=== PATIENT | female | born 1950 | race Caucasian/White ===

== ENCOUNTER 2017-07-20 22:16 | Emergency (ER) | payer OTHER ==
[~2017-07-20] VITALS: Ht 157.5 cm; Wt 107.8 kg
[~2017-07-20 22:16] MED LIST: LISI2.5T PO
[2017-07-20] MEDS ORDERED: amLODIPine 5 MG TAB PO ONE (23:15)
[2017-07-20 23:37] LABS: BASO % 0.3 % (0.0-1.0); EOS # 0.1 K/mm3 (0.0-0.50); EOS % 1.8 % (0.0-3.0); LARGE UNSTAINED CELL # 0.1 K/mm3 (0.0-0.4); LARGE UNSTAINED CELL % 1.3 % (0.0-4.0); LYMPH # 1.9 K/mm3 (1.5-4.5); LYMPH % 23.5 % (24.0-44.0); MEAN CORPUSCULAR HEMOGLOBIN 32.2 pg (27.0-33.0); MEAN CORPUSCULAR HGB CONC 33.1 g/dl (32.0-36.5); MEAN CORPUSCULAR VOLUME 97.2 fl (80.0-96.0); MONO # 0.4 K/mm3 (0.0-0.8); MONO % 4.5 % (0.0-5.0); NEUTROPHILS # 5.3 K/mm3 (1.8-7.7); NEUTROPHILS % 68.7 % (36.0-66.0); PLATELET COUNT, AUTOMATED 274 k/mm3 (150-450); RED CELL DISTRIBUTION WIDTH 13.3 % (11.5-14.5); WHITE BLOOD COUNT 7.8 K/mm3 (4.0-10.0)
[2017-07-20 23:51] VITALS: BP 179/102
[2017-07-21 00:13] LABS: ALBUMIN 3.4 GM/DL (3.2-5.2); ALBUMIN/GLOBULIN RATIO 0.79 (1.00-1.93); ALKALINE PHOSPHATASE 146 U/L (45-117); ALT/SGPT 35 U/L (12-78); ANION GAP 6 MEQ/L (8-16); AST/SGOT 17 U/L (15-37); BILIRUBIN,DIRECT 0.1 MG/DL (0.0-0.2); BILIRUBIN,TOTAL 0.4 MG/DL (0.2-1.0); BLOOD UREA NITROGEN 8 MG/DL (7-18); CALCIUM LEVEL 8.7 MG/DL (8.8-10.2); CARBON DIOXIDE LEVEL 27 MEQ/L (21-32); CHLORIDE LEVEL 103 MEQ/L (98-107); CREATININE FOR GFR 1.06 MG/DL (0.55-1.02); GLOMERULAR FILTRATION RATE 55.6 (>45); GLUCOSE, FASTING 92 MG/DL (80-110); POTASSIUM SERUM 3.9 MEQ/L (3.5-5.1); SODIUM LEVEL 136 MEQ/L (136-145); TOTAL PROTEIN 7.7 GM/DL (6.4-8.2)
[2017-07-21] MEDS ORDERED: ISOVUE-370 76% 100ML VIAL (Q9967) As Ordered ONE (00:42)
[2017-07-21 01:26] VITALS: BP 174/81
--- NOTE | 2017-07-21 01:30 | REPUSA ---
CLINICAL HISTORY: Abdominal pain. TECHNIQUE: Multiple axial, sagittal and coronal CT images were obtained through the abdomen and pelvi s after administration of oral and intravenous contrast material. COMMENTS: Umbilical anterior abdominal wall hernia containing diffusely thickened fat. The liver is moderately enlarged with decreased attenuation without mass or defect. There is no intra or extrahepatic biliary ductal dilatation. The spleen is normal. The gallbladder is within normal li mits. The pancreas is of normal contour and attenuation characteristics. There is no evidence of adre nal mass. Both kidneys demonstrate prompt and equal nephrograms. The kidneys are normal in size, shape and conf iguration. There is no evidence of renal or ureteral mass. No renal or ureteral calculi are identifie d. There is no hydroureter or hydronephrosis. No evidence for appendicitis. There is no bowel wall thickening. No evidence for small or large christ l obstruction. There is no evidence of abdominal ascites or lymphadenopathy. There is no evidence of intrinsic or extrinsic bladder mass. There is no pelvic ascites or lymphadeno alfred. Images of the lung bases show no evidence of pleural or parenchymal mass. There are no pleural effusi ons. The bony structures are free of lytic or blastic lesions. Multilevel degenerative changes are seen in volving the thoracolumbar spine. Scattered calcifications are seen involving the aorta and major bran ches compatible with atherosclerosis. Small sliding hiatal hernia. Moderate large bowel fecal stasis. IMPRESSION: Suprapubic anterior abdominal wall hernia containing diffusely thickened fat. This may represent a ch ronic finding. Associated incarceration cannot be excluded by clinical evaluation. Hepatomegaly with fatty liver infiltration. Small sliding hiatal hernia. Pacemaker lies in good position. Thank you for your kind referral of this patient.
[2017-07-21] MEDS ORDERED: NORV5TAB PO (02:29)
--- NOTE | 2017-07-23 10:18 | ED PDOC ---
Post-Departure Follow-Up dr snowden faxed formal report of ct abd/p for fu Nadeem Cunningham MD Jul 23, 2017 10:18
== END 2017-07-21 02:40 | disposition home or self-care (01) ==
LOC: M ED 22:16
DX: R10.9 Unspecified abdominal pain (principal); R11.0 Nausea; I10 Essential (primary) hypertension; Z79.899 Other long term (current) drug therapy; Z88.4 Allergy status to anesthetic agent
CPT/HCPCS: 74177; 80048; 80076; 82550; 82553; 83690; 85025; 93041; 99284; Q9967

== ENCOUNTER 2020-01-25 13:10 | Emergency (ER) | payer MEDICARE ==
[~2020-01-25 13:10] MED LIST changes: +NORV5TAB PO
[2020-01-25] MEDS ORDERED: ASPI81TA85 PO (13:33)
--- NOTE | 2020-01-25 14:12 | REP ---
CT BRAIN WITHOUT CONTRAST: HISTORY: Injury head, rule out bleed. No comparison study. 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 On bone window settings there is no evidence of skull fracture or incidental bony destructive lesion. Visualized paranasal sinuses are clear. No intraorbital abnormality is seen. On soft tissue window settings, the lateral, third, and fourth ventricles are normal in size and position. Murillo/white differentiation pattern is intact above below the tentorium. There is no evidence of intracranial hemorrhage. There is no evidence of infarct, mass, extra-axial fluid collection or midline shift. IMPRESSION: Generalized volume loss. Mild small vessel changes. No acute intracranial abnormality. No skull fracture or intracranial injury. There is mild left frontal scalp swelling. Electronically Signed by Cameron Jose MD 01/25/2020 02:54 P
[2020-01-25 14:20] LABS: BASO % 0.2 % (0.0-1.0); EOS # 0.1 10^3/uL (0.0-0.5); EOS % 0.7 % (0.0-3.0); HEMATOCRIT 44.9 % (36.0-47.0); HEMOGLOBIN 14.7 g/dl (12.0-15.5); LYMPH # 1.4 10^3/uL (1.5-5.0); LYMPH % 15.6 % (24.0-44.0); MEAN CORPUSCULAR HEMOGLOBIN 32.5 pg (27.0-33.0); MEAN CORPUSCULAR HGB CONC 32.7 g/dl (32.0-36.5); MEAN CORPUSCULAR VOLUME 99.1 fl (80.0-96.0); MONO # 0.7 10^3/uL (0.0-0.8); MONO % 8.1 % (0.0-5.0); NEUTROPHILS # 6.6 10^3/uL (1.5-8.5); NEUTROPHILS % 75.2 % (36.0-66.0); PLATELET COUNT, AUTOMATED 264 10^3/uL (150-450); RED BLOOD COUNT 4.53 10^6/uL (4.00-5.40); WHITE BLOOD COUNT 8.8 10^3/uL (4.0-10.0)
[2020-01-25 14:27] LABS: APPEARANCE, URINE HAZY (CLEAR); BACTERIA, URINE AUTO 1+ (NEGATIVE); BILIRUBIN, URINE AUTO NEGATIVE (NEGATIVE); BLOOD, URINE BLOOD 2+ (NEGATIVE); COLOR, URINE YELLOW (YELLOW); GLUCOSE, URINE (UA) AUTO NEGATIVE (NEGATIVE); KETONE, URINE AUTO NEGATIVE (NEGATIVE); LEUKOCYTE ESTERASE, URINE AUTO 2+ (NEGATIVE); MUCUS, URINE SMALL (NEGATIVE); NITRITE, URINE AUTO NEGATIVE (NEGATIVE); PROTEIN, URINE AUTO NEGATIVE (NEGATIVE); RBC, URINE AUTO 4 /HPF (0-3); SPECIFIC GRAVITY URINE AUTO 1.006 (1.002-1.035); SQUAMOUS EPITHELIAL CELL UR AU 1 /HPF (0-6); UROBILINOGEN, URINE AUTO 0.2 mg/dL (0.0-2.0); WBC, URINE AUTO 6 /HPF (0-3)
[2020-01-25] MEDS ORDERED: LISI10TA4 PO (14:42)
[2020-01-25] MEDS ORDERED: NEOSPORIN TOP OINT 15GM TOP ONE (14:45)
[2020-01-25 14:47] VITALS: BP 211/105
== END 2020-01-25 15:06 | disposition home or self-care (01) ==
LOC: M ED 13:10
DX: S01.01XA Laceration without foreign body of scalp, initial encounter (principal); W22.8XXA Striking against or struck by other objects, initial encounter; Y92.098 Other place in other non-institutional residence as the place of occurrence of the external cause; I10 Essential (primary) hypertension; Z95.0 Presence of cardiac pacemaker; F17.210 Nicotine dependence, cigarettes, uncomplicated

== ENCOUNTER 2020-07-14 16:30 | Inpatient (IN) | payer MEDICARE ==
[~2020-07-14] VITALS: Ht 157.5 cm; Wt 77.9 kg
[~2020-07-14 16:30] MED LIST changes: +ASPI81TA86 PO; +LISI10TA4 PO
[2020-07-14] MEDS ORDERED: ISOVUE-370 76% 100ML VIAL As Ordered ONE (17:27)
[2020-07-14] MEDS ORDERED: CEFEPIME 2GM VIAL (MAXIPIME) (J0692 PER 500MG) As Ordered ONE (19:28)
[2020-07-14] MEDS ORDERED: KCL 10MEQ IN STERILE WATER 100ML As Ordered ONE (19:28)
[2020-07-14] MEDS ORDERED: metroNIDAZOLE/NACL 500MG(5MG/ML) 100ML BAG (S0030) As Ordered ONE (23:02)
[2020-07-15] MEDS ORDERED: ENOXAPARIN 40MG/0.4ML SYRINGE (J1650 PER 10MG) As Ordered ONE (07:40)
[2020-07-15] MEDS ORDERED: metroNIDAZOLE/NACL 500MG(5MG/ML) 100ML BAG (S0030) As Ordered ONE ×2 (07:40→15:09)
[2020-07-15] MEDS ORDERED: ASPIRIN 81 MG ENTERIC TAB As Ordered ONE (07:40)
[2020-07-15] MEDS ORDERED: ONDANSETRON 4 MG TAB As Ordered ONE ×2 (08:55→15:16)
[2020-07-15] MEDS ORDERED: LISI10TA4 PO (09:50)
[2020-07-15] MEDS ORDERED: POTASSIUM CHLORIDE 10 MEQ SR TABLET As Ordered ONE (12:53)
[2020-07-15] MEDS ORDERED: BISACODYL 10 MG SUPP PR PRN (13:30)
[2020-07-15] MEDS ORDERED: ISOVUE-370 76% 100ML VIAL As Ordered ONE (17:04)
[2020-07-15] MEDS ORDERED: BISACODYL 5 MG TAB PO PRN (19:00)
[2020-07-15] MEDS ORDERED: RAMELTEON 8 MG TAB (ROZEREM) PO PRN (19:00)
[2020-07-15 21:50] LABS: HEMATOCRIT 37.9 % (36.0-47.0); HEMOGLOBIN 12.5 g/dl (12.0-15.5); MEAN CORPUSCULAR HEMOGLOBIN 32.2 pg (27.0-33.0); MEAN CORPUSCULAR VOLUME 97.7 fl (80.0-96.0); PLATELET COUNT, AUTOMATED 115 10^3/uL (150-450); RED BLOOD COUNT 3.88 10^6/uL (4.00-5.40)
[2020-07-15 22:00] VITALS: BP 126/64
[2020-07-15 22:02] LABS: APPEARANCE, URINE HAZY (CLEAR); BACTERIA, URINE AUTO 1+ (NEGATIVE); BILIRUBIN, URINE AUTO NEGATIVE (NEGATIVE); BLOOD, URINE BLOOD 1+ (NEGATIVE); COLOR, URINE YELLOW (YELLOW); GLUCOSE, URINE (UA) AUTO NEGATIVE (NEGATIVE); KETONE, URINE AUTO 1+ mg/dL (NEGATIVE); LEUKOCYTE ESTERASE, URINE AUTO 3+ (NEGATIVE); NITRITE, URINE AUTO NEGATIVE (NEGATIVE); PROTEIN, URINE AUTO NEGATIVE (NEGATIVE); RBC, URINE AUTO 2 /HPF (0-3); SPECIFIC GRAVITY URINE AUTO 1.033 (1.002-1.035); SQUAMOUS EPITHELIAL CELL UR AU 3 /HPF (0-6); UROBILINOGEN, URINE AUTO 0.2 mg/dL (0.0-2.0); WBC, URINE AUTO 4 /HPF (0-3)
[2020-07-15] MEDS: NS 1,000 ML IV SCH (22:19)
[2020-07-16 06:00] VITALS: BP 145/88
[2020-07-16 06:17] LABS: HEMATOCRIT 37.2 % (36.0-47.0); HEMOGLOBIN 12.6 g/dl (12.0-15.5); MEAN CORPUSCULAR HEMOGLOBIN 33.1 pg (27.0-33.0); MEAN CORPUSCULAR HGB CONC 33.9 g/dl (32.0-36.5); MEAN CORPUSCULAR VOLUME 97.6 fl (80.0-96.0); PLATELET COUNT, AUTOMATED 110 10^3/uL (150-450); RED BLOOD COUNT 3.81 10^6/uL (4.00-5.40); WHITE BLOOD COUNT 5.3 10^3/uL (4.0-10.0)
[2020-07-16 06:45] LABS: BLOOD UREA NITROGEN 12 MG/DL (7-18); CALCIUM LEVEL 7.6 MG/DL (8.8-10.2); CARBON DIOXIDE LEVEL 29 MEQ/L (21-32); CHLORIDE LEVEL 105 MEQ/L (98-107); CREATININE FOR GFR 0.93 MG/DL (0.55-1.30); GLOMERULAR FILTRATION RATE > 60.0 (>45); GLUCOSE, FASTING 72 MG/DL (70-100); MAGNESIUM LEVEL 1.9 MG/DL (1.8-2.4); POTASSIUM SERUM 3.1 MEQ/L (3.5-5.1); SODIUM LEVEL 140 MEQ/L (136-145)
[2020-07-16] MEDS: metroNIDAZOLE 500 MG in IV 1 EA IV SCH ×3 (08:03→23:20)
[2020-07-16] MEDS: ASPIRIN 81 MG ENTERIC TAB PO SCH (08:04)
[2020-07-16] MEDS: ENOXAPARIN 40MG/0.4ML SYRINGE (J1650 PER 10MG) SC SCH (08:04)
[2020-07-16] MEDS: NS 1,000 ML IV SCH ×2 (08:10→20:25)
[2020-07-16] MEDS: POTASSIUM CHLORIDE 10% LIQ 20 MEQ/15 ML UDC PO ONE ×2 (09:41→09:55)
[2020-07-16] MEDS ORDERED: POTASSIUM CHLORIDE 10 MEQ SR TABLET PO ONE (11:00)
[2020-07-16 14:00] VITALS: BP 116/69
--- NOTE | 2020-07-16 17:17 | IPNPDOC ---
Date Seen The patient was seen on 07/16/20. Progress Note SUBJECTIVE: Pt is seen at bedside this am. NAD. no acute events overnight. Abd pain has improved from yesterday. CTA of abdomen pending OBJECTIVE VITAL SIGNS: Please see below. GENERAL: NAD, resting comfortably in a chair, no accessory m use, no retractions HEENT: head atruamitc EOMI, mucosa moist NECK: no lymadenopathy, neck supple no thyromegaly CARDIOVASCULAR EXAMINATION: Ns1,2, no m/g/r RESPIRATORY EXAMINATION: no wheezing, rhonci or rales ABDOMINAL EXAMINATION: large ventral hernia, nt, nd, nbs EXTREMITIES/SKIN :no pitting edema, no bruising, cyanosis, clubbing or hematomas NEUROLOGICAL EXAMINATION: no focal neuro deficits PSYCHIATRIC EXAMINATION: appropriate mood and affect LABORATORY DATA, IMAGING STUDIES, MICROBIOLOGY: Please see below. 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 Vanegas (Vascular surgery) and Dr. Jose (Radiology)- splenic infarction and possible occlusion of splenic artery vs tortuous vessel vs positional - Gen surgery consult (Dr. Grace)- No surgical intervention at this time and pain control and IV fluids - Continue zofran for nausea - Continue PT/OT DVT ppx: Lovenox 40mg SubQ daily VS, I&O, 24H, Fishbone Vital Signs/I&O Vital Signs Date Time Temp Pulse Resp B/P (MAP) Pulse Ox O2 Delivery O2 Flow Rate FiO2 07/16/20 14:00 97.2 66 17 116/69 (85) 97 Room Air I&O- Last 24 Hours up to 6 AM 07/16/20 05:59 Intake Total 220 ml Output Total 600 ml Balance -380 ml Laboratory Data 24H LABS Laboratory Tests 2 07/16/20 05:22: Nucleated Red Blood Cells % (auto) 0.0, Anion Gap 6L, Glomerular Filtration Rate > 60.0, Calcium Level 7.6L, Magnesium Level 1.9 CBC/BMP Laboratory Tests 07/16/20 05:22 GME ATTESTATION GME ATTESTATION My faculty preceptor for this patient encounter was physically present during the encounter and was fully available. All aspects of the patient interview, examination, medical decision making process, and medical care plan development were reviewed and approved by the faculty preceptor. The faculty preceptor is aware and concurs with the plan as stated in the body of this note and will attest to such by his/her cosignature. ATTENDING NOTE Patient independently seen and examined. Agree with resident's note. Heather Treviño DO Jul 16, 2020 17:17 BROOKLYN ARAIZA MD Aug 12, 2020 11:28
[2020-07-16 22:00] VITALS: BP 120/70
[2020-07-16] MEDS ORDERED: metroNIDAZOLE 500 MG in IV 1 EA IV SCH (23:00)
[2020-07-17] VITALS (9 sets, daily range): BP systolic 76–154; BP diastolic 46–98
[2020-07-17 06:29] LABS: HEMATOCRIT 34.6 % (36.0-47.0); HEMOGLOBIN 11.9 g/dl (12.0-15.5); MEAN CORPUSCULAR HEMOGLOBIN 32.8 pg (27.0-33.0); MEAN CORPUSCULAR HGB CONC 34.4 g/dl (32.0-36.5); MEAN CORPUSCULAR VOLUME 95.3 fl (80.0-96.0); PLATELET COUNT, AUTOMATED 103 10^3/uL (150-450); RED BLOOD COUNT 3.63 10^6/uL (4.00-5.40); WHITE BLOOD COUNT 4.7 10^3/uL (4.0-10.0)
[2020-07-17 06:52] LABS: BLOOD UREA NITROGEN 7 MG/DL (7-18); CALCIUM LEVEL 7.8 MG/DL (8.8-10.2); CARBON DIOXIDE LEVEL 26 MEQ/L (21-32); CHLORIDE LEVEL 106 MEQ/L (98-107); CREATININE FOR GFR 0.73 MG/DL (0.55-1.30); GLOMERULAR FILTRATION RATE > 60.0 (>45); GLUCOSE, FASTING 82 MG/DL (70-100); MAGNESIUM LEVEL 1.5 MG/DL (1.8-2.4); SODIUM LEVEL 139 MEQ/L (136-145)
--- NOTE | 2020-07-17 07:53 | IPNPDOC ---
Date Seen The patient was seen on 07/17/20. Progress Note SUBJECTIVE: Pt was seen at bedside this am. states her pain is better controlled. Denies any CP, sob, abdominal discomfort. No acute events overnight. OBJECTIVE PHYSICAL EXAMINATION: VITAL SIGNS: Please see below. GENERAL: NAD, resting comfortably in a chair, no accessory m use, no retractions HEENT: head atruamitc EOMI, mucosa moist NECK: no lymadenopathy, neck supple no thyromegaly CARDIOVASCULAR EXAMINATION: Ns1,2, no m/g/r RESPIRATORY EXAMINATION: no wheezing, rhonci or rales ABDOMINAL EXAMINATION: large ventral hernia, nt, nd, nbs EXTREMITIES/SKIN :no pitting edema, no bruising, cyanosis, clubbing or hematomas NEUROLOGICAL EXAMINATION: no focal neuro deficits PSYCHIATRIC EXAMINATION: appropriate mood and affect LABORATORY DATA, IMAGING STUDIES, MICROBIOLOGY: Please see below. 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 Vanegas (Vascular surgery) and Dr. Jose (Radiology)- splenic infarction and possible occlusion of splenic artery vs tortuous vessel vs positional - Gen surgery consult (Dr. Grace)- No surgical intervention at this time for ve ntral hernia or splenic infarction findings and pain control and IV fluids - Continue zofran for nausea - Ordered coagulopathy workup - pending results - Continue PT/OT DVT ppx: Lovenox 40mg SubQ daily GI ppx: Protonix 40mg PO daily VS, I&O, 24H, Fishbone Vital Signs/I&O Vital Signs Date Time Temp Pulse Resp B/P (MAP) Pulse Ox O2 Delivery O2 Flow Rate FiO2 07/17/20 06:00 98.3 70 18 154/96 (115) 96 Room Air I&O- Last 24 Hours up to 6 AM 07/17/20 06:00 Intake Total 1970 ml Output Total 2550 ml Balance -580 ml Laboratory Data 24H LABS Laboratory Tests 2 07/17/20 05:32: Nucleated Red Blood Cells % (auto) 0.0, Anion Gap 7L, Glomerular Filtration Rate > 60.0, Calcium Level 7.8L, Magnesium Level 1.5L 07/17/20 05:35: CBC/BMP Laboratory Tests 07/17/20 05:32 GME ATTESTATION GME ATTESTATION My faculty preceptor for this patient encounter was physically present during the encounter and was fully available. All aspects of the patient interview, examination, medical decision making process, and medical care plan development were reviewed and approved by the faculty preceptor. The faculty preceptor is aware and concurs with the plan as stated in the body of this note and will attest to such by his/her cosignature. ATTENDING NOTE Patient independently seen and examined. Agree with resident's note. Heather Treviño DO Jul 17, 2020 07:53 BROOKLYN ARAIZA MD Aug 12, 2020 11:29
[2020-07-17] MEDS: ENOXAPARIN 40MG/0.4ML SYRINGE (J1650 PER 10MG) SC SCH (08:40)
[2020-07-17] MEDS: ASPIRIN 81 MG ENTERIC TAB PO SCH (08:40)
[2020-07-17] MEDS: metroNIDAZOLE 500 MG in IV 1 EA IV SCH ×2 (08:41→16:46)
[2020-07-17] MEDS: NS 1,000 ML IV SCH ×3 (08:41→22:04)
[2020-07-17] MEDS ORDERED: POTASSIUM CHLORIDE 10 MEQ SR TABLET PO ONE (09:00)
[2020-07-17] MEDS: KCL 10MEQ/100ML SWI (KRUN) 10 MEQ in IV 1 EA IV SCH ×4 (10:13→18:08)
[2020-07-17] MEDS: MAG SULF 1GM/100ML (MAG RUN) 1 GM in IV 1 EA IV SCH ×4 (12:32→14:41)
[2020-07-17] MEDS: ONDANSETRON 4 MG TAB PO PRN (12:32)
[2020-07-17] MEDS: PANTOPRAZOLE 40MG TAB (PROTONIX) PO SCH (12:33)
[2020-07-17] MEDS ORDERED: ISOVUE-370 76% 100ML VIAL As Ordered ONE (15:36)
[2020-07-17 15:37] LABS: ABG BASE EXCESS -6.4 (-2.0-2.0); ABG HCO3 16.7 MEQ/L (22.0-26.0); ABG O2 SATURATION 98.9 % (95.0-99.0); ABG PARTIAL PRESSURE CO2 26.8 mmHg (35.0-45.0); ABG PARTIAL PRESSURE O2 135.9 mmHg (75.0-100.0); ABG STANDARD HCO3 19.3 MEQ/L (22.0-26.0); ABG TOTAL CO2 17.5 MEQ/L (23.0-31.0); ABG pH (ARTERIAL) 7.413 UNITS (7.350-7.450)
[2020-07-17 16:20] LABS: HEMOGLOBIN 11.9 g/dl (12.0-15.5); MEAN CORPUSCULAR HEMOGLOBIN 32.8 pg (27.0-33.0); MEAN CORPUSCULAR VOLUME 96.4 fl (80.0-96.0); PLATELET COUNT, AUTOMATED 110 10^3/uL (150-450); RED BLOOD COUNT 3.63 10^6/uL (4.00-5.40); WHITE BLOOD COUNT 4.6 10^3/uL (4.0-10.0)
--- NOTE | 2020-07-17 16:38 | REPVR ---
PROCEDURE INFORMATION: Exam: CT Head Without Contrast Exam date and time: 07/17/2020 4:19 PM Age: 69 years old Clinical indication: Altered mental status/memory loss; Additional info: AMS TECHNIQUE: Imaging protocol: Computed tomography of the head without contrast. Radiation optimization: All CT scans at this facility use at least one of these dose optimization techniques: automated exposure control; mA and/or kV adjustment per patient size (includes targeted exams where dose is matched to clinical indication); or iterative reconstruction. COMPARISON: CT Head without contrast 01/25/2020 1:42 PM FINDINGS: Brain: There is no acute intracranial hemorrhage, cerebral edema, or midline shift. Chronic microvascular ischemic changes are seen in the periventricular white matter. Age-related cerebral and cerebellar volume loss is present. Ventricles: Mild ex vacuo dilation of the lateral and third ventricles is noted. Bones/joints: No acute fracture. Sinuses: There is no acute sinusitis. Mastoid air cells: The mastoid air cells are clear. Orbits: The included orbital structures are unremarkable. Soft tissues: Unremarkable. IMPRESSION: 1. No acute intracranial abnormality. 2. Atrophy and chronic deep white matter ischemic changes. Electronically signed by: Glen Santos On 07/17/2020 16:38:57 PM
--- NOTE | 2020-07-17 16:41 | REPVR ---
PROCEDURE INFORMATION: Exam: CT Abdomen And Pelvis With Contrast Exam date and time: 07/17/2020 4:19 PM Age: 69 years old Clinical indication: Condition or disease; Hernia and other: Splenic infarct; Complications not specified; Hernia not specified TECHNIQUE: Imaging protocol: Computed tomography of the abdomen and pelvis with intravenous contrast. Radiation optimization: All CT scans at this facility use at least one of these dose optimization techniques: automated exposure control; mA and/or kV adjustment per patient size (includes targeted exams where dose is matched to clinical indication); or iterative reconstruction. Contrast material: ISOVUE 370; Contrast volume: 100 ml; Contrast route: INTRAVENOUS (IV); COMPARISON: CT ABD/PEL W/IV CONTRAST ONLY 07/21/2017 12:44 AM FINDINGS: Lungs: Mild dependent atelectasis at the lung bases.There are no focal liver lesions present. Mediastinal space: There is a small hiatal hernia. Liver: There is a diffuse decrease in hepatic parenchymal density, consistent with fatty infiltration. Gallbladder and bile ducts: The gallbladder is distended but otherwise unremarkable. No pericholecystic fluid. No gallbladder wall thickening is seen. Pancreas: The pancreatic parenchyma is partially fatty replaced. Spleen: The spleen is normal. Adrenals: The adrenal glands are normal. Kidneys and ureters: The kidneys are normal. There is no evidence of hydronephrosis. Stomach and bowel: The stomach is normal. No bowel obstruction is seen. There is a periumbilical hernia containing mesenteric fat and bowel loops, including the distal small bowel, cecum, appendix, ascending colon, and proximal transverse colon. No evidence of strangulation. Appendix: No evidence of appendicitis. Intraperitoneal space: No free air. There is no free intraperitoneal air visualized. There is no evidence of free intraperitoneal or pelvic fluid. Vasculature: There is no evidence of an abdominal aortic aneurysm. Atherosclerotic vascular disease is noted. Lymph nodes: No lymphadenopathy. Bladder: The bladder is normal. Reproductive: The uterus is normal. Bones/joints: Prominent central superior endplate depression at T11 which is age indeterminate.. IMPRESSION: 1. Periumbilical hernia containing multiple bowel loops, including the distal small bowel, ascending and proximal transverse colon, with no evidence strangulation. 2. No bowel obstruction, free air or focal inflammatory process identified. 3. Small hiatal hernia. Electronically signed by: Teresita Garcia On 07/17/2020 16:41:57 PM
--- NOTE | 2020-07-17 16:55 | REPVR ---
PROCEDURE INFORMATION: Exam: XR Chest, 1 View Exam date and time: 07/17/2020 3:08 PM Age: 69 years old Clinical indication: Shortness of breath TECHNIQUE: Imaging protocol: XR of the chest Views: 1 view. COMPARISON: CR Chest, 2 view PA, Lat 12/22/2013 8:10 AM FINDINGS: Tubes, catheters and devices: A pacemaker device is noted. Leads appear intact. Lungs: No infiltrate is seen. Pleural space: No pleural effusion. No pneumothorax. Heart/Mediastinum: Heart size at upper limits of normal. Bones/joints: Unremarkable. IMPRESSION: No infiltrate or pleural effusion is seen. Electronically signed by: Teresita Garcia On 07/17/2020 16:55:34 PM
[2020-07-17 17:13] LABS: ALBUMIN 2.6 GM/DL (3.2-5.2); ALT/SGPT 20 U/L (12-78); BILIRUBIN,DIRECT 0.4 MG/DL (0.0-0.2); BILIRUBIN,TOTAL 0.8 MG/DL (0.2-1.0); BLOOD UREA NITROGEN 6 MG/DL (7-18); CALCIUM LEVEL 7.8 MG/DL (8.8-10.2); CARBON DIOXIDE LEVEL 24 MEQ/L (21-32); CHLORIDE LEVEL 103 MEQ/L (98-107); CK-MB VALUE MASS 1.7 NG/ML (<3.6); CPK CREATINE PHOSPHOKINASE 72 U/L (26-192); CREATININE FOR GFR 0.86 MG/DL (0.55-1.30); GLOMERULAR FILTRATION RATE > 60.0 (>45); GLUCOSE, FASTING 173 MG/DL (70-100); MB/CK RELATIVE INDEX 2.36 (< OR =4); POTASSIUM SERUM 3.3 MEQ/L (3.5-5.1); SODIUM LEVEL 135 MEQ/L (136-145); TOTAL PROTEIN 5.3 GM/DL (6.4-8.2); TROPONIN I 0.03 NG/ML (< 0.10)
[2020-07-17] MEDS ORDERED: KCL 10MEQ IN STERILE WATER 100ML As Ordered ONE (18:01)
[2020-07-17] MEDS: MEROPENEM INJ 1 GM in IV 1 EA IV SCH (18:07)
[2020-07-17 19:31] LABS: MAGNESIUM LEVEL 4.3 MG/DL (1.8-2.4)
[2020-07-18] MEDS: metroNIDAZOLE 500 MG in IV 1 EA IV SCH ×4 (00:30→23:14)
[2020-07-18] MEDS: MEROPENEM INJ 1 GM in IV 1 EA IV SCH (01:48)
[2020-07-18 06:00] VITALS: BP 140/82
[2020-07-18] MEDS: NS 1,000 ML IV SCH ×2 (06:01→14:38)
[2020-07-18 06:21] LABS: HEMATOCRIT 36.7 % (36.0-47.0); HEMOGLOBIN 12.7 g/dl (12.0-15.5); MEAN CORPUSCULAR HEMOGLOBIN 32.8 pg (27.0-33.0); MEAN CORPUSCULAR HGB CONC 34.6 g/dl (32.0-36.5); MEAN CORPUSCULAR VOLUME 94.8 fl (80.0-96.0); PLATELET COUNT, AUTOMATED 111 10^3/uL (150-450); RED BLOOD COUNT 3.87 10^6/uL (4.00-5.40); WHITE BLOOD COUNT 5.4 10^3/uL (4.0-10.0)
[2020-07-18 06:49] LABS: BLOOD UREA NITROGEN 4 MG/DL (7-18); CREATININE FOR GFR 0.86 MG/DL (0.55-1.30); GLOMERULAR FILTRATION RATE > 60.0 (>45); GLUCOSE, FASTING 81 MG/DL (70-100); SODIUM LEVEL 138 MEQ/L (136-145)
[2020-07-18 06:50] LABS: CALCIUM LEVEL 7.7 MG/DL (8.8-10.2); CARBON DIOXIDE LEVEL 25 MEQ/L (21-32); CHLORIDE LEVEL 107 MEQ/L (98-107); MAGNESIUM LEVEL 2.4 MG/DL (1.8-2.4); POTASSIUM SERUM 3.1 MEQ/L (3.5-5.1)
--- NOTE | 2020-07-18 08:29 | IPNPDOC ---
Date Seen The patient was seen on 07/18/20. Progress Note SUBJECTIVE: Pt was seen at bedside this am. NAD and states her abdominal pain continues to improve. Denies any CP, sob, abdominal discomfort. No acute events overnight. Of note, yesterday afternoon, pt was evaluated after nurse called stating patient is slumped and very lethargic. Pt's fluids increased and CT head and CT abd ordered and all WNL. Patient was found slumped in chair and once mov ed to her bed, patient was alert and oriented and conversing. OBJECTIVE PHYSICAL EXAMINATION: VITAL SIGNS: Please see below. GENERAL: NAD, resting comfortably in a chair, no accessory m use, no retractions HEENT: head atruamitc EOMI, mucosa moist NECK: no lymadenopathy, neck supple no thyromegaly CARDIOVASCULAR EXAMINATION: Ns1,2, no m/g/r RESPIRATORY EXAMINATION: no wheezing, rhonci or rales ABDOMINAL EXAMINATION: large ventral hernia, nt, nd, nbs EXTREMITIES/SKIN :no pitting edema, no bruising, cyanosis, clubbing or hematomas NEUROLOGICAL EXAMINATION: no focal neuro deficits PSYCHIATRIC EXAMINATION: appropriate mood and affect LABORATORY DATA, IMAGING STUDIES, MICROBIOLOGY: Please see below. 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 Vanegas (Vascular surgery) and Dr. Jose (Radiology)- splenic infarction and possible occlusion of splenic artery vs tortuous vessel vs positional - no surgery/stenting recommended. - Gen surgery consult (Dr. Grace)- No surgical intervention at this time for ventral hernia or splenic infarction findings and pain control and IV fluids - Continue zofran for nausea - Continue NS 0.9% @80cc/h - Ordered coagulopathy workup - pending results - Continue PT/OT DVT ppx: Lovenox 40mg SubQ daily GI ppx: Protonix 40mg PO daily VS, I&O, 24H, Fishbone Vital Signs/I&O Vital Signs Date Time Temp Pulse Resp B/P (MAP) Pulse Ox O2 Delivery O2 Flow Rate FiO2 07/18/20 06:00 98.3 79 18 140/82 (101) 96 Room Air 07/17/20 15:21 1.0 I&O- Last 24 Hours up to 6 AM 07/18/20 06:00 Intake Total 4260 ml Output Total 1950 ml Balance 2310 ml Laboratory Data 24H LABS Laboratory Tests 2 07/17/20 15:20: Blood Gas Bicarbonate Standard 19.3L, Arterial Blood pH 7.413, Arterial Blood Partial Pressure CO2 26.8L, Arterial Blood Partial Pressure O2 135.9H, Arterial Blood Total CO2 17.5L, Arterial Blood HCO3 16.7L, Arterial Blood Base Excess - 6.4L, Arterial Blood Oxygen Saturation 98.9 07/17/20 15:30: Nucleated Red Blood Cells % (auto) 0.0, Anion Gap 8, Glomerular Filtration Rate > 60.0, Calcium Level 7.8L, Magnesium Level 4.3H, Total Bilirubin 0.8, Direct Bilirubin 0.4H, Aspartate Amino Transf (AST/SGOT) 20, Alanine Aminotransferase (ALT/SGPT) 20, Alkaline Phosphatase 78, Total Creatine Kinase 72, Creatine Kinase MB 1.7, Creatine Kinase MB Relative Index 2.36, Troponin I 0.03, Total Protein 5.3L, Albumin 2.6L, Albumin/Globulin Ratio 1.0L 07/17/20 15:32: Lactic Acid Level 1.9 07/18/20 05:40: Nucleated Red Blood Cells % (auto) 0.0, Anion Gap 6L, Glomerular Filtration Rate > 60.0, Calcium Level 7.7L, Magnesium Level 2.4 CBC/BMP Laboratory Tests 07/17/20 15:30 07/18/20 05:40 GME ATTESTATION GME ATTESTATION My faculty preceptor for this patient encounter was physically present during the encounter and was fully available. All aspects of the patient interview, examination, medical decision making process, and medical care plan development were reviewed and approved by the faculty preceptor. The faculty preceptor is aware and concurs with the plan as stated in the body of this note and will attest to such by his/her cosignature. ATTENDING NOTE Patient independently seen and examined. Agree with resident's note. Heather Treviño DO Jul 18, 2020 08:29 BROOKLYN ARAIZA MD Aug 12, 2020 11:30
[2020-07-18] MEDS: PANTOPRAZOLE 40MG TAB (PROTONIX) PO SCH (08:33)
[2020-07-18] MEDS: ASPIRIN 81 MG ENTERIC TAB PO SCH (08:33)
[2020-07-18] MEDS: ENOXAPARIN 40MG/0.4ML SYRINGE (J1650 PER 10MG) SC SCH (08:34)
[2020-07-18] MEDS ORDERED: POTASSIUM CHLORIDE 10 MEQ SR TABLET PO ONE ×2 (08:45→15:00)
[2020-07-18 14:00] VITALS: BP 129/79
[2020-07-18] MEDS: ONDANSETRON 4 MG TAB PO PRN (20:08)
[2020-07-18 20:10] VITALS: BP 174/102
[2020-07-18 21:00] VITALS: BP 176/102
[2020-07-18 23:30] VITALS: BP 176/100
[2020-07-18] MEDS ORDERED: lisinopriL 10 MG TAB PO SCH (23:45)
[2020-07-19] VITALS (9 sets, daily range): BP systolic 127–186; BP diastolic 72–105
[2020-07-19 01:45] LABS: HEMATOCRIT 34.8 % (36.0-47.0); HEMOGLOBIN 12.1 g/dl (12.0-15.5); MEAN CORPUSCULAR HGB CONC 34.8 g/dl (32.0-36.5); MEAN CORPUSCULAR VOLUME 94.8 fl (80.0-96.0); PLATELET COUNT, AUTOMATED 107 10^3/uL (150-450); RED BLOOD COUNT 3.67 10^6/uL (4.00-5.40); WHITE BLOOD COUNT 4.7 10^3/uL (4.0-10.0)
[2020-07-19 02:06] LABS: BLOOD UREA NITROGEN 4 MG/DL (7-18); CALCIUM LEVEL 7.7 MG/DL (8.8-10.2); CARBON DIOXIDE LEVEL 25 MEQ/L (21-32); CHLORIDE LEVEL 109 MEQ/L (98-107); CREATININE FOR GFR 0.83 MG/DL (0.55-1.30); GLOMERULAR FILTRATION RATE > 60.0 (>45); GLUCOSE, FASTING 90 MG/DL (70-100); MAGNESIUM LEVEL 1.8 MG/DL (1.8-2.4); POTASSIUM SERUM 3.4 MEQ/L (3.5-5.1); SODIUM LEVEL 140 MEQ/L (136-145)
[2020-07-19] MEDS ORDERED: LABETALOL 100MG/20ML VIAL IV PRN (02:15)
[2020-07-19] MEDS ORDERED: POTASSIUM CHLORIDE 10 MEQ SR TABLET PO ONE ×2 (02:15→11:00)
[2020-07-19] MEDS ORDERED: MAG SULF 1GM/100ML (MAG RUN) 1 GM in IV 1 EA IV ONE (02:15)
[2020-07-19] MEDS ORDERED: lisinopriL 10 MG TAB PO ONE (02:15)
[2020-07-19] MEDS ORDERED: MAGNESIUM SULFATE 1GM/100ML D5W BAG (10MG/ML) As Ordered ONE (02:26)
[2020-07-19 06:59] LABS: HEMATOCRIT 34.1 % (36.0-47.0); HEMOGLOBIN 11.9 g/dl (12.0-15.5); MEAN CORPUSCULAR HEMOGLOBIN 33.1 pg (27.0-33.0); MEAN CORPUSCULAR HGB CONC 34.9 g/dl (32.0-36.5); RED BLOOD COUNT 3.59 10^6/uL (4.00-5.40); WHITE BLOOD COUNT 4.4 10^3/uL (4.0-10.0)
[2020-07-19 07:24] LABS: PLATELET COUNT, AUTOMATED 97 10^3/uL (150-450)
[2020-07-19 07:47] LABS: BLOOD UREA NITROGEN 4 MG/DL (7-18); CARBON DIOXIDE LEVEL 26 MEQ/L (21-32); CHLORIDE LEVEL 107 MEQ/L (98-107); GLOMERULAR FILTRATION RATE > 60.0 (>45); GLUCOSE, FASTING 88 MG/DL (70-100); POTASSIUM SERUM 3.7 MEQ/L (3.5-5.1); SODIUM LEVEL 139 MEQ/L (136-145)
--- NOTE | 2020-07-19 08:12 | IPNPDOC ---
Date Seen The patient was seen on 07/19/20. Progress Note SUBJECTIVE: Pt was seen at bedside this am. NAD and states her abdominal pain continues to improve. Denies any CP, sob, abdominal discomfort. No acute events overnight. Overnight, patient had high bp 180/102 and was given labetotol 10mg IV q3h PRN and lisinopril 10mg PO x1 dose and pt is now on scheduled lisinopril 20mg PO daily. Bp this am is 161/87. OBJECTIVE PHYSICAL EXAMINATION: VITAL SIGNS: Please see below. GENERAL: NAD, resting comfortably in a chair, no accessory m use, no retractions HEENT: head atraumatic, EOMI, mucosa moist NECK: no lymadenopathy, neck supple no thyromegaly CARDIOVASCULAR EXAMINATION: Ns1,2, no m/g/r RESPIRATORY EXAMINATION: no wheezing, rhonci or rales ABDOMINAL EXAMINATION: large ventral hernia, nt, nd, nbs EXTREMITIES/SKIN :no pitting edema, no bruising, cyanosis, clubbing or hematomas NEUROLOGICAL EXAMINATION: no focal neuro deficits PSYCHIATRIC EXAMINATION: appropriate mood and affect LABORATORY DATA, IMAGING STUDIES, MICROBIOLOGY: Please see below. 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 Vanegas (Vascular surgery) and Dr. Jose (Radiology)- splenic infarction and possible occlusion of splenic artery vs tor tuous vessel vs positional - no surgery/stenting recommended. - Gen surgery consult (Dr. Grace)- No surgical intervention at this time for ventral hernia or splenic infarction findings and pain control and IV fluids - Continue zofran for nausea - Ordered coagulopathy workup - pending results - Continue PT/OT DVT ppx: Lovenox 40mg SubQ daily GI ppx: Protonix 40mg PO daily Dispo: Bp control. Family arranged meeting with Dr. Araiza for noon tuesday. VS, I&O, 24H, Fishbone Vital Signs/I&O Vital Signs Date Time Temp Pulse Resp B/P (MAP) Pulse Ox O2 Delivery O2 Flow Rate FiO2 07/19/20 04:00 97.1 73 16 161/87 (111) 96 Room Air 07/17/20 15:21 1.0 I&O- Last 24 Hours up to 6 AM 07/19/20 06:00 Intake Total 1710 ml Output Total 380 ml Balance 1330 ml Laboratory Data 24H LABS Laboratory Tests 2 07/19/20 01:30: Nucleated Red Blood Cells % (auto) 0.0, Anion Gap 6L, Glomerular Filtration Rate > 60.0, Calcium Level 7.7L, Magnesium Level 1.8 07/19/20 06:30: Nucleated Red Blood Cells % (auto) 0.0, Anion Gap 6L, Glomerular Filtration Rate > 60.0, Calcium Level 8.0L, Immature Platelet Fraction 4.7 CBC/BMP Laboratory Tests 07/18/20 17:39 07/19/20 01:30 07/19/20 06:30 GME ATTESTATION GME ATTESTATION My faculty preceptor for this patient encounter was physically present during the encounter and was fully available. All aspects of the patient interview, exa mination, medical decision making process, and medical care plan development were reviewed and approved by the faculty preceptor. The faculty preceptor is aware and concurs with the plan as stated in the body of this note and will attest to such by his/her cosignature. ATTENDING NOTE Patient independently seen and examined. Agree with resident's note. Heather Treviño DO Jul 19, 2020 08:12 BROOKLYN ARAIZA MD Aug 12, 2020 11:31
[2020-07-19] MEDS: ENOXAPARIN 40MG/0.4ML SYRINGE (J1650 PER 10MG) SC SCH (09:00)
[2020-07-19] MEDS: metroNIDAZOLE 500 MG in IV 1 EA IV SCH ×3 (09:36→23:39)
[2020-07-19] MEDS: ASPIRIN 81 MG ENTERIC TAB PO SCH (09:36)
[2020-07-19] MEDS: PANTOPRAZOLE 40MG TAB (PROTONIX) PO SCH (09:36)
[2020-07-19 10:42] LABS: MAGNESIUM LEVEL 2.2 MG/DL (1.8-2.4)
[2020-07-19] MEDS ORDERED: POLYVINYL ALCOHOL OPHTH SOLN 15 ML(LIQUITEARS) OU PRN (14:45)
[2020-07-19] MEDS: amLODIPine 10 MG TAB PO SCH (18:06)
[2020-07-19] MEDS: ONDANSETRON 4 MG TAB PO PRN (20:43)
[2020-07-19] MEDS: ACETAMINOPHEN 500 MG TAB PO PRN (20:44)
[2020-07-19 23:08] LABS: CALCIUM LEVEL 7.6 MG/DL (8.8-10.2); GLOMERULAR FILTRATION RATE 58.9 (>45); MAGNESIUM LEVEL 2.2 MG/DL (1.8-2.4)
[2020-07-20] VITALS (8 sets, daily range): BP systolic 70–146; BP diastolic 40–94
[2020-07-20 05:17] LABS: HEMATOCRIT 35.3 % (36.0-47.0); HEMOGLOBIN 12.3 g/dl (12.0-15.5); MEAN CORPUSCULAR HEMOGLOBIN 33.2 pg (27.0-33.0); MEAN CORPUSCULAR HGB CONC 34.8 g/dl (32.0-36.5); MEAN CORPUSCULAR VOLUME 95.4 fl (80.0-96.0); PLATELET COUNT, AUTOMATED 101 10^3/uL (150-450); WHITE BLOOD COUNT 4.1 10^3/uL (4.0-10.0)
[2020-07-20 05:56] LABS: BLOOD UREA NITROGEN 7 MG/DL (7-18); CARBON DIOXIDE LEVEL 26 MEQ/L (21-32); CHLORIDE LEVEL 103 MEQ/L (98-107); GLOMERULAR FILTRATION RATE > 60.0 (>45); GLUCOSE, FASTING 109 MG/DL (70-100); POTASSIUM SERUM 3.4 MEQ/L (3.5-5.1); SODIUM LEVEL 136 MEQ/L (136-145)
[2020-07-20] MEDS: lisinopriL 20 MG TAB PO SCH (08:05)
[2020-07-20] MEDS: amLODIPine 10 MG TAB PO SCH (08:06)
[2020-07-20] MEDS: ENOXAPARIN 40MG/0.4ML SYRINGE (J1650 PER 10MG) SC SCH (08:08)
[2020-07-20 08:09] LABS: MAGNESIUM LEVEL 1.9 MG/DL (1.8-2.4)
[2020-07-20] MEDS: metroNIDAZOLE 500 MG in IV 1 EA IV SCH ×3 (08:09→23:46)
[2020-07-20] MEDS: PANTOPRAZOLE 40MG TAB (PROTONIX) PO SCH (08:19)
[2020-07-20] MEDS: ASPIRIN 81 MG ENTERIC TAB PO SCH (08:19)
[2020-07-20] MEDS ORDERED: POTASSIUM CHLORIDE 10 MEQ SR TABLET PO ONE (09:00)
--- NOTE | 2020-07-20 09:42 | IPNPDOC ---
Text Note Date of Service The patient was seen on 07/20/20. NOTE SUBJECTIVE: Pt was seen at bedside this am. Patient lethargic this morning, blood pressure on the low side, but vitals stable. Received Remeron last night as a sleep aid. Sleepy but easily arousable. OBJECTIVE PHYSICAL EXAMINATION: VITAL SIGNS: Please see below. GENERAL: NAD, lying in bed comfortably, lethargic HEENT: NC/AT Heart: +S1S2, RRR Chest: CTA B/L, PPM in left subclav pocket ABDOMINAL EXAMINATION: large ventral hernia, nt, nd, +BS Ext: no edema LABORATORY DATA, IMAGING STUDIES, MICROBIOLOGY: Please see below. 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 #abdominal pain - essentially resolved - splenic infarct noted - discussed at length with vascular - no further intervention - pain control - surgery consulted - assistance appreciated - o/p f/u for ventral hernia - no further intervention - Continue ASA 81mg PO daily - CTA of abd reviewed with Dr. Vanegas (Vascular surgery) and Dr. Jose (R adiology)- splenic infarction and possible occlusion of splenic artery vs tortuous vessel vs positional - no surgery/stenting recommended. - Ordered coagulopathy workup - pending results # HTN - added hold parameters to ACEI/norvasc # Hypokalemia - continue to follow and replete as needed #history SSS - PPM in place #Hx AAA #lethargy - likley secondary to sleep aid - discontinued - continue to monitor DVT ppx: Lovenox 40mg SubQ daily GI ppx: Protonix 40mg PO daily Attempted to discuss with family (son Yogi) [phone], called 07/19, 07/20 - voicemail full. Tried secondary number, but was not available. Eventually did make contact with Yogi, my personal cell phone was provided to facilitate communication. All questions were answered, and family voiced no further concerns. VS,Fishbone, I+O VS, Fishbone, I+O Laboratory Tests 07/20/20 04:39 Vital Signs Date Time Temp Pulse Resp B/P (MAP) Pulse Ox O2 Delivery O2 Flow Rate FiO2 07/20/20 09:21 121/78 (92) 07/20/20 08:00 97.6 72 20 100 Room Air 07/17/20 15:21 1.0 I&O- Last 24 Hours up to 6 AM 07/20/20 06:00 Intake Total 500 ml Output Total 525 ml Balance -25 ml BROOKLYN ARAIZA MD Jul 20, 2020 09:42
[2020-07-20] MEDS ORDERED: SLF 3 ML SYR IV PRN (10:30)
[2020-07-20] MEDS: SLF 3 ML SYR IV SCH ×2 (11:50→23:46)
[2020-07-20] MEDS: ONDANSETRON 4 MG TAB PO PRN (16:13)
[2020-07-21] VITALS (8 sets, daily range): BP systolic 140–182; BP diastolic 91–116
[2020-07-21] MEDS: SLF 3 ML SYR IV SCH ×3 (06:02→22:00)
[2020-07-21] MEDS: ONDANSETRON 4 MG TAB PO PRN ×2 (06:07→20:58)
[2020-07-21 06:19] LABS: HEMATOCRIT 39.7 % (36.0-47.0); HEMOGLOBIN 13.5 g/dl (12.0-15.5); MEAN CORPUSCULAR HEMOGLOBIN 32.9 pg (27.0-33.0); MEAN CORPUSCULAR VOLUME 96.8 fl (80.0-96.0); PLATELET COUNT, AUTOMATED 112 10^3/uL (150-450); WHITE BLOOD COUNT 4.5 10^3/uL (4.0-10.0)
[2020-07-21 06:40] LABS: CALCIUM LEVEL 8.9 MG/DL (8.8-10.2); CREATININE FOR GFR 1.04 MG/DL (0.55-1.30); GLOMERULAR FILTRATION RATE 56.3 (>45); POTASSIUM SERUM 4.4 MEQ/L (3.5-5.1)
[2020-07-21] MEDS: lisinopriL 20 MG TAB PO SCH (08:08)
[2020-07-21] MEDS: amLODIPine 10 MG TAB PO SCH (08:08)
[2020-07-21] MEDS: ASPIRIN 81 MG ENTERIC TAB PO SCH (08:08)
[2020-07-21] MEDS: PANTOPRAZOLE 40MG TAB (PROTONIX) PO SCH (08:08)
[2020-07-21] MEDS: metroNIDAZOLE 500 MG in IV 1 EA IV SCH ×2 (08:09→16:19)
[2020-07-21] MEDS: ENOXAPARIN 40MG/0.4ML SYRINGE (J1650 PER 10MG) SC SCH (08:09)
--- NOTE | 2020-07-21 11:14 | IPNPDOC ---
Text Note Date of Service The patient was seen on 07/21/20. NOTE SUBJECTIVE: Patient seen at bedside, complaining of nausea and vomiting. No hypotension overnight. Patient otherwise denies, fevers, chills, chest pain, SOB. OBJECTIVE PHYSICAL EXAMINATION: VITAL SIGNS: Please see below. General: NAD, Sitting upright in bed. HEENT: NC/AT, moist mucous membranes, no pharyngeal erythema. CV: RRR, sinus rhythm on monitor, +S1 and S2. Resp: CTAB with full breath sounds, no wheezes, crackles, or rhonchi. Chest: Pacemaker in left subclavian. Abdomen: large ventral hernia, Bowel sounds present, NT, ND. Ext: no edema LABORATORY DATA, IMAGING STUDIES, MICROBIOLOGY: Please see below. 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 #abdominal pain - Still some abdominal pain, but significantly less than before - Dr. Whitfield with GI will do EGD tomorrow - splenic infarct noted - discussed at length with vascular - no further intervention - pain control - surgery consulted - no intervention needed, can follow up outpatient if she would like correction of ventral hernia. - Continue ASA 81mg PO daily - CTA of abd reviewed with Dr. Bianchi (Vascular surgery) and Dr. Jose (Radiology)- splenic infarction and possible occlusion of splenic artery vs tortuous vessel vs positional - no surgery/stenting recommended. - Ordered coagulopathy workup - pending results # HTN - Continue ACEI -COntinue Norvasc -One time chlorthalidone dose added as patient became hypertensive as the day went on. # Hypokalemia - Resolved. Will replete as needed #history SSS - PPM in place #Hx AAA #lethargy -Resolved. DVT ppx: Lovenox 40mg SubQ daily GI ppx: Protonix 40mg PO daily VS,Fishbone, I+O VS, Fishbone, I+O Laboratory Tests 07/21/20 05:32 07/21/20 05:38 Vital Signs Date Time Temp Pulse Resp B/P (MAP) Pulse Ox O2 Delivery O2 Flow Rate FiO2 07/21/20 10:00 140/98 (112) 07/21/20 08:08 73 07/21/20 08:00 98.0 20 95 Room Air 07/17/20 15:21 1.0 I&O- Last 24 Hours up to 6 AM 07/21/20 06:00 Intake Total 1020 ml Output Total 100 ml Balance 920 ml GME ATTESTATION GME ATTESTATION My faculty preceptor for this patient encounter was physically present during the encounter and was fully available. All aspects of the patient interview, examination, medical decision making process, and medical care plan development were reviewed and approved by the faculty preceptor. The faculty preceptor is aware and concurs with the plan as stated in the body of this note and will attest to such by his/her cosignature. ATTENDING NOTE Patient independently seen and examined. Agree with resident's note. RO BECKER DO Jul 21, 2020 11:14 BROOKLYN ARAIZA MD Aug 12, 2020 11:33
[2020-07-21] MEDS ORDERED: CHLORTHALIDONE 25 MG TAB PO ONE (19:00)
[2020-07-21] MEDS: NS 1,000 ML IV SCH (20:58)
[2020-07-22] VITALS (9 sets, daily range): BP systolic 108–168; BP diastolic 60–102
[2020-07-22] MEDS: metroNIDAZOLE 500 MG in IV 1 EA IV SCH ×4 (00:08→23:07)
[2020-07-22] MEDS: ACETAMINOPHEN 500 MG TAB PO PRN (00:17)
[2020-07-22] MEDS: SLF 3 ML SYR IV SCH ×3 (05:19→19:55)
[2020-07-22 06:36] LABS: HEMATOCRIT 38.9 % (36.0-47.0); HEMOGLOBIN 13.2 g/dl (12.0-15.5); MEAN CORPUSCULAR HEMOGLOBIN 32.6 pg (27.0-33.0); MEAN CORPUSCULAR HGB CONC 33.9 g/dl (32.0-36.5); PLATELET COUNT, AUTOMATED 101 10^3/uL (150-450); RED BLOOD COUNT 4.05 10^6/uL (4.00-5.40); WHITE BLOOD COUNT 4.8 10^3/uL (4.0-10.0)
[2020-07-22 07:07] LABS: BLOOD UREA NITROGEN 17 MG/DL (7-18); CALCIUM LEVEL 8.5 MG/DL (8.8-10.2); CARBON DIOXIDE LEVEL 28 MEQ/L (21-32); CHLORIDE LEVEL 100 MEQ/L (98-107); CREATININE FOR GFR 0.96 MG/DL (0.55-1.30); GLOMERULAR FILTRATION RATE > 60.0 (>45); GLUCOSE, FASTING 97 MG/DL (70-100); POTASSIUM SERUM 3.8 MEQ/L (3.5-5.1); SODIUM LEVEL 137 MEQ/L (136-145)
[2020-07-22] MEDS: NS 1,000 ML IV SCH ×3 (07:43→23:08)
[2020-07-22] MEDS: PANTOPRAZOLE 40MG TAB (PROTONIX) PO SCH (08:44)
[2020-07-22] MEDS: ASPIRIN 81 MG ENTERIC TAB PO SCH (08:44)
[2020-07-22] MEDS: ENOXAPARIN 40MG/0.4ML SYRINGE (J1650 PER 10MG) SC SCH (08:45)
[2020-07-22] MEDS: lisinopriL 20 MG TAB PO SCH (08:45)
[2020-07-22] MEDS: amLODIPine 10 MG TAB PO SCH (08:45)
[2020-07-22] MEDS ORDERED: cefTRIAXone SOD 1 GM in D5W MINI-BAG PLUS 50 ML IV SCH (10:00)
[2020-07-22] MEDS ORDERED: E-Z-PAQUE 96% w/w SUSP 176GM BTL As Ordered ONE ×2 (10:01→10:07)
[2020-07-22] MEDS ORDERED: E-Z-GAS II EFFERVESCENT PACKET (SODIUM BICARB./CITRIC ACID/SIMETHICONE) As Ordered ONE (10:01)
[2020-07-22] MEDS ORDERED: E-Z-HD 98% w/w 340GM SUSP BTL As Ordered ONE (10:01)
[2020-07-22 11:23] LABS: DRVV SCREEN 38.2 SEC
[2020-07-22] MEDS ORDERED: NS 1,000 ML IV ONE (14:45)
[2020-07-22] MEDS ORDERED: LIDOCAINE 2% 100MG/5ML SDV (FOR ANES.) As Ordered ONE (14:52)
[2020-07-22] MEDS ORDERED: propofoL 200 MG/20 ML VIAL As Ordered ONE (14:53)
--- NOTE | 2020-07-22 21:00 | IPNPDOC ---
Text Note Date of Service The patient was seen on 07/22/20. NOTE SUBJECTIVE: Patient seen at bedside. No acute events overnight. She states she has a 4 day hx of numbness in her LE bilaterally. Per nursing staff she has had urinary retention for the past 24-36 hours requiring Q4 hour straight cath's. She otherwise denies fevers, chills, chest pain, sob, abdominal pain is resolved, no vomiting, but continues to complain of nausea with anything but water intake. OBJECTIVE PHYSICAL EXAMINATION: VITAL SIGNS: Please see below. General: NAD, lying in bed. HEENT: NC/AT,EOMI, no scleral icterus, moist mucous membranes, no pharyngeal erythema. CV: RRR, sinus rhythm on monitor, +S1 and S2. Resp: CTAB with full breath sounds, no wheezes, crackles, or rhonchi. Chest: Pacemaker in left subclavian. Abdomen: large ventral hernia, Bowel sounds present, NT, ND. rectum: Positive anal wink, rectal tone adequate (performed with RN Rosie at bedside to assist). Neuro: CN III-XII intact. Strength +5/5 in bilateral LE, sensation diminished from knees to ankles, preserved below ankles. Downgoing plantar reflex bilaterally. MSK: Moderate palpation of low back reveals tenderness and elicits sciatic like symptoms of shooting pain down legs. Ext: no edema LABORATORY DATA, IMAGING STUDIES, MICROBIOLOGY: Please see below. 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 #abdominal pain - Resolved per patient - Barium esophagram consistent with gastroparesis, EGD with Dr. Whitfield showing esophagitis, gastritis, and small hiatal hernia-- recommending PPI and gastroparesis diet - splenic infarct noted - discussed at length with vascular - no further intervention - pain control - surgery consulted - no intervention needed, can follow up outpatient if she would like correction of ventral hernia. - Continue ASA 81mg PO daily - CTA of abd reviewed with Dr. Bianchi (Vascular surgery) and Dr. Jose (Radiology)- splenic infarction and possible occlusion of splenic artery vs tortuous vessel vs positional - no surgery/stenting recommended. - Ordered coagulopathy workup - pending results #. Gastroparesis - Likely the cause of her nausea/vomiting - DC zofran, start Reglan and gastroparesis diet. #. Lower extremity numbness - Patient states numbness improves with shifting position and is exacerbated on palpation of low back. - No intervention needed at this time, will encourage OOB, continue to monitor. #. Recurrent runs of Vtach many days ago - Prior Dr. Foster patient discharged from practice. Number for [employer] medical rep, Rivera Flores, given today . Will call tomorrow to ensure he is aware of this. After interrogation of pacemaker, will downgrade patient. # HTN - Continue Lisinopril, Norvasc #history SSS - PPM in place #Hx of AAA -Continue with BP meds. DVT ppx: Lovenox 40mg SubQ daily GI ppx: Protonix 40mg PO daily Disposition: - Anticipate transition to rehabilitation VS,Fishbone, I+O VS, Fishbone, I+O Laboratory Tests 07/22/20 06:08 Vital Signs Date Time Temp Pulse Resp B/P (MAP) Pulse Ox O2 Delivery O2 Flow Rate FiO2 07/22/20 17:30 97.9 69 18 138/98 (111) 97 Room Air 07/17/20 15:21 1.0 I&O- Last 24 Hours up to 6 AM 07/22/20 06:00 Intake Total 0 ml Output Total 2514 ml Balance -2514 ml GME ATTESTATION GME ATTESTATION My faculty preceptor for this patient encounter was physically present during the encounter and was fully available. All aspects of the patient interview, examination, medical decision making process, and medical care plan development were reviewed and approved by the faculty preceptor. The faculty preceptor is aware and concurs with the plan as stated in the body of this note and will attest to such by his/her cosignature. ATTENDING NOTE I, Teo Zabala, have independently examined this patient and performed my own physical exam, as well as reviewed the documentation and edited where necessary. I have discussed in detail with the resident / student the findings and plan of treatment as documented by the resident / student and edited their note. I agree with their findings and treatment plan and have edited their documentation. I will continue to follow the patient during this hospital stay. RO BECKER DO Jul 22, 2020 21:00 TEO ZABALA MD Jul 23, 2020 13:26
[2020-07-23] VITALS (11 sets, daily range): BP systolic 72–168; BP diastolic 40–108
[2020-07-23] MEDS: SLF 3 ML SYR IV SCH ×3 (04:26→20:41)
[2020-07-23 06:12] LABS: HEMATOCRIT 32.4 % (36.0-47.0); HEMOGLOBIN 11.4 g/dl (12.0-15.5); MEAN CORPUSCULAR HEMOGLOBIN 33.4 pg (27.0-33.0); MEAN CORPUSCULAR HGB CONC 35.2 g/dl (32.0-36.5); RED BLOOD COUNT 3.41 10^6/uL (4.00-5.40); WHITE BLOOD COUNT 3.6 10^3/uL (4.0-10.0)
[2020-07-23 06:13] LABS: PLATELET COUNT, AUTOMATED 91 10^3/uL (150-450)
[2020-07-23 06:29] LABS: BLOOD UREA NITROGEN 14 MG/DL (7-18); CALCIUM LEVEL 8.2 MG/DL (8.8-10.2); CARBON DIOXIDE LEVEL 30 MEQ/L (21-32); CHLORIDE LEVEL 101 MEQ/L (98-107); CREATININE FOR GFR 0.89 MG/DL (0.55-1.30); GLOMERULAR FILTRATION RATE > 60.0 (>45); GLUCOSE, FASTING 92 MG/DL (70-100); POTASSIUM SERUM 3.2 MEQ/L (3.5-5.1); SODIUM LEVEL 138 MEQ/L (136-145)
[2020-07-23] MEDS: PANTOPRAZOLE 40MG TAB (PROTONIX) PO SCH (08:04)
[2020-07-23] MEDS: amLODIPine 10 MG TAB PO SCH (08:04)
[2020-07-23] MEDS: metroNIDAZOLE 500 MG in IV 1 EA IV SCH (08:05)
[2020-07-23] MEDS: ASPIRIN 81 MG ENTERIC TAB PO SCH (08:05)
[2020-07-23] MEDS: ENOXAPARIN 40MG/0.4ML SYRINGE (J1650 PER 10MG) SC SCH (08:05)
[2020-07-23] MEDS: lisinopriL 20 MG TAB PO SCH (08:05)
[2020-07-23] MEDS ORDERED: POTASSIUM CHLORIDE 10 MEQ SR TABLET PO ONE (09:00)
[2020-07-23] MEDS ORDERED: ACETAMINOPHEN 500 MG TAB PO ONE (09:30)
[2020-07-23] MEDS ORDERED: NS 1,000 ML IV ONE (10:00)
[2020-07-23] MEDS: NS 1,000 ML IV SCH (16:56)
[2020-07-23 20:06] LABS: ANCA-ATYPICAL <1:20 titer (Neg:<1:20); ANTI THROMBIN 3 ANTIGEN IMMUNO 60 % (72-124); ANTI THROMBIN 3 FUNCT ACTIVITY 76 % (75-135); ANTINUCLEAR ANTIBODIES DIRECT Negative (Negative); CARDIOLIPIN IGA ANTIBODY <9 APL U/mL (0-11); CARDIOLIPIN IGG ANTIBODY <9 GPL U/mL (0-14); CARDIOLIPIN IGM ANTIBODY <9 MPL U/mL (0-12); CYTOPLASMIC NEUTROP AB ANCA-C <1:20 titer (Neg:<1:20); PERINUCLEAR AB ANCA-P <1:20 titer (Neg:<1:20); PROTEIN C ANTIGEN 71 % (60-150); PROTEIN S ANTIGEN FREE 88 % (57-157); PROTEIN S ANTIGEN TOTAL 72 % (60-150); SJOGREN'S ANTI SS-A <0.2 AI (0.0-0.9); SJOGREN'S ANTI SS-B <0.2 AI (0.0-0.9)
--- NOTE | 2020-07-23 21:30 | IPNPDOC ---
Text Note Date of Service The patient was seen on 07/23/20. NOTE SUBJECTIVE: Patient seen sitting in chair at bedside. No acute events overnight. Denies concerns of LE numbness/tingling today but expressing concerns over several day hx of UE diminished sensation. Following bedside rounds nursing staff reported BP of SBP over 70 while sitting upright in chair. On laying patient in trendelenberg her BP quickly recovered to 133/80 and was fine throughout the rest of the day. She denied any fevers, chills, chest pain, sob, abdominal pain, nausea, or vomiting. OBJECTIVE PHYSICAL EXAMINATION: VITAL SIGNS: Please see below. General: NAD, sitting upright in chair. HEENT: NC/AT, EOMI, no scleral icterus, moist mucous membranes, no pharyngeal erythema. CV: RRR, sinus rhythm on monitor, +S1 and S2. Resp: CTAB with full breath sounds, no wheezes, crackles, or rhonchi. Chest: Pacemaker in left subclavian. Abdomen: large ventral hernia, Bowel sounds present, NT, ND. Neuro: CN III-XII intact. Strength +5/5 in bilateral LE, sensation now reportedly intact in lower extremities, diminished in UE. Ext: no edema LABORATORY DATA, IMAGING STUDIES, MICROBIOLOGY: Please see below. 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 #. Deconditioning vs. generalized weakness -Much of this appears to be due to her unwillingness to participate with PT per nursing staff, but I imagine their is a component of deconditioning as well. Will continue to try and encourage her to work with them so she can get out of the hospital. -Primary concern, will continue to have her work with physical therapy. #. Transient hypotension -Self resolved with position change. Attempted multiple times to obtain orthostatics following this event but patient would not cooperate or could not tolerate sitting up at bedside. Apparently this happened last week as well. May consider treating for it regardless with fluid administration but given that she typically runs high this is challenging. #. Urinary retention - Will attempt trial of void in AM to see if she will continue to require catheterization. Unclear why she was retaining fluid. UA negative on 07/22. #. Hypokalemia -Of unclear etiology possibly secondary to NPO status for procedures the day prior with net negative urine output. #. Abdominal pain - Resolved. - Barium esophagram showing gastroparesis- recommending gastroparesis diet - EGD with Dr. Whitfield showing esophagitis, gastritis, and small hiatal hernia-- recommending PPI - splenic infarct noted on CT - discussed at length with vascular - no further intervention - pain control only - surgery consulted - no intervention needed, can follow up outpatient if she would like correction of ventral hernia. - CTA of abd reviewed with Dr. Bianchi (Vascular surgery) and Dr. Jose (Radiology)- splenic infarction and possible occlusion of splenic artery vs tortuous vessel vs positional - no surgery/stenting recommended. - Coagulopathy workup - negative #. Gastroparesis - Nausea/vomiting resolved. - Continue Reglan and gastroparesis diet. #. Lower extremity numbness - Patient states numbness in lower extremities has resolved. - No intervention needed at this time, will encourage OOB, continue to monitor. #. Hx of suspected vtach on telemetry - Prior Dr. Foster patient discharged from practice. [facility] medical rep contacted today and interrogated device with no concerning findings. #. HTN - Continue Lisinopril, Norvasc #. Hx of suspected Vtach on tele -Pacemaker rep evaluated; no concerning events noted #. hx SSS - PPM in place #. Hx of AAA -Continue with BP meds. DVT ppx: Lovenox 40mg SubQ daily GI ppx: Protonix 40mg PO daily Disposition: - Transfer to med/surg and encourage work with PT and possible rehab VS,Fishyolande, I+O VS, Pinky, I+O Laboratory Tests 07/23/20 05:24 Vital Signs Date Time Temp Pulse Resp B/P (MAP) Pulse Ox O2 Delivery O2 Flow Rate FiO2 07/23/20 16:00 98.6 70 16 140/70 (93) 94 Room Air 07/17/20 15:21 1.0 I&O- Last 24 Hours up to 6 AM 07/23/20 06:00 Intake Total 1180 ml Output Total 3025 ml Balance -1845 ml GME ATTESTATION GME ATTESTATION My faculty preceptor for this patient encounter was physically present during the encounter and was fully available. All aspects of the patient interview, examination, medical decision making process, and medical care plan development were reviewed and approved by the faculty preceptor. The faculty preceptor is aware and concurs with the plan as stated in the body of this note and will attest to such by his/her cosignature. ATTENDING NOTE I, Teo Zabala, have independently examined this patient and performed my own physical exam, as well as reviewed the documentation and edited where necessary. I have discussed in detail with the resident / student the findings and plan of treatment as documented by the resident / student and edited their note. I agree with their findings and treatment plan and have edited their documentation. I will continue to follow the patient during this hospital stay. RO BECKER DO Jul 23, 2020 21:30 TEO ZABALA MD Jul 24, 2020 13:00
[2020-07-23] MEDS: METOCLOPRAMIDE INJ 10MG/2ML VIAL (J2765 PER 1) IV PRN (23:43)
[2020-07-24] MEDS: NS 1,000 ML IV SCH (01:23)
[2020-07-24 04:00] VITALS: BP 138/72
[2020-07-24] MEDS ORDERED: ONDANSETRON 4MG/2ML VIAL IV ONE (04:00)
[2020-07-24] MEDS ORDERED: KCL 10MEQ/100ML SWI (KRUN) 10 MEQ in IV 1 EA IV ONE (04:00)
[2020-07-24] MEDS: SLF 3 ML SYR IV SCH ×3 (04:06→20:59)
[2020-07-24 08:00] VITALS: BP 140/90
[2020-07-24] MEDS: METOCLOPRAMIDE INJ 10MG/2ML VIAL (J2765 PER 1) IV PRN (08:24)
[2020-07-24] MEDS: ACETAMINOPHEN 500 MG TAB PO PRN (08:25)
[2020-07-24] MEDS: amLODIPine 10 MG TAB PO SCH (08:25)
[2020-07-24] MEDS: ENOXAPARIN 40MG/0.4ML SYRINGE (J1650 PER 10MG) SC SCH (08:25)
[2020-07-24] MEDS: PANTOPRAZOLE 40MG TAB (PROTONIX) PO SCH (08:25)
[2020-07-24] MEDS: ASPIRIN 81 MG ENTERIC TAB PO SCH (08:26)
[2020-07-24] MEDS: lisinopriL 20 MG TAB PO SCH (08:27)
[2020-07-24 08:56] LABS: CALCIUM LEVEL 8.3 MG/DL (8.8-10.2); CREATININE FOR GFR 1.06 MG/DL (0.55-1.30); MAGNESIUM LEVEL 1.7 MG/DL (1.8-2.4); POTASSIUM SERUM 2.7 MEQ/L (3.5-5.1)
[2020-07-24 09:06] LABS: BASO % 0.3 % (0.0-1.0); EOS % 0.2 % (0.0-3.0); HEMATOCRIT 41.4 % (36.0-47.0); HEMOGLOBIN 14.6 g/dl (12.0-15.5); LYMPH % 17.4 % (24.0-44.0); MEAN CORPUSCULAR HEMOGLOBIN 33.3 pg (27.0-33.0); MEAN CORPUSCULAR HGB CONC 35.3 g/dl (32.0-36.5); MEAN CORPUSCULAR VOLUME 94.5 fl (80.0-96.0); MONO # 0.4 10^3/uL (0.0-0.8); MONO % 6.5 % (0.0-5.0); NEUTROPHILS # 4.4 10^3/uL (1.5-8.5); NEUTROPHILS % 74.1 % (36.0-66.0); RED BLOOD COUNT 4.38 10^6/uL (4.00-5.40)
[2020-07-24 09:30] LABS: PLATELET COUNT, AUTOMATED 91 10^3/uL (150-450)
--- NOTE | 2020-07-24 10:07 | REPVR ---
PROCEDURE INFORMATION: Exam: XR Complete Acute Abdomen Series Exam date and time: 07/24/2020 8:54 AM Age: 69 years old Clinical indication: Abdominal pain; Additional info: Abdominal pain, PT could not sit up for upright TECHNIQUE: Imaging protocol: XR complete acute abdomen series, including 2 or more views of the abdomen and a single view chest. COMPARISON: CR Chest, 1 view 07/17/2020 2:57 PM FINDINGS: Tubes, catheters and devices: A left-sided pacemaker is again present. Lungs: There is minor bibasilar atelectasis/scarring. The lungs are otherwise clear. Pleural space: Normal. No pneumothorax. Heart/Mediastinum: The cardiomediastinal silhouette is fairly stable in appearance. Gastrointestinal tract: There is mild gaseous distention of multiple small bowel loops. Some contrast is scattered about much of the abdomen, with dense contrast probably within the cecum. Intraperitoneal space: No free air is evident. Bones/joints: Degenerative changes involve the spine. Soft tissues: Phleboliths overlie the pelvis. IMPRESSION: 1. No evidence for acute pulmonary disease. 2. Mild gaseous distention of multiple small bowel loops, could reflect ileus or obstruction. Electronically signed by: Fernie Hobbs On 07/24/2020 10:08:08 AM
[2020-07-24] MEDS ORDERED: ISOVUE-370 76% 100ML VIAL As Ordered ONE (10:51)
--- NOTE | 2020-07-24 11:51 | REPVR ---
PROCEDURE INFORMATION: Exam: CT Abdomen And Pelvis Without Contrast Exam date and time: 07/24/2020 11:20 AM Age: 69 years old Clinical indication: Abdominal pain; Generalized TECHNIQUE: Imaging protocol: Computed tomography of the abdomen and pelvis without contrast. Radiation optimization: All CT scans at this facility use at least one of these dose optimization techniques: automated exposure control; mA and/or kV adjustment per patient size (includes targeted exams where dose is matched to clinical indication); or iterative reconstruction. COMPARISON: CT ABD PELVIS WITH CONTRAST 07/17/2020 4:18 PM FINDINGS: Limitations: Evaluation is somewhat limited by lack of IV contrast. There is also streak artifact from very dense contrast in the bowel. Pleural space: Small bibasilar pleural effusions have developed.The visualized lung bases demonstrate mild dependent atelectasis. Heart: Cardiac pacer wires are present. Mediastinal space: A small hiatal hernia is again present. Liver: Grossly unremarkable. Gallbladder and bile ducts: There is increased layering high density in the gallbladder, compatible with a curious excretion of contrast. Pancreas: Grossly unremarkable. Spleen: Grossly unremarkable. Adrenals: Grossly unremarkable. Kidneys and ureters: Grossly unremarkable. No hydronephrosis or renal or ureteral calculus. Stomach and bowel: Very dense oral contrast is scattered within multiple small bowel loops, which are generally moderately distended. This includes to the level of the distal ileum, which appears to enter the pre-existing large periumbilical hernia. The hernia also again contains the cecum and ascending and proximal transverse colon. Particularly dense contrast is present in the cecum. Contrast does not extend into the large bowel beyond the hernia, which is not distended. There is focal narrowing of the large bowel on exiting the hernia (image [id number]), and this could relate to some degree of obstruction. Alternatively, there could be incomplete obstruction of the small bowel. Appendix: The appendix cannot be distinguished. Intraperitoneal space: There is no free air. Small free fluid has developed in the pelvis. Vasculature: The abdominal aorta is nonaneurysmal. Atherosclerotic vascular calcifications are again present. Lymph nodes: No gross pathologic lymphadenopathy. Bladder: The urinary bladder now contains a Murphy catheter. Reproductive: No gross adnexal abnormality is apparent, but ultrasound would be more appropriate in this regard. Bones/joints: Degenerative changes again involve the spine and hips. Soft tissues: See "Stomach and bowel" finding. Other findings: There is calcification of the pericardium. IMPRESSION: 1. Limited exam due to the presence of very dense oral contrast. Moderate distention of the small bowel to the level of the distal ileum, which appears to enter a large periumbilical hernia, which was also present on 07/17/20. Question whether the large bowel is obstructed on exiting the hernia, or whether there is incomplete obstruction of small bowel. Correlate as to whether the hernia is potentially incarcerated. 2. Small new free fluid in the pelvis, could be reactive to obstruction. 3. Small new bibasilar pleural effusions. 4. Other nonurgent findings as described. Electronically signed by: Fernie Hobbs On 07/24/2020 11:51:50 AM
[2020-07-24 12:00] VITALS: BP 138/88
--- NOTE | 2020-07-24 12:53 | REPVR ---
PROCEDURE INFORMATION: Exam: XR Abdomen, 1 View Exam date and time: 07/24/2020 11:50 AM Age: 69 years old Clinical indication: Device placement; Gi device; Nasogastric tube; Additional info: Ng tube placement TECHNIQUE: Imaging protocol: XR of the abdomen. Views: Frontal supine view of the abdomen. 1 View. COMPARISON: CR - Abdomen,Flat Upright,PA CHEST 07/24/2020 9:30:14 AM FINDINGS: Tubes, catheters and devices: Nasogastric tube has been placed, with its tip in the stomach. Gastrointestinal tract: There is again distention of multiple small bowel loops. Scattered contrast is again present about much of the abdomen, with dense contrast again in the cecum. Bones/joints: Degenerative changes again involve the spine. Soft tissues: Phleboliths again overlie the pelvis. IMPRESSION: Nasogastric tube placed since earlier the same day, with tip in stomach. Persistent small bowel distension. Electronically signed by: Fernie Hobbs On 07/24/2020 12:53:52 PM
[2020-07-24] MEDS: KCL 40MEQ in NS 1000ML 1,000 ML IV SCH ×2 (14:27→18:01)
--- NOTE | 2020-07-24 14:29 | IPNPDOC ---
Text Note Date of Service The patient was seen on 07/24/20. NOTE SUBJECTIVE: No acute events overnight but patient continues to feel "lousy" and complaining of weakness and nausea. Denies any focal complaints at this time. No episodes of hypotension overnight. Obtained unremarkable abdominal imaging so deferred to repeat CT abd/pelvis. OBJECTIVE PHYSICAL EXAMINATION: VITAL SIGNS: Please see below. General: Pale appearing female resting in bed in NAD. HEENT: NC/AT, EOMI, no scleral icterus, moist mucous membranes, no pharyngeal erythema. CV: RRR, sinus rhythm on monitor, +S1 and S2. Resp: CTAB with full breath sounds, no wheezes, crackles, or rhonchi. Chest: Pacemaker in left subclavian. Abdomen: Large ventral hernia, Bowel sounds present, ND, minimally tender to palpation. Neuro: CN III-XII intact. Strength +5/5 in bilateral LE, sensation now reportedly intact in lower extremities, diminished in UE. Ext: no edema LABORATORY DATA, IMAGING STUDIES, MICROBIOLOGY: Please see below. ASSESSMENT AND PLAN: 69 yo female admitted for abdominal pain with large ventral hernia and imaging showing splenic infarct without necessary surgical correction. Patient progressed well and was about to be discharged but experienced a hypotensive episode on 07/17 requiring fluid administration. Labs and imaging ordered at the time were unrevealing. She has continued to experience intermittent hypo and hypertension but with overall improvement in her abdominal pain. She then began having recurrent nausea and vomiting. GI was consulted and recommended barium esophagram which showed gastroparesis and an EGD was done that showed gastritis, esophagitis, and a small hiatal hernia. Despite improvements on gastroparesis diet she remained somewhat sluggish and was unable to participate in PT due to fatigue. Moreover she experienced urinary retention requiring catheter placement. An abdominal upright XR was attempted to see if she was retaining stool or had evidence of SBO but she was unable to sit up for the exam so a CT was ordered showing partial SBO vs. LBO. #. Nausea -Obtained abdominal XR that was unremarkable so we put in for repeat CT abd/pelvis questioning SBO vs LBO. -Put in NG tube w/ 1 liter of fluid out. Contacted surgery with update. Dr. Grace aware of change; will re-evaluate -Will continue with IV fluid hydration and continue to follow electrolytes q6h #. Hypokalemia -Adding KCL to NS, unclear of etiology. #. Deconditioning -Given change of status PT on hold #. Hx of splenic Infarct - splenic infarct noted on CT - discussed at length with vascular - no further intervention - pain control only - CTA abdomen reviewed with Dr. Bianchi (Vascular surgery) and Dr. Jose ([facility])- splenic infarction and possible occlusion of splenic artery vs tortuous vessel vs positional - no surgery/stenting recommended. - Coagulopathy workup - negative #. Transient hypotension -Resolved. #. Urinary retention - Will attempt trial of void in AM to see if she will continue to require catheterization. Unclear why she was retaining fluid. UA negative on 07/22. - Will continue be catheter for time being and readdress when bowel obstruction has resolved. #. Gastroparesis - Diagnosed on barium esophagram - Continue Reglan and gastroparesis diet. #. Esophagitis/gastritis -Continue PPI. #. Lower extremity numbness - Patient states numbness in lower extremities has resolved. - No intervention needed at this time, will encourage OOB, continue to monitor. #. Hx of suspected vtach on telemetry - Prior Dr. Foster patient discharged from practice. [employer] medical rep interrogated device with no concerning findings. #. HTN - Continue Lisinopril, Norvasc #. hx SSS - PPM in place #. Hx of AAA -Continue with BP meds. DVT ppx: Lovenox 40mg SubQ daily GI ppx: Protonix 40mg PO daily Disposition: - Pending clinical improvement VS,Fishbone, I+O VS, Fishbone, I+O Laboratory Tests 07/24/20 08:21 Vital Signs Date Time Temp Pulse Resp B/P (MAP) Pulse Ox O2 Delivery O2 Flow Rate FiO2 07/24/20 12:00 97.4 90 17 138/88 (105) 92 Room Air I&O- Last 24 Hours up to 6 AM 07/24/20 06:00 Intake Total 1350 ml Output Total 1250 ml Balance 100 ml GME ATTESTATION GME ATTESTATION My faculty preceptor for this patient encounter was physically present during the encounter and was fully available. All aspects of the patient interview, examination, medical decision making process, and medical care plan development were reviewed and approved by the faculty preceptor. The faculty preceptor is aware and concurs with the plan as stated in the body of this note and will attest to such by his/her cosignature. ATTENDING NOTE I, Teo Zabala, have independently examined this patient and performed my own physical exam, as well as reviewed the documentation and edited where necessary. I have discussed in detail with the resident / student the findings and plan of treatment as documented by the resident / student and edited their note. I agree with their findings and treatment plan and have edited their documentation. I will continue to follow the patient during this hospital stay. OR BECKER DO Jul 24, 2020 14:29 TEO ZABALA MD Jul 24, 2020 19:53
[2020-07-24] MEDS ORDERED: LIDOCAINE 1% MDV 20ML VIAL As Ordered ONE (16:03)
[2020-07-24] MEDS ORDERED: KCL 20MEQ IN 100ML SWI (KRUN) 20 MEQ in IV 1 EA IV ONE ×2 (17:45)
[2020-07-24] MEDS: hydrALAZINE 20MG/ML 1ML VIAL (J0360 PER 20MG) IV SCH (18:00)
[2020-07-24 18:14] LABS: ALBUMIN 2.5 GM/DL (3.2-5.2); ALT/SGPT 25 U/L (12-78); BILIRUBIN,TOTAL 0.7 MG/DL (0.2-1.0); BLOOD UREA NITROGEN 19 MG/DL (7-18); CALCIUM LEVEL 7.8 MG/DL (8.8-10.2); CARBON DIOXIDE LEVEL 26 MEQ/L (21-32); CHLORIDE LEVEL 101 MEQ/L (98-107); CREATININE FOR GFR 0.88 MG/DL (0.55-1.30); GLOMERULAR FILTRATION RATE > 60.0 (>45); GLUCOSE, FASTING 79 MG/DL (70-100); MAGNESIUM LEVEL 1.6 MG/DL (1.8-2.4); SODIUM LEVEL 137 MEQ/L (136-145); TOTAL PROTEIN 5.2 GM/DL (6.4-8.2)
[2020-07-24] MEDS ORDERED: NS 500 ML IV ONE (18:30)
[2020-07-24] MEDS ORDERED: MAG SULF 1GM/100ML (MAG RUN) 1 GM in IV 1 EA IV ONE (18:30)
[2020-07-24] MEDS: PANTOPRAZOLE 40MG VIAL (C9113 PER 1) IV SCH (20:59)
[2020-07-24 22:00] VITALS: BP 110/63
[2020-07-25] VITALS (7 sets, daily range): BP systolic 102–177; BP diastolic 63–84
[2020-07-25 00:37] LABS: ALBUMIN 2.4 GM/DL (3.2-5.2); ALT/SGPT 24 U/L (12-78); BILIRUBIN,TOTAL 0.7 MG/DL (0.2-1.0); BLOOD UREA NITROGEN 18 MG/DL (7-18); CALCIUM LEVEL 7.7 MG/DL (8.8-10.2); CARBON DIOXIDE LEVEL 24 MEQ/L (21-32); CHLORIDE LEVEL 104 MEQ/L (98-107); CREATININE FOR GFR 0.88 MG/DL (0.55-1.30); GLOMERULAR FILTRATION RATE > 60.0 (>45); GLUCOSE, FASTING 85 MG/DL (70-100); MAGNESIUM LEVEL 1.8 MG/DL (1.8-2.4); POTASSIUM SERUM 3.6 MEQ/L (3.5-5.1); SODIUM LEVEL 138 MEQ/L (136-145); TOTAL PROTEIN 5.2 GM/DL (6.4-8.2)
[2020-07-25] MEDS: hydrALAZINE 20MG/ML 1ML VIAL (J0360 PER 20MG) IV SCH ×3 (01:06→17:28)
[2020-07-25] MEDS: KCL 40MEQ in NS 1000ML 1,000 ML IV SCH ×3 (01:06→17:32)
[2020-07-25 06:15] LABS: BASO % 0.3 % (0.0-1.0); LYMPH # 0.9 10^3/uL (1.5-5.0); LYMPH % 22.9 % (24.0-44.0); MEAN CORPUSCULAR HEMOGLOBIN 32.9 pg (27.0-33.0); MEAN CORPUSCULAR HGB CONC 34.5 g/dl (32.0-36.5); MEAN CORPUSCULAR VOLUME 95.4 fl (80.0-96.0); MONO # 0.3 10^3/uL (0.0-0.8); MONO % 7.3 % (0.0-5.0); NEUTROPHILS # 2.5 10^3/uL (1.5-8.5); NEUTROPHILS % 68.4 % (36.0-66.0); RED BLOOD COUNT 3.25 10^6/uL (4.00-5.40); WHITE BLOOD COUNT 3.7 10^3/uL (4.0-10.0)
[2020-07-25 06:30] LABS: BLOOD UREA NITROGEN 17 MG/DL (7-18); CALCIUM LEVEL 7.7 MG/DL (8.8-10.2); CARBON DIOXIDE LEVEL 25 MEQ/L (21-32); CHLORIDE LEVEL 105 MEQ/L (98-107); CREATININE FOR GFR 0.82 MG/DL (0.55-1.30); GLOMERULAR FILTRATION RATE > 60.0 (>45); GLUCOSE, FASTING 90 MG/DL (70-100); MAGNESIUM LEVEL 1.8 MG/DL (1.8-2.4); POTASSIUM SERUM 3.9 MEQ/L (3.5-5.1); SODIUM LEVEL 139 MEQ/L (136-145)
[2020-07-25] MEDS: SLF 3 ML SYR IV SCH ×3 (06:44→20:49)
[2020-07-25] MEDS: SODIUM CHLORIDE 0.9% INJ 10 ML SYR IV SCH ×2 (06:44→17:33)
[2020-07-25 07:24] LABS: HEMOGLOBIN 10.7 g/dl (12.0-15.5); PLATELET COUNT, AUTOMATED 79 10^3/uL (150-450)
[2020-07-25] MEDS ORDERED: METOCLOPRAMIDE INJ 10MG/2ML VIAL (J2765 PER 1) IV ONE (07:30)
--- NOTE | 2020-07-25 07:50 | IPNPDOC ---
Text Note Date of Service The patient was seen on 07/25/20. NOTE No acute events overnight. She denies nausea, emesis, or abd pains. She also denies any flatus or BMs. 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 Due to the nausea from the splenic infarction she has developed hypokalemia that has resulted in an ileus and eventual partial SBO within her hernia sac. She has had this hernia for over 30 years. Recommendation for now is to continue with NGT decompression and attempt some intermittent laxatives to loosed up the current obstruction within the hernia sac. If this is unsuccessful, then she will need a hernia repair during this admission. VS,Fishbone, I+O VS, Fishbone, I+O Laboratory Tests 07/24/20 08:21 07/24/20 17:30 07/24/20 23:46 07/25/20 05:48 Vital Signs Date Time Temp Pulse Resp B/P (MAP) Pulse Ox O2 Delivery O2 Flow Rate FiO2 07/25/20 04:00 97.6 85 16 114/67 (83) 95 Room Air I&O- Last 24 Hours up to 6 AM 07/25/20 06:00 Intake Total 120 ml Output Total 1850 ml Balance -1730 ml CHUYITA TORRES DO Jul 25, 2020 07:50
[2020-07-25] MEDS ORDERED: MAGNESIUM CITRATE 300 ML BTL NG ONE (09:00)
[2020-07-25] MEDS: PANTOPRAZOLE 40MG VIAL (C9113 PER 1) IV SCH ×2 (10:06→20:48)
[2020-07-25] MEDS: ENOXAPARIN 40MG/0.4ML SYRINGE (J1650 PER 10MG) SC SCH (10:08)
--- NOTE | 2020-07-25 11:28 | IPNPDOC ---
Text Note Date of Service The patient was seen on 07/25/20. NOTE SUBJECTIVE: Patient reports she is feeling better today and the NG tube has helped her weakness and nausea considerably. She denies any focal complaints at this time including fevers, chills, chest pain, sob, nausea, vomiting, abdominal pain, or weakness. She states she will try her best to work with physical therapy. OBJECTIVE PHYSICAL EXAMINATION: VITAL SIGNS: Please see below. General: Pale appearing female resting in bed in NAD. HEENT: NC/AT, EOMI, no scleral icterus, moist mucous membranes, no pharyngeal erythema. NG tube in place w/ 450 ml green output. CV: RRR, sinus rhythm on monitor, +S1 and S2. Resp: CTAB with full breath sounds, no wheezes, crackles, or rhonchi. Chest: Pacemaker in left subclavian. Abdomen: Large ventral hernia, Bowel sounds present, ND, minimally tender to palpation over hernia. Neuro: CN III-XII intact. Strength +5/5 in bilateral LE, sensation now reportedly intact in lower extremities, diminished in UE. Ext: no edema LABORATORY DATA, IMAGING STUDIES, MICROBIOLOGY: Please see below. ASSESSMENT AND PLAN: 69 yo female admitted for abdominal pain with large ventral hernia and imaging showing splenic infarct without necessary surgical correction. Patient progressed well and was about to be discharged but experienced a hypotensive episode on 07/17 requiring fluid administration. Labs and imaging ordered at the time were unrevealing. She has continued to experience intermittent hypo and hypertension but with overall improvement in her abdominal pain. She then began having recurrent nausea and vomiting. GI was consulted and recommended barium esophagram which showed gastroparesis and an EGD was done that showed gastritis, esophagitis, and a small hiatal hernia. Despite improvements on gastroparesis diet she remained somewhat sluggish and was unable to participate in PT due to fatigue. Moreover she experienced urinary retention requiring catheter placement. An abdominal upright XR was attempted to see if she was retaining stool or had evidence of SBO but she was unable to sit up for the exam so a CT was ordered showing partial SBO vs. LBO. #. Partial SBO - Continue NG tube - Dr. Grace following, plans to attempt to clear SBO w/ NG tube and with laxatives to clear obstruction. Failing this he will take patient to the OR. -Continue IVF #. Hypokalemia -Resolved #. Deconditioning -Given change of status PT on hold #. Hx of splenic Infarct - splenic infarct noted on CT - discussed at length with vascular - no further intervention - pain control only - CTA abdomen reviewed with Dr. Bianchi (Vascular surgery) and Dr. Jose (Radiology)- splenic infarction and possible occlusion of splenic artery vs tortuous vessel vs positional - no surgery/stenting recommended. - Coagulopathy workup - negative #. Urinary retention - Will attempt trial of void in AM to see if she will continue to require catheterization. Unclear why she was retaining fluid. UA negative on 07/22. - Will continue be catheter for time being and readdress when bowel obstruction has resolved. #. Gastroparesis - Diagnosed on barium esophagram - Continue Reglan and gastroparesis diet. #. Esophagitis/gastritis -Continue PPI. #. Lower extremity numbness - Resolved. #. Hx of suspected vtach on telemetry - Prior Dr. Foster patient discharged from practice. [facility] [facility] medical rep interrogated device with no concerning findings. #. HTN - Continue Lisinopril, Norvasc #. hx SSS - PPM in place #. Hx of AAA -Continue with BP meds. DVT ppx: Lovenox 40mg SubQ daily GI ppx: Protonix 40mg PO daily Disposition: - Pending clinical improvement VS,Fishbone, I+O VS, Fishbone, I+O Laboratory Tests 07/24/20 17:30 07/24/20 23:46 07/25/20 05:48 Vital Signs Date Time Temp Pulse Resp B/P (MAP) Pulse Ox O2 Delivery O2 Flow Rate FiO2 07/25/20 10:07 143/77 07/25/20 07:56 97.9 72 16 97 Room Air I&O- Last 24 Hours up to 6 AM 07/25/20 06:00 Intake Total 120 ml Output Total 1850 ml Balance -1730 ml GME ATTESTATION GME ATTESTATION My faculty preceptor for this patient encounter was physically present during the encounter and was fully available. All aspects of the patient interview, examination, medical decision making process, and medical care plan development were reviewed and approved by the faculty preceptor. The faculty preceptor is aware and concurs with the plan as stated in the body of this note and will attest to such by his/her cosignature. ATTENDING NOTE I, Vijesh Zabala, have independently examined this patient and performed my own physical exam, as well as reviewed the documentation and edited where necessary. I have discussed in detail with the resident / student the findings and plan of treatment as documented by the resident / student and edited their note. I agree with their findings and treatment plan and have edited their documentation. I will continue to follow the patient during this hospital stay. RO BECKER DO Jul 25, 2020 11:28 ROBERTO ZABALA MD Jul 25, 2020 17:02
[2020-07-25] MEDS: METOCLOPRAMIDE INJ 10MG/2ML VIAL (J2765 PER 1) IV SCH ×3 (13:58→20:48)
[2020-07-26] VITALS: BP 140/80
[2020-07-26] MEDS: hydrALAZINE 20MG/ML 1ML VIAL (J0360 PER 20MG) IV SCH ×4 (01:08→16:50)
[2020-07-26] MEDS: KCL 40MEQ in NS 1000ML 1,000 ML IV SCH ×2 (02:20→10:47)
[2020-07-26 04:00] VITALS: BP 143/87
[2020-07-26] MEDS: SODIUM CHLORIDE 0.9% INJ 10 ML SYR IV SCH ×2 (06:29→17:26)
[2020-07-26] MEDS: SLF 3 ML SYR IV SCH ×3 (06:30→21:01)
[2020-07-26 06:43] LABS: BASO % 0.2 % (0.0-1.0); EOS % 0.7 % (0.0-3.0); HEMATOCRIT 31.3 % (36.0-47.0); HEMOGLOBIN 10.6 g/dl (12.0-15.5); LYMPH # 1.2 10^3/uL (1.5-5.0); LYMPH % 30.2 % (24.0-44.0); MEAN CORPUSCULAR HEMOGLOBIN 32.7 pg (27.0-33.0); MEAN CORPUSCULAR HGB CONC 33.9 g/dl (32.0-36.5); MEAN CORPUSCULAR VOLUME 96.6 fl (80.0-96.0); MONO # 0.2 10^3/uL (0.0-0.8); MONO % 5.6 % (0.0-5.0); NEUTROPHILS # 2.5 10^3/uL (1.5-8.5); NEUTROPHILS % 61.8 % (36.0-66.0); RED BLOOD COUNT 3.24 10^6/uL (4.00-5.40); WHITE BLOOD COUNT 4.1 10^3/uL (4.0-10.0)
[2020-07-26 06:50] LABS: PLATELET COUNT, AUTOMATED 89 10^3/uL (150-450)
[2020-07-26 07:03] LABS: BLOOD UREA NITROGEN 14 MG/DL (7-18); CALCIUM LEVEL 7.5 MG/DL (8.8-10.2); CARBON DIOXIDE LEVEL 23 MEQ/L (21-32); CHLORIDE LEVEL 108 MEQ/L (98-107); CREATININE FOR GFR 0.62 MG/DL (0.55-1.30); GLOMERULAR FILTRATION RATE > 60.0 (>45); GLUCOSE, FASTING 71 MG/DL (70-100); MAGNESIUM LEVEL 1.9 MG/DL (1.8-2.4); POTASSIUM SERUM 4.1 MEQ/L (3.5-5.1); SODIUM LEVEL 140 MEQ/L (136-145)
[2020-07-26 08:00] VITALS: BP 182/100
--- NOTE | 2020-07-26 09:24 | IPNPDOC ---
Text Note Date of Service The patient was seen on 07/26/20. NOTE No acute events overnight. She denies nausea, emesis, or abd pains. She is pa ssing flatus now, but still no BM. NG output has decreased. 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 Due to the nausea from the splenic infarction she has developed hypokalemia that has resulted in an ileus and eventual partial SBO within her hernia sac. She has had this hernia for over 30 years. Recommendation for now is to continue with NGT decompression and attempt some intermittent laxatives to loosen up the current obstruction within the hernia sac. If this is unsuccessful, then we will discuss possible surgery tomorrow. Alexey Grace DO VS,Pinky, I+O VS, Pinky, I+O Laboratory Tests 07/26/20 05:55 Vital Signs Date Time Temp Pulse Resp B/P (MAP) Pulse Ox O2 Delivery O2 Flow Rate FiO2 07/26/20 08:00 97.5 76 18 182/100 (127) 99 Room Air I&O- Last 24 Hours up to 6 AM 07/26/20 06:00 Intake Total 0 ml Output Total 3925 ml Balance -3925 ml CHUYITA GRACE DO Jul 26, 2020 09:24
[2020-07-26] MEDS: METOCLOPRAMIDE INJ 10MG/2ML VIAL (J2765 PER 1) IV SCH ×4 (09:32→21:00)
[2020-07-26] MEDS: PANTOPRAZOLE 40MG VIAL (C9113 PER 1) IV SCH ×2 (09:33→21:00)
[2020-07-26] MEDS: ENOXAPARIN 40MG/0.4ML SYRINGE (J1650 PER 10MG) SC SCH (09:33)
[2020-07-26 10:06] LABS: C REACTIVE PROTEIN QUANTITATIV 5.43 MG/DL (0.00-0.30)
[2020-07-26] MEDS: MAGNESIUM CITRATE 300 ML BTL PO SCH ×2 (10:14→21:00)
[2020-07-26] MEDS ORDERED: NS 500 ML IV ONE (11:00)
[2020-07-26 11:59] VITALS: BP 120/58
[2020-07-26] MEDS: KCL 20MEQ IN D5/NS 1000ML 1,000 ML IV SCH ×2 (13:01→21:36)
--- NOTE | 2020-07-26 15:34 | IPNPDOC ---
Text Note Date of Service The patient was seen on 07/26/20. NOTE SUBJECTIVE: Patient stating that she feels lousy with mild abdominal pain and nausea. She denies any fevers, chills, chest pain, SOB, or emesis. OBJECTIVE PHYSICAL EXAMINATION: VITAL SIGNS: Please see below. General: Mildly toxic appearing female resting in bed in NAD. HEENT: NC, AT, EOMI, no scleral icterus, moist mucous membranes, no pharyngeal erythema. CV: RRR, sinus rhythm on monitor, +S1 and S2. Resp: CTAB with full breath sounds, no wheezes, crackles, or rhonchi. Chest: Pacemaker in left subclavian. Abdomen: Large ventral hernia, Bowel sounds present, ND, minimally tender to palpation over hernia. Neuro: CN III-XII intact. Strength +5/5 in bilateral LE, sensation now reportedly intact in lower extremities, diminished in UE. Ext: no edema LABORATORY DATA, IMAGING STUDIES, MICROBIOLOGY: Please see below. ASSESSMENT AND PLAN: 69 yo female admitted for abdominal pain with large ventral hernia and imaging showing splenic infarct without necessary surgical correction. Patient progressed well and was about to be discharged but experienced a hypotensive episode on 07/17 requiring fluid administration. Labs and imaging ordered at the time were unrevealing. She has continued to experience intermittent hypo and hypertension but with overall improvement in her abdominal pain. She then began having recurrent nausea and vomiting. GI was consulted and recommended barium esophagram which showed gastroparesis and an EGD was done that showed gastritis, esophagitis, and a small hiatal hernia. Despite improvements on gastroparesis diet she remained somewhat sluggish and was unable to participate in PT due to fatigue. Moreover she experienced urinary retention requiring catheter placement. An abdominal upright XR was attempted to see if she was retaining stool or had evidence of SBO but she was unable to sit up for the exam so a CT was ordered showing partial SBO vs. LBO. #. Partial SBO - Continue NG tube - Dr. Grace following, plans to attempt to clear SBO w/ NG tube and try additional laxatives to clear obstruction. Failing this he will take patient to the OR. - Continue IVF - Son and patient re-updated by Dr. Zabala of plan moving forward the afternoon of 07/26/2020 at patient's bedside #. Volume status and hypo/hypertension - Cut IVF administration in half and started D5/NS with 20 KCL and increased holding parameters on IV diuretics to SBP>160 - Ordered AM cortisol to see if she is adrenally suppressed. - If we continue to have issues will formally consult nephrology. #. Deconditioning - Given change of status PT on hold #. Hx of splenic Infarct - splenic infarct noted on CT - discussed at length with vascular - no further intervention - pain control only - CTA abdomen reviewed with Dr. Bianchi (Vascular surgery) and Dr. Jose (Radiology)- splenic infarction and possible occlusion of splenic artery vs tortuous vessel vs positional - no surgery/stenting recommended. - Coagulopathy workup - negative #. Urinary retention - Will attempt trial of void in AM to see if she will continue to require catheterization. Unclear why she was retaining fluid. UA negative on 07/22. - Will continue Murphy catheter for time being and readdress when bowel obstruction has resolved. #. Gastroparesis - Diagnosed on barium esophagram - Continue Reglan and gastroparesis diet. #. Esophagitis/gastritis - Continue PPI #. Lower extremity numbness - Resolved #. Hx of suspected vtach on telemetry - Prior Dr. Foster patient discharged from practice. [employer] medical rep interrogated device with no concerning findings. #. HTN - Lisinopril and Norvasc on hold - Will c/w Hydralazine with adjusted hold parameters #. hx SSS - PPM in place #. Hx of AAA -Continue with BP meds. DVT ppx: Lovenox 40mg SubQ daily GI ppx: Protonix 40mg PO daily Disposition: - Pending clinical improvement VS,Fishbone, I+O VS, Fishbone, I+O Laboratory Tests 07/26/20 05:55 Vital Signs Date Time Temp Pulse Resp B/P (MAP) Pulse Ox O2 Delivery O2 Flow Rate FiO2 07/26/20 10:00 80/42 07/26/20 08:00 97.5 76 18 99 Room Air I&O- Last 24 Hours up to 6 AM 07/26/20 06:00 Intake Total 0 ml Output Total 3925 ml Balance -3925 ml GME ATTESTATION GME ATTESTATION My faculty preceptor for this patient encounter was physically present during the encounter and was fully available. All aspects of the patient interview, examination, medical decision making process, and medical care plan development were reviewed and approved by the faculty preceptor. The faculty preceptor is aware and concurs with the plan as stated in the body of this note and will attest to such by his/her cosignature. ATTENDING NOTE I, Teo Zabala, have independently examined this patient and performed my own physical exam, as well as reviewed the documentation and edited where necessary. I have discussed in detail with the resident / student the findings and plan of treatment as documented by the resident / student and edited their note. I agree with their findings and treatment plan and have edited their documentation. I will continue to follow the patient during this hospital stay. RO BECKER DO Jul 26, 2020 12:58 TEO ZABALA MD Jul 26, 2020 16:13
[2020-07-26 16:00] VITALS: BP 152/81
[2020-07-26 20:00] VITALS: BP 142/84
[2020-07-27] VITALS: BP 145/83
[2020-07-27] MEDS: hydrALAZINE 20MG/ML 1ML VIAL (J0360 PER 20MG) IV SCH ×3 (02:00→17:10)
[2020-07-27 04:00] VITALS: BP 141/85
[2020-07-27] MEDS: SODIUM CHLORIDE 0.9% INJ 10 ML SYR IV SCH ×2 (05:31→18:26)
[2020-07-27] MEDS: SLF 3 ML SYR IV SCH ×3 (05:32→20:30)
[2020-07-27 06:10] LABS: BASO % 0.5 % (0.0-1.0); EOS % 0.3 % (0.0-3.0); HEMATOCRIT 33.4 % (36.0-47.0); HEMOGLOBIN 11.5 g/dl (12.0-15.5); LYMPH # 0.8 10^3/uL (1.5-5.0); LYMPH % 21.2 % (24.0-44.0); MEAN CORPUSCULAR HGB CONC 34.4 g/dl (32.0-36.5); MEAN CORPUSCULAR VOLUME 95.7 fl (80.0-96.0); MONO # 0.2 10^3/uL (0.0-0.8); MONO % 4.2 % (0.0-5.0); NEUTROPHILS # 2.7 10^3/uL (1.5-8.5); NEUTROPHILS % 72.2 % (36.0-66.0); PLATELET COUNT, AUTOMATED 108 10^3/uL (150-450); RED BLOOD COUNT 3.49 10^6/uL (4.00-5.40); WHITE BLOOD COUNT 3.8 10^3/uL (4.0-10.0)
[2020-07-27 06:25] LABS: BLOOD UREA NITROGEN 11 MG/DL (7-18); CALCIUM LEVEL 7.6 MG/DL (8.8-10.2); CARBON DIOXIDE LEVEL 25 MEQ/L (21-32); CHLORIDE LEVEL 111 MEQ/L (98-107); CREATININE FOR GFR 0.64 MG/DL (0.55-1.30); GLOMERULAR FILTRATION RATE > 60.0 (>45); GLUCOSE, FASTING 109 MG/DL (70-100); MAGNESIUM LEVEL 2.4 MG/DL (1.8-2.4); POTASSIUM SERUM 4.2 MEQ/L (3.5-5.1); SODIUM LEVEL 142 MEQ/L (136-145)
[2020-07-27 08:00] VITALS: BP 142/80
--- NOTE | 2020-07-27 08:56 | IPNPDOC ---
Text Note Date of Service The patient was seen on 07/27/20. NOTE No acute events overnight. She had multiple stools from the laxatives yesterday, but her NG output is still brown. She is very lethargic this am, and only able to tell me her name and . She is not responding to any other questions for me. I spoke with the son Yogi who said he has never seen her like this. 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 Due to the nausea from the splenic infarction she has developed hypokalemia that has resulted in an ileus and eventual partial SBO within her hernia sac. She has had this hernia for over 30 years. Recommendation for now is to continue with NGT decompression. I discussed surgery with her son, and we have her scheduled for tomorrow am in the OR. I will see her in the am, and if she is improving then I may postpone it. Alexey Grace DO VS,Pinky, I+O VS, Pinky, I+O Laboratory Tests 07/27/20 05:33 Vital Signs Date Time Temp Pulse Resp B/P (MAP) Pulse Ox O2 Delivery O2 Flow Rate FiO2 07/27/20 08:00 97.8 77 22 142/80 (100) 97 Room Air I&O- Last 24 Hours up to 6 AM 07/27/20 06:00 Intake Total 1000 ml Output Total 4350 ml Balance -3350 ml CHUYITA GRACE DO Jul 27, 2020 08:56
[2020-07-27 08:59] LABS: PHOSPHORUS LEVEL 1.5 MG/DL (2.5-4.9)
[2020-07-27 10:01] LABS: C REACTIVE PROTEIN QUANTITATIV 6.16 MG/DL (0.00-0.30); NT-PRO BNP 2427 PG/ML (<125)
[2020-07-27] MEDS: PANTOPRAZOLE 40MG VIAL (C9113 PER 1) IV SCH ×2 (10:26→20:20)
[2020-07-27] MEDS: METOCLOPRAMIDE INJ 10MG/2ML VIAL (J2765 PER 1) IV SCH ×4 (10:26→20:20)
[2020-07-27] MEDS: ENOXAPARIN 40MG/0.4ML SYRINGE (J1650 PER 10MG) SC SCH (10:27)
[2020-07-27] MEDS ORDERED: D5W IV ONE (11:00)
[2020-07-27] MEDS ORDERED: SODIUM PHOSPHATE IV ONE (11:00)
[2020-07-27 11:56] VITALS: BP 150/86
[2020-07-27] MEDS: SODIUM CHLORIDE 0.9% INJ 10 ML SYR IV PRN (12:52)
--- NOTE | 2020-07-27 14:08 | IPNPDOC ---
Text Note Date of Service The patient was seen on 07/27/20. NOTE Subjective: Patient is a 69 year old female who was abdominal pain with large ventral hernia and imaging showing splenic infarct without necessary surgical correction. Patient progressed well and was about to be discharged but experienced a hypotensive episode on 07/17 requiring fluid administration. Patient continued to experience nausea and vomiting, gastroenterology was called and she received an EGD / Esophagram; consistent with esophagitis / gastritis and gastroparesis. Patient had more nausea and vomiting and repeat imaging had revealed possible pa rtial SBO vs. LBO. Surgery was reconsulted for evaluation. He hospital course was complicated with urinary retention and a Murphy catheter was placed Patient was seen and examined at the bedside. Denied any CP, SOB or palpitations. NG tube in place. Patient has had a bowel movement yesterday, continues to have large volume auto diuresis after Murphy was inserted. Objective: Vitals (See below) General: Lying in bed, no acute distress, comfortable, Awake / Alert, Oriented to person / place HEENT: NC, AT, + NG tube CVS: +S1S2 Lungs: Fair air entry b/l, bno appreciable wheezing / rhonchi / rales Abdomen: Soft, ND, NT, Large ventral hernia Extremities: Upper extremities with 1+ edema; LE with trace edema, - Calf tenderness Assessment and plan: Deconditioning / Weakness - Will check CT head - c/w PT and OT Nausea and vomiting - possibly 2/2 partial SBO - c/w NG tube and NPO status; c/w dextrose based fluids - Patient has had several incontinent bowel movements overnight - Discussed with surgery; anticipate surgery tomorrow if required - Dr. Grace on consultation Volume status and hypo/hypertension - Rate of fluid administration reduced to match NG tube output and ~50% urine output - However give volume overload; will reduce fluids further - Duplex US of bilateral UE to evaluate for DVT - Ordered AM cortisol pending Hx of splenic Infarct - Splenic infarct noted on CT - discussed at length with vascular - no further intervention - pain control only - CTA abdomen reviewed with Dr. Bianchi (Vascular surgery) and Dr. Jose (Radiology)- splenic infarction and possible occlusion of splenic artery vs tortuous vessel vs positional - no surgery/stenting recommended. - Coagulopathy workup - negative Urinary retention - likely 2/2 partial SBO / ileus - UA negative - Will perform voiding trial after several BMs - c/w Murphy catheter Gastroparesis - Diagnosed on barium esophagram - c/w Reglan and gastroparesis diet - Gastroenterology on consultation Esophagitis/gastritis - c/w PPI - Gastroenterology on consultation Lower extremity numbness - Resolved Hx of suspected ventricular tachycardia on telemetry - [facility] certified medical records coder has interrogated device with no concerning findings - Prior Dr. Foster patient, however was discharged from practice HTN - BP moderately controlled - s/p Lisinopril and Norvasc - c/w Hydralazine with adjusted hold parameters Hx SSS - s/p PPM in place Hx of AAA GI prophylaxis - c/w Protonix DVT prophylaxis - c/w Lovenox Disposition: - Pending clinical improvement - May require surgery VS,Pinky, I+O VS, Pinky, I+O Laboratory Tests 07/27/20 05:33 Vital Signs Date Time Temp Pulse Resp B/P (MAP) Pulse Ox O2 Delivery O2 Flow Rate FiO2 07/27/20 11:56 98.1 77 20 150/86 (107) 98 Room Air I&O- Last 24 Hours up to 6 AM 07/27/20 06:00 Intake Total 1000 ml Output Total 4350 ml Balance -3350 ml ROBERTO MONTGOMERY MD Jul 27, 2020 14:08
[2020-07-27 14:10] LABS: BLOOD UREA NITROGEN 11 MG/DL (7-18); CALCIUM LEVEL 6.9 MG/DL (8.8-10.2); CARBON DIOXIDE LEVEL 25 MEQ/L (21-32); CHLORIDE LEVEL 100 MEQ/L (98-107); CREATININE FOR GFR 0.68 MG/DL (0.55-1.30); GLOMERULAR FILTRATION RATE > 60.0 (>45); GLUCOSE, FASTING 346 MG/DL (70-100); SODIUM LEVEL 138 MEQ/L (136-145)
[2020-07-27 14:52] LABS: PHOSPHORUS LEVEL 15.5 MG/DL (2.5-4.9); POTASSIUM SERUM 3.3 MEQ/L (3.5-5.1)
[2020-07-27 16:00] VITALS: BP 124/77
[2020-07-27] MEDS: KCL 10MEQ/100ML SWI (KRUN) 10 MEQ in IV 1 EA IV SCH ×2 (16:05→17:03)
[2020-07-27 16:14] LABS: ALT/SGPT 21 U/L (12-78); BILIRUBIN,DIRECT 0.2 MG/DL (0.0-0.2); BILIRUBIN,TOTAL 0.4 MG/DL (0.2-1.0); TOTAL PROTEIN 4.8 GM/DL (6.4-8.2)
[2020-07-27] MEDS: KCL 20MEQ IN D5/NS 1000ML 1,000 ML IV SCH (18:26)
[2020-07-27 19:12] LABS: BLOOD UREA NITROGEN 12 MG/DL (7-18); CALCIUM LEVEL 7.1 MG/DL (8.8-10.2); CARBON DIOXIDE LEVEL 27 MEQ/L (21-32); CHLORIDE LEVEL 107 MEQ/L (98-107); CREATININE FOR GFR 0.57 MG/DL (0.55-1.30); GLOMERULAR FILTRATION RATE > 60.0 (>45); GLUCOSE, FASTING 93 MG/DL (70-100); MAGNESIUM LEVEL 2.2 MG/DL (1.8-2.4); PHOSPHORUS LEVEL 3.4 MG/DL (2.5-4.9); POTASSIUM SERUM 3.9 MEQ/L (3.5-5.1); SODIUM LEVEL 142 MEQ/L (136-145)
[2020-07-27 20:00] VITALS: BP 158/94
[2020-07-28] VITALS (12 sets, daily range): BP systolic 99–146; BP diastolic 56–84
[2020-07-28] MEDS: hydrALAZINE 20MG/ML 1ML VIAL (J0360 PER 20MG) IV SCH (01:45)
[2020-07-28] MEDS: SLF 3 ML SYR IV SCH ×3 (05:04→20:53)
[2020-07-28] MEDS: SODIUM CHLORIDE 0.9% INJ 10 ML SYR IV SCH ×2 (05:04→17:45)
[2020-07-28 05:27] LABS: BASO % 0.3 % (0.0-1.0); EOS % 0.6 % (0.0-3.0); HEMATOCRIT 29.9 % (36.0-47.0); HEMOGLOBIN 10.3 g/dl (12.0-15.5); LYMPH % 27.9 % (24.0-44.0); MEAN CORPUSCULAR HEMOGLOBIN 32.8 pg (27.0-33.0); MEAN CORPUSCULAR HGB CONC 34.4 g/dl (32.0-36.5); MEAN CORPUSCULAR VOLUME 95.2 fl (80.0-96.0); MONO # 0.1 10^3/uL (0.0-0.8); MONO % 3.7 % (0.0-5.0); NEUTROPHILS # 2.3 10^3/uL (1.5-8.5); NEUTROPHILS % 65.5 % (36.0-66.0); RED BLOOD COUNT 3.14 10^6/uL (4.00-5.40); WHITE BLOOD COUNT 3.5 10^3/uL (4.0-10.0)
[2020-07-28 05:28] LABS: PLATELET COUNT, AUTOMATED 85 10^3/uL (150-450)
[2020-07-28 05:53] LABS: BLOOD UREA NITROGEN 14 MG/DL (7-18); CALCIUM LEVEL 6.9 MG/DL (8.8-10.2); CARBON DIOXIDE LEVEL 26 MEQ/L (21-32); CHLORIDE LEVEL 106 MEQ/L (98-107); CREATININE FOR GFR 0.65 MG/DL (0.55-1.30); GLOMERULAR FILTRATION RATE > 60.0 (>45); GLUCOSE, FASTING 97 MG/DL (70-100); MAGNESIUM LEVEL 2.2 MG/DL (1.8-2.4); POTASSIUM SERUM 3.6 MEQ/L (3.5-5.1); SODIUM LEVEL 137 MEQ/L (136-145)
[2020-07-28 07:11] LABS: NT-PRO BNP 1386 PG/ML (<125)
[2020-07-28] MEDS: ENOXAPARIN 40MG/0.4ML SYRINGE (J1650 PER 10MG) SC SCH (07:51)
[2020-07-28 08:08] LABS: PHOSPHORUS LEVEL 2.3 MG/DL (2.5-4.9)
[2020-07-28] MEDS: METOCLOPRAMIDE INJ 10MG/2ML VIAL (J2765 PER 1) IV SCH ×4 (08:20→20:53)
[2020-07-28] MEDS: PANTOPRAZOLE 40MG VIAL (C9113 PER 1) IV SCH ×2 (08:20→20:53)
--- NOTE | 2020-07-28 08:55 | IPNPDOC ---
Text Note Date of Service The patient was seen on 07/28/20. NOTE No acute events overnight. She had multiple stools yesterday, and her NG output is minimal. She is very lethargic this am, and unable to answer my questions. 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 Due to the nausea from the splenic infarction she has developed hypokalemia that has resulted in an ileus and eventual partial SBO within her hernia sac. She has had this hernia for over 30 years. Recommendation for now is to continue with NGT decompression. I have discussed the case with the PCP and she is a poor surgical candidate. Since she is passing stools and has minimal NG output I recommend postponing surgery. Repairing her hernia will not improve her mentation or strength. I recommend PT, OT, ambulation, and TPN. Alexey Grace DO VS,Pinky, I+O VS, Pinky, I+O Laboratory Tests 07/27/20 12:00 07/27/20 18:36 07/28/20 05:15 Vital Signs Date Time Temp Pulse Resp B/P (MAP) Pulse Ox O2 Delivery O2 Flow Rate FiO2 07/28/20 08:38 96.6 69 20 101/58 (72) 96 Room Air I&O- Last 24 Hours up to 6 AM 07/28/20 06:00 Intake Total 2250 ml Output Total 1325 ml Balance 925 ml CHUYITA GRACE DO Jul 28, 2020 08:55
[2020-07-28] MEDS ORDERED: NS 500 ML IV ONE ×2 (09:00→12:15)
[2020-07-28 09:45] LABS: PARTIAL THROMBOPLASTIN TIME 25.7 SECONDS (25.0-38.4); PROTHROMBIN TIME 13.4 SECONDS (11.8-14.0)
[2020-07-28 10:26] LABS: CORTISOL AM 21.4 UG/DL (4.3-22.4)
--- NOTE | 2020-07-28 11:16 | IPNPDOC ---
Text Note Date of Service The patient was seen on 07/28/20. NOTE Subjective: Patient is a 69 year old female who was abdominal pain with large ventral hernia and imaging showing splenic infarct without necessary surgical correction. Patient progressed well and was about to be discharged but experienced a hypotensive episode on 07/17 requiring fluid administration. Patient continued to experience nausea and vomiting, gastroenterology was called and she received an EGD / Esophagram; consistent with esophagitis / gastritis and gastroparesis. Patient had more nausea and vomiting and repeat imaging had revealed possible pa rtial SBO vs. LBO. Surgery was reconsulted for evaluation. He hospital course was complicated with urinary retention and a Murphy catheter was placed Patient was seen and examined at the bedside. Currently patient is reporting weakness. Is oriented to person / place / president. Denies any abdominal pain. Has NG tube in place that will be clamped. Discussed with surgery; will start TPN Nutrition today. Objective: Vitals (See below) General: Lying in bed, does not appear to be in any distress, Awake; and is oriented to person / place / president HEENT: NC, AT, + NG tube in place; will be clamped CVS: +S1S2 Lungs: Fair air entry b/l, no appreciable wheezing / rhonchi / rales Abdomen: Soft, ND, NT, Large ventral hernia Extremities: Again UE with 1+ edema bilaterally; LE with trace edema bilaterally, - Calf tenderness Assessment and plan: Deconditioning / Weakness - CT head (07/27): No acute disease - c/w PT and OT - Will start TPN nutrition; will follow repeat lab work [id number] to correct any electrolyte abnormalities Nausea and vomiting - possibly 2/2 partial SBO - c/w NG tube and NPO status - NG will be clamped today - Patient has had several incontinent bowel movements overnight and minimal NG tube output - Dr. Grace on consultation; discussed about postponing surgery given reduced NG output and bowel movements Volume status and hypo/hypertension - Clinically appears hypervolemic - Will start TPN - Duplex US of bilateral UE to evaluate for DVT negative - Cortisol levels appropriate - Will provide Albumin infusion today Hx of splenic Infarct - Splenic infarct noted on CT - discussed at length with vascular - no further intervention - pain control only - CTA abdomen reviewed with Dr. Bianchi (Vascular surgery) and Dr. Jose (Radiology)- splenic infarction and possible occlusion of splenic artery vs tor tuous vessel vs positional - no surgery/stenting recommended. - Coagulopathy workup - negative Urinary retention - likely 2/2 partial SBO / ileus - UA negative - Murphy in place; can consider discontinuing as she has had bowel movement; but will keep in place for now to monitor I/Os - c/w Murphy catheter Gastroparesis - Diagnosed on barium esophagram - c/w Reglan and gastroparesis diet - Gastroenterology on consultation Esophagitis/gastritis - c/w PPI - Gastroenterology on consultation Lower extremity numbness - Resolved Hx of suspected ventricular tachycardia on telemetry - [employer] medical insurance clerk has interrogated device with no concerning findings - Prior Dr. Foster patient, however was discharged from practice HTN - BP moderately controlled - s/p Lisinopril and Norvasc - c/w Hydralazine with adjusted hold parameters Hx SSS - s/p PPM in place Hx of AAA GI prophylaxis - c/w Protonix DVT prophylaxis - c/w Lovenox Disposition: - Pending clinical improvement - May require surgery; surgery on consultation VS,Pinky, I+O VS, Pinky, I+O Laboratory Tests 07/27/20 12:00 07/27/20 18:36 07/28/20 05:15 Vital Signs Date Time Temp Pulse Resp B/P (MAP) Pulse Ox O2 Delivery O2 Flow Rate FiO2 07/28/20 08:38 96.6 69 20 101/58 (72) 96 Room Air I&O- Last 24 Hours up to 6 AM 07/28/20 06:00 Intake Total 2250 ml Output Total 1325 ml Balance 925 ml ROBERTO MONTGOMERY MD Jul 28, 2020 11:16
[2020-07-28] MEDS: KCL 20MEQ IN D5/NS 1000ML 1,000 ML IV SCH (12:21)
--- NOTE | 2020-07-28 14:17 | CR ---
DATE OF CONSULTATION: 07/15/2020 REASON FOR CONSULTATION: Abdominal pain. HISTORY OF PRESENT ILLNESS: The patient is a 69-year-old female who presented to the Emergency Room on the evening of the with severe upper abdominal pain going across her upper abdomen. She has had nausea and vomiting associated with it for the last 48 hours, it has not been getting any better. The pain has been getting worse, so she came in for evaluation. In the Emergency Room, her labs were all stable, however, she did have a CAT scan done that showed a large ventral hernia. She was admitted initially for this ventral hernia and for the abdominal pain and for possible colitis. The CT did show some slightly inflamed loops of the colon within the hernia sac, concerning for colitis. No other abnormalities. This morning, she is feeling the same. She is still nauseous, unable to really tolerate much liquids or solids. The pain is still present, it is all right underneath the ribcage. It is not in the hernia sac itself. She was also having some hypotension on admission, that has since resolved with fluid hydration, but there are no signs of any bowel obstruction or distention of the abdomen at this time. The hernia has been present for many years, has not changed in size. She has never considered getting it repaired before because it has never bothered her, but now she is considering it because she is under the impression that that is the reason why she is here in the hospital. I have looked at her images with our in-house radiologist; he is concerned about possible splenic infarct that is not present on previous CT scan of her abdomen. Therefore, we will plan to repeat some imaging this afternoon to further evaluate that. No other changes from her standpoint. No recent travel or trauma to the abdomen. No changes in her hernia. No changes in diet or medications. PAST MEDICAL HISTORY: Ventral hernia, hypertension, syncope, sick sinus syndrome, AAA, obesity, hiatal hernia. PAST SURGICAL HISTORY: Pacemaker in 2014, left shoulder repair. ALLERGIES: Novocain, Lisinopril. SOCIAL HISTORY: Denies drug, alcohol and tobacco abuse. FAMILY HISTORY: Noncontributory. REVIEW OF SYSTEMS: Pertinent positives and negatives as stated in the HPI. PHYSICAL EXAMINATION: GENERAL: Patient is A and O x3, in no acute distress. VITAL SIGNS: Temp 97.8, pulse 57, respiratory rate 16, blood pressure 126/64, pulse ox 96% on room air. HEENT: Pupils equally round and reactive to light and accommodation. HEART: S1, S2, regular rate and rhythm. LUNGS: Clear to auscultation bilaterally. ABDOMEN: Soft. Tender to palpation epigastric and left upper quadrant. Diffuse mild abdominal tenderness throughout the rest of the abdomen. Ventral hernia is large, non-reducible. No signs of any bruising or hematomas in the abdominal wall. EXTREMITIES: Bilateral lower extremity pitting edema. LABORATORY DATA: White count 6, hemoglobin 12.5, platelets 115,000. IMAGING DATA: CT abdomen and pelvis shows again the possible splenic infarct, after review with in-house radiologist that was not identified on the initial CT read from [facility]. She also has this large ventral hernia without any signs of a bowel obstruction, however, we also do not appreciate any signs of colitis on this exam either. The only significant abnormality appears to be the possible infarction. ASSESSMENT & PLAN: Patient is a 69-year-old female with gradual increase in abdominal pain with nausea and vomiting. Her symptoms at this time appear to be likely associated with splenic infarction. Recommend to proceed with a CTA of the abdomen, that will be done this afternoon, that could explain both her pain as well as her nausea and emesis. Recommendation at this time is treatment with fluid hydration and antiemetics. Once her pain is controlled and she is tolerating a diet, she can be discharged home and possibly consider following up with vascular surgery at [facility] as an outpatient for further evaluation. Also as far as her hernia is concerned, there is no indication for any emergent surgery during this stay, that is not the cause of her current symptoms. If she would like to discuss surgery for that, we can follow-up with her in the office as an outpatient. MICHAEL
[2020-07-28 14:27] LABS: BLOOD UREA NITROGEN 13 MG/DL (7-18); CARBON DIOXIDE LEVEL 24 MEQ/L (21-32); CHLORIDE LEVEL 108 MEQ/L (98-107); CREATININE FOR GFR 0.56 MG/DL (0.55-1.30); GLOMERULAR FILTRATION RATE > 60.0 (>45); GLUCOSE, FASTING 95 MG/DL (70-100); MAGNESIUM LEVEL 2.2 MG/DL (1.8-2.4); PHOSPHORUS LEVEL 2.4 MG/DL (2.5-4.9); POTASSIUM SERUM 3.7 MEQ/L (3.5-5.1); SODIUM LEVEL 138 MEQ/L (136-145)
[2020-07-28] MEDS: HumaLOG INSULIN (NovoLOG) PER UNIT SC SCH (16:58)
[2020-07-28 17:33] LABS: ALBUMIN 2.3 GM/DL (3.2-5.2); BLOOD UREA NITROGEN 13 MG/DL (7-18); CALCIUM LEVEL 7.2 MG/DL (8.8-10.2); CARBON DIOXIDE LEVEL 24 MEQ/L (21-32); CHLORIDE LEVEL 109 MEQ/L (98-107); GLOMERULAR FILTRATION RATE > 60.0 (>45); GLUCOSE, FASTING 97 MG/DL (70-100); MAGNESIUM LEVEL 2.3 MG/DL (1.8-2.4); PHOSPHORUS LEVEL 2.1 MG/DL (2.5-4.9); POTASSIUM SERUM 3.6 MEQ/L (3.5-5.1); SODIUM LEVEL 141 MEQ/L (136-145)
[2020-07-28] MEDS ORDERED: FAT EMULSION IV 20% 500 ML IV SCH (18:00)
[2020-07-28] MEDS ORDERED: MULTIVITAMIN -ADULT INJECTION 10 ML, CR/CU/SE/MN/ZN INJ 1 ML in AMINO AC/ELECTROLYTE/DE... IV SCH (18:00)
[2020-07-29] VITALS (8 sets, daily range): BP systolic 93–148; BP diastolic 51–95
[2020-07-29 00:57] LABS: ALBUMIN 2.6 GM/DL (3.2-5.2); BLOOD UREA NITROGEN 13 MG/DL (7-18); CALCIUM LEVEL 7.5 MG/DL (8.8-10.2); CARBON DIOXIDE LEVEL 22 MEQ/L (21-32); CHLORIDE LEVEL 109 MEQ/L (98-107); CREATININE FOR GFR 0.65 MG/DL (0.55-1.30); GLOMERULAR FILTRATION RATE > 60.0 (>45); GLUCOSE, FASTING 89 MG/DL (70-100); MAGNESIUM LEVEL 2.3 MG/DL (1.8-2.4); PHOSPHORUS LEVEL 2.2 MG/DL (2.5-4.9); POTASSIUM SERUM 3.5 MEQ/L (3.5-5.1); SODIUM LEVEL 138 MEQ/L (136-145)
[2020-07-29] MEDS: SODIUM CHLORIDE 0.9% INJ 10 ML SYR IV SCH ×2 (05:38→18:00)
[2020-07-29] MEDS: SLF 3 ML SYR IV SCH ×3 (05:39→19:59)
[2020-07-29] MEDS: HumaLOG INSULIN (NovoLOG) PER UNIT SC SCH ×4 (06:00→18:40)
[2020-07-29 06:32] LABS: HEMATOCRIT 28.9 % (36.0-47.0); HEMOGLOBIN 9.8 g/dl (12.0-15.5); MEAN CORPUSCULAR HEMOGLOBIN 32.5 pg (27.0-33.0); MEAN CORPUSCULAR HGB CONC 33.9 g/dl (32.0-36.5); MEAN CORPUSCULAR VOLUME 95.7 fl (80.0-96.0); PLATELET COUNT, AUTOMATED 76 10^3/uL (150-450); RED BLOOD COUNT 3.02 10^6/uL (4.00-5.40); WHITE BLOOD COUNT 3.8 10^3/uL (4.0-10.0)
[2020-07-29 06:47] LABS: ALBUMIN 2.8 GM/DL (3.2-5.2); BLOOD UREA NITROGEN 14 MG/DL (7-18); CALCIUM LEVEL 7.6 MG/DL (8.8-10.2); CARBON DIOXIDE LEVEL 24 MEQ/L (21-32); CHLORIDE LEVEL 108 MEQ/L (98-107); CREATININE FOR GFR 0.62 MG/DL (0.55-1.30); GLOMERULAR FILTRATION RATE > 60.0 (>45); GLUCOSE, FASTING 98 MG/DL (70-100); MAGNESIUM LEVEL 2.2 MG/DL (1.8-2.4); PHOSPHORUS LEVEL 2.1 MG/DL (2.5-4.9); POTASSIUM SERUM 3.5 MEQ/L (3.5-5.1); SODIUM LEVEL 139 MEQ/L (136-145)
[2020-07-29 07:24] LABS: ANISOCYTOSIS 1+; EOSINOPHILS 3 % (0-3); LYMPHOCYTES 37 % (16-44); MONOCYTES 2 % (0-5); NEUTROPHILS 58 % (28-66); PLATELET ESTIMATE DECREASED (NORMAL)
[2020-07-29 07:25] LABS: SMUDGE CELLS 1+
[2020-07-29] MEDS: METOCLOPRAMIDE INJ 10MG/2ML VIAL (J2765 PER 1) IV SCH ×4 (08:21→19:59)
[2020-07-29] MEDS: PANTOPRAZOLE 40MG VIAL (C9113 PER 1) IV SCH ×2 (08:21→19:58)
--- NOTE | 2020-07-29 08:56 | IPNPDOC ---
Text Note Date of Service The patient was seen on 07/29/20. NOTE No acute events overnight. She had more stools yesterday, and she tolerated the NG clamped until this am when she pulled it out. She is very awake this am and able to have a full conversation with me. She does not remember ever seeing me before. 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 Due to the nausea from the splenic infarction she has developed hypokalemia that has resulted in an ileus and eventual partial SBO within her hernia sac. I recommend to keep NG out today, start clq diet, and laxatives BId. Alexey Grace DO VS,Pinky, I+O VS, Pinky, I+O Laboratory Tests 07/28/20 13:29 07/28/20 16:44 07/29/20 00:14 07/29/20 05:48 Vital Signs Date Time Temp Pulse Resp B/P (MAP) Pulse Ox O2 Delivery O2 Flow Rate FiO2 07/29/20 08:00 97.7 77 20 103/53 (70) 97 Room Air I&O- Last 24 Hours up to 6 AM 07/29/20 06:00 Intake Total 1025.0 ml Output Total 2100 ml Balance -1075.0 ml CHUYITA GRACE DO Jul 29, 2020 08:56
[2020-07-29] MEDS: ENOXAPARIN 40MG/0.4ML SYRINGE (J1650 PER 10MG) SC SCH (09:00)
[2020-07-29] MEDS: MIRALAX *UNIT DOSE* 17GM PACKET PO SCH ×2 (12:05→19:58)
--- NOTE | 2020-07-29 16:30 | IPNPDOC ---
Text Note Date of Service The patient was seen on 07/29/20. NOTE SUBJECTIVE: off NG tube. no overnight events OBJECTIVE: FOCUSED EXAMINATION: General: no acute distress; awake HEENT: NC CVS: no abnormal heart sounds Lungs: no abnormalities on auscultation Abdomen: Soft, mild distension - hx of ventral hernia Extremities: no pitting edema in lower extremities VITAL SIGNS: Please see below. ASSESSMENT and PLAN: Deconditioning / Weakness - CT head (07/27): No acute disease - continue TPN for now; started clear liquid diet today - will d/c TPN tomorrow if oral diet is tolerable Nausea and vomiting - possibly 2/2 partial SBO - off NG tube - Dr. 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 Bianchi (Vascular surgery) and Dr. Jose (Radiology)- splenic infarction and possible occlusion of splenic artery vs tortuous vessel vs positional - no surgery/stenting recommended. - Coagulopathy workup - negative Urinary retention - likely 2/2 partial SBO / ileus - UA negative - Murphy in place; can consider discontinuing as she has had bowel movement; but will keep in place for now to monitor I/Os - c/w Murphy catheter Gastroparesis - Diagnosed on barium esophagram - c/w Reglan and gastroparesis diet - Gastroenterology on consultation Esophagitis/gastritis - c/w PPI - Gastroenterology on consultation Lower extremity numbness - Resolved Hx of suspected ventricular tachycardia on telemetry - [facility] certified medical asst has interrogated device with no concerning findings - Prior Dr. Foster patient, however was discharged from practice HTN - BP moderately controlled - s/p Lisinopril and Norvasc - c/w Hydralazine with adjusted hold parameters Hx SSS - s/p PPM in place Hx of AAA GI prophylaxis - c/w Protonix DVT prophylaxis - c/w Lovenox Disposition: - Pending clinical improvement - surgery on consultation VS,Fishbone, I+O VS, Fishbone, I+O Laboratory Tests 07/28/20 16:44 07/29/20 00:14 07/29/20 05:48 Vital Signs Date Time Temp Pulse Resp B/P (MAP) Pulse Ox O2 Delivery O2 Flow Rate FiO2 9/1/20 15:30 96.9 76 17 109/56 (35) 98 Room Air I&O- Last 24 Hours up to 6 AM 07/29/20 06:00 Intake Total 1025.0 ml Output Total 2100 ml Balance -1075.0 ml XAVIER CLARK DO Jul 29, 2020 16:30
[2020-07-29] MEDS ORDERED: AMINO AC/ELECTROLYTE/DEX/CALC 2,000 ML IV SCH (18:00)
[2020-07-29] MEDS ORDERED: FAT EMULSION IV 20% 500 ML IV SCH (18:00)
[2020-07-29] MEDS: ACETAMINOPHEN 500 MG TAB PO PRN (18:40)
[2020-07-30] VITALS: BP 97/52
[2020-07-30 04:00] VITALS: BP 104/65
[2020-07-30] MEDS: ACETAMINOPHEN 500 MG TAB PO PRN ×2 (04:13→09:43)
[2020-07-30] MEDS: SODIUM CHLORIDE 0.9% INJ 10 ML SYR IV SCH ×2 (04:35→16:55)
[2020-07-30] MEDS: SLF 3 ML SYR IV SCH ×3 (04:36→21:05)
[2020-07-30 05:51] LABS: HEMATOCRIT 28.4 % (36.0-47.0); HEMOGLOBIN 9.5 g/dl (12.0-15.5); MEAN CORPUSCULAR HEMOGLOBIN 32.4 pg (27.0-33.0); MEAN CORPUSCULAR HGB CONC 33.5 g/dl (32.0-36.5); MEAN CORPUSCULAR VOLUME 96.9 fl (80.0-96.0); RED BLOOD COUNT 2.93 10^6/uL (4.00-5.40); WHITE BLOOD COUNT 2.9 10^3/uL (4.0-10.0)
[2020-07-30] MEDS: HumaLOG INSULIN (NovoLOG) PER UNIT SC SCH ×3 (06:00→12:00)
[2020-07-30 06:27] LABS: PLATELET COUNT, AUTOMATED 60 10^3/uL (150-450)
[2020-07-30 06:28] LABS: BLOOD UREA NITROGEN 17 MG/DL (7-18); CARBON DIOXIDE LEVEL 25 MEQ/L (21-32); CHLORIDE LEVEL 109 MEQ/L (98-107); CREATININE FOR GFR 0.65 MG/DL (0.55-1.30); GLOMERULAR FILTRATION RATE > 60.0 (>45); GLUCOSE, FASTING 86 MG/DL (70-100); MAGNESIUM LEVEL 2.2 MG/DL (1.8-2.4); POTASSIUM SERUM 3.6 MEQ/L (3.5-5.1); SODIUM LEVEL 141 MEQ/L (136-145)
[2020-07-30 06:31] LABS: BASOPHILS 1 % (0-1); LYMPHOCYTES 67 % (16-44); MONOCYTES 5 % (0-5); NEUTROPHILS 27 % (28-66); PLATELET ESTIMATE MARKED DECREASE (NORMAL)
[2020-07-30 08:00] VITALS: BP 111/65
[2020-07-30] MEDS: ENOXAPARIN 40MG/0.4ML SYRINGE (J1650 PER 10MG) SC SCH (09:00)
--- NOTE | 2020-07-30 09:18 | IPNPDOC ---
Text Note Date of Service The patient was seen on 07/30/20. NOTE No acute events overnight. She is very awake this am. Denies problems with [place], emesis, fevers, or abd pains. She is passing flatus still. 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 Due to the nausea from the splenic infarction she has developed hypokalemia that has resulted in an ileus and eventual partial SBO within her hernia sac. I recommend to advance to full liquid diet, and continue laxatives BId indefinitely. Alexey Grace DO VS,Pinky, I+O VS, Pinky, I+O Laboratory Tests 07/30/20 05:26 Vital Signs Date Time Temp Pulse Resp B/P (MAP) Pulse Ox O2 Delivery O2 Flow Rate FiO2 07/30/20 08:00 97.8 78 16 111/65 (80) 96 Room Air I&O- Last 24 Hours up to 6 AM 07/30/20 06:00 Intake Total 2950 ml Output Total 1450 ml Balance 1500 ml CHUYITA GRACE DO Jul 30, 2020 09:18
[2020-07-30] MEDS: MIRALAX *UNIT DOSE* 17GM PACKET PO SCH ×2 (09:42→21:05)
[2020-07-30] MEDS: PANTOPRAZOLE 40MG VIAL (C9113 PER 1) IV SCH ×2 (09:43→21:05)
[2020-07-30] MEDS: METOCLOPRAMIDE INJ 10MG/2ML VIAL (J2765 PER 1) IV SCH ×4 (09:43→21:05)
[2020-07-30 12:00] VITALS: BP 124/58
[2020-07-30 16:00] VITALS: BP 123/72
[2020-07-30] MEDS: SODIUM CHLORIDE 0.9% INJ 10 ML SYR IV PRN (18:39)
[2020-07-30 20:00] VITALS: BP 122/85
--- NOTE | 2020-07-30 20:10 | IPNPDOC ---
Text Note Date of Service The patient was seen on 07/30/20. NOTE subjective: no overnight events OBJECTIVE: FOCUSED EXAMINATION: General: no acute distress; awake HEENT: NC CVS: no abnormal heart sounds Lungs: no abnormalities on auscultation Abdomen: Soft, mild distension - hx of ventral hernia Extremities: no pitting edema in lower extremities VITAL SIGNS: Please see below. ASSESSMENT and PLAN: Deconditioning / Weakness - CT head (07/27): No acute disease Nausea and vomiting - possibly 2/2 partial SBO - off NG tube. tolerating liquid diet. will d/c TPN - Dr. 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 Bianchi (Vascular surgery) and Dr. Jose (Radiology)- splenic infarction and possible occlusion of splenic artery vs tortuous vessel vs positional - no surgery/stenting recommended. - Coagulopathy workup - negative Urinary retention - likely 2/2 partial SBO / ileus - UA negative - Murphy in place; can consider discontinuing as she has had bowel movement; but will keep in place for now to monitor I/Os - c/w Murphy catheter Gastroparesis - Diagnosed on barium esophagram - c/w Reglan and gastroparesis diet - Gastroenterology on consultation Esophagitis/gastritis - c/w PPI - Gastroenterology on consultation Lower extremity numbness - Resolved Hx of suspected ventricular tachycardia on telemetry - [facility] medical doctor nuclear medicine has interrogated device with no concerning findings - Prior Dr. Foster patient, however was discharged from practice HTN - BP moderately controlled - s/p Lisinopril and Norvasc - c/w Hydralazine with adjusted hold parameters Hx SSS - s/p PPM in place Hx of AAA GI prophylaxis - c/w Protonix DVT prophylaxis - c/w Lovenox Disposition: - Pending clinical improvement - surgery on consultation VS,Fishbone, I+O VS, Fishbone, I+O Laboratory Tests 07/30/20 05:26 Vital Signs Date Time Temp Pulse Resp B/P (MAP) Pulse Ox O2 Delivery O2 Flow Rate FiO2 07/30/20 16:00 97.7 73 16 123/72 (89) 95 Room Air I&O- Last 24 Hours up to 6 AM 07/30/20 05:59 Intake Total 2950 ml Output Total 1200 ml Balance 1750 ml XAVIER CLARK DO Jul 30, 2020 20:10
[2020-07-31] VITALS: BP 125/74
[2020-07-31 04:00] VITALS: BP 131/82
[2020-07-31] MEDS: SLF 3 ML SYR IV SCH ×3 (06:00→21:48)
[2020-07-31] MEDS: SODIUM CHLORIDE 0.9% INJ 10 ML SYR IV SCH ×2 (06:28→16:13)
[2020-07-31 07:08] LABS: BASO % 0.3 % (0.0-1.0); EOS # 0.1 10^3/uL (0.0-0.5); EOS % 1.6 % (0.0-3.0); HEMATOCRIT 27.4 % (36.0-47.0); HEMOGLOBIN 9.1 g/dl (12.0-15.5); LYMPH # 1.5 10^3/uL (1.5-5.0); LYMPH % 48.7 % (24.0-44.0); MEAN CORPUSCULAR HEMOGLOBIN 32.3 pg (27.0-33.0); MEAN CORPUSCULAR HGB CONC 33.2 g/dl (32.0-36.5); MEAN CORPUSCULAR VOLUME 97.2 fl (80.0-96.0); MONO # 0.2 10^3/uL (0.0-0.8); MONO % 6.3 % (0.0-5.0); NEUTROPHILS # 1.3 10^3/uL (1.5-8.5); NEUTROPHILS % 41.5 % (36.0-66.0); RED BLOOD COUNT 2.82 10^6/uL (4.00-5.40)
[2020-07-31 07:11] LABS: PLATELET COUNT, AUTOMATED 58 10^3/uL (150-450)
[2020-07-31 07:15] LABS: BLOOD UREA NITROGEN 19 MG/DL (7-18); CALCIUM LEVEL 7.9 MG/DL (8.8-10.2); CARBON DIOXIDE LEVEL 28 MEQ/L (21-32); CHLORIDE LEVEL 106 MEQ/L (98-107); CREATININE FOR GFR 0.65 MG/DL (0.55-1.30); GLOMERULAR FILTRATION RATE > 60.0 (>45); GLUCOSE, FASTING 77 MG/DL (70-100); MAGNESIUM LEVEL 2.1 MG/DL (1.8-2.4); POTASSIUM SERUM 3.4 MEQ/L (3.5-5.1); SODIUM LEVEL 138 MEQ/L (136-145)
--- NOTE | 2020-07-31 07:52 | ECHO ---
DATE OF PROCEDURE: 07/28/2020 Age: Gender: Female Height: 157 cm Weight: 90 kg REFERRING PHYSICIAN: Dr. Teo Zabala INDICATION: Edema MEASUREMENTS: IVS 1.0 LV 5.3, LVPW 1.0 LA 4.4 Aorta 3.4 RV 2.8 IVC 1.1 Mitral E wave velocity 45, A wave 63 E prime septal 4.8 E prime lateral 8.9 FINDINGS: The study is of fair technical quality with limited visualization, only supine examination was performed. Underlying sinus rhythm. Left ventricle is normal size and systolic function. I estimate ejection fraction (EF) 60 to 65%. No segmental wall motion abnormalities were appreciated based on limited views. Right ventricle also appears to be normal size and systolic function. Both atria appear at least mildly enlarged. Aortic, mitral, tricuspid and pulmonic valves all were reasonably well seen and appear normal. No pericardial effusion is noted. Inferior vena cava is of relatively normal size and appropriately collapses in inspiration indicative of normal central venous pressure. Aortic root is normal. Aortic arch and abdominal aorta were not well seen. Doppler interrogation reveals competent aortic and mitral valves. There is trace tricuspid insufficiency with calculated pulmonary artery pressure in the 20s corresponding to normal values. Pulmonic valve is also functionally competent. Mitral inflow pattern and tissue Doppler imaging of mitral annulus reveal grade 1 diastolic dysfunction. CONCLUSIONS: 1. Study is of fair technical quality, the patient is in sinus rhythm. 2. Normal LV size and systolic function, grade 1 diastolic dysfunction. 3. No significant valvular disease. 4. Likely normal central venous pressure and normal pulmonary artery pressure. COMMENTS: No finding to provide obvious explanation for peripheral edema. MTDD
[2020-07-31 08:00] VITALS: BP 132/78
[2020-07-31] MEDS: MIRALAX *UNIT DOSE* 17GM PACKET PO SCH ×2 (08:21→21:48)
[2020-07-31] MEDS: METOCLOPRAMIDE INJ 10MG/2ML VIAL (J2765 PER 1) IV SCH ×4 (08:22→21:48)
[2020-07-31] MEDS: PANTOPRAZOLE 40MG VIAL (C9113 PER 1) IV SCH ×2 (08:22→21:48)
[2020-07-31] MEDS: SODIUM CHLORIDE 0.9% INJ 10 ML SYR IV PRN ×2 (08:23→12:03)
[2020-07-31] MEDS: ENOXAPARIN 40MG/0.4ML SYRINGE (J1650 PER 10MG) SC SCH (08:23)
--- NOTE | 2020-07-31 09:31 | IPNPDOC ---
Text Note Date of Service The patient was seen on 07/31/20. NOTE No acute events overnight. She is very lethargic and confused this am. She is talking about coming down off of a ladder. She is unable to answer any of my questions. 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 Due to the nausea from the splenic infarction she has developed hypokalemia that has resulted in an ileus and eventual partial SBO within her hernia sac. I re commend to advance to full liquid diet, and continue laxatives BId indefinitely. No changes in diet this am because I can't talk to her. She is still a poor surgical candidate in this current condition. I recommend that this hernia be repaired, but it will likely have to be done as an outpatient. I recommend to stick to liquid and soft diet with laxatives BID until she has a chance to have it repaired. Will follow as needed. Alexey Grace DO VSPinky, I+O VSPinky, I+O Laboratory Tests 07/31/20 06:34 07/31/20 06:35 Vital Signs Date Time Temp Pulse Resp B/P (MAP) Pulse Ox O2 Delivery O2 Flow Rate FiO2 07/31/20 08:00 97.4 88 19 132/78 (96) 97 Room Air I&O- Last 24 Hours up to 6 AM 07/31/20 05:59 Intake Total 2096 ml Output Total 1750 ml Balance 346 ml CHUYITA GRACE DO Jul 31, 2020 09:31
[2020-07-31 12:00] VITALS: BP 108/59
[2020-07-31 16:00] VITALS: BP 126/75
[2020-07-31 20:00] VITALS: BP 143/83
--- NOTE | 2020-07-31 23:55 | IPNPDOC ---
Text Note Date of Service The patient was seen on 07/31/20. NOTE subjective: no overnight events OBJECTIVE: FOCUSED EXAMINATION: General: no acute distress; awake HEENT: NC CVS: no abnormal heart sounds Lungs: no abnormalities on auscultation Abdomen: Soft, mild distension - hx of ventral hernia Extremities: no pitting edema in lower extremities VITAL SIGNS: Please see below. ASSESSMENT and PLAN: Deconditioning / Weakness - CT head (07/27): No acute disease Nausea and vomiting - possibly 2/2 partial SBO - off NG tube. tolerating liquid diet - Dr. 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 Bianchi (Vascular surgery) and Dr. Jose (Radiology)- splenic infarction and possible occlusion of splenic artery vs tortuous vessel vs positional - no surgery/stenting recommended. - Coagulopathy workup - negative Urinary retention - likely 2/2 partial SBO / ileus - UA negative - Murphy in place; can consider discontinuing as she has had bowel movement; but will keep in place for now to monitor I/Os - c/w Murphy catheter Gastroparesis - Diagnosed on barium esophagram - c/w Reglan and gastroparesis diet - Gastroenterology on consultation Esophagitis/gastritis - c/w PPI - Gastroenterology on consultation Lower extremity numbness - Resolved Hx of suspected ventricular tachycardia on telemetry - [facility] medical office rep has interrogated device with no concerning fin charity - Prior Dr. Foster patient, however was discharged from practice HTN - BP moderately controlled - s/p Lisinopril and Norvasc - c/w Hydralazine with adjusted hold parameters Hx SSS - s/p PPM in place Hx of AAA GI prophylaxis - c/w Protonix DVT prophylaxis - c/w Lovenox Disposition: - Pending clinical improvement - surgery on consultation VS,Fishbone, I+O VS, Fishbone, I+O Laboratory Tests 07/31/20 06:34 07/31/20 06:35 Vital Signs Date Time Temp Pulse Resp B/P (MAP) Pulse Ox O2 Delivery O2 Flow Rate FiO2 07/31/20 20:00 97.8 79 24 143/83 (103) 98 Room Air I&O- Last 24 Hours up to 6 AM0 07/31/20 06:00 Intake Total 2096 ml Output Total 1450 ml Balance 646 ml XAVIER CLARK DO Jul 31, 2020 23:55
[2020-08-01] VITALS: BP 127/76
[2020-08-01 04:00] VITALS: BP 123/70
[2020-08-01] MEDS: SODIUM CHLORIDE 0.9% INJ 10 ML SYR IV SCH ×2 (05:23→18:34)
[2020-08-01] MEDS: SLF 3 ML SYR IV SCH ×3 (05:24→21:11)
[2020-08-01 08:00] VITALS: BP 140/84
[2020-08-01] MEDS: ENOXAPARIN 40MG/0.4ML SYRINGE (J1650 PER 10MG) SC SCH (09:00)
[2020-08-01 09:52] LABS: ABG BASE EXCESS 1.7 (-2.0-2.0); ABG HCO3 24.6 MEQ/L (22.0-26.0); ABG O2 SATURATION 99.2 % (95.0-99.0); ABG PARTIAL PRESSURE CO2 32.5 mmHg (35.0-45.0); ABG PARTIAL PRESSURE O2 192.6 mmHg (75.0-100.0); ABG TOTAL CO2 25.6 MEQ/L (23.0-31.0); ABG pH (ARTERIAL) 7.497 UNITS (7.350-7.450)
[2020-08-01] MEDS: MIRALAX *UNIT DOSE* 17GM PACKET PO SCH ×2 (11:20→21:11)
[2020-08-01] MEDS: PANTOPRAZOLE 40MG VIAL (C9113 PER 1) IV SCH ×2 (11:20→21:11)
[2020-08-01] MEDS: METOCLOPRAMIDE INJ 10MG/2ML VIAL (J2765 PER 1) IV SCH ×4 (11:21→21:11)
[2020-08-01] MEDS: ACETAMINOPHEN 500 MG TAB PO PRN (11:28)
[2020-08-01 12:00] VITALS: BP 130/74
[2020-08-01 12:48] LABS: CALCIUM LEVEL 7.9 MG/DL (8.8-10.2); FREE T4 1.34 NG/DL (0.76-1.46); MAGNESIUM LEVEL 2.1 MG/DL (1.8-2.4); THYROID STIMULATING HORMONE 1.72 uIU/ML (0.358-3.740)
--- NOTE | 2020-08-01 15:49 | IPNPDOC ---
Text Note Date of Service The patient was seen on 08/01/20. NOTE subjective: no overnight events OBJECTIVE: FOCUSED EXAMINATION: General: no acute distress; awake HEENT: NC CVS: no abnormal heart sounds Lungs: no abnormalities on auscultation Abdomen: Soft, mild distension - hx of ventral hernia Extremities: no pitting edema in lower extremities VITAL SIGNS: Please see below. ASSESSMENT and PLAN: Delirium -workup ordered: CBC, CMP, UA, CXR, calcium, TSH, abg, vit b12, EEG ordered to confirm metabolic encephalopathy -if work-up is negative will consider MRI and or Lumbar Puncture Deconditioning / Weakness - CT head (07/27): No acute disease Nausea and vomiting - possibly 2/2 partial SBO - off NG tube. tolerating liquid diet. will d/c TPN - Dr. 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 Bianchi (Vascular surgery) and Dr. Jose (Radiology)- splenic infarction and possible occlusion of splenic artery vs tortuous vessel vs positional - no surgery/stenting recommended. - Coagulopathy workup - negative Urinary retention - likely 2/2 partial SBO / ileus - UA negative - Murphy in place; can consider discontinuing as she has had bowel movement; but will keep in place for now to monitor I/Os - c/w Murphy catheter Gastroparesis - Diagnosed on barium esophagram - c/w Reglan and gastroparesis diet - Gastroenterology on consultation Esophagitis/gastritis - c/w PPI - Gastroenterology on consultation Lower extremity numbness - Resolved Hx of suspected ventricular tachycardia on telemetry - [facility] medical assistant secretary has interrogated device with no concerning findings - Prior Dr. Foster patient, however was discharged from practice HTN - BP moderately controlled - s/p Lisinopril and Norvasc - c/w Hydralazine with adjusted hold parameters Hx SSS - s/p PPM in place Hx of AAA GI prophylaxis - c/w Protonix DVT prophylaxis - c/w Lovenox Disposition: - Pending clinical improvement - surgery on consultation VS,Fishbone, I+O VS, Fishbone, I+O Vital Signs Date Time Temp Pulse Resp B/P (MAP) Pulse Ox O2 Delivery O2 Flow Rate FiO2 08/01/20 12:00 98.1 80 18 130/74 (92 94 Room Air I&O- Last 24 Hours up to 6 AM 08/01/20 06:00 Intake Total 270 ml Output Total 950 ml Balance -680 ml XAVIER CLARK DO Aug 01, 2020 15:49
--- NOTE | 2020-08-01 17:11 | REPVR ---
PROCEDURE INFORMATION: Exam: XR Chest, 2 Views Exam date and time: 08/01/2020 10:32 AM Age: 69 years old Clinical indication: Other: Hernia and loss of body control TECHNIQUE: Imaging protocol: XR of the chest Views: 2 views. COMPARISON: CR Abdomen,Flat Upright,PA CHEST 07/24/2020 9:30 AM FINDINGS: Tubes, catheters and devices: Dual chamber cardiac pacer demonstrated. Intact pacer wires. PICC line enters from the right with the tip in the superior vena cava. Lungs: Unremarkable. No consolidation. Pleural space: Unremarkable. No pleural effusion. No pneumothorax. Heart/Mediastinum: Unremarkable. No cardiomegaly. Bones/joints: Osteoporosis. IMPRESSION: No acute findings. Electronically signed by: Alvino Galan On 08/01/2020 17:11:11 PM
--- NOTE | 2020-08-01 17:18 | REPVR ---
PROCEDURE INFORMATION: Exam: XR Abdomen, 2 Views Exam date and time: 08/01/2020 10:32 AM Age: 69 years old Clinical indication: Condition or disease; Hernia; Complications not specified; Ventral TECHNIQUE: Imaging protocol: XR of the abdomen. Views: 2 Views. COMPARISON: CR PORTABLE ABDOMEN (KUB) 07/24/2020 12:20 PM FINDINGS: Gastrointestinal tract: Dilated bowel in the mid abdomen appears a represent large bowel located in the previously demonstrated hernia in the mid abdomen. Intraperitoneal space: Normal. No free air. Bones/joints: Unremarkable for age. IMPRESSION: Dilated bowel in the mid abdomen appears a represent large bowel located in the previously demonstrated hernia in the mid abdomen. Findings may indicate a bowel obstruction within the hernia. Electronically signed by: Alvino Galan On 08/01/2020 17:17:48 PM
[2020-08-01 20:00] VITALS: BP 124/74
[2020-08-02 01:06] VITALS: BP 160/75
[2020-08-02] MEDS: ACETAMINOPHEN 500 MG TAB PO PRN (05:51)
[2020-08-02] MEDS: SODIUM CHLORIDE 0.9% INJ 10 ML SYR IV SCH ×2 (05:51→18:00)
[2020-08-02] MEDS: SLF 3 ML SYR IV SCH ×3 (05:52→21:48)
[2020-08-02 06:00] VITALS: BP 156/84
[2020-08-02] MEDS: ENOXAPARIN 40MG/0.4ML SYRINGE (J1650 PER 10MG) SC SCH (09:00)
[2020-08-02] MEDS: MIRALAX *UNIT DOSE* 17GM PACKET PO SCH ×2 (09:10→21:00)
[2020-08-02] MEDS: PANTOPRAZOLE 40MG VIAL (C9113 PER 1) IV SCH ×2 (09:10→21:48)
[2020-08-02] MEDS: METOCLOPRAMIDE INJ 10MG/2ML VIAL (J2765 PER 1) IV SCH ×4 (09:10→21:48)
[2020-08-02] MEDS ORDERED: THIAMINE 200MG/2ML VIAL (J3411 PER 100MG) IM ONE (11:00)
[2020-08-02] MEDS: CYANOCOBALAMIN 1,000MCG/ML VIAL (J3420) IM SCH (11:24)
[2020-08-02] MEDS ORDERED: FOLIC ACID 1 MG in NS 50 ML IV ONE (12:00)
[2020-08-02 14:00] VITALS: BP 144/77
[2020-08-02] MEDS ORDERED: ISOVUE-370 76% 100ML VIAL As Ordered ONE (17:14)
[2020-08-02 17:37] LABS: ABG BASE EXCESS 3.4 (-2.0-2.0); ABG HCO3 27.6 MEQ/L (22.0-26.0); ABG O2 SATURATION 96.1 % (95.0-99.0); ABG PARTIAL PRESSURE CO2 40.5 mmHg (35.0-45.0); ABG PARTIAL PRESSURE O2 78.3 mmHg (75.0-100.0); ABG STANDARD HCO3 27.5 MEQ/L (22.0-26.0); ABG TOTAL CO2 28.8 MEQ/L (23.0-31.0); ABG pH (ARTERIAL) 7.451 UNITS (7.350-7.450)
[2020-08-02 17:40] LABS: BASO % 0.2 % (0.0-1.0); EOS # 0.1 10^3/uL (0.0-0.5); EOS % 1.4 % (0.0-3.0); HEMATOCRIT 28.6 % (36.0-47.0); HEMOGLOBIN 9.6 g/dl (12.0-15.5); LYMPH # 0.8 10^3/uL (1.5-5.0); LYMPH % 19.5 % (24.0-44.0); MEAN CORPUSCULAR HEMOGLOBIN 32.5 pg (27.0-33.0); MEAN CORPUSCULAR HGB CONC 33.6 g/dl (32.0-36.5); MEAN CORPUSCULAR VOLUME 96.9 fl (80.0-96.0); MONO # 0.5 10^3/uL (0.0-0.8); MONO % 11.1 % (0.0-5.0); NEUTROPHILS # 2.8 10^3/uL (1.5-8.5); NEUTROPHILS % 65.9 % (36.0-66.0); RED BLOOD COUNT 2.95 10^6/uL (4.00-5.40); WHITE BLOOD COUNT 4.3 10^3/uL (4.0-10.0)
[2020-08-02 17:42] LABS: PLATELET COUNT, AUTOMATED 83 10^3/uL (150-450)
[2020-08-02] MEDS ORDERED: VANCOMYCIN HCL 1,000 MG, VIAL MATE ADAPTER 1 EACH in D5W 250 ML IV ONE (18:00)
[2020-08-02 18:25] VITALS: BP 172/102
--- NOTE | 2020-08-02 18:48 | REPVR ---
PROCEDURE INFORMATION: Exam: CT Abdomen And Pelvis With Contrast Exam date and time: 08/02/2020 5:54 PM Age: 69 years old Clinical indication: Other: Sepsis; Additional info: Sepsis; Gi/gu source TECHNIQUE: Imaging protocol: Computed tomography of the abdomen and pelvis with intravenous contrast. Radiation optimization: All CT scans at this facility use at least one of these dose optimization techniques: automated exposure control; mA and/or kV adjustment per patient size (includes targeted exams where dose is matched to clinical indication); or iterative reconstruction. Contrast material: ISOVUE 370; Contrast volume: 100 ml; Contrast route: INTRAVENOUS (IV); COMPARISON: CT ABD PELVIS W/O CONTRAST 07/24/2020 11:31 AM FINDINGS: Pleural space: Small bilateral pleural effusions. Bibasilar compressive atelectasis. Mediastinal space: A small sliding hiatal hernia is present. Liver: There is a diffuse decrease in hepatic parenchymal density, consistent with steatosis. Gallbladder and bile ducts: Normal. No calcified stones. No ductal dilation. Pancreas: Normal. No ductal dilation. Spleen: Hypodensity demonstrated in the posterior aspect of the spleen may represent an artifact although possibility of infarct is not excluded. Adrenals: Normal. No mass. Kidneys and ureters: Bilateral hydroureteronephrosis without obstructing etiology demonstrated. Stomach and bowel: There is a serrated margin of the lumen of the sigmoid colon without significant bowel wall edema to suggest thumbprinting. Clinical correlation to exclude ischemic change suggested. Small bowel is decompressed in comparison to the prior study of 07/24/2020. Appendix: No evidence of appendicitis. Intraperitoneal space: Unremarkable. No free air. No significant fluid collection. Vasculature: The aortoiliac vessels demonstrate mild atherosclerotic calcification. Lymph nodes: Unremarkable. No enlarged lymph nodes. Bladder: There is diffuse thickening of the wall of the bladder without significant perivesicular inflammatory changes. Findings may be related to chronic bladder outlet obstruction however clinical correlation to exclude cystitis suggested. Air within the urinary bladder likely iatrogenic although infection not excluded as well. Reproductive: Unremarkable as visualized. Bones/joints: Moderate to severe central spinal stenosis L4-L5. Soft tissues: Mid ventral periumbilical bowel containing abdominal hernia protrudes through a relatively narrow neck, grossly stable in comparison to the prior study. Clinical correlation to exclude incarceration suggested. Marked opacity of the intraluminal contrast media limits evaluation of the bowel wall. Other findings: Osteoporosis. IMPRESSION: 1. Hypodensity demonstrated in the posterior aspect of the spleen may represent an artifact although possibility of infarct is not excluded. 2. There is a diffuse decrease in hepatic parenchymal density, consistent with steatosis. 3. A small sliding hiatal hernia is present. 4. Mid ventral periumbilical bowel containing abdominal hernia protrudes through a relatively narrow neck, grossly stable in comparison to the prior study. Clinical correlation to exclude incarceration suggested. 5. Bilateral hydroureteronephrosis without obstructing etiology demonstrated. 6. There is a serrated margin of the lumen of the sigmoid colon without significant bowel wall edema to suggest thumbprinting. Clinical correlation to exclude ischemic change suggested. 7. There is diffuse thickening of the wall of the bladder without significant perivesicular inflammatory changes. Findings may be related to chronic bladder outlet obstruction however clinical correlation to exclude cystitis suggested. Air within the urinary bladder likely iatrogenic although infection not excluded as well. Electronically signed by: Alvino Galan On 08/02/2020 18:47:47 PM
[2020-08-02] MEDS: MEROPENEM INJ 1 GM in IV 1 EA IV SCH (19:03)
[2020-08-02 20:00] VITALS: BP 163/74
[2020-08-02] MEDS ORDERED: hydrALAZINE 20MG/ML 1ML VIAL (J0360 PER 20MG) IV PRN (20:00)
[2020-08-02 20:57] LABS: ALBUMIN 2.5 GM/DL (3.2-5.2); ALT/SGPT 40 U/L (12-78); BILIRUBIN,TOTAL 0.8 MG/DL (0.2-1.0); BLOOD UREA NITROGEN 18 MG/DL (7-18); CALCIUM LEVEL 8.3 MG/DL (8.8-10.2); CARBON DIOXIDE LEVEL 29 MEQ/L (21-32); CHLORIDE LEVEL 105 MEQ/L (98-107); CREATININE FOR GFR 0.79 MG/DL (0.55-1.30); GLOMERULAR FILTRATION RATE > 60.0 (>45); GLUCOSE, FASTING 83 MG/DL (70-100); POTASSIUM SERUM 3.6 MEQ/L (3.5-5.1); SODIUM LEVEL 140 MEQ/L (136-145); TOTAL PROTEIN 5.6 GM/DL (6.4-8.2)
[2020-08-02] MEDS ORDERED: VANCOMYCIN HCL 1,000 MG, VIAL MATE ADAPTER 1 EACH in D5W 250 ML IV SCH (21:00)
[2020-08-03] VITALS: BP 140/91
[2020-08-03] MEDS: MEROPENEM INJ 1 GM in IV 1 EA IV SCH ×2 (00:11→08:28)
[2020-08-03 04:00] VITALS: BP 138/67
[2020-08-03] MEDS: SODIUM CHLORIDE 0.9% INJ 10 ML SYR IV SCH ×2 (05:33→18:17)
[2020-08-03] MEDS: SLF 3 ML SYR IV SCH ×3 (05:34→22:55)
[2020-08-03 06:17] LABS: BASO % 0.2 % (0.0-1.0); EOS # 0.1 10^3/uL (0.0-0.5); EOS % 1.2 % (0.0-3.0); HEMATOCRIT 23.7 % (36.0-47.0); LYMPH # 1.4 10^3/uL (1.5-5.0); LYMPH % 27.2 % (24.0-44.0); MEAN CORPUSCULAR HEMOGLOBIN 32.5 pg (27.0-33.0); MEAN CORPUSCULAR HGB CONC 33.8 g/dl (32.0-36.5); MEAN CORPUSCULAR VOLUME 96.3 fl (80.0-96.0); MONO # 0.6 10^3/uL (0.0-0.8); MONO % 12.1 % (0.0-5.0); NEUTROPHILS # 2.9 10^3/uL (1.5-8.5); NEUTROPHILS % 57.5 % (36.0-66.0); RED BLOOD COUNT 2.46 10^6/uL (4.00-5.40)
[2020-08-03 06:22] LABS: PLATELET COUNT, AUTOMATED 94 10^3/uL (150-450)
[2020-08-03 06:40] LABS: ALBUMIN 2.3 GM/DL (3.2-5.2); ALT/SGPT 32 U/L (12-78); BILIRUBIN,TOTAL 0.8 MG/DL (0.2-1.0); BLOOD UREA NITROGEN 17 MG/DL (7-18); CARBON DIOXIDE LEVEL 27 MEQ/L (21-32); CHLORIDE LEVEL 105 MEQ/L (98-107); GLOMERULAR FILTRATION RATE > 60.0 (>45); GLUCOSE, FASTING 68 MG/DL (70-100); POTASSIUM SERUM 3.4 MEQ/L (3.5-5.1); SODIUM LEVEL 139 MEQ/L (136-145)
[2020-08-03 06:50] VITALS: BP 127/76
[2020-08-03] MEDS: CYANOCOBALAMIN 1,000MCG/ML VIAL (J3420) IM SCH (08:26)
[2020-08-03] MEDS: FOLIC ACID 1 MG TAB PO SCH (08:26)
[2020-08-03] MEDS: METOCLOPRAMIDE INJ 10MG/2ML VIAL (J2765 PER 1) IV SCH ×2 (08:26→13:10)
[2020-08-03] MEDS: PANTOPRAZOLE 40MG VIAL (C9113 PER 1) IV SCH ×2 (08:26→21:10)
[2020-08-03] MEDS: MIRALAX *UNIT DOSE* 17GM PACKET PO SCH (08:28)
[2020-08-03] MEDS: ACETAMINOPHEN 500 MG TAB PO PRN ×2 (08:28→21:11)
[2020-08-03] MEDS: SODIUM CHLORIDE 0.9% INJ 10 ML SYR IV PRN ×2 (09:14→13:10)
[2020-08-03 12:00] VITALS: BP 128/81
[2020-08-03 16:00] VITALS: BP 148/70
--- NOTE | 2020-08-03 18:18 | REP ---
NONCONTRAST HEAD CT CLINICAL: Confusion. COMPARISON: 07/17/2020. FINDINGS: Atrophy with periventricular leukomalacia and microvascular ischemic changes again noted. Ventricles are symmetric. Murillo-white differentiation is maintained. No acute intracranial hemorrhage, mass, or mass effect. No extra-axial fluid collection. Calvarium is intact. Paranasal sinuses and mastoid air cells are clear. IMPRESSION: Atrophy and microvascular ischemic changes. No evidence for acute intracranial pathology or trauma/injury. [id number]
--- NOTE | 2020-08-03 18:20 | REP ---
BILATERAL UPPER EXTREMITY DOPPLER ULTRASOUND CLINICAL: Bilateral upper extremity swelling. TECHNIQUE: Real-time cedeno scale and color Doppler evaluation using linear high frequency transducer. FINDINGS: Examination is limited and bandage material obscures portions of the right upper extremity venous structures. The bilateral cephalic veins were not identifiable. The visualized venous structures bilaterally appear patent, and there is no evidence for deep venous thrombosis. IMPRESSION: Limited examination as described above. No evidence for deep venous thrombosis appreciated. MTDD
[2020-08-03 20:00] VITALS: BP 124/68
--- NOTE | 2020-08-03 23:50 | IPNPDOC ---
Text Note Date of Service The patient was seen on 08/03/20. NOTE Communication only. 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 Patient progressed well and was about to be discharged but experienced a hypote nsive episode on 07/17 requiring fluid administration. Patient continued to experience nausea and vomiting, gastroenterology was called and she received an EGD / Esophagram; consistent with esophagitis / gastritis and gastroparesis. Patient had more nausea and vomiting and repeat imaging had revealed possible partial SBO vs. LBO. Surgery was reconsulted for evaluation. She underwent gastric decompression and surgical plan was to operate if symptoms failed to improve. Patient's SBO improved with NG tube. She was on TPN during that crow. Wigth symptom improvement, NG tube was taken out and was transitioned to liquid diet. TPN was then cancelled. Since the hypotensive event and subsequent bowl complications, her mentation status has not restored to prior functional capapcity. Given no focal findings or changes, mentation was closely monitored for changes, anticipating improvement with overall clinical but diven acuity of multiple GI events the recovery was anticipated to be a longer period. Family expressed concerns over the lack of improvement in mentation status, which I discussed over the phone around 08/01 - reviwed that currently there was no identifiable source which is suggestive of metabolic encephalopathy or delirium. Given, the concern and lack of definitive reasoning, a delirium work up was obtained in a step pro approach. step 1:electrolytes, cr, glucose, calcium, and cbc, UA + culture, v12, folate. the results were reviwed - UA + but UA was obtained from an indwelling catheter source and in the setting of no symptom (as in mental staus was stable), the finding was reviewed as asymptomatic bacteruria and treatment was assessed to be nonindicative. empirically treated with thiamine and vitamin replacement ordered. step 2: EEG to confirm metabolic encephalopathy or possible seizure activity - report pending. Meidcations reviwed - deleted d/c medications associated with delerium - of concern, discontinued bowl and prokinetic agents that might need to be resumed for her GI disease. Recommed receiving physican to resume these meds if trail discontinuation fails to cause a change. Neuroimaging was considered: CT head and MRI considered. given pacemaker - unable to obtain MRI. Decided to await getting CT until an lumbar puncture could be scheduled. As this is a routine LP, order placed for 08/03/20. following conformation of time slot, my plan was to order CT head the day of. Given the change in physican: I recommend receiving physician to maintain proper communication channels via social professionals for patient-family relationships as delirium workup is often even if diagnostic of a condition will not always resolve with target treatment given the persistant state of neurological decline. i.e CT finding of ischemic stroke would not be a candidate for tPA or endoscopic interventions. understand that results will have a tendency to raise distress even amongst clinical staff if not communicated and reviewed and relayed appropriately in the applicable clinical context. Consider exploring communication care coordination methods mitigating expected distress during the process.amongst staff and family VS,Pniky, I+O VS, iPnky, I+O Laboratory Tests 08/03/20 05:50 Vital Signs Date Time Temp Pulse Resp B/P (MAP) Pulse Ox O2 Delivery O2 Flow Rate FiO2 08/03/20 20:32 99.0 08/03/20 20:00 78 16 124/68 (86) 92 Room Air I&O- Last 24 Hours up to 6 AM 08/03/20 06:00 Intake Total 1485 ml Output Total 1350 ml Balance 135 ml XAVIER CLARK DO Aug 03, 2020 23:49 NARESH VIDES MD Aug 11, 2020 14:10
[2020-08-04] VITALS: BP 136/60
[2020-08-04 04:00] VITALS: BP 137/72
[2020-08-04] MEDS: SODIUM CHLORIDE 0.9% INJ 10 ML SYR IV SCH ×2 (05:20→17:05)
[2020-08-04] MEDS: SLF 3 ML SYR IV SCH ×3 (05:20→21:01)
[2020-08-04 05:36] LABS: BASO % 0.2 % (0.0-1.0); EOS # 0.1 10^3/uL (0.0-0.5); EOS % 1.9 % (0.0-3.0); HEMATOCRIT 22.8 % (36.0-47.0); HEMOGLOBIN 7.7 g/dl (12.0-15.5); LYMPH # 1.6 10^3/uL (1.5-5.0); MEAN CORPUSCULAR HGB CONC 33.8 g/dl (32.0-36.5); MEAN CORPUSCULAR VOLUME 97.9 fl (80.0-96.0); MONO # 0.7 10^3/uL (0.0-0.8); MONO % 11.2 % (0.0-5.0); NEUTROPHILS # 3.8 10^3/uL (1.5-8.5); PLATELET COUNT, AUTOMATED 134 10^3/uL (150-450); RED BLOOD COUNT 2.33 10^6/uL (4.00-5.40); WHITE BLOOD COUNT 6.4 10^3/uL (4.0-10.0)
[2020-08-04 06:40] LABS: ALBUMIN 2.2 GM/DL (3.2-5.2); ALT/SGPT 28 U/L (12-78); BILIRUBIN,TOTAL 0.6 MG/DL (0.2-1.0); BLOOD UREA NITROGEN 15 MG/DL (7-18); CALCIUM LEVEL 7.7 MG/DL (8.8-10.2); CARBON DIOXIDE LEVEL 29 MEQ/L (21-32); CHLORIDE LEVEL 106 MEQ/L (98-107); CREATININE FOR GFR 0.77 MG/DL (0.55-1.30); GLOMERULAR FILTRATION RATE > 60.0 (>45); GLUCOSE, FASTING 75 MG/DL (70-100); POTASSIUM SERUM 3.4 MEQ/L (3.5-5.1); SODIUM LEVEL 141 MEQ/L (136-145); TOTAL PROTEIN 4.8 GM/DL (6.4-8.2)
[2020-08-04 08:00] VITALS: BP 129/72
[2020-08-04] MEDS ORDERED: POTASSIUM CHLORIDE 10 MEQ SR TABLET PO ONE (08:00)
[2020-08-04] MEDS: PANTOPRAZOLE 40MG VIAL (C9113 PER 1) IV SCH ×2 (08:55→20:00)
[2020-08-04] MEDS: CYANOCOBALAMIN 1,000MCG/ML VIAL (J3420) IM SCH (08:56)
[2020-08-04] MEDS: FOLIC ACID 1 MG TAB PO SCH ×2 (08:56→09:00)
[2020-08-04] MEDS: SODIUM CHLORIDE 0.9% INJ 10 ML SYR IV PRN ×2 (08:57→14:35)
[2020-08-04] MEDS: KCL 10MEQ/100ML SWI (KRUN) 10 MEQ in IV 1 EA IV SCH ×2 (10:36→11:52)
[2020-08-04 12:00] VITALS: BP 132/79
--- NOTE | 2020-08-04 12:25 | REPVR ---
PROCEDURE INFORMATION: Exam: CT Head Without Contrast Exam date and time: 08/04/2020 12:05 PM Age: 69 years old Clinical indication: Altered mental status/memory loss TECHNIQUE: Imaging protocol: Computed tomography of the head without contrast. Radiation optimization: All CT scans at this facility use at least one of these dose optimization techniques: automated exposure control; mA and/or kV adjustment per patient size (includes targeted exams where dose is matched to clinical indication); or iterative reconstruction. COMPARISON: CT Head without contrast 07/27/2020 9:13 AM FINDINGS: Brain: No evolving transcortical infarction or intracranial hemorrhage seen. Patchy hypodensities in the deep white matter, as before, most likely representing chronic small vessel ischemic change. Ventricles: The ventricles appear mildly enlarged in keeping with volume loss, in particular central volume loss. Stable since prior. Bones/joints: Unremarkable. No acute fracture. Sinuses: Visualized sinuses are unremarkable. No fluid levels. Mastoid air cells: Visualized mastoid air cells are well aerated. Soft tissues: Unremarkable. IMPRESSION: No acute intracranial abnormality seen. Electronically signed by: Leticia Graham On 08/04/2020 12:25:25 PM
[2020-08-04] MEDS ORDERED: THIAMINE 200MG/2ML VIAL (J3411 PER 100MG) IM SCH (12:30)
[2020-08-04] MEDS ORDERED: DEXTROSE 50% 50 ML SYRINGE IV PRN (12:30)
[2020-08-04] MEDS ORDERED: GLUCOSE 4GM CHEW TABLET PO PRN (12:30)
[2020-08-04] MEDS ORDERED: GLUCAGON INJ 1MG VIAL SC PRN (12:30)
[2020-08-04 13:08] LABS: MAGNESIUM LEVEL 2.1 MG/DL (1.8-2.4); PHOSPHORUS LEVEL 2.7 MG/DL (2.5-4.9)
[2020-08-04] MEDS: D5W/0.9% SODIUM CHLORIDE 1,000 ML IV SCH (13:20)
[2020-08-04] MEDS: cefTRIAXone SOD 1 GM in D5W MINI-BAG PLUS 50 ML IV SCH (13:21)
[2020-08-04 14:57] LABS: HEMATOCRIT 25.3 % (36.0-47.0)
[2020-08-04] MEDS: THIAMINE INJection 500 MG in NS 100 ML IV SCH (15:02)
--- NOTE | 2020-08-04 15:12 | IPNPDOC ---
Text Note Date of Service The patient was seen on 08/04/20. NOTE S Upon interview, patient was very somnolent. Per nurse, over the past week, patient has remained very somnolent at baseline. She was last seen well on last Tuesday when she was able to have a conversation with her son. However, she has been only oriented to person and place (sometimes) over the past week. She has been able to tolerate liquid diet and has passed stool today. Unable to perform ROS, patient was somnolent. O VITAL SIGNS: See below GENERAL APPEARANCE: 69 y/o F, somnolent and confused, respond to verbal stimuli and capable in following simple command. Oriented to person and place only. HEENT Exam: Normocephalic and atraumatic, PERRL, conjunctiva normal. NECK: Supple without lymphadenopathy. LUNGS: Unable to exam, patient can only take shallow breaths. CARDIOVASCULAR: Regular rate and rhythm, normal S1 & S2 without gallops, murmurs, rubs ABDOMEN: Obese abdomen, soft, non-tender with normal bowel sounds. Ventral hernia noted. Murphy catheter noted with 100cc output. EXTREMITIES: 2/4 DP and radial pulses. No clubbing, cyanosis, edema, tende rness. SKIN: Normal turgor and temperature. Ecchymosis noted on left arm at antecubital site. MUSCULOSKELETAL: Diffuse weakness, patient able to move fingers and toes but unable to maintain outstretched arms with command. NEUROLOGICAL: Unable to perform, patient was somnolent. Imaging results: 08/01/2020 CXR Impression: "No acute findings." 08/02/2020 Abd XR Impression: " Dilated bowel in the mid abdomen appears a represent large bowel located in the previously demonstrated hernia in the mid abdomen. Findings may indicate a bowel obstruction within the hernia." 08/02/2020 CT abdomen and pelvis with contrast Impression: "1. Hypodensity demonstrated in the posterior aspect of the spleen may represent an artifact although possibility of infarct is not excluded. 2. There is a diffuse decrease in hepatic parenchymal density, consistent with steatosis. 3. A small sliding hiatal hernia is present. 4. Mid ventral periumbilical bowel containing abdominal hernia protrudes through a relatively narrow neck, grossly stable in comparison to the prior study. Clinical correlation to exclude incarceration suggested. 5. Bilateral hydroureteronephrosis without obstructing etiology demonstrated. 6. There is a serrated margin of the lumen of the sigmoid colon without significant bowel wall edema to suggest thumbprinting. Clinical correlation to exclude ischemic change suggested. 7. There is diffuse thickening of the wall of the bladder without significant perivesicular inflammatory changes. Findings may be related to chronic bladder outlet obstruction however clinical correlation to exclude cystitis suggested. Air within the urinary bladder likely iatrogenic although infection not excluded as well." 08/04/2020 CT head without contrast Impression: "No acute intracranial abnormality seen." Lluvia Sosa is a 69 y/o F with who has developed a progressive decline in mentation status during her extended and complicated hospital course since 07/[address] Araujo's note on 08/03/2020, patient was admitted for abdominal pain with large ventral hernia. 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 She then developed hypotensive episodes on 07/17 requiring IV fluids, and continued to experience nausea/vomiting that required further workup. Her esophagogastroduodenoscopy was consistent with esophagitis/gastritis and gastroparesis; her imaging workup suggested possible partial small vs large bowel obstruction. Surgery consulted and plan was to operate if patient does not improve with nasogastric tube placement and total parenteral nutrition. However, patient improved with nasogastric tube and was transitioned to liquid diet. Since the hypotensive event and subsequent bowl complications, her mentation status has not restored to prior functional capacity. Given no focal findings or changes, mentation was closely monitored for changes, anticipating improvement with overall clinical but given acuity of multiple GI events the recovery was anticipated to be a longer period." P # Delirium of unknown etiology - Can be multifactorial, each component addressed below - Continue to rule out metabolic causes: Ammonia (<10), phosphorus (2.7), m agnesium (2.1) levels returned normal, BMP otherwise normal. LFT and TSH normal.Thiamine started. Due to decreased oral intake, will placed pt on D5NS at 50cc/hr and hypoglycemic protocol. - Continue to hold delirium related medication. - Continue to rule out infectious causes: Ucx, BCx pending. Negative CXR on 08/01. - CT head negative for acute intracranial process 08/04/2020, patient ineligible for MRI due to pacemaker - Nurse reported patient with increased difficulty swallowing food, NPO until swallow evaluation, aspiration precaution, full nutritional assessment. - for suspected hospital acquired delirium, cont sleep hygiene management: nursing order placed for out of chair TID and keep pt room well lit during daytime. 12.5mg quetiapine to help with sleep in the evening. - Cont PT/OT. # UTI - UA positive for blood, WBC and leukocyte esterase and CT abd and pelvis without contrast showed bilateral hydroureteronephrosis without obstructing etiology - Start empiric ceftriaxone 1mg IV QD - F/u UCx and BCx - Patient without leukocytosis and fever. # Macrocytic anemia, trending down - Hgb 7.7 - Folate, Iron panel ordered - B12 level low at 157 on 08/01/2020 - Received 1000mcg of B12 and folic acid today # SBO, resolved - Patient able to have BM this morning - Cont to monitor # DVT prophylaxis - Cont heparin SC VS,Fishbone, I+O VS, Fishbone, I+O Laboratory Tests 08/04/20 05:18 Vital Signs Date Time Temp Pulse Resp B/P (MAP) Pulse Ox O2 Delivery O2 Flow Rate FiO2 08/04/20 12:00 97.5 71 20 132/79 (96) 97 Room Air I&O- Last 24 Hours up to 6 AM 08/04/20 06:00 Intake Total 560 ml Output Total 825 ml Balance -265 ml GME ATTESTATION GME ATTESTATION My faculty preceptor for this patient encounter was physically present during the encounter and was fully available. All aspects of the patient interview, examination, medical decision making process, and medical care plan development were reviewed and approved by the faculty preceptor. The faculty preceptor is aware and concurs with the plan as stated in the body of this note and will at test to such by his/her cosignature. ATTENDING NOTE Pt was seen and examined by me personally with the residents/students. Agree with the above assessment plan. ARTHUR MENSAH OMS-3 Aug 04, 2020 15:12 NARESH VIDES MD Aug 22, 2020 10:26
[2020-08-04 16:00] VITALS: BP 115/79
[2020-08-04 20:00] VITALS: BP 130/70
[2020-08-04] MEDS: QUEtiapine FUMARATE 12.5 MG HALF-TAB PO SCH (20:00)
[2020-08-04 21:11] LABS: PERCENT SATURATION 14.4 % (13.2-45.0)
[2020-08-05] VITALS: BP 164/84
[2020-08-05] MEDS: D5W/0.9% SODIUM CHLORIDE 1,000 ML IV SCH ×2 (00:02→20:35)
[2020-08-05 04:00] VITALS: BP 166/83
[2020-08-05] MEDS: SLF 3 ML SYR IV SCH ×3 (05:26→20:28)
[2020-08-05] MEDS: SODIUM CHLORIDE 0.9% INJ 10 ML SYR IV SCH ×2 (05:26→15:14)
[2020-08-05 05:54] LABS: BASO % 0.3 % (0.0-1.0); EOS # 0.2 10^3/uL (0.0-0.5); EOS % 2.3 % (0.0-3.0); HEMATOCRIT 22.9 % (36.0-47.0); HEMOGLOBIN 7.6 g/dl (12.0-15.5); LYMPH # 1.5 10^3/uL (1.5-5.0); LYMPH % 19.9 % (24.0-44.0); MEAN CORPUSCULAR HGB CONC 33.2 g/dl (32.0-36.5); MEAN CORPUSCULAR VOLUME 99.6 fl (80.0-96.0); NEUTROPHILS # 4.5 10^3/uL (1.5-8.5); PLATELET COUNT, AUTOMATED 181 10^3/uL (150-450); WHITE BLOOD COUNT 7.3 10^3/uL (4.0-10.0)
[2020-08-05 06:16] LABS: ALBUMIN 2.1 GM/DL (3.2-5.2); ALT/SGPT 25 U/L (12-78); BILIRUBIN,TOTAL 0.5 MG/DL (0.2-1.0); BLOOD UREA NITROGEN 14 MG/DL (7-18); CALCIUM LEVEL 7.7 MG/DL (8.8-10.2); CARBON DIOXIDE LEVEL 27 MEQ/L (21-32); CHLORIDE LEVEL 109 MEQ/L (98-107); CREATININE FOR GFR 0.72 MG/DL (0.55-1.30); GLOMERULAR FILTRATION RATE > 60.0 (>45); GLUCOSE, FASTING 83 MG/DL (70-100); POTASSIUM SERUM 3.7 MEQ/L (3.5-5.1); SODIUM LEVEL 142 MEQ/L (136-145); TOTAL PROTEIN 4.9 GM/DL (6.4-8.2)
[2020-08-05] MEDS: FOLIC ACID 1 MG TAB PO SCH (09:00)
[2020-08-05] MEDS: PANTOPRAZOLE 40MG VIAL (C9113 PER 1) IV SCH ×2 (09:00→20:26)
[2020-08-05] MEDS: DOCUSATE SODIUM 100 MG CAP PO SCH (09:00)
[2020-08-05] MEDS: CYANOCOBALAMIN 1,000MCG/ML VIAL (J3420) IM SCH (09:00)
[2020-08-05 10:42] LABS: VITAMIN B12 LEVEL > 2000 PG/ML (247-911)
[2020-08-05 12:00] VITALS: BP 112/66
[2020-08-05] MEDS: cefTRIAXone SOD 1 GM in D5W MINI-BAG PLUS 50 ML IV SCH (12:00)
--- NOTE | 2020-08-05 14:50 | IPNPDOC ---
Text Note Date of Service The patient was seen on 08/05/20. NOTE S Upon interview, patient's mental status has improved in comparison to yesterday. She is now alert and oriented to person and time (not place). She was able to follow commands and responded to questions. She denied CP, abd pain, V/D, but noted mild nausea, unchanged chronic numbness at fingertips and SOB. Nurse Josefa reported that there was no acute events overnight and patient had 3 BM since last night. ROS: Please refer to above. ROS limited due to patient's mental status. O VITAL SIGNS: See below GENERAL APPEARANCE: 69 y/o F sitting upright on bed, in no acute distress. Alert and oriented to person and time (not place). HEENT Exam: Normocephalic and atraumatic, PERRL, conjunctiva normal, EOMI. NECK: Supple. LUNGS: Clear to auscultation bilaterally. CARDIOVASCULAR: Regular rate and rhythm, normal S1 & S2 without gallops, murmurs, rubs ABDOMEN: Obese abdomen, soft, non-tender with normal bowel sounds. Ventral hernia noted. Murphy catheter noted with 75cc output. EXTREMITIES: 2/4 DP and radial pulses. No clubbing, cyanosis, edema, tenderness. SKIN: Normal turgor and temperature. Ecchymosis noted on left arm and right arm. MUSCULOSKELETAL: Strength 3/5 in upper and lower extremities. NEUROLOGICAL: Moving all 4 extremities. Able to follow commands. Microbiology results: BCx collected 08/02/2020: Negative preliminary results UCx collected 08/01/2020: Positive for E.Coli and Strep gallolyticus SSP pasteu (both >100,000 CFU/ml, C&S pansensitive) Lluvia Sosa is a 69 y/o F with who has developed a progressive decline in mentation status during her extended and complicated hospital course since 07/[address] Araujo's note on 08/03/2020, "patient was admitted for abdominal pain with large ventral hernia. 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 She then developed hypotensive episodes on 07/17 requiring IV fluids, and continued to experience nausea/vomiting that required further workup. Her esophagogastroduodenoscopy was consistent with esophagitis/gastritis and gastroparesis; her imaging workup suggested possible partial small vs large bowel obstruction. Surgery consulted and plan was to operate if patient does not improve with nasogastric tube placement and total parenteral nutrition. However, patient improved with nasogastric tube and was transitioned to liquid diet. Since the hypotensive event and subsequent bowl complications, her mentation status has not restored to prior functional capacity. Given no focal findings or changes, mentation was closely monitored for changes, anticipating improvement with overall clinical but given acuity of multiple GI events the recovery was anticipated to be a longer period." P # Delirium of unknown etiology - Can be multifactorial, each component addressed below - Continue to rule out metabolic causes: Electrolytes corrected, daily CMP WNL. Continue daily thiamine, B12 and folic acid. Continue to monitor - Continue to hold delirium related medication. - Continue to rule out infectious causes: BCx showed negative preliminary result. Negative CXR on 08/01. UCx Positive for E.Coli and Strep gallolyticus SSP pasteu (both >100,000 CFU/ml, C&S pansensitive), Cont IV rocephin. - CT head negative for acute intracranial process 08/04/2020, patient ineligible for MRI due to pacemaker - Cont NPO until swallow evaluation, aspiration precaution, full nutritional assessment. - EEG still pending, LP cancelled due to improved mental status. - for suspected hospital acquired delirium, cont sleep hygiene management: nursing order placed for out of chair TID and keep pt room well lit during daytime. 12.5mg quetiapine to help with sleep in the evening (patient did not receive evening quetiapine last night due to NPO status). - Cont PT/OT. # UTI - UA positive for blood, WBC and leukocyte esterase and CT abd and pelvis without contrast showed bilateral hydroureteronephrosis without obstructing etiology - BCx collected 08/02/2020 showed negative preliminary results, UCx collected 08/01/2020 grew E.Coli and Strep gallolyticus SSP pasteu (both >100,000 CFU/ml, C&S pansensitive) - Cont ceftriaxone 1mg IV QD # Macrocytic anemia, trending down - Hgb 7.6 - Folate pending - Iron panel consistent with anemia of chronic disease - B12 level >2000 on 08/02/2020 - Cont B12 and folate # SBO, resolved - Patient had 3 BM this morning - Cont scheduled PO colace # Ventral hernia - A discussion was held with Pt's son (Mr. Yogi Gonzalez) and Dr. Bryden DO. (general surgery), patient was recommended to manage hernia conservatively, patient is a poor surgical candidate at this time due to her unstable mentation status. Surgery team recommended to continue hernia management with daily laxatives. Family agrees with the current plan. # DVT prophylaxis - Cont heparin SC VS,Fishbone, I+O VS, Fishbone, I+O Laboratory Tests 08/04/20 14:35 08/05/20 05:20 Vital Signs Date Time Temp Pulse Resp B/P (MAP) Pulse Ox O2 Delivery O2 Flow Rate FiO2 08/05/20 12:00 98.7 74 18 112/66 (81) 93 Room Air I&O- Last 24 Hours up to 6 AM 08/05/20 05:59 Intake Total 915 ml Output Total 975 ml Balance -60 ml GME ATTESTATION GME ATTESTATION Patient was seen and examined by me personally with the residents and I agree with the above assessment and plan ARTHUR MENSAH OMS-3 Aug 05, 2020 14:50 NARESH VIDES MD Aug 11, 2020 14:39
[2020-08-05] MEDS: THIAMINE INJection 500 MG in NS 100 ML IV SCH (14:58)
[2020-08-05 16:00] VITALS: BP 126/89
[2020-08-05] MEDS ORDERED: ISOVUE-370 76% 100ML VIAL As Ordered ONE (17:22)
[2020-08-05] MEDS: SODIUM CHLORIDE 0.9% INJ 10 ML SYR IV PRN (18:25)
--- NOTE | 2020-08-05 18:34 | REPVR ---
PROCEDURE INFORMATION: Exam: CT Neck With Contrast Exam date and time: 08/05/2020 5:55 PM Age: 69 years old Clinical indication: Neck pain; Additional info: Arm weakness, urinary retention TECHNIQUE: Imaging protocol: Computed tomography images of the neck with intravenous contrast. Radiation optimization: All CT scans at this facility use at least one of these dose optimization techniques: automated exposure control; mA and/or kV adjustment per patient size (includes targeted exams where dose is matched to clinical indication); or iterative reconstruction. Contrast material: ISO 370; Contrast volume: 100 ml; Contrast route: INTRAVENOUS (IV); COMPARISON: No relevant prior studies available. FINDINGS: Nasopharynx: Unremarkable. Oropharynx: Unremarkable. No significant tonsillar enlargement. Hypopharynx: Unremarkable. Larynx: Unremarkable. Normal epiglottis. Retropharyngeal space: Unremarkable. Submandibular/Parotid glands: Normal. Glands are normal in size. Thyroid: Nodules in the thyroid with the largest measuring 9 mm in the right thyroid lobe. Lymph nodes: Unremarkable. No lymphadenopathy. Trachea: Visualized trachea is unremarkable. Lungs: Unremarkable as visualized. Bones/joints: There is multilevel uncovertebral and facet hypertrophy with neural foramina narrowing. Vasculature: There is approximately 61% stenosis of the proximal right internal carotid artery with calcified plaque. Soft tissues: Unremarkable. No significant soft tissue swelling. IMPRESSION: No acute abnormality. Approximately 61% stenosis of the right internal carotid artery with calcified plaque. COMMENTS: Consistent with the [employer]'s Incidental Findings Committee white paper (J Am Lee Radiol 2015): In patients aged 35 years and older with an incidental thyroid nodule equal to or greater than 1.[address], MRI or extrathyroidal US, further evaluation with dedicated thyroid US is recommended for patients with normal life expectancy and without comorbidities. For smaller nodules without suspicious features, no further evaluation or follow up is recommended. Electronically signed by: Eusebio Gerber On 08/05/2020 18:33:50 PM
--- NOTE | 2020-08-05 19:03 | REPVR ---
PROCEDURE INFORMATION: Exam: CT Thoracic Spine With Contrast Exam date and time: 08/05/2020 5:55 PM Age: 69 years old Clinical indication: Pain in thoracic spine; Additional info: With contrast. Arm weakness, R/O epidural abscess TECHNIQUE: Imaging protocol: Computed tomography images of the thoracic spine with intravenous contrast. Radiation optimization: All CT scans at this facility use at least one of these dose optimization techniques: automated exposure control; mA and/or kV adjustment per patient size (includes targeted exams where dose is matched to clinical indication); or iterative reconstruction. Contrast material: ISO 370; Contrast volume: 100 ml; Contrast route: INTRAVENOUS (IV); COMPARISON: No relevant prior studies available. FINDINGS: Vertebrae: No acute fracture. Normal alignment. T1-T2: No significant disc protrusion. No severe spinal canal stenosis. No significant neural foraminal narrowing. T2-T3: No significant disc protrusion. No severe spinal canal stenosis. No significant neural foraminal narrowing. T3-T4: No significant disc protrusion. No severe spinal canal stenosis. No significant neural foraminal narrowing. T4-T5: No significant disc protrusion. No severe spinal canal stenosis. No significant neural foraminal narrowing. T5-T6: No significant disc protrusion. No severe spinal canal stenosis. No significant neural foraminal narrowing. T6-T7: No significant disc protrusion. No severe spinal canal stenosis. No significant neural foraminal narrowing. T7-T8: No significant disc protrusion. No severe spinal canal stenosis. No significant neural foraminal narrowing. T8-T9: No significant disc protrusion. No severe spinal canal stenosis. No significant neural foraminal narrowing. T9-T10: No significant disc protrusion. No severe spinal canal stenosis. No significant neural foraminal narrowing. T10-T11: No significant disc protrusion. No severe spinal canal stenosis. No significant neural foraminal narrowing. T11-T12: No significant disc protrusion. No severe spinal canal stenosis. No significant neural foraminal narrowing. T12-L1: No significant disc protrusion. No severe spinal canal stenosis. No significant neural foraminal narrowing. Lungs: Small pleural effusions at the lung bases with compressive atelectasis at the right lung base. Diffuse demineralization of the bones. IMPRESSION: No obvious acute abnormality. Small bilateral pleural effusions with compressive atelectasis at the right lung base. Electronically signed by: Eusebio Gerber On 08/05/2020 19:03:07 PM
[2020-08-05 20:00] VITALS: BP 137/76
[2020-08-05] MEDS: QUEtiapine FUMARATE 12.5 MG HALF-TAB PO SCH (20:27)
[2020-08-06] VITALS (12 sets, daily range): BP systolic 143–172; BP diastolic 80–94
[2020-08-06] MEDS: SODIUM CHLORIDE 0.9% INJ 10 ML SYR IV SCH ×2 (04:41→17:48)
[2020-08-06] MEDS: SLF 3 ML SYR IV SCH ×3 (04:41→21:30)
[2020-08-06 05:08] LABS: BASO % 0.3 % (0.0-1.0); EOS # 0.1 10^3/uL (0.0-0.5); HEMATOCRIT 22.2 % (36.0-47.0); HEMOGLOBIN 7.3 g/dl (12.0-15.5); LYMPH # 1.5 10^3/uL (1.5-5.0); LYMPH % 21.9 % (24.0-44.0); MEAN CORPUSCULAR HEMOGLOBIN 32.7 pg (27.0-33.0); MEAN CORPUSCULAR HGB CONC 32.9 g/dl (32.0-36.5); MEAN CORPUSCULAR VOLUME 99.6 fl (80.0-96.0); MONO # 0.8 10^3/uL (0.0-0.8); MONO % 11.8 % (0.0-5.0); NEUTROPHILS # 4.2 10^3/uL (1.5-8.5); NEUTROPHILS % 61.7 % (36.0-66.0); PLATELET COUNT, AUTOMATED 224 10^3/uL (150-450); RED BLOOD COUNT 2.23 10^6/uL (4.00-5.40); WHITE BLOOD COUNT 6.8 10^3/uL (4.0-10.0)
[2020-08-06 05:36] LABS: ALBUMIN 2.1 GM/DL (3.2-5.2); ALT/SGPT 24 U/L (12-78); BILIRUBIN,TOTAL 0.4 MG/DL (0.2-1.0); BLOOD UREA NITROGEN 12 MG/DL (7-18); C REACTIVE PROTEIN QUANTITATIV 7.32 MG/DL (0.00-0.30); CARBON DIOXIDE LEVEL 27 MEQ/L (21-32); CHLORIDE LEVEL 110 MEQ/L (98-107); CREATININE FOR GFR 0.77 MG/DL (0.55-1.30); GLOMERULAR FILTRATION RATE > 60.0 (>45); GLUCOSE, FASTING 78 MG/DL (70-100); POTASSIUM SERUM 3.4 MEQ/L (3.5-5.1); SODIUM LEVEL 140 MEQ/L (136-145)
[2020-08-06 05:39] LABS: ERYTHROCYTE SEDIMENTATION RATE 87 mm/hr (0-30)
[2020-08-06] MEDS ORDERED: POTASSIUM CHLORIDE 10 MEQ SR TABLET PO ONE (06:30)
[2020-08-06] MEDS: ACETAMINOPHEN 500 MG TAB PO PRN (06:48)
[2020-08-06] MEDS: DOCUSATE SODIUM 100 MG CAP PO SCH (10:27)
[2020-08-06] MEDS: ENOXAPARIN 40MG/0.4ML SYRINGE (J1650 PER 10MG) SC SCH (10:36)
[2020-08-06] MEDS: PANTOPRAZOLE 40MG VIAL (C9113 PER 1) IV SCH ×2 (10:37→21:30)
[2020-08-06] MEDS: FOLIC ACID 1 MG in NS 50 ML IV SCH (10:37)
--- NOTE | 2020-08-06 11:29 | IPNPDOC ---
Text Note Date of Service The patient was seen on 08/06/20. NOTE S Upon interview, patient's mental status continues to be improved from Tuesday. She is still alert and oriented to person and time (not place). She was able to follow commands and responded to questions. She denied fever, chills, CP, abd pain, N/V/D. Nurse Chelsie reported no events overnight. Patient has been able to tolerate food (on thin liquid diet) but not had BM since yesterday. ROS: CONSTITUTIONAL: Denies chills, fever, loss of appetite HEENT: Denies headaches, dizziness. CARDIOVASCULAR: Denies chest pain, palpitations. RESPIRATORY: Denies wheezing, dyspnea, cough or hemoptysis GASTROINTESTINAL: Denies nausea, vomiting, abdominal pain, diarrhea, constipation. SKIN: Denies skin changes MUSCULOSKELETAL: Noted weakness in all extremities NEUROLOGICAL: Denies focal weakness O VITAL SIGNS: See below GENERAL APPEARANCE: 69 y/o F sitting upright on bed, in no acute distress. Alert and oriented to person and time (not place). HEENT Exam: Normocephalic and atraumatic, PERRL, conjunctiva normal, EOMI. NECK: Supple. LUNGS: Clear to auscultation bilaterally. CARDIOVASCULAR: Regular rate and rhythm, normal S1 & S2 without gallops, murmurs, rubs ABDOMEN: Obese abdomen, soft, non-tender with normal bowel sounds. Ventral hernia noted. Murphy catheter noted with 50cc output. EXTREMITIES: 2/4 DP and radial pulses. No clubbing, cyanosis, edema, tendern ess. SKIN: Normal turgor and temperature. Ecchymosis noted on left arm and right arm. MUSCULOSKELETAL: Strength 3/5 in upper and lower extremities. NEUROLOGICAL: Moving all 4 extremities. Able to follow commands. New Imaging results: 1. CT Thoracic Spine With Contrast on 08/05/2020 IMPRESSION: No obvious acute abnormality. Small bilateral pleural effusions with compressive atelectasis at the right lung base. 2. CT Neck With Contrast on 08/05/2020 IMPRESSION: No acute abnormality. Approximately 61% stenosis of the right internal carotid artery with calcified plaque. Lluvia Sosa is a 69 y/o F with who has developed a progressive decline in mentation status during her extended and complicated hospital course since 07/[address] Araujo's note on 08/03/2020, "patient was admitted for abdominal pain with large ventral hernia. 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 She then developed hypotensive episodes on 07/17 requiring IV fluids, and continued to experience nausea/vomiting that required further workup. Her esophagogastroduodenoscopy was consistent with esophagitis/gastritis and gastroparesis; her imaging workup suggested possible partial small vs large bowel obstruction. Surgery consulted and plan was to operate if patient does not improve with nasogastric tube placement and total parenteral nutrition. However, patient improved with nasogastric tube and was transitioned to liquid diet. Since the hypotensive event and subsequent bowl complications, her mentation status has not restored to prior functional capacity. Given no focal findings or changes, mentation was closely monitored for changes, anticipating improvement with overall clinical but given acuity of multiple GI events the recovery was anticipated to be a longer period." P # Delirium of unknown etiology - Can be multifactorial, each component addressed below - Continue to rule out metabolic causes: Mild hypokalemia (3.4) this am, corrected with 40mEq potassium PO. B12 discontinued due to high B12 level after B12 supplement. Cont daily CMP, folic acid and thiamine. - Continue to hold delirium related medication. - Continue to rule out infectious causes: Cont IV rocephin for UTI. - Intracranial process ruled out with head CT. - Speech therapy evaluated, cont pureed diet, aspiration precaution. - EEG still pending, LP cancelled due to improved mental status. - for suspected hospital acquired delirium, cont sleep hygiene management: nursing order placed for out of chair TID and keep pt room well lit during daytime. 12.5mg quetiapine to help with sleep in the evening. Patient slept ok last night. - Cont PT/OT. # UTI - UA positive for blood, WBC and leukocyte esterase and CT abd and pelvis without contrast showed bilateral hydroureteronephrosis without obstructing etiology - BCx collected 08/02/2020 showed negative preliminary results, UCx collected 08/01/2020 grew E.Coli and Strep gallolyticus SSP pasteu (both >100,000 CFU/ml, C&S pansensitive) - Cont ceftriaxone 1mg IV QD # Macrocytic anemia, trending down - Hgb 7.3 today (7.6 yesterday) - Low folate (33), pt's PO folate was not given for the past few days due to concern with swallowing, switch to IV folate supplementation - Reticulocyte count ordered to r/o bone marrow causes - Iron panel consistent with anemia of chronic disease - B12 level >2000 on 08/02/2020, B12 supplementation discontinued - Occult blood test ordered - Patient also demonstrated microscopic hematuria on UA on 08/01/2020 # SBO, resolved - Patient has not have a BM today. - Cont scheduled PO colace # Ventral hernia - A discussion was held with Pt's son (Mr. Yogi Gonzalez) and Dr. Sanjay KAUFMAN. (general surgery), patient was recommended to manage hernia conservatively, patient is a poor surgical candidate at this time due to her unstable mentation status. Surgery team recommended to continue hernia management with daily laxatives. Family agrees with the current plan. # DVT prophylaxis - Cont heparin SC VS,Fishbone, I+O VS, Fishbone, I+O Laboratory Tests 08/06/20 04:48 Vital Signs Date Time Temp Pulse Resp B/P (MAP) Pulse Ox O2 Delivery O2 Flow Rate FiO2 08/06/20 08:00 98.8 85 16 158/80 (106) 94 Room Air I&O- Last 24 Hours up to 6 AM 08/06/20 06:00 Intake Total 900 ml Output Total 775 ml Balance 125 ml GME ATTESTATION GME ATTESTATION My faculty preceptor for this patient encounter was physically present during the encounter and was fully available. All aspects of the patient interview, examination, medical decision making process, and medical care plan development were reviewed and approved by the faculty preceptor. The faculty preceptor is aware and concurs with the plan as stated in the body of this note and will attest to such by his/her cosignature. ATTENDING NOTE I have seen and examined the patient my self with the residents and students and I agree with the above assessment and plan with the following changes as below. 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 CTA abdomen was done and was reviewed by Dr. Bianchi (Vascular surgery) and Dr. Jose (Radiology) splenic infarction and possible occlusion of splenic artery vs tortuous vessel vs positional but advised no surgery/stenting recommended. Coagulopathy workup was negative and tele also didnt show any afib / flutter .She had a very lengthy course and then developed hypotensive episodes on 07/17 requiring IV fluids, and continued to experience nausea/vomiting that required further workup. Her esophagogastroduodenoscopy was consistent with esophagitis/gastritis and gastroparesis; her imaging workup suggested possible partial small vs large bowel obstruction. Surgery was consulted and plan was to operate if patient does not improve with nasogastric tube placement and total parenteral nutrition which was started as the patinet was NPO for more then 72 hours. However, patient improved with nasogastric tube and was transitioned to liquid diet. Since the hypotensive event and subsequent bowl complications, her mentation status did not restored to prior functional capacity. She has had extensive work up of infectious , metabolic and toxic etiologies which were ruled out. She did have electrolyte disturbances and possible UTI which have been treated. I took over her care on 08/04/20 and that morning she was only responding to the deep touch and only opening her eyes and not been able to articulate properly.Work up including CT head, electrolytes and infectious etiologies were done. She was also started on IV thiamine, electrolyte replacement of K and MG , phos was checked which was normal. CT head showed no acute changes. ESR , CRP were mildly elevated but as they are non specific indicators , clinical examination did not point towards cellulitis, pna, meningitis. Encephalitis was one of the deferentials but due to her hospitalization for about 3 weeks and minimal activity other course of delirium , hospital acquired delirium was also considered. The plan on 08/04/20 was made to reorient her with activity, addressing the sleep hygiene , orientation of diurnal structure and out of bed to chair atleast 3 times a day along with work up for other causes. on my subsequent visits to her room that day, she was in the bed chair but still very confused and barely verbally responding. The he evening at around 3 i could see her trying to make a conversation but that was not understandable. I had updated the son that day. On 08/05/20 after been on iv thiamine, electrolyle replacement and starting of abx for positive UA which finally grew two organism , she had an improvement. She was more responsive and the speech and swallow was done which she passed. At tis time encephalitis was ruled out as her mentation improved as for encephalitis its unusual to see such improvement. She continued to make no meningeal signs, though it was hard to examine her strength as she was very weak . She was also notices to have some dysrhythmic movements and they didn't fit in any myoclonus picture. On close observation, i was noticed that she was trying to flex her extremities and after a brief period of time she would lose the strength and she would try again giving rise to these dysrhythmic movements. If she was told to stop activity, these movements would stop. Ammonia and BUN were in normal range. Off note, a three way call with Dr Kate I and son Yogi was made and Dr Grace explained the need to conservative treatment for her hernia. . She continues to show marked improvement in her mentation ( not strenght ) . and the plan is to continue nutritional support, activity, sleep hygiene, keeping the room well lit during the day, and frequent visits to her by the nursing staff to engage her in the conversation . the son is also helping with this. All this has been conveyed to the family. We will continue to follow. Alphonso Najera MD. ARTHUR MENSAH OMS-3 Aug 06, 2020 11:29 NARESH VIDES MD Aug 07, 2020 10:47
--- NOTE | 2020-08-06 11:36 | ROOR ---
Patient Name: Lashonda Sosa Procedure Date: 07/22/2020 2:38 PM Date of : 1950 Age: 69 Room: [facility] Gender: Female Note Status: Finalized Procedure: Upper GI endoscopy Indications: Persistent vomiting Providers: Mickey Whitfield MD Referring MD: Steffen Fofana MD Requesting Provider: Medicines: Monitored Anesthesia Care Complications: No immediate complications. Procedure: Pre-Anesthesia Assessment: - Prior to the procedure, a History and Physical was performed, and patient medications and allergies were reviewed. The patient is competent. The risks and benefits of the procedure and the sedation options and risks were discussed with the patient. All questions were answered and informed consent was obtained. Patient identification and proposed procedure were verified by the physician, the nurse and the anesthesiologist in the procedure room. Mental Status Examination: alert and oriented. Airway Examination: normal oropharyngeal airway and neck mobility. Respiratory Examination: clear to auscultation. CV Examination: normal. Prophylactic Antibiotics: The patient does not require prophylactic antibiotics. Prior Anticoagulants: The patient has taken no previous anticoagulant or antiplatelet agents. ASA Grade Assessment: II - A patient with mild systemic disease. After reviewing the risks and benefits, the patient was deemed in satisfactory condition to undergo the procedure. The anesthesia plan was to use monitored anesthesia care (MAC). Immediately prior to administration of medications, the patient was re-assessed for adequacy to receive sedatives. The heart rate, respiratory rate, oxygen saturations, blood pressure, adequacy of pulmonary ventilation, and response to care were monitored throughout the procedure. The physical status of the patient was re-assessed after the procedure. The Endoscope was introduced through the mouth, and advanced to the second part of duodenum. The upper GI endoscopy was accomplished without difficulty. The patient tolerated the procedure well. Findings: LA Grade C (one or more mucosal breaks continuous between tops of 2 or more mucosal folds, less than 75% circumference) esophagitis with no bleeding was found in the lower third of the esophagus. Biopsies were taken with a cold forceps for histology. Verification of patient identification for the specimen was done by the physician and nurse using the patient's name, date and medical record number. Estimated blood loss was minimal. A small hiatal hernia was present. Patchy moderate inflammation characterized by erythema and granularity was found in the gastric body and in the gastric antrum. Biopsies were taken with a cold forceps for Helicobacter pylori testing. No gross lesions were noted in the duodenal bulb and in the second portion of the duodenum. Impression: - LA Grade C reflux esophagitis. Rule out Jeronimo's esophagus. Biopsied. - Small hiatal hernia. - Gastritis. Biopsied. - No gross lesions in the duodenal bulb and in the second portion of the duodenum. Recommendation: - Patient has a contact number available for emergencies. The signs and symptoms of potential delayed complications were discussed with the patient. Return to normal activities tomorrow. Written discharge instructions were provided to the patient. - Gastroparesis diet. - Use Prilosec (omeprazole) 40 mg PO Daily - to be taken bottom brusher on empty stomach for 6 weeks. - Await pathology results. - Refer to a surgeon for therapy of large ventral hernia. - Return to primary care physician. Mickey Whitfield MD Mickey Whitfield MD 07/22/2020 3:00:29 PM Number of Addenda: 0 Note Initiated On: 07/22/2020 2:38 PM Estimated Blood Loss: Estimated blood loss was minimal.
[2020-08-06] MEDS: cefTRIAXone SOD 1 GM in D5W MINI-BAG PLUS 50 ML IV SCH (13:33)
[2020-08-06] MEDS: THIAMINE INJection 500 MG in NS 100 ML IV SCH (15:41)
[2020-08-06] MEDS: QUEtiapine FUMARATE 12.5 MG HALF-TAB PO SCH (21:29)
[2020-08-07] VITALS (7 sets, daily range): BP systolic 150–173; BP diastolic 64–108
[2020-08-07] MEDS: D5W/0.9% SODIUM CHLORIDE 1,000 ML IV SCH ×2 (02:10→13:42)
[2020-08-07 05:12] LABS: BASO % 0.4 % (0.0-1.0); EOS # 0.1 10^3/uL (0.0-0.5); EOS % 1.8 % (0.0-3.0); LYMPH # 1.3 10^3/uL (1.5-5.0); LYMPH % 17.4 % (24.0-44.0); MEAN CORPUSCULAR HEMOGLOBIN 32.4 pg (27.0-33.0); MEAN CORPUSCULAR VOLUME 95.2 fl (80.0-96.0); MONO # 0.9 10^3/uL (0.0-0.8); MONO % 11.7 % (0.0-5.0); NEUTROPHILS # 4.9 10^3/uL (1.5-8.5); NEUTROPHILS % 66.7 % (36.0-66.0); PLATELET COUNT, AUTOMATED 269 10^3/uL (150-450); RED BLOOD COUNT 3.15 10^6/uL (4.00-5.40); WHITE BLOOD COUNT 7.4 10^3/uL (4.0-10.0)
[2020-08-07 05:16] LABS: HEMOGLOBIN 10.2 g/dl (12.0-15.5)
[2020-08-07 05:38] LABS: ALBUMIN 2.3 GM/DL (3.2-5.2); ALT/SGPT 23 U/L (12-78); BILIRUBIN,TOTAL 0.5 MG/DL (0.2-1.0); BLOOD UREA NITROGEN 8 MG/DL (7-18); CARBON DIOXIDE LEVEL 25 MEQ/L (21-32); CHLORIDE LEVEL 111 MEQ/L (98-107); GLOMERULAR FILTRATION RATE > 60.0 (>45); GLUCOSE, FASTING 77 MG/DL (70-100); POTASSIUM SERUM 3.6 MEQ/L (3.5-5.1); SODIUM LEVEL 141 MEQ/L (136-145); TOTAL PROTEIN 5.3 GM/DL (6.4-8.2)
[2020-08-07] MEDS: SLF 3 ML SYR IV SCH ×3 (05:49→22:02)
[2020-08-07] MEDS: SODIUM CHLORIDE 0.9% INJ 10 ML SYR IV SCH ×2 (05:50→17:53)
[2020-08-07] MEDS: PANTOPRAZOLE 40MG VIAL (C9113 PER 1) IV SCH (09:23)
[2020-08-07] MEDS: DOCUSATE SODIUM 100 MG CAP PO SCH (09:23)
[2020-08-07] MEDS: ASPIRIN 81 MG ENTERIC TAB PO SCH (09:24)
[2020-08-07] MEDS: ENOXAPARIN 40MG/0.4ML SYRINGE (J1650 PER 10MG) SC SCH (09:24)
[2020-08-07] MEDS: lisinopriL 10 MG TAB PO SCH (09:24)
[2020-08-07] MEDS: FOLIC ACID 1 MG in NS 50 ML IV SCH (10:33)
[2020-08-07] MEDS: cefTRIAXone SOD 1 GM in D5W MINI-BAG PLUS 50 ML IV SCH (12:22)
[2020-08-07] MEDS: THIAMINE 100 MG TAB PO SCH (13:38)
--- NOTE | 2020-08-07 14:07 | IPNPDOC ---
Text Note Date of Service The patient was seen on 08/07/20. NOTE HPI: Patient was examined at bedside. She appears to be sleepy but was arousable and oriented name, time, and place. She was able to follow commands and responded to questions. She denied fever, chills, CP, nausea, vomiting, or abd pain. Patient was able to follow commands to move her extremities. It was noted that later in the day after the visit, patient was drinking her soup. ROS: Limited ROS was able to be obtained as patient appears to be sleepy but arousable. CONSTITUTIONAL: Denies chills, fever CARDIOVASCULAR: Denies chest pain, palpitations. RESPIRATORY: Denies dyspnea GASTROINTESTINAL: Denies nausea, vomiting, abdominal pain MUSCULOSKELETAL: Noted weakness in extremities Objectives: VITAL SIGNS: See below GENERAL APPEARANCE: Elderly female lying in bed sleeping but arousable not in acute distress. A&OX3 HEENT Exam: Normocephalic and atraumatic, Pupil equal and round bilaterally NECK: Supple. LUNGS: Clear to auscultation bilaterally. CARDIOVASCULAR: Regular rate and rhythm, normal S1 & S2 without gallops, murmurs, rubs ABDOMEN: Obese abdomen, soft, non-tender with normal bowel sounds. Ventral hernia present EXTREMITIES: No clubbing or cyanosis SKIN: Normal skin turgor and temperature. Ecchymosis noted in bilateral upper arms. MUSCULOSKELETAL: Patient able to move all 4 extremities NEUROLOGICAL: Able to follow commands. Open eyes to voice. New Imaging results: CT Thoracic Spine With Contrast on 08/05/2020 IMPRESSION: No obvious acute abnormality. Small bilateral pleural effusions with compressive atelectasis at the right lung base. CT Neck With Contrast on 08/05/2020 IMPRESSION: No acute abnormality. Approximately 61% stenosis of the right internal carotid artery with calcified plaque. Assessment and plan: Patient is a 69 yo female who was admitted in the hospital with on 07/15/2020 severe upper abdominal pain with N/V thought to be d/t associated with splenic infarction s/p evaluation by surgery and recommended conservative care also noted to have large ventral hernia; she was noted to start altered mental status around 07/23/2020 and 07/24/2020. On 07/17/20 she has MAP of 56 requiring IV fluids. She had EGD which was consistent with esophagitis/gastritis and gastroparesis; her imaging workup suggested possible partial small vs LBO. Surgery consulted and plan was to operate if patient does not improve with NG placement and TPN. However, patient improved with nasogastric tube and was transitioned to PO diet. Since the hypotensive event and subsequent bowl complications, her mentation status has not restored to prior functional capacity, but her mental status has improved upon gradually since 08/04/2020. 1. Metabolic encephalopathy, improving; likely 2/2 folate deficiency vs UTI . Cont daily folic acid supplementation. - Continue to hold delirium related medication. Cont IV rocephin for UTI. - Intracranial process ruled out with head CT. - Speech therapy evaluated, cont pureed diet, aspiration precaution. LP cancelled due to improved mental status. - cont sleep hygiene management: nursing order placed for out of chair TID and keep pt room well lit during daytime. 12.5mg quetiapine to help with sleep in the evening. Patient slept ok last night. - Cont PT/OT. 2 UTI - UA positive for blood, WBC and leukocyte esterase and CT abd and pelvis without contrast showed bilateral hydroureteronephrosis without obstructing etiology - Cont ceftriaxone 1mg IV QD 3 Macrocytic anemia, trending down - Hgb 10.2 today (7.3 yesterday) after 2 units of blood transfusion yesterday - Low folate (33), pt's PO folate was not given for the past few days due to concern with swallowing, switched to IV folate supplementation. Resumed PO folate supplementation today as pt tolerating PO intake. - Reticulocyte count ordered to r/o bone marrow causes - Iron panel consistent with anemia of chronic disease - B12 level >2000 on 08/02/2020, B12 supplementation discontinued. Occult stool blood test neg. Patient also had microscopic hematuria on UA on 08/01/2020 4 SBO, resolved. BM on 08/07/2020 documented. Cont scheduled PO colace 5 Ventral hernia. A discussion was held with Pt's son (Mr. Yogi Gonzalez) and Dr. Sanjay KAUFMAN. (general surgery), patient was recommended to manage hernia conservatively, patient is a poor surgical candidate at this time due to her unstable mentation status. Surgery team recommended to continue hernia management with daily laxatives. Family agrees with the current plan. 6. Splenic infarction. Patient denies current abdominal pain. Prior evaluated by vascular surgeon during this hospitalization and that per note on 07/23/2020 no surgery/stenting is recommended. 7. DVT prophylaxis. Cont lovenox VS,Fishbone, I+O VS, Fishbone, I+O Laboratory Tests 08/07/20 05:01 Vital Signs Date Time Temp Pulse Resp B/P (MAP) Pulse Ox O2 Delivery O2 Flow Rate FiO2 08/07/20 12:00 97.9 70 16 150/98 (115) 94 Room Air I&O- Last 24 Hours up to 6 AM 08/07/20 06:00 Intake Total 1400 ml Output Total 1450 ml Balance -50 ml GME ATTESTATION GME ATTESTATION Patient was seen and examined by me personally with the residents and I agree with the above assessment and plan ATTENDING NOTE Patient was seen and examined by me personally with the residents and I agree with the above assessment and plan ARUN BROWN DO Aug 07, 2020 14:07 NARESH VIDES MD Aug 11, 2020 14:43
[2020-08-07] MEDS: PANTOPRAZOLE 40MG TAB (PROTONIX) PO SCH (20:33)
[2020-08-07] MEDS: QUEtiapine FUMARATE 12.5 MG HALF-TAB PO SCH (20:33)
[2020-08-08] VITALS: BP 158/98
[2020-08-08 04:00] VITALS: BP 158/78
[2020-08-08] MEDS: SODIUM CHLORIDE 0.9% INJ 10 ML SYR IV SCH ×2 (05:23→18:17)
[2020-08-08] MEDS: SLF 3 ML SYR IV SCH ×3 (05:28→21:49)
[2020-08-08 05:35] LABS: BASO % 0.3 % (0.0-1.0); EOS # 0.1 10^3/uL (0.0-0.5); EOS % 1.9 % (0.0-3.0); HEMATOCRIT 29.2 % (36.0-47.0); HEMOGLOBIN 9.9 g/dl (12.0-15.5); LYMPH # 1.3 10^3/uL (1.5-5.0); LYMPH % 20.5 % (24.0-44.0); MEAN CORPUSCULAR HGB CONC 33.9 g/dl (32.0-36.5); MEAN CORPUSCULAR VOLUME 94.5 fl (80.0-96.0); MONO # 0.9 10^3/uL (0.0-0.8); MONO % 13.9 % (0.0-5.0); NEUTROPHILS # 3.9 10^3/uL (1.5-8.5); NEUTROPHILS % 61.8 % (36.0-66.0); PLATELET COUNT, AUTOMATED 298 10^3/uL (150-450); RED BLOOD COUNT 3.09 10^6/uL (4.00-5.40); WHITE BLOOD COUNT 6.4 10^3/uL (4.0-10.0)
[2020-08-08 06:02] LABS: ALBUMIN 2.1 GM/DL (3.2-5.2); ALT/SGPT 19 U/L (12-78); BILIRUBIN,TOTAL 0.7 MG/DL (0.2-1.0); BLOOD UREA NITROGEN 5 MG/DL (7-18); CALCIUM LEVEL 7.7 MG/DL (8.8-10.2); CARBON DIOXIDE LEVEL 27 MEQ/L (21-32); CHLORIDE LEVEL 109 MEQ/L (98-107); GLOMERULAR FILTRATION RATE > 60.0 (>45); GLUCOSE, FASTING 78 MG/DL (70-100); POTASSIUM SERUM 3.3 MEQ/L (3.5-5.1); SODIUM LEVEL 140 MEQ/L (136-145); TOTAL PROTEIN 5.1 GM/DL (6.4-8.2)
[2020-08-08 06:51] VITALS: BP 156/92
--- NOTE | 2020-08-08 07:19 | CR ---
DATE OF CONSULTATION: 08/05/2020 REASON FOR CONSULTATION: Altered mental status and urinary tract infection. HISTORY OF PRESENT ILLNESS: Ms. Sosa is a 69-year-old female who had originally presented to the [facility] Emergency Department on July 14 with complaint of severe upper abdominal pain as well as nausea and vomiting that had been persistent for approximately 2 days. The patient had a CT scan, which demonstrated a large ventral hernia at the time and possible colitis as well as slightly inflamed loops to the colon hernia sac. The patient was admitted and seen by general surgery, who had ordered a CT abdomen, which demonstrated a possible splenic infarct. The recommendations were to have fluids and antiemetics. The patient was placed on Flagyl. Her imaging was reviewed by both vascular surgery and radiology, who felt that she may have a splenic infarction, possible occlusion of the splenic artery; however, no surgical intervention was warranted at the time. Through the course of the patient's hospitalization, her abdominal pain seemed to be improving. She did receive an esophagogastroduodenoscopy (EGD) through gastroenterology, which demonstrated esophagitis, gastritis, and a small hiatal hernia with recommendations for a proton pump inhibitor (PPI). Additionally, the patient was noted to possibly have gastroparesis, and she was started on Reglan and Zofran. The patient did note some lower extremity numbness that improved with shifting position. This was on July 22. Subsequently, the patient was noticed to have some possible deconditioning, as she was complaining of some generalized weakness, was not participating with physical therapy. Additionally, the patient was noted to have some transient hypotension as well and had developed urinary retention at this time. Throughout the patient's hospitalization, she continued to have some urinary retention as well as developed weakness. The patient had developed altered mental status on July 17 that was demonstrated, and she received a head CT, which did not demonstrate any acute intracranial abnormality. Her altered mental status was unexplainable. She did receive blood cultures, which were negative, which was followed by urine culture, although the patient had no urinary complaints. Her urine culture came back positive for Escherichia coli and streptococcus species. The patient was started on Rocephin for this. Given her altered mental status, she was started on thiamine and vitamin B12. At one point, the patient was noted to have some posturing, which has been resolved. The patient was noted to be able to ambulate on her own. On examination today, the patient does respond, and she answers questions appropriately; however, she participates minimally. The patient is unable to walk on her own and is weak. She complains of neck pain today, which she states has been present since she has been here. She does admit to some on and off abdominal pain. Patient herself denies any urinary complaints. She denies any fever or chills. MEDICAL HISTORY: 1. Ventral hernia. 2. Hypertension. 3. Sick sinus syndrome. 4. Abdominal aortic aneurysm (AAA). 5. Morbid obesity. 6. Hiatal hernia. 7. Gastritis and esophagitis. SURGICAL HISTORY: 1. Pacemaker placed in 2014. 2. Left shoulder repair. SOCIAL HISTORY: Patient denies any drugs, alcohol, or tobacco use. FAMILY HISTORY: Noncontributory. REVIEW OF SYSTEMS: CONSTITUTIONAL: Patient denies any fevers, chills. She denies any unintentional weight loss or weight gain. HEENT: Patient denies any dysphagia or odynophagia. She denies any migraines or change in her vision. She does admit to neck pain. CARDIOVASCULAR: Patient denies any chest pain. She denies any palpitations or feelings of the heart racing. PULMONARY: Patient denies any shortness of breath. She denies any cough or wheezing. ABDOMEN: Patient admits to abdominal pain. She denies any bloody stools. GENITOURINARY: Patient denies any dysuria. She denies any increased frequency or urgency. EXTREMITIES: Patient admits to chronic lower extremity swelling. She admits to lower extremity weakness and upper extremity weakness as well, which is new. HEMATOLOGIC/LYMPHATIC: Patient denies any history of deep venous thrombosis (DVT) or pulmonary embolus (PE). She denies any history of easy bruising or bleeding. ENDOCRINE: Patient denies any heat intolerance or cold intolerance. PHYSICAL EXAMINATION: VITAL SIGNS: Temperature 97.9, pulse 66, respirations 16, blood pressure 126/89, pulse oximetry 100% on room air. GENERAL: Patient is tired appearing. She is arousable. She is alert and oriented times three. She appears older than stated age. She does not appear in any acute distress. HEENT: Atraumatic, normocephalic. Her eyes are anicteric. Trachea is midline. Mucous membranes are pink and moist. She does have some tenderness of her cervical spine. CARDIOVASCULAR: Normal S1, S2. Regular rate and rhythm. No clicks, rubs, or murmurs. PULMONARY: Clear vesicular breath sounds bilaterally. No wheezes, rhonchi, or rales. ABDOMEN: Soft, nondistended, nontender. There are normoactive bowel sounds. She has a large ventral hernia present. She is morbidly obese. EXTREMITIES: Patient has 2+ pitting edema, bilateral lower extremities. There are full and equal pulses bilaterally. NEUROLOGIC: Patient has bilateral upper and lower extremity weakness. 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 She is unable to hold her left or right arm up. There is otherwise no focal neurological weakness. She does have a downgoing Babinski. LABORATORY DATA: Hematology: White blood cell 7.3, hemoglobin 7.6, hematocrit 22.9, platelet count 181. Chemistry: Sodium 142, potassium 3.7, chloride 109, BUN 14, creatinine 0.72, calcium 7.7. Microbiology: Blood cultures from 07/24/2020 and repeat on 08/02/2020 negative for any growth. Urine culture from 08/01/2020 positive for Escherichia coli and streptococcus species. ASSESSMENT AND PLAN: 1. Altered mental status. The cause of the patient's altered mental status is unknown from an infectious standpoint. She does not necessarily have any signs of an infectious etiology. She is afebrile. There is no elevated white blood cell count. We will order a C-reactive protein (CRP) and erythrocyte sedimentation rate (ESR) for tomorrow. AT presentation, her CRP was 5.43. It went up to 6.16; however, this is unrevealing. Her blood cultures have been negative. She did have a positive urine culture, however, did not have any urinary complaints. Given the patient's neurologic symptoms, including bilateral upper and lower extremity weakness with some posturing, it is possible the patient may have an epidural abscess in the cervical or thoracic spine. She has had imaging of her abdomen and pelvis, which would include lumbar spine, with nothing being demonstrated. Her head CTs, have been negative, which she has had three of since her hospitalization. Her altered mental status may be secondary to ICU delirium; however, providers have stated that the patient comes in and out of her altered mental status; however, given the patient's weakness, this is concerning. We will order a CT of the cervical spine and thoracic spine with contrast to evaluate for epidural abscess, although it is unlikely. If the patient's altered mental status does not improve, would recommend a consultation with neurology for further evaluation. 2. Urinary tract infection. At this time it is likely that this is asymptomatic bacteriuria; however, given the patient's neurologic symptoms and altered mental status, cannot disagree with continued Rocephin for a total of 7 days MTDD
[2020-08-08 08:00] VITALS: BP 160/92
[2020-08-08] MEDS: ASPIRIN 81 MG ENTERIC TAB PO SCH (08:28)
[2020-08-08] MEDS: PANTOPRAZOLE 40MG TAB (PROTONIX) PO SCH ×2 (08:28→21:46)
[2020-08-08] MEDS: ENOXAPARIN 40MG/0.4ML SYRINGE (J1650 PER 10MG) SC SCH (08:29)
[2020-08-08] MEDS: lisinopriL 10 MG TAB PO SCH (08:29)
[2020-08-08] MEDS: THIAMINE 100 MG TAB PO SCH (08:29)
[2020-08-08] MEDS: DOCUSATE SODIUM 100 MG CAP PO SCH (08:38)
[2020-08-08] MEDS ORDERED: FOLIC ACID 1 MG TAB PO SCH (09:00)
[2020-08-08] MEDS: cefTRIAXone SOD 1 GM in D5W MINI-BAG PLUS 50 ML IV SCH (12:42)
[2020-08-08] MEDS: D5W/0.9% SODIUM CHLORIDE 1,000 ML IV SCH (12:43)
--- NOTE | 2020-08-08 14:02 | IPNPDOC ---
Text Note Date of Service The patient was seen on 08/08/20. NOTE Patient was seen and examined this morning by me. She has had a significant i mprovement in the mental status and this morning was sitting in the bed, chair, and asking for breakfast. She knows. She is and she wanted to eat oatmeal. Examination GENERAL APPEARANCE: 69 y/o F sitting upright on bed, in no acute distress. Alert and oriented to person and time (not place). HEENT Exam: Normocephalic and atraumatic, PERRL, conjunctiva normal, EOMI. NECK: Supple. LUNGS: Clear to auscultation bilaterally. CARDIOVASCULAR: Regular rate and rhythm, normal S1 & S2 without gallops, murmurs, rubs ABDOMEN: Obese abdomen, soft, non-tender with normal bowel sounds. Ventral hernia noted. EXTREMITIES: 2/4 DP and radial pulses. No clubbing, cyanosis, edema, tenderness. SKIN: Normal turgor and temperature. Ecchymosis noted on left arm and right arm. MUSCULOSKELETAL: Strength 3/5 in upper and lower extremities. NEUROLOGICAL: Moving all 4 extremities but can't maintain the moment for a long period of time because of severe weakness. Able to follow commands. New Imaging results: 1. CT Thoracic Spine With Contrast on 08/05/2020 IMPRESSION: No obvious acute abnormality. Small bilateral pleural effusions with compressive atelectasis at the right lung base. 2. CT Neck With Contrast on 08/05/2020 IMPRESSION: No acute abnormality. Approximately 61% stenosis of the right internal carotid artery with calcified plaque. Assessment and plan As per the previous documentation this patient was admitted for abdominal pain with large ventral hernia and Imaging revealed splenic infarct without necessary surgical correction where vascular surgery was consulted and Dr Zabala had a le ngthy discussion with vascular and they had recommended no further intervention and pain control only. CTA abdomen was done and was reviewed by Dr. Bianchi (Vascular surgery) and Dr. Jose (Radiology) splenic infarction and possible occlusion of splenic artery vs tortuous vessel vs positional but advised no surgery/stenting recommended. Coagulopathy workup was negative and tele also didnt show any afib / flutter .She had a very lengthy course and then developed hypotensive episodes on 07/17 requiring IV fluids, and continued to experience nausea/vomiting that required further workup. Her esophagogastroduodenoscopy was consistent with esophagitis/gastritis and gastroparesis; her imaging workup suggested possible partial small vs large bowel obstruction. Surgery was consulted and plan was to operate if patient does not improve with nasogastric tube placement and total parenteral nutrition which was started as the patinet was NPO for more then 72 hours. However, patient improved with nasogastric tube and was transitioned to liquid diet. Since the hypotensive event and subsequent bowl complications, her mentation status did not restored to prior functional capacity. She has had extensive work up of infectious , metabolic and toxic etiologies which were ruled out. She did have electrolyte disturbances and possible UTI which have been treated. I took over her care on 08/04/20 and that morning she was only responding to the deep touch and only opening her eyes and not been able to articulate properly.Work up including CT head, electrolytes and infectious etiologies were done. She was also started on IV thiamine, electrolyte replacement of K and MG , phos was checked which was normal. CT head showed no acute changes. ESR , CRP were mildly elevated but as they are non specific indicators , clinical examination did not point towards cellulitis, pna, meningitis. Encephalitis was one of the deferentials but due to her hospitalization for about 3 weeks and minimal activity other course of delirium , hospital acquired delirium was also considered. The plan on 08/04/20 was made to reorient her with activity, addressing the sleep hygiene , orientation of diurnal structure and out of bed to chair atleast 3 times a day along with work up for other causes. on my subsequent visits to her room that day, she was in the bed chair but still very confused and barely verbally responding. The he evening at around 3 i could see her trying to make a conversation but that was not understandable. I had updated the son that day. On 08/05/20 after been on iv thiamine, electrolyle replacement and starting of abx for positive UA which finally grew two organism , she had an improvement. She was more responsive and the speech and swallow was done which she passed. At tis time encephalitis was ruled out as her mentation improved as for encephalitis its unusual to see such improvement. She continued to make no meningeal signs, though it was hard to examine her strength as she wa s very weak . She was also notices to have some dysrhythmic movements and they didn't fit in any myoclonus picture. On close observation, i was noticed that she was trying to flex her extremities and after a brief period of time she would lose the strength and she would try again giving rise to these dysrhythmic movements. If she was told to stop activity, these movements would stop. Ammonia and BUN were in normal range. Off note, a three way call with Dr Kate I and son Yogi was made and Dr Grace explained the need to conservative treatment for her hernia. . She continues to show marked improvement in her mentation ( not strenght ) . and the plan is to continue nutritional support, activity, sleep hygiene, keeping the room well lit during the day, and frequent visits to her by the nursing staff to engage her in the conversation . the son is also helping with this. All this has been conveyed to the family. 1. Delirium of unknown etiology: Multifactorial. Continue IV Rocephin for a total of 5-7 days for UTI. Continue monitoring the lites and basic electrolytes. Nutritional support with elevated proteins and multivitamins. Main focus on hospital acquired delirium and continue to work on sleep hygiene. Management out of bed to chair and keeping the room well lit during the day for a normal return of circardian rhythm. 2. UTI: Urine culture reviewed and on 08/01/2020 grew E.Coli and Strep gallolyticus SSP pasteu (both >100,000 CFU/ml, C&S pansensitive) Cont ceftriaxone 1mg IV for a total of 5-7 days. 3. Macrocytic anemia, likely multifactorial with anemia of chronic disease, vitamin deficiencies, and microscopic hematuria. Continue monitoring and transfuse as needed. Maintain the hemoglobin above 7. Thiamine and folic acid supplementation continued. 4. SBO, resolved: He secondary to ventral hernia. Had a discussion with surgery in detail and conservative management at this time and once the patient recovers from this. Debility surgeons will reconsider for potential cardiac. This was conveyed on a 3 way call to the son. 5. Ventral hernia: Again, as discussed above a discussion was held with Pt's son (Mr. Yogi Gonzalez) and Dr. Sanjay KAUFMAN. (general surgery), patient was recommended to manage hernia conservatively, patient is a poor surgical candidate at this time due to her unstable mentation status. Surgery team recommended to continue hernia management with daily laxatives. Family agrees with the current plan. # DVT prophylaxis We will continue to follow. I had a detailed discussion with the son regarding the disposition plans. The patient has not been able to participate in any physical therapy and for that reason, PT, OT has signed off. I had a discussion with son regarding possible placement to a long-term care, but he wants her mother to go home. crew lead and social workers are on board and trying to find a way where a home care with 24-hour supervision can be provided. The son's girlfriend is a home care provider and they're looking at potential for her to be her home care. Alphonso Najera MD. VS,Pinky, I+O VS, Pinky, I+O Laboratory Tests 08/08/20 05:21 Vital Signs Date Time Temp Pulse Resp B/P (MAP) Pulse Ox O2 Delivery O2 Flow Rate FiO2 08/08/20 08:00 99.7 82 18 160/92 (114) 96 Room Air I&O- Last 24 Hours up to 6 AM 08/08/20 06:00 Intake Total 1550.8 ml Output Total 1925 ml Balance -374.2 ml NARESH VIDES MD Aug 08, 2020 13:53
[2020-08-08 14:09] LABS: C REACTIVE PROTEIN QUANTITATIV 7.21 MG/DL (0.00-0.30)
[2020-08-08 16:00] VITALS: BP 170/92
[2020-08-08 20:00] VITALS: BP 164/90
[2020-08-08] MEDS: QUEtiapine FUMARATE 12.5 MG HALF-TAB PO SCH (21:46)
[2020-08-09] VITALS: BP 166/92
[2020-08-09 04:00] VITALS: BP 168/100
[2020-08-09] MEDS: SODIUM CHLORIDE 0.9% INJ 10 ML SYR IV SCH ×2 (05:56→17:20)
[2020-08-09] MEDS: D5W/0.9% SODIUM CHLORIDE 1,000 ML IV SCH (05:57)
[2020-08-09] MEDS: SLF 3 ML SYR IV SCH (05:59)
[2020-08-09 07:47] LABS: BASO % 0.3 % (0.0-1.0); EOS # 0.1 10^3/uL (0.0-0.5); EOS % 1.6 % (0.0-3.0); HEMATOCRIT 28.1 % (36.0-47.0); HEMOGLOBIN 9.5 g/dl (12.0-15.5); LYMPH # 1.3 10^3/uL (1.5-5.0); LYMPH % 19.6 % (24.0-44.0); MEAN CORPUSCULAR HEMOGLOBIN 32.3 pg (27.0-33.0); MEAN CORPUSCULAR HGB CONC 33.8 g/dl (32.0-36.5); MEAN CORPUSCULAR VOLUME 95.6 fl (80.0-96.0); MONO # 0.9 10^3/uL (0.0-0.8); MONO % 13.3 % (0.0-5.0); NEUTROPHILS # 4.4 10^3/uL (1.5-8.5); NEUTROPHILS % 64.2 % (36.0-66.0); PLATELET COUNT, AUTOMATED 344 10^3/uL (150-450); RED BLOOD COUNT 2.94 10^6/uL (4.00-5.40); WHITE BLOOD COUNT 6.8 10^3/uL (4.0-10.0)
[2020-08-09 08:00] VITALS: BP 176/86
[2020-08-09 08:09] LABS: MAGNESIUM LEVEL 1.8 MG/DL (1.8-2.4); PHOSPHORUS LEVEL 2.5 MG/DL (2.5-4.9)
[2020-08-09 08:14] LABS: HEMATOCRIT 28.1 % (36.0-47.0)
[2020-08-09 08:16] LABS: ALBUMIN 2.1 GM/DL (3.2-5.2); ALT/SGPT 18 U/L (12-78); BILIRUBIN,TOTAL 0.6 MG/DL (0.2-1.0); BLOOD UREA NITROGEN 4 MG/DL (7-18); CALCIUM LEVEL 8.4 MG/DL (8.8-10.2); CARBON DIOXIDE LEVEL 26 MEQ/L (21-32); CHLORIDE LEVEL 110 MEQ/L (98-107); CREATININE FOR GFR 0.59 MG/DL (0.55-1.30); GLOMERULAR FILTRATION RATE > 60.0 (>45); GLUCOSE, FASTING 81 MG/DL (70-100); POTASSIUM SERUM 2.7 MEQ/L (3.5-5.1); SODIUM LEVEL 140 MEQ/L (136-145); TOTAL PROTEIN 5.6 GM/DL (6.4-8.2)
[2020-08-09] MEDS: DOCUSATE SODIUM 100 MG CAP PO SCH (09:00)
[2020-08-09] MEDS ORDERED: POTASSIUM CHLORIDE 10 MEQ SR TABLET PO ONE (09:00)
[2020-08-09] MEDS: lisinopriL 10 MG TAB PO SCH (09:27)
[2020-08-09] MEDS: ENOXAPARIN 40MG/0.4ML SYRINGE (J1650 PER 10MG) SC SCH (09:28)
[2020-08-09] MEDS: ASPIRIN 81 MG ENTERIC TAB PO SCH (09:29)
[2020-08-09] MEDS: PANTOPRAZOLE 40MG TAB (PROTONIX) PO SCH ×2 (09:29→21:49)
[2020-08-09] MEDS: KCL 10MEQ/100ML SWI (KRUN) 10 MEQ in IV 1 EA IV SCH ×3 (10:32→12:47)
--- NOTE | 2020-08-09 12:06 | IPNPDOC ---
Text Note Date of Service The patient was seen on 08/09/20. NOTE HPI: Patient was seen and examined this morning this morning while eating/being fed by nurse. Patient expressed the wish the she wants to eat(pointing to food say ing she wants banana). She denies any fever, chills, nausea, vomiting, abdominal pain, chest pain, palpitation, dyspnea. When being asked if there's anything that's bothering her, patient denied. Patient knows her name, place, and year. She verbalized that she had been sitting on the chair. ROS: CONSTITUTIONAL: Denies chills, fever CARDIOVASCULAR: Denies chest pain or palpitations. RESPIRATORY: Denies dyspnea GASTROINTESTINAL: Denies nausea, vomiting, or abdominal pain MUSCULOSKELETAL: Pos weakness in extremities Objectives: VITAL SIGNS: See below GENERAL APPEARANCE: Elderly female lying in bed getting breakfast, not in acute distress, pleasant HEENT Exam: Atraumatic, no obvious scleral icterus bilaterally, pupil equal and round bilaterally NECK: Supple. LUNGS: Clear to auscultation bilaterally. CARDIOVASCULAR: Regular rate and rhythm, normal S1 & S2 without gallops, murmurs, rubs ABDOMEN: Obese abdomen, soft, non-tender with normal bowel sounds. Ventral hernia present EXTREMITIES: No clubbing or cyanosis SKIN: Normal skin turgor and temperature. Ecchymosis noted in bilateral upper extremities MUSCULOSKELETAL: Patient able to move all 4 extremities, extremities shaking when attempting to move extremities due to weakness but is able to stop the shakiness in the extremities NEUROLOGICAL: Able to follow commands including moving extremities. Strength +2- 3/5 in b/l upper and lower extremities. A&OX3, mildly slurred speech, questionable cognitive function but is able to answer most question appropriately. Minimal b/l patellar reflex appreciated while supine Psych: Mood stable New Imaging results: CT Thoracic Spine With Contrast on 08/05/2020 IMPRESSION: No obvious acute abnormality. Small bilateral pleural effusions with compressive atelectasis at the right lung base. CT Neck With Contrast on 08/05/2020 IMPRESSION: No acute abnormality. Approximately 61% stenosis of the right internal carotid artery with calcified plaque Assessment and plan: Per Dr. Werner per prior documentation: "As per previous documentation patient was admitted on 07/15/2020 for abdominal pain with large ventral hernia and imaging revealed splenic infarct without necessary surgical correction where vascular surgery was consulted and Dr. Zabala had a lengthy discussion with vascular surgery team and they had recommended no further intervention and pain control only. CTA abdomen was done and was reviewed by Dr. Bianchi (Vascular surgery) and Dr. Jose (Radiology) splenic infarction and possible occlusion of splenic artery vs tortuous vessel vs posit ional but advised no surgery/stenting recommended. Coagulopathy workup was negative and tele also didn't show any a. fib or a. flutter. Patient had a very lengthy course and then developed hypotensive episodes on 07/17/2020 requiring IV fluids, and continued to experience nausea/vomiting that required further workup. Her EGD was consistent with esophagitis/gastritis and gastroparesis; her imaging workup suggested possible partial small vs large bowel obstruction. Surgery was consulted and plan was to operate if patient does not improve with NG tube placement and TPN which was started as the patient was NPO for more then 72 hours. However, patient improved with nasogastric tube and was transitioned to liquid diet. Since the hypotensive event and subsequent bowl complications, her mentation status did not restored to prior functional capacity. She has had extensive work up of infectious, metabolic and toxic etiologies which were ruled out. She did have electrolyte disturbances and possible UTI which have been treated. I took over the patient's care on 08/04/20 and that morning she was only responding to the deep touch and only opening her eyes and not been able to articulate properly.Work up including CT head, electrolytes and infectious etiologies were done. She was also started on IV thiamine, electrolyte replacement of K, Mg, and phos was checked which was normal. CT head showed no acute changes. ESR and CRP were mildly elevated but these are non-specific indicators; PE did not point towards cellulitis, pneumonia, meningitis. Encephalitis was one of the ddx but due to her hospitalization for about 3 weeks and minimal activity other course of delirium, hospital acquired delirium was also considered. The plan on 08/04/20 was made to reorient her with activity, addressing the sleep hygiene, and to orientation of diurnal structure and out of bed to chair at least TID along with work up for other causes. On subsequent visits to pt room later in the day, she was in the bed chair but still very confused and barely verbally responding. The in the evening around 3 I could see her trying to make a conversation but that was not understandable. I had updated the son that day. On 08/05/20 after been on iv thiamine, electrolyte replacement and starting of abx for positive UA which finally grew two organism, and patient had an improvement. Patient was more responsive and the speech and swallow was done which she passed. At tis time encephalitis was ruled out as her mentation improved as for encephalitis its unusual to see such improvement. She continued to make no meningeal signs, though it was hard to examine her strength as she was very weak . She was also notices to have some dysrhythmic movements and they didn't fit in any myoclonus picture. On close observation, i was noticed that she was trying to flex her extremities and after a brief period of time she would lose the strength and she would try again giving rise to these dysrhythmic movements. If she was told to stop activity, these movements would stop. Ammonia and BUN were in normal range. Off note, a three way call with Dr Grace, patient's son Yogi, and me was made, and Dr Grace explained the need to conservative treatment for her hernia. Patient continues to show marked improvement in her mentation ( not strength), and the plan is to continue nutritional support, activity, sleep hygiene, keeping the room well lit during the day, and frequent visits to her by the nursing staff to engage her in the conversation. Patient's son is also helping with this. All this has been conveyed to the family. I had a detailed discussion with the son regarding the disposition plans. The patient has not been able to participate in any PT and for that reason, PT and OT have signed off. I had a discussion with son regarding possible placement to a long-term care, but he wants his mother to go home. enforcement manager and social workers are on board and trying to find a way where a home care with 24-hour supervision can be provided. The son's girlfriend is a home care provider and they're looking at potential for her to be her home care." 1. Metabolic encephalopathy, ddx multifactorial -Change PO folate to IV folate for folate deficiency, recheck folate level. Change PO thiamine to IV thiamine; thiamine level still pending. -Pt has completed IV rochephin for UTI -Continue to monitor BMP and CBC. - Continue to hold delirium related medication. - Acute Intracranial process ruled out with head CT. - For ddx of hospital acquired delirium, continue to work on sleep hygiene, out of bed to chair and keeping the room well lit during the day for a normal return of circardian rhythm. - Speech therapy evaluated, cont pureed diet, aspiration precaution. - cont sleep hygiene management: nursing order placed for out of chair TID and keep pt room well lit during daytime. 12.5mg quetiapine to help with sleep QHS. - PT/OT re-ordered - Discussion between team and neurology Dr. Tsang, recommended lumbar puncture for altered mental status(unable to perform MRI brain or neck due to presence of pacemaker); and recommended formal neurology consult tomorrow. - Reached out to anesthesiology team for possible lumbar puncture today INR ordered. If no LP today, will hold lovenox and possible aspirin per anesthesiology, pending anesthesiology recommendation. 2. UTI: Urine culture reviewed and on 08/01/2020 grew E.Coli and Strep gallolyticus SSP pasteu (both >100,000 CFU/ml, C&S pansensitive). CT abd and pelvis without contrast showed bilateral hydroureteronephrosis without obstructing etiology. Ceftriaxone 1mg IV QD completed. 3. Macrocytic anemia, likely multifactorial with anemia of chronic disease, vitamin deficiencies, and microscopic hematuria. Continue monitoring and trans fuse as needed. Maintain the hemoglobin above 7. Change Thiamine and folic acid from PO to IV. 4. SBO, resolved. Team had a discussion with surgery in detail and currently continued to have conservative management at this time. This was conveyed on a 3-way call to the son. Pt continues to have BM 08/09/2020 AM. 5. Ventral hernia: 3 way discussion done between patient's(Mr. Yogi Gonzalez) and Dr. Sanjay KAUFMAN. (general surgery), and attending, patient was recommended to manage hernia conservatively as patient is a poor surgical candidate at this time due to her unstable mentation status. Surgery team recommended to continue hernia management with daily laxatives. Patient's son agrees with the current plan. 6. Urinary retention. It was noted that be catheter was discontinued yesterday for attempted be catheter removal. It was noted overnight that pt has urinary retention noted on bladder scan and straight cath ordered. Be catheter reorder d/t urinary retention. 7. Macrocytic anemia. - required 2 units of PRBC transfusion during hospitalization - Low folate (33), switch PO folate to IV folate supplementation - Iron panel consistent with anemia of chronic disease - B12 level >2000 on 08/02/2020, B12 supplementation discontinued. Occult stool blood test neg. Patient also had microscopic hematuria on UA on 08/01/2020 8. Hypokalemia. K 2.7 this morning. KCl 40meq ordered in addition to 3 K run. Recheck BMP Q8H. Mg level wnl. Tele for 24 hours. 9. Splenic infarction. Patient denies current abdominal pain. Prior evaluated by vascular surgeon during this hospitalization and that per note on 07/23/2020 no surgery/stenting is recommended. 10. DVT prophylaxis. SCD/TEDS/lovenox VS,Fishbone, I+O VS, Fishbone, I+O Laboratory Tests 08/09/20 07:31 Vital Signs Date Time Temp Pulse Resp B/P (MAP) Pulse Ox O2 Delivery O2 Flow Rate FiO2 08/09/20 09:27 176/86 08/09/20 08:00 99.1 75 20 94 Room Air I&O- Last 24 Hours up to 6 AM 08/09/20 06:00 Intake Total 430 ml Output Total 1750 ml Balance -1320 ml GME ATTESTATION GME ATTESTATION My faculty preceptor for this patient encounter was physically present during the encounter and was fully available. All aspects of the patient interview, examination, medical decision making process, and medical care plan development were reviewed and approved by the faculty preceptor. The faculty preceptor is aware and concurs with the plan as stated in the body of this note and will attest to such by his/her cosignature. ATTENDING NOTE I, Teo Zabala, have independently examined this patient and performed my own physical exam, as well as reviewed the documentation and edited where necessary. I have discussed in detail with the resident / student the findings and plan of treatment as documented by the resident / student and edited their note. I agree with their findings and treatment plan and have edited their documentation. I will continue to follow the patient during this hospital stay. Attending Note Attending Note Subjective: Patient is a 69 year old female who was abdominal pain with large ventral hernia and imaging showing splenic infarct without necessary surgical correction. She progressed well and was about to be discharged but experienced a hypotensive episode on 07/17 requiring fluid administration. Patient continued to experience nausea and vomiting, gastroenterology was called and she received an EGD / Esophagram; consistent with esophagitis / gastritis and gastroparesis. On 07/24 patient had more nausea and vomiting and repeat imaging had revealed possible partial SBO vs. LBO. Surgery was reconsulted for evaluation. Her hospital course was complicated with urinary retention and a Be catheter was placed. Patient was started on TPN and conservative measures were started for r esolution of her obstruction. Patient was seen and examined at the bedside. Patient's mentation had failed to improve initially, however has shown significant improvement at this time. She remains oriented to person / place / year / president. Patient can follow commands. Her strength currently remains weak. Patient does have intention to move and can move her extremities, however does not appear to have enough strength to work against gravity. Objective: Vitals (See below) Visited patient multiple times today General: Lying in bed and sitting up in chair, no acute distress, is awake oriented to person / place / year / president HEENT: NC, AT CVS: +S1S2 Lungs: Air entry is fair b/l, without any appreciable wheezing / rhonchi / rales Abdomen: Soft, without distension or tenderness, Large ventral hernia Extremities: LE do not reveal any gross pitting edema, - Calf tenderness Assessment and plan: Deconditioning / Weakness - Repeat imaging noted - Will check CK / CRP - c/w Thiamine, Folate, MVI - Will c/w Seroquel (low dose) - Will reconsult PT and OT - Will consult neurology for further recommendations; discussed case, will pursue LP to evaluate for possible GBS (will request anesthesia's help for LP) Poor oral intake - c/w D5 NS - Will encourage increased oral intake s/p UTI - Urine cultures (08/01): positive for E. Coli / Strep - s/p Ceftriaxone - ID on consultation; appreciate their input s/p Nausea and vomiting - possibly 2/2 partial SBO - s/p NG tube - Continues to have bowel movements - c/w Bowel regimen; Docusate / Bisacodyl - Dr. 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 Bianchi (Vascular surgery) and Dr. Jose (Radiology)- splenic infarction and possible occlusion of splenic artery vs tortuous vessel vs positional - no surgery/stenting recommended. - Coagulopathy workup - negative - Appreciate vascular surgery recommendations; c/w anti-emetics and pain control Urinary retention - likely 2/2 partial SBO / ileus - Patient had trial of Be catheter removal; will have Be reinserted (re: recurrent retention) Gastroparesis - Diagnosed on barium esophagram - c/w Reglan and gastroparesis diet - Gastroenterology on consultation Esophagitis/gastritis - c/w PPI - Gastroenterology on consultation Lower extremity numbness - Resolved Hx of suspected ventricular tachycardia on telemetry - [employer] medical assistant instructor has interrogated device with no concerning findings - Prior Dr. Foster patient, however was discharged from practice HTN - BP moderately controlled - s/p Lisinopril - c/w Hydralazine IV with adjusted hold parameters Hx SSS - s/p PPM in place Hx of AAA GI prophylaxis - c/w Protonix DVT prophylaxis - c/w TEDs/Sequentials - Will hold Lovenox (re: LP) Disposition: - Pending clinical improvement - Discuss care plan with Son (HCP) ARUN BROWN DO Aug 09, 2020 10:48 TEO ZABALA MD Aug 09, 2020 15:02
[2020-08-09] MEDS ORDERED: cefTRIAXone SOD 1 GM in D5W MINI-BAG PLUS 50 ML IV SCH (13:00)
[2020-08-09 13:31] LABS: INR 1.08; PROTHROMBIN TIME 14.3 SECONDS (11.8-14.0)
[2020-08-09 15:32] LABS: BLOOD UREA NITROGEN 6 MG/DL (7-18); C REACTIVE PROTEIN QUANTITATIV 6.19 MG/DL (0.00-0.30); CALCIUM LEVEL 8.1 MG/DL (8.8-10.2); CARBON DIOXIDE LEVEL 26 MEQ/L (21-32); CHLORIDE LEVEL 110 MEQ/L (98-107); CPK CREATINE PHOSPHOKINASE 45 U/L (26-192); CREATININE FOR GFR 0.68 MG/DL (0.55-1.30); GLOMERULAR FILTRATION RATE > 60.0 (>45); GLUCOSE, FASTING 98 MG/DL (70-100); POTASSIUM SERUM 3.7 MEQ/L (3.5-5.1); SODIUM LEVEL 141 MEQ/L (136-145)
[2020-08-09 16:00] VITALS: BP 127/80
[2020-08-09 20:00] VITALS: BP 136/88
[2020-08-09 20:35] LABS: BLOOD UREA NITROGEN 7 MG/DL (7-18); C REACTIVE PROTEIN QUANTITATIV 5.29 MG/DL (0.00-0.30); CALCIUM LEVEL 7.3 MG/DL (8.8-10.2); CARBON DIOXIDE LEVEL 24 MEQ/L (21-32); CHLORIDE LEVEL 113 MEQ/L (98-107); CPK CREATINE PHOSPHOKINASE 44 U/L (26-192); CREATININE FOR GFR 0.82 MG/DL (0.55-1.30); GLOMERULAR FILTRATION RATE > 60.0 (>45); GLUCOSE, FASTING 111 MG/DL (70-100); POTASSIUM SERUM 3.8 MEQ/L (3.5-5.1); SODIUM LEVEL 143 MEQ/L (136-145)
[2020-08-09] MEDS: QUEtiapine FUMARATE 12.5 MG HALF-TAB PO SCH (21:49)
[2020-08-10] VITALS: BP 140/86
[2020-08-10 04:00] VITALS: BP 152/84
[2020-08-10] MEDS: D5W/0.9% SODIUM CHLORIDE 1,000 ML IV SCH ×2 (05:03→23:48)
[2020-08-10] MEDS: ACETAMINOPHEN 500 MG TAB PO PRN (05:03)
[2020-08-10] MEDS: SODIUM CHLORIDE 0.9% INJ 10 ML SYR IV SCH ×2 (05:04→17:58)
[2020-08-10 08:18] LABS: BASO % 0.3 % (0.0-1.0); EOS # 0.1 10^3/uL (0.0-0.5); EOS % 1.6 % (0.0-3.0); HEMATOCRIT 28.5 % (36.0-47.0); HEMOGLOBIN 9.4 g/dl (12.0-15.5); LYMPH # 1.5 10^3/uL (1.5-5.0); LYMPH % 21.6 % (24.0-44.0); MEAN CORPUSCULAR HEMOGLOBIN 31.9 pg (27.0-33.0); MEAN CORPUSCULAR VOLUME 96.6 fl (80.0-96.0); MONO # 0.9 10^3/uL (0.0-0.8); MONO % 13.6 % (0.0-5.0); NEUTROPHILS # 4.2 10^3/uL (1.5-8.5); PLATELET COUNT, AUTOMATED 379 10^3/uL (150-450); RED BLOOD COUNT 2.95 10^6/uL (4.00-5.40); WHITE BLOOD COUNT 6.8 10^3/uL (4.0-10.0)
[2020-08-10 08:38] LABS: ALBUMIN 2.1 GM/DL (3.2-5.2); ALT/SGPT 20 U/L (12-78); BILIRUBIN,TOTAL 0.6 MG/DL (0.2-1.0); BLOOD UREA NITROGEN 5 MG/DL (7-18); CALCIUM LEVEL 8.1 MG/DL (8.8-10.2); CARBON DIOXIDE LEVEL 25 MEQ/L (21-32); CHLORIDE LEVEL 113 MEQ/L (98-107); CREATININE FOR GFR 0.79 MG/DL (0.55-1.30); GLOMERULAR FILTRATION RATE > 60.0 (>45); GLUCOSE, FASTING 79 MG/DL (70-100); MAGNESIUM LEVEL 1.7 MG/DL (1.8-2.4); POTASSIUM SERUM 3.5 MEQ/L (3.5-5.1); SODIUM LEVEL 145 MEQ/L (136-145)
[2020-08-10 08:39] LABS: ALBUMIN 2.1 GM/DL (3.2-5.2); ALT/SGPT 20 U/L (12-78); BILIRUBIN,TOTAL 0.6 MG/DL (0.2-1.0); BLOOD UREA NITROGEN 6 MG/DL (7-18); CALCIUM LEVEL 7.9 MG/DL (8.8-10.2); CARBON DIOXIDE LEVEL 23 MEQ/L (21-32); CHLORIDE LEVEL 112 MEQ/L (98-107); CREATININE FOR GFR 0.77 MG/DL (0.55-1.30); GLOMERULAR FILTRATION RATE > 60.0 (>45); GLUCOSE, FASTING 81 MG/DL (70-100); POTASSIUM SERUM 3.5 MEQ/L (3.5-5.1); SODIUM LEVEL 144 MEQ/L (136-145)
[2020-08-10] MEDS ORDERED: THIAMINE 200MG/2ML VIAL (J3411 PER 100MG) IV SCH (09:00)
[2020-08-10] MEDS ORDERED: FOLIC ACID 1 MG in NS 50 ML IV SCH (09:00)
[2020-08-10] MEDS: DOCUSATE SODIUM 100 MG CAP PO SCH (09:00)
[2020-08-10] MEDS: ASPIRIN 81 MG ENTERIC TAB PO SCH (09:26)
[2020-08-10] MEDS: PANTOPRAZOLE 40MG TAB (PROTONIX) PO SCH ×2 (09:26→20:08)
[2020-08-10] MEDS: lisinopriL 10 MG TAB PO SCH (09:26)
[2020-08-10 09:51] LABS: C REACTIVE PROTEIN QUANTITATIV 3.96 MG/DL (0.00-0.30)
[2020-08-10] MEDS ORDERED: MAG SULF 1GM/100ML (MAG RUN) 1 GM in IV 1 EA IV ONE (10:00)
--- NOTE | 2020-08-10 10:12 | IPNPDOC ---
Text Note Date of Service The patient was seen on 08/10/20. NOTE Subjective: Patient is a 69 year old female who was abdominal pain with large ventral hernia and imaging showing splenic infarct without necessary surgical correction. She progressed well and was about to be discharged but experienced a hypotensive episode on 07/17 requiring fluid administration. Patient continued to experience nausea and vomiting, gastroenterology was called and she received an EGD / Esophagram; consistent with esophagitis / gastritis and gastroparesis. On 07/24 patient had more nausea and vomiting and repeat imaging had revealed possible partial SBO vs. LBO. Surgery was reconsulted for evaluation. Her hospital course was complicated with urinary retention and a Murphy catheter was placed. Patient was started on TPN and conservative measures were started for resolution of her obstruction. Patient has since been discontinued from TPN and is tolerating a diet; has been increasing her oral intake. Her mentation has had improvement. Patient was seen and examined at the bedside. Currently patient has been sat up in a chair. She appears comfortable and not in any distress. She can answer her full name, place / year. She told me that she know's the president and "doesn't like him." She denied any pain,.shortness of breath. Objective: Vitals (See below) General: Sitting up in assistive chair, appears in no acute distress / comfortable, oriented to person/place, president HEENT: ANDREA, AT CVS: +S1S2 Lungs: Appears to have fair air entry b/l, without evidence of wheezing / rhonchi / crackles Abdomen: Abdomen remains soft with no distension, palpation is without tenderness, Large ventral hernia persists Extremities: Again LE are without edema, - Calf tenderness Assessment and plan: Deconditioning / Weakness - possibly 2/2 deconditioning 2/2 critical illness, possibly 2/2 GBS? - Repeat imaging noted - CRP continues to trend down - c/w Thiamine, Folate, MVI - c/w Seroquel (low dose) - PT and OT on reconsult - Discussed with neurology, will be consultation; will pursue LP to evaluate for possible GBS (Anesthesia will likely be performing an LP today) Poor oral intake - c/w D5 NS - Continue wiht encouraged oral intake; has had some improvement s/p UTI - Urine cultures (08/01): positive for E. Coli / Strep - CRP trending down - s/p Ceftriaxone - ID on consultation; appreciate their input s/p Nausea and vomiting - possibly 2/2 partial SBO - s/p NG tube - Bowel movements noted regularly - c/w Bowel regimen; Docusate / Bisacodyl - Dr. 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 Bianchi (Vascular surgery) and Dr. Jose (Radiology)- splenic infarction and possible occlusion of splenic artery vs tortuous vessel vs positional - no surgery/stenting recommended. - Coagulopathy workup - negative - Appreciate vascular surgery recommendations; c/w anti-emetics and pain control Urinary retention - likely 2/2 partial SBO / ileus - Patient had trial of Murphy catheter removal - had failed and had recurrent retention - c/w Murphy; reinserted (re: recurrent retention) Gastroparesis - Diagnosed on barium esophagram - c/w Reglan and gastroparesis diet - Gastroenterology on consultation Esophagitis/gastritis - c/w PPI - Gastroenterology on consultation Hx of suspected ventricular tachycardia on telemetry - [employer] medical assisting program director has interrogated device with no concerning findings - Prior Dr. Foster patient, however was discharged from practice after failure to followup HTN - BP moderately controlled - s/p Lisinopril - c/w Hydralazine IV with adjusted hold parameters (SBP > 180) Hx SSS - s/p PPM in place Hx of AAA GI prophylaxis - c/w Protonix DVT prophylaxis - c/w TEDs/Sequentials - Will hold Lovenox (re: LP likely today) Disposition: - Pending clinical improvement - Discussed care plan with son yesterday and LP that will be performed, he had indicated that he will be coming in today; will discuss updates in person today VS,Pinky, I+O VS, Ladane, I+O Laboratory Tests 08/09/20 14:49 08/09/20 19:51 08/10/20 07:44 Vital Signs Date Time Temp Pulse Resp B/P (MAP) Pulse Ox O2 Delivery O2 Flow Rate FiO2 08/10/20 09:26 152/84 08/10/20 06:00 99.4 08/10/20 04:00 81 18 93 Room Air I&O- Last 24 Hours up to 6 AM 08/10/20 06:00 Intake Total 1600 ml Output Total 700 ml Balance 900 ml ROBERTO MONTGOMERY MD Aug 10, 2020 10:12
[2020-08-10 12:00] VITALS: BP 138/82
--- NOTE | 2020-08-10 12:16 | IPN ---
DATE: 08/08/2020 SUBJECTIVE: Patient seen and examined this morning. She continues to have some confusion, although overall patient's mental status has improved. From infectious standpoint, patient has remained afebrile. She continues to have a Murphy catheter in place. She has remained on Rocephin, currently day #5 of treatment for a urinary tract infection, although patient does not have any urinary tract symptoms. Patient overall does not have any complaints with the exception of some abdominal pain, which is located around her ventral hernia. OBJECTIVE: PHYSICAL EXAMINATION: Temperature 99.7, pulse 82, respiratory rate 18, blood pressure 160/92, pulse ox 96% on room air. GENERAL: Patient is awake and alert. She is oriented to self, place, and time; however, she does have some moments of confusion/hallucinations. HEENT: Atraumatic, normocephalic. The patient's eyes are anicteric. Her trachea is midline. Mucous membranes are pink and moist. She has poor dentition. HEART: S1, S2, regular rate and rhythm. No clicks, rubs, or murmurs. PULMONARY: Patient has decreased breath sounds throughout bilaterally. She has some mild crackles in the bases bilaterally. She has symmetric chest expansion with good respiratory effort. There are no wheezes, rhonchi, or rales. ABDOMEN: Patient's abdomen is soft. It is nondistended. There is a large ventral hernia present. There is some mild ecchymosis around the heparin injection sites. There are normoactive bowel sounds. She has a Murphy catheter in place. EXTREMITIES: No edema. Full and equal pulses. NEUROLOGIC: Cranial nerves II-XII are grossly intact. The patient has decreased muscle strength in the bilateral upper extremities and with hand barrel bander. She is able to raise her left arm, however, has some difficulty with raising her right arm in purposeful movements. She has overall decreased muscle strength in the bilateral lower extremities as well. PSYCHIATRIC: Patient's mood and affect appear appropriate, although at times she appears to be hallucinating. In the room she states that she sees things that are not there and is frequently grabbing at items on the bed that are not there. LABORATORY DATA: Hematology: White blood cells 6.4, hemoglobin 9.9, hematocrit 29.2, platelet count 298. Chemistries: Sodium 140, potassium 3.3, chloride 109, carbon dioxide 27, BUN 5, creatinine 0.60, fasting glucose 78, calcium 7.7. AST 16, ALT 19, alkaline phosphatase 145. C-reactive protein 7.21. INPATIENT ANTIBIOTICS: Ceftriaxone 1 gram every 25 hours ASSESSMENT AND PLAN: Altered mental status. Patient had presented originally with abdominal pain, which was thought to be caused by a ventral hernia. It appears that during her hospitalization she progressively developed some altered mental status as well as weakness, numbness, tingling in her feet and hands. This is being monitored and evaluated and treated by the primary team; however, incidentally the patient did have a urine culture which demonstrated Escherichia coli, and streptococcus species. Given the patient's altered mental status change, she was started on Rocephin. The patient has improved mentation-pro. Whether that is secondary to receiving treatment for her urinary tract infection (UTI) or not is unclear, as she may have had some sort of delirium or psychosis that is unrelated. Currently patient has a Murphy catheter in place. We will discontinue the Murphy catheter today with a voiding trial. Additionally, we will continue the patient's Rocephin for a total of 7 days of treatment, which means that her last day of Rocephin will be on August 10. [facility]
[2020-08-10] MEDS: MULTIVITAMINS/MINERALS THERAP 1 TAB PO SCH (14:54)
[2020-08-10 16:00] VITALS: BP 158/104
[2020-08-10] MEDS ORDERED: ENOXAPARIN 40MG/0.4ML SYRINGE (J1650 PER 10MG) SC SCH (18:00)
--- NOTE | 2020-08-10 18:02 | REPVR ---
PROCEDURE INFORMATION: Exam: XR Chest, 1 View Exam date and time: 08/10/2020 5:23 PM Age: 69 years old Clinical indication: Device placement; Picc; Additional info: Picc line placement for CT TECHNIQUE: Imaging protocol: XR of the chest Views: 1 view. COMPARISON: CR Chest, 2 view PA, Lat 08/01/2020 10:03 AM FINDINGS: Tubes, catheters and devices: AICD device is present, and its leads are in appropriate position. Right-sided approach PICC line with tip in superior vena cava. There is additional linear density overlying the right cardiac silhouette which may be due to calcification. Lungs: Lungs are hyperinflated. There is diffuse bronchial wall thickening. There is patchy increased density in the right lower lobe and possibly in the left lower lobe as well. Pleural space: No pleural effusion. No pneumothorax. Heart/Mediastinum: Cardiomegaly. Bones/joints: Unremarkable. IMPRESSION: 1. PICC line tip is in region of superior vena cava. 2. There appear to be patchy bilateral pulmonary infiltrates which could be due to edema or pneumonia. Electronically signed by: Park Lorenz On 08/10/2020 18:01:38 PM
[2020-08-10] MEDS ORDERED: ISOVUE-370 76% 100ML VIAL As Ordered ONE (18:05)
[2020-08-10 18:12] VITALS: BP 154/82
--- NOTE | 2020-08-10 19:00 | REPVR ---
PROCEDURE INFORMATION: Exam: CT Cervical Spine with Contrast Exam date and time: 08/10/2020 6:25 PM Age: 69 years old Clinical indication: Weakness; Additional info: Weakness; Per neuro TECHNIQUE: Imaging protocol: Computed tomography images of the cervical spine with intravenous contrast. Radiation optimization: All CT scans at this facility use at least one of these dose optimization techniques: automated exposure control; mA and/or kV adjustment per patient size (includes targeted exams where dose is matched to clinical indication); or iterative reconstruction. Contrast material: ISOVUE 370; Contrast volume: 75 ml; Contrast route: IV COMPARISON: CT Neck with contrast 08/05/2020 5:48 PM FINDINGS: Limitations: Patient motion which degrades bone detail. Vertebrae: No acute fracture. Normal alignment. Diffuse degeneration of the uncovertebral and facet joints. Diffuse disc space narrowing and endplate degeneration. C2-C3: No significant spinal canal stenosis or neural foraminal narrowing. C3-C4: No significant spinal canal stenosis or neural foraminal narrowing. C4-C5: No significant spinal canal stenosis. Mild left neural foraminal narrowing. C5-C6: No significant spinal canal stenosis. Mild narrowing of left neural foramen. C6-C7: No significant spinal canal stenosis. Moderate to severe narrowing of the left neural foramen which may affect the left C7 nerve root. C7-T1: No significant spinal canal stenosis or neural foraminal narrowing. Soft tissues: No prevertebral soft tissue swelling. Lungs: Probable emphysema. The left vertebral artery is dominant. The right vertebral artery is hypoplastic but patent. There is calcified atheromatous plaque in the carotid bulbs. Motion artifact obscures detail. Flow is seen in both internal carotid arteries. IMPRESSION: 1. No acute fracture or dislocation in the cervical spine. 2. Diffuse degeneration without significant spinal canal stenosis. There is moderate to severe neural foraminal narrowing at the C6-C7 level on the left which may affect the left C7 nerve root. 3. No abnormal contrast enhancement is seen in the cervical spine however evaluation is limited due to patient motion. Electronically signed by: Park Lorenz On 08/10/2020 19:00:22 PM
[2020-08-10 20:00] VITALS: BP 111/52
[2020-08-10] MEDS: QUEtiapine FUMARATE 12.5 MG HALF-TAB PO SCH (20:08)
[2020-08-11] VITALS (8 sets, daily range): BP systolic 130–200; BP diastolic 64–108
[2020-08-11] MEDS: ACETAMINOPHEN 500 MG TAB PO PRN (00:02)
[2020-08-11] MEDS: ACETAMINOPHEN 650 MG SUPP PR PRN ×2 (05:30→13:49)
[2020-08-11] MEDS ORDERED: ACETAMINOPHEN 650 MG SUPP As Ordered ONE (05:39)
[2020-08-11 05:42] LABS: HEMATOCRIT 29.6 % (36.0-47.0); HEMOGLOBIN 9.5 g/dl (12.0-15.5); MEAN CORPUSCULAR HEMOGLOBIN 31.5 pg (27.0-33.0); MEAN CORPUSCULAR HGB CONC 32.1 g/dl (32.0-36.5); PLATELET COUNT, AUTOMATED 412 10^3/uL (150-450); RED BLOOD COUNT 3.02 10^6/uL (4.00-5.40); WHITE BLOOD COUNT 8.1 10^3/uL (4.0-10.0)
[2020-08-11] MEDS ORDERED: ALBUTEROL SULFATE 2.5 MG/0.5 ML INH NEB SOLN NEB PRN (05:45)
[2020-08-11] MEDS ORDERED: NS 1,000 ML IV SCH (05:45)
[2020-08-11] MEDS ORDERED: CEFEPIME HCL 2 GM in D5W MINI-BAG PLUS 50 ML IV SCH (06:00)
--- NOTE | 2020-08-11 06:01 | IPNPDOC ---
Date Seen The patient was seen on 08/11/20. Progress Note SUBJECTIVE: I was called to assess patient at bedside due to increased SOB, hypoxic episode into 70's, increased tremoring and fever. Her mental status, according to night nurse, had declined significantly this shift alone in conjunction with fevers. Upon review of chart, it was noted patient had PICC line with CXR to confirm placement at 15:00 on 08/10/20 which showed bilateral patchy infiltrates, PNA vs. edema. Infectious workup was ordered along with cefepime, levofloxacin to cover for HCAP. BP systolic > 200 mmg, 10 mg IV hydralazine given. Patient was made NPO and given 650 mg suppository. Also has new onset of hematuria after lovenox dose 08/10/20, stopped lovenox and ASA. OBJECTIVE PHYSICAL EXAMINATION: VITAL SIGNS: Please see below. GENERAL: very lethargic, heavy breathing at times with increased tremors, would open eyes with verbal stimulation. HEENT: AT/NC, PERRLA, nasal cannula in place CARDIOVASCULAR: S1S2 +, no M/R/G RESPIRATORY: labored at times, especially after tremoring episode- intermittent. CTAB, no W/R/R ABDOMINAL: soft, bruising where lovenox shots were administered, obese, nontender, BS + in 4 quad EXTREMITIES: no edema, pulses + in all ext, no cyanosis or clubbing NEUROLOGICAL: No focal deficits, tremoring/spasming of body-chronic issue intermittently, no nystagmus, reflexes in tact LABORATORY DATA, IMAGING STUDIES, MICROBIOLOGY: Please see below. F/u repeat BCx x 2 sets UCx that was already pending Sputum culture ordered ASSESSMENT AND PLAN: PROBLEMS: 1. SOB likely multifactorial due to CHF exacerbation, HCAP -fever, BNP >20K, trop neg, LA wnl. Currently on 3 L NC -CXR 08/10/20 showed bilateral patchy infiltrates, edema vs. pna -Echo 07/27/20: preserved ejection fraction 60% -Started on lasix 40 mg IV BID, stopped IVF, cefepime, levaquin, tylenol supp. -NPO until more awake and spasming calms down as she is aspiration risk -Monitor I&O's closely, daily wt 2. HCAP, sepsis -See above for treatment 3. Hematuria -D/c ASA, lovenox -No increased bleeding overnight -F/u AM CBC 4. Hypertensive urgency -BP systolic > 200 mmHg, worsened with increased spasming occuring -Given 10 mg IV hydralazine and lasix BID started -Monitor on tele VS, I&O, 24H, Gurdeepbone Vital Signs/I&O Vital Signs Date Time Temp Pulse Resp B/P (MAP) Pulse Ox O2 Delivery O2 Flow Rate FiO2 08/11/20 01:00 99.1 162/94 (116) 08/11/20 00:00 104 20 96 Room Air I&O- Last 24 Hours up to 6 AM 08/11/20 06:00 Intake Total 740 ml Output Total 700 ml Balance 40 ml Laboratory Data 24H LABS Laboratory Tests 2 08/10/20 07:39: 08/10/20 07:44: Immature Granulocyte % (Auto) 0.9, Neutrophils (%) (Auto) 62.0, Lymphocytes (%) (Auto) 21.6L, Monocytes (%) (Auto) 13.6H, Eosinophils (%) (Auto) 1.6, Basophils (%) (Auto) 0.3, Neutrophils # (Auto) 4.2, Lymphocytes # (Auto) 1.5, Monocytes # (Auto) 0.9H, Eosinophils # (Auto) 0.1, Basophils # (Auto) 0.0, Nucleated Red Blood Cells % (auto) 0.0, Anion Gap 7L, Glomerular Filtration Rate > 60.0, Calcium Level 8.1L, Magnesium Level 1.7L, Total Bilirubin 0.6, Aspartate Amino Transf (AST/SGOT) 18, Alanine Aminotransferase (ALT/SGPT) 20, Alkaline Phosphat ase 115, C-Reactive Protein, Quantitative 3.96H, Total Protein 5.0L, Albumin 2.1L, Albumin/Globulin Ratio 0.7L 08/11/20 05:25: Nucleated Red Blood Cells % (auto) 0.0 CBC/BMP Laboratory Tests 08/10/20 07:44 08/11/20 05:25 Microbiology Microbiology 08/09/20 Urine Culture, Received Pending 08/06/20 Stool Occult Blood (DASHA) - Final, Complete 08/02/20 Blood Culture - Final, Complete NO GROWTH AFTER 5 DAYS 08/01/20 Urine Culture - Final, Complete Escherichia Coli Strep Gallolyticus Ssp Raulu Marquita Hansen MD Aug 11, 2020 06:01
[2020-08-11] MEDS: SODIUM CHLORIDE 0.9% INJ 10 ML SYR IV SCH ×2 (06:05→16:59)
[2020-08-11 06:10] LABS: BLOOD UREA NITROGEN 6 MG/DL (7-18); C REACTIVE PROTEIN QUANTITATIV 2.89 MG/DL (0.00-0.30); CALCIUM LEVEL 7.8 MG/DL (8.8-10.2); CARBON DIOXIDE LEVEL 24 MEQ/L (21-32); CHLORIDE LEVEL 114 MEQ/L (98-107); CREATININE FOR GFR 0.74 MG/DL (0.55-1.30); GLOMERULAR FILTRATION RATE > 60.0 (>45); GLUCOSE, FASTING 75 MG/DL (70-100); MAGNESIUM LEVEL 1.8 MG/DL (1.8-2.4); NT-PRO BNP 24801 PG/ML (<125); POTASSIUM SERUM 3.6 MEQ/L (3.5-5.1); SODIUM LEVEL 144 MEQ/L (136-145); TROPONIN I 0.06 NG/ML (< 0.10)
--- NOTE | 2020-08-11 07:03 | EEG ---
DATE: 08/01/2020 REFERRING PHYSICIAN: Steffen Fofana MD DIAGNOSIS: Delirium EEG #: [id number] HISTORY: The patient is a 69-year-old woman who was admitted at [facility] due to altered mental status. The patient had splenic infarction. She is currently taking Lovenox, Protonix, Reglan, etc. TECHNICAL DESCRIPTION: This digital electroencephalogram (EEG) was reported by 21 scalp, ear and two electrocardiogram (EKG) electrodes and was reviewed in bipolar and referential montages following reformatting in 10-20 international electrode placement system INTERPRETATION: The patient was noted to be in drowsy state during this electroencephalogram (EEG). Resting and awake background rhythm consisted of 5- 6 Hz beta activity measuring 15-40 microvolts in amplitude, which was symmetric bilaterally. No sleep was achieved. Hyperventilation could not be performed. Photo stimulation could not be done. Electrocardiogram (EKG) revealed sinus rhythm. No focal, lateralization or epileptiform abnormalities were seen. No relevant clinical activity was noted. Excessive motion and electrode artifacts were noted. CONCLUSION: This electroencephalogram (EEG) in awake and drowsy states is abnormal due to the presence of generalized slowing and disorganization of background consistent with nonspecific diffuse cerebral dysfunction such as seen in encephalopathy. Due to multiple potential causes including toxic, metabolic, medications related, infectious or multifocal structural brain abnormalities, clinical correlation is recommended. MTDD
[2020-08-11] MEDS ORDERED: FUROSEMIDE 40MG/4ML VIAL (J1940) IV ONE (07:30)
[2020-08-11] MEDS: lisinopriL 10 MG TAB PO SCH (07:31)
[2020-08-11] MEDS: FOLIC ACID 1 MG TAB PO SCH (07:31)
[2020-08-11] MEDS: DOCUSATE SODIUM 100 MG CAP PO SCH (07:31)
[2020-08-11] MEDS: THIAMINE 100 MG TAB PO SCH (07:32)
[2020-08-11] MEDS: MULTIVITAMINS/MINERALS THERAP 1 TAB PO SCH (07:32)
[2020-08-11 07:44] LABS: CK-MB VALUE MASS 1.2 NG/ML (<3.6); CPK CREATINE PHOSPHOKINASE 77 U/L (26-192); MB/CK RELATIVE INDEX 1.56 (< OR =4)
[2020-08-11] MEDS: PANTOPRAZOLE 40MG VIAL (C9113 PER 1) IV SCH ×2 (07:44→21:38)
[2020-08-11 07:55] LABS: ABG BASE EXCESS -1.8 (-2.0-2.0); ABG HCO3 20.3 MEQ/L (22.0-26.0); ABG O2 SATURATION 97.8 % (95.0-99.0); ABG PARTIAL PRESSURE CO2 26.5 mmHg (35.0-45.0); ABG PARTIAL PRESSURE O2 90.6 mmHg (75.0-100.0); ABG TOTAL CO2 21.1 MEQ/L (23.0-31.0); ABG pH (ARTERIAL) 7.502 UNITS (7.350-7.450)
[2020-08-11] MEDS ORDERED: ACETAMINOPHEN 650 MG SUPP PR ONE (08:00)
[2020-08-11] MEDS ORDERED: LevoFLOXacin IV 750 MG in IV 1 EA IV SCH (08:00)
[2020-08-11] MEDS ORDERED: PIPERACILLIN/TAZOBACTAM SOD 3.375 GM in D5W MINI-BAG PLUS 50 ML IV SCH (08:15)
[2020-08-11 08:29] LABS: ALBUMIN 2.2 GM/DL (3.2-5.2)
[2020-08-11] MEDS: PIPERACILLIN/TAZOBACTAM SOD 4.5 GM in D5W MINI-BAG PLUS 50 ML IV SCH ×3 (08:51→21:38)
[2020-08-11] MEDS ORDERED: FUROSEMIDE 40MG/4ML VIAL (J1940) IV SCH (09:00)
[2020-08-11 09:54] LABS: CK-MB VALUE MASS 1.1 NG/ML (<3.6); MB/CK RELATIVE INDEX 1.34 (< OR =4); TROPONIN I 0.06 NG/ML (< 0.10)
[2020-08-11 10:45] LABS: CK-MB VALUE MASS 1.1 NG/ML (<3.6); MB/CK RELATIVE INDEX 1.49 (< OR =4); TROPONIN I 0.06 NG/ML (< 0.10)
--- NOTE | 2020-08-11 11:02 | IPNPDOC ---
Text Note Date of Service The patient was seen on 08/11/20. NOTE Subjective: Patient is a 69 year old female who was abdominal pain with large ventral hernia and imaging showing splenic infarct without necessary surgical correction. She progressed well and was about to be discharged but experienced a hypotensive episode on 07/17 requiring fluid administration. Patient continued to experience nausea and vomiting, gastroenterology was called and she received an EGD / Esophagram; consistent with esophagitis / gastritis and gastroparesis. On 07/24 patient had more nausea and vomiting and repeat imaging had revealed possible partial SBO vs. LBO. Surgery was reconsulted for evaluation. Her hospital course was complicated with urinary retention and a Murphy catheter was placed. Patient was started on TPN and conservative measures were started for resolution of her obstruction. Patient has since been discontinued from TPN and is tolerating a diet; has been increasing her oral intake. Her mentation has had improvement. Patient was seen and examined at the bedside. Currently she experiencing more jerking motions of her extremities, appear to be purposeful and reduce upon discussion / re-orientation. Patient reports she is short of breath, but denies any pain. She is oriented to person this morning. Objective: Vitals (See below) General: Laying in bed, appears to be restless, oriented to person, son was present this morning and she had a brief talk with him (still required reorientation) HEENT: NC, AT CVS: +S1S2 Lungs: Appears to have fair air entry b/l, bilateral lower lung crackles appreciated, no rhonchi / wheezing Abdomen: No distention, No tenderness, Soft, Large ventral hernia persists Extremities: LE reveal trace to 1+ pitting edema - Calf tenderness Assessment and plan: Acute metabolic encephalopathy - likely 2/2 infection - See below Fever - possibly 2/2 PNA, possibly 2/2 UTI, possibly 2/2 Neurologic etiology? - Currently patient is agitated and continues to have jerking motion of extremities - No leukocytosis / Lactic acidosis, CRP continues to trend down - CXR 08/10: 1. PICC line tip is in region of superior vena cava. 2. There appear to be patchy bilateral pulmonary infiltrates which could be due to edema or pneumonia. - Blood cultures / Procalcitonin pending - LP to be performed later today - Discussed with infectious disease; will adjust antibiotics to Zosyn (Day #1) Acute hypoxic respiratory failure - possibly 2/2 fluid overload, possibly 2/2 PNA - Patient is requiring 2-4L of supplemental oxygen when she was tachypneic - ABG completed on 2L noted - Will continue with supplemental oxygen and continuous pulse oximetry - Will provide dose of Lasix 40 IV; will continue to follow urine output Deconditioning / Weakness - possibly 2/2 deconditioning 2/2 critical illness myopathy, possibly 2/2 GBS? - Repeat imaging noted - CRP continues to trend down - c/w Thiamine, Folate, MVI - c/w Seroquel (low dose) - PT and OT on reconsult; will hold today - Discussed with neurology, will get LP completed today by IR to evaluate for possible GBS (Anesthesia wanted IR assistance given motion) Poor oral intake - c/w D5 NS - Continue with encouraged oral intake once mentation improves s/p UTI - Urine cultures (08/01): positive for E. Coli / Strep - CRP trending down - s/p Ceftriaxone - ID on consultation; appreciate their input s/p Nausea and vomiting - possibly 2/2 partial SBO - s/p NG tube - Bowel movements noted regularly - c/w Bowel regimen; Docusate / Bisacodyl - Dr. 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 Bianchi (Vascular surgery) and Dr. Jose (Radiology)- splenic infarction and possible occlusion of splenic artery vs tortuous vessel vs positional - no surgery/stenting recommended. - Coagulopathy workup - negative - Appreciate vascular surgery recommendations; c/w anti-emetics and pain control Urinary retention - likely 2/2 partial SBO / ileus - Patient had trial of Murphy catheter removal - had failed and had recurrent retention - c/w Murphy; reinserted (re: recurrent retention) Gastroparesis - Diagnosed on barium esophagram - c/w Reglan and gastroparesis diet - Gastroenterology on consultation Esophagitis/gastritis - c/w PPI - Gastroenterology on consultation Hx of suspected ventricular tachycardia on telemetry - [facility] medical records tech has interrogated device with no concerning findings - Prior Dr. Foster patient, however was discharged from practice after failure to followup HTN - BP moderately controlled - s/p Lisinopril - s/p Hydralazine IV with adjusted hold parameters (SBP > 180) Hx SSS - s/p PPM in place Hx of AAA Protein calorie malnutrition - Poor oral intake - Albumin of 2.1 - Will encourage increase PO intake when more awake / following commands GI prophylaxis - c/w Protonix DVT prophylaxis - c/w TEDs/Sequentials - Resumed Lovenox Disposition: - Pending clinical improvement - Discussed care plan with son this morning at the bedside; addressed all qu estions / concerns Critical care: - Spent 56 minutes on critical care time; evaluation, management and coordination with consultants Pinky MARTINEZ, I+O VSPinky I+O Laboratory Tests 08/11/20 05:25 Vital Signs Date Time Temp Pulse Resp B/P (MAP) Pulse Ox O2 Delivery O2 Flow Rate FiO2 08/11/20 10:04 100.6 08/11/20 08:00 97 93 130/64 (86) Venturi Mask 15.0 40 08/11/20 04:00 96 I&O- Last 24 Hours up to 6 AM 08/11/20 05:59 Intake Total 740 ml Output Total 850 ml Balance -110 ml ROBERTO MONTGOMERY MD Aug 11, 2020 11:02
[2020-08-11 13:56] LABS: CK-MB VALUE MASS 1.6 NG/ML (<3.6); MB/CK RELATIVE INDEX 1.74 (< OR =4); TROPONIN I 0.04 NG/ML (< 0.10)
[2020-08-11 18:46] LABS: CK-MB VALUE MASS 2.1 NG/ML (<3.6); MB/CK RELATIVE INDEX 1.53 (< OR =4); TROPONIN I 0.03 NG/ML (< 0.10)
[2020-08-11] MEDS: QUEtiapine FUMARATE 12.5 MG HALF-TAB PO SCH (21:00)
[2020-08-12] VITALS: BP 115/63
[2020-08-12 04:00] VITALS: BP 134/81
[2020-08-12] MEDS: PIPERACILLIN/TAZOBACTAM SOD 4.5 GM in D5W MINI-BAG PLUS 50 ML IV SCH ×4 (04:36→22:15)
[2020-08-12] MEDS: SODIUM CHLORIDE 0.9% INJ 10 ML SYR IV SCH ×2 (06:27→18:17)
[2020-08-12 06:37] LABS: HEMATOCRIT 29.6 % (36.0-47.0); HEMOGLOBIN 9.9 g/dl (12.0-15.5); MEAN CORPUSCULAR HEMOGLOBIN 32.8 pg (27.0-33.0); MEAN CORPUSCULAR HGB CONC 33.4 g/dl (32.0-36.5); PLATELET COUNT, AUTOMATED 414 10^3/uL (150-450); RED BLOOD COUNT 3.02 10^6/uL (4.00-5.40); WHITE BLOOD COUNT 7.9 10^3/uL (4.0-10.0)
[2020-08-12 07:01] LABS: BLOOD UREA NITROGEN 10 MG/DL (7-18); C REACTIVE PROTEIN QUANTITATIV 4.55 MG/DL (0.00-0.30); CALCIUM LEVEL 8.4 MG/DL (8.8-10.2); CARBON DIOXIDE LEVEL 26 MEQ/L (21-32); CHLORIDE LEVEL 108 MEQ/L (98-107); CREATININE FOR GFR 0.97 MG/DL (0.55-1.30); GLOMERULAR FILTRATION RATE > 60.0 (>45); GLUCOSE, FASTING 56 MG/DL (70-100); MAGNESIUM LEVEL 1.8 MG/DL (1.8-2.4); POTASSIUM SERUM 3.2 MEQ/L (3.5-5.1); SODIUM LEVEL 143 MEQ/L (136-145)
[2020-08-12 08:00] VITALS: BP 127/68
[2020-08-12] MEDS: DOCUSATE SODIUM 100 MG CAP PO SCH (09:00)
[2020-08-12] MEDS ORDERED: FUROSEMIDE 20MG/2ML VIAL (J1940) IV ONE (09:00)
[2020-08-12] MEDS ORDERED: ENOXAPARIN 40MG/0.4ML SYRINGE (J1650 PER 10MG) SC SCH (09:00)
[2020-08-12] MEDS: PANTOPRAZOLE 40MG VIAL (C9113 PER 1) IV SCH ×2 (09:17→20:17)
[2020-08-12] MEDS: KCL 20MEQ IN 100ML SWI (KRUN) 20 MEQ in IV 1 EA IV SCH ×4 (09:30→12:06)
[2020-08-12 12:00] VITALS: BP 128/80
[2020-08-12] MEDS: FOLIC ACID 1 MG TAB PO SCH (12:39)
[2020-08-12] MEDS: MULTIVITAMINS/MINERALS THERAP 1 TAB PO SCH (12:40)
[2020-08-12] MEDS: lisinopriL 10 MG TAB PO SCH (12:40)
[2020-08-12] MEDS: THIAMINE 100 MG TAB PO SCH (12:40)
--- NOTE | 2020-08-12 14:02 | ECHO ---
DATE OF PROCEDURE: 08/11/2020 Age: Gender: Female Height: 154 cm Weight: 87 kg REFERRING PHYSICIAN: Teo Zabala M.D. INDICATION: Localized edema, unspecified. MEASUREMENTS: 2D Measurements: Left atrium 4.3 cm Aortic root 2.9 cm Proximal ascending aorta 3.0 cm Left ventricle diastole 4.2 cm Intraventricular septum 1.15 cm Posterior wall 0.86 cm Doppler Measurements: No aortic stenosis No aortic regurgitation Aortic valve velocity 125 cm/s LVOT velocity 94.6 cm/s Trace mitral regurgitation Mitral E velocity 86.5 cm/s Mitral A velocity 96.8 cm/s Mitral deceleration time 144 msec No tricuspid regurgitation No pulmonic regurgitation MITRAL ANNULAR TISSUE DOPPLER E prime septal 9.0 cm/s, E prime lateral 7.5 cm/s DESCRIPTION: Rhythm was sinus tachycardia. This was a moderately technically difficult echocardiogram, which was performed with the patient supine. No pericardial effusion. CONCLUSIONS: 1. Normal left ventricle internal dimension sand wall thickness. No regional LV wall motion abnormalities. Hyperdynamic LV systolic function. LVEF 75% by visual estimate. LV diastolic function indeterminate in the setting of sinus tachycardia. 2. Mild left atrial dilatation. 3. Appearance of cardiac rhythm monitoring leads in the right atrium and right ventricle. 4. Normal ventricular size and systolic function. 5. Normal respiratory variation of inferior vena cava suggestive of central venous pressure in the range of 5-10 mmHg. 6. Otherwise normal appearing echocardiogram Doppler findings. MTDD
--- NOTE | 2020-08-12 14:36 | IPNPDOC ---
Text Note Date of Service The patient was seen on 08/12/20. NOTE Subjective: Patient is a 69 year old female who was abdominal pain with large ventral hernia and imaging showing splenic infarct without necessary surgical correction. She progressed well and was about to be discharged but experienced a hypotensive episode on 07/17 requiring fluid administration. Patient continued to experience nausea and vomiting, gastroenterology was called and she received an EGD / Esophagram; consistent with esophagitis / gastritis and gastroparesis. On 07/24 patient had more nausea and vomiting and repeat imaging had revealed possible partial SBO vs. LBO. Surgery was reconsulted for evaluation. Her hospital course was complicated with urinary retention and a Murphy catheter was placed. Patient was started on TPN and conservative measures were started for resolution of her obstruction. Patient has since been discontinued from TPN and is tolerating a diet; has been increasing her oral intake. Her mentation has had improvement. Patient was seen and examined at the bedside. Patient is sitting up in chair today. Denies any CP, SOB or palpitations. Is oriented to person / place and year. Reported who the president was. Objective: Vitals (See below) General: Sitting up in chair, no acute distress, oriented x3 (oriented to president) HEENT: NC, AT CVS: +S1S2 Lungs: Air entry b/l is fair, auscultation is without crackles / rhonchi / wheezing Abdomen: Soft, ND, NT, large ventral hernia Extremities: No significant pitting edema, - Calf tenderness Assessment and plan: Acute metabolic encephalopathy - likely 2/2 infection - See below s/p Fever - possibly 2/2 PNA, possibly 2/2 UTI, possibly 2/2 Neurologic etiology? - Appears calmer today - No leukocytosis / Lactic acidosis, CRP has mildly trended up - CXR 08/10: 1. PICC line tip is in region of superior vena cava. 2. There appear to be patchy bilateral pulmonary infiltrates which could be due to edema or pneumonia. - Blood cultures (08/11): No growth at 24 hours - Procalcitonin negative - LP was unable to be performed; discussed with Son, Mr. Jesica Garcia, does not want any further pursuit of LP given patient's discomfort - Infectious disease on consultation; c/w Zosyn (Day #2) Acute hypoxic respiratory failure - possibly 2/2 fluid overload, possibly 2/2 PNA - Patient is requiring 2-4L of supplemental oxygen when she was tachypneic - ABG completed on 2L noted - c/w supplemental oxygen and continuous pulse oximetry - Has had significant diuresis - Will give Lasix 20 IV; s/p Lasix 40 IV Deconditioning / Weakness - possibly 2/2 deconditioning 2/2 critical illness neuropathy, possibly 2/2 GBS? - Repeat imaging noted - CRP with slight elevation - c/w Thiamine, Folate, MVI - c/w Seroquel (low dose) - PT / OT on reconsult; will re-evaluate - Neurology on consultation evaluate for possible GBS; unable to get LP (Family does not want to pursue this) Anxiety - Will start Buspirone Poor oral intake - c/w D5 NS - Continue with encouraged oral intake today; repeat speech evaluation s/p UTI - Urine cultures (08/01): positive for E. Coli / Strep - CRP trending down - s/p Ceftriaxone - ID on consultation; appreciate their input s/p Nausea and vomiting - possibly 2/2 partial SBO - s/p NG tube - Bowel movements noted regularly - c/w Bowel regimen; Docusate / Bisacodyl - Dr. 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 Bianchi (Vascular surgery) and Dr. Jose (Radiology)- splenic infarction and possible occlusion of splenic artery vs to rtuous vessel vs positional - no surgery/stenting recommended. - Coagulopathy workup - negative - Appreciate vascular surgery recommendations; c/w anti-emetics and pain control Urinary retention - likely 2/2 partial SBO / ileus - Patient had trial of Murphy catheter removal - had failed and had recurrent retention - c/w Murphy; reinserted (re: recurrent retention) Gastroparesis - Diagnosed on barium esophagram - c/w Reglan and gastroparesis diet - Gastroenterology on consultation Esophagitis/gastritis - c/w PPI - Gastroenterology on consultation Hx of suspected ventricular tachycardia on telemetry - [facility] [facility] medical recruiter has interrogated device with no concerning findings - Prior Dr. Foster patient, however was discharged from practice after failure to followup HTN - BP moderately controlled - s/p Lisinopril - s/p Hydralazine IV with adjusted hold parameters (SBP > 180) Hx SSS - s/p PPM in place Hx of AAA Protein calorie malnutrition - Poor oral intake - Albumin of 2.1 - Will encourage increase PO intake GI prophylaxis - c/w Protonix DVT prophylaxis - c/w TEDs/Sequentials - Will resume Lovenox Disposition: - Pending clinical improvement - Will call son and provide update this afternoon; first call unanswered VS,Pinky, I+O VS, Pinky, I+O Laboratory Tests 08/12/20 06:20 Vital Signs Date Time Temp Pulse Resp B/P (MAP) Pulse Ox O2 Delivery O2 Flow Rate FiO2 08/12/20 12:40 128/60 08/12/20 12:00 99.4 88 19 94 Nasal Cannula 2.0 08/11/20 12:13 40 I&O- Last 24 Hours up to 6 AM 08/12/20 05:59 Intake Total 350 ml Output Total 2875 ml Balance -2525 ml ROBERTO MONTGOMERY MD Aug 12, 2020 14:36
[2020-08-12 16:00] VITALS: BP 155/81
[2020-08-12] MEDS: busPIRone 5 MG TAB PO SCH ×2 (16:47→20:17)
[2020-08-12] MEDS: ENOXAPARIN 40MG/0.4ML SYRINGE (J1650 PER 10MG) SC SCH (16:48)
[2020-08-12 20:00] VITALS: BP 141/75
[2020-08-12] MEDS: QUEtiapine FUMARATE 12.5 MG HALF-TAB PO SCH (20:17)
[2020-08-13] VITALS: BP 152/88
[2020-08-13] MEDS: PIPERACILLIN/TAZOBACTAM SOD 4.5 GM in D5W MINI-BAG PLUS 50 ML IV SCH ×4 (03:56→21:39)
[2020-08-13 04:00] VITALS: BP 158/82
[2020-08-13] MEDS: SODIUM CHLORIDE 0.9% INJ 10 ML SYR IV SCH ×2 (05:25→16:57)
[2020-08-13 05:45] LABS: HEMATOCRIT 28.3 % (36.0-47.0); HEMOGLOBIN 9.2 g/dl (12.0-15.5); MEAN CORPUSCULAR HEMOGLOBIN 32.2 pg (27.0-33.0); MEAN CORPUSCULAR HGB CONC 32.5 g/dl (32.0-36.5); PLATELET COUNT, AUTOMATED 386 10^3/uL (150-450); RED BLOOD COUNT 2.86 10^6/uL (4.00-5.40); WHITE BLOOD COUNT 7.1 10^3/uL (4.0-10.0)
[2020-08-13 06:33] LABS: BLOOD UREA NITROGEN 11 MG/DL (7-18); C REACTIVE PROTEIN QUANTITATIV 3.98 MG/DL (0.00-0.30); CALCIUM LEVEL 8.2 MG/DL (8.8-10.2); CARBON DIOXIDE LEVEL 30 MEQ/L (21-32); CHLORIDE LEVEL 106 MEQ/L (98-107); CREATININE FOR GFR 0.86 MG/DL (0.55-1.30); GLOMERULAR FILTRATION RATE > 60.0 (>45); GLUCOSE, FASTING 76 MG/DL (70-100); MAGNESIUM LEVEL 1.8 MG/DL (1.8-2.4); POTASSIUM SERUM 2.9 MEQ/L (3.5-5.1); SODIUM LEVEL 143 MEQ/L (136-145)
[2020-08-13] MEDS ORDERED: POTASSIUM CHLORIDE 10 MEQ SR TABLET PO ONE ×2 (06:45→12:00)
--- NOTE | 2020-08-13 07:39 | CR ---
DATE OF CONSULTATION: 08/10/2020 REFERRING PROVIDER: Dr. Teo Zabala REASON FOR CONSULTATION: Weakness. Lashonda Sosa is a 69-year-old female who presented to [facility] approximately 26 days ago due to significant abdominal pain. Initial workup included possibility of a splenic infarction and then later found to have a small-bowel obstruction. Throughout the hospital stay, the patient had complications, including urinary tract infection, progressive weakness requiring total parenteral nutrition (TPN). Patient has been very slow to recover from malnutrition. Patient is eating only fractions of her meals in a day. The patient started to have improvement in her strength, however, was reported by physical therapy to start having a regression in strength, including all four extremities. At the present time the patient has significant weakness in all four extremities with hyporeflexia, absent reflexes at the patellas and Achilles. The patient has been experiencing intermittent bouts of confusion, worsening toward the evening. She does get Seroquel 12.5 mg at bedtime to treat some of her delirium. Patient will continue to need supportive medical care. As spinal tap has been ordered. MRIs are not possible, as the patient has a pacemaker. CT scan of the cervical spine and head have been reported negative. The patient will undergo a spinal tap to rule out elevated protein to consider starting IVIG. The decision has to be made by the family before initiating therapy, as per the primary team. The patient may also have underlying diagnosis of critical illness neuropathy, resulting in diffuse weakness in all four extremities. There were no corticosteroid treatments provided to the patient. She is not diabetic; however, her long extended hospital stay with her change in nutrition and lack of oral intake for several weeks may have contributed toward her present state. PAST MEDICAL HISTORY: 1. Hypertension. 2. Obesity. PAST SURGICAL HISTORY: As per the medical chart. FAMILY HISTORY: As per the medical chart. SOCIAL HISTORY: As per the medical chart. REVIEW OF SYSTEMS: Unable to obtain. Patient is unable to fully cooperate. PHYSICAL EXAMINATION: Maximum temperature is 101.2 with present temperature of 98.9 within the last 24 hours, blood pressure 138/82, pulse rate is 97, oxygen is 95% on room air, respiratory is 18. Patient is oriented to her name. She does follow some basic commands. Pupils appear 2.5 mm and round. Extraocular movements are intact. There is no facial weakness. Tongue is midline. Patient reacts to tactile stimulation in all four extremities. Patient has weakness, 1 strength in the deltoids, 3+ in the biceps and triceps, 2's in the lower extremities, including quadriceps, and 3- in the ankle dorsiflexion. Deep tendon reflexes are absent in the patellas and Achilles. Babinski signs are mute. Deep tendon reflexes in the upper extremities are 1+. The patient has profound weakness, and coordination testing is inaccurate. Gait deferred. Patient has weakness in neck flexion as well, 4+. ASSESSMENT: 1. Suspect critical ill neuropathy resulting in diffuse weakness in all four extremities. 2. Delirium with probable baseline dementia. 3. Cannot entirely exclude Guillain-Canton syndrome. Spinal tap is pending. PLAN: Recommend continued supportive medical care. Ongoing attempts at physical therapy to overall improve weakness, which may take a significant amount of time. Continue to encourage oral intake, adequate fluid intake, and food intake. Continue thiamine, folic acid. B12 levels are greater than 2000. Consider rechecking thiamine levels. Check acetylcholine receptor, anti-MuSK, antistriational antibodies. Obtain CT cervical spine to rule out cervical cord involvement, rule out abscess. MTDD
[2020-08-13 08:00] VITALS: BP 178/98
[2020-08-13] MEDS: DOCUSATE SODIUM 100 MG CAP PO SCH ×2 (09:00→11:13)
[2020-08-13] MEDS: FOLIC ACID 1 MG TAB PO SCH ×2 (09:00→11:12)
[2020-08-13] MEDS: THIAMINE 100 MG TAB PO SCH ×2 (09:00→11:12)
[2020-08-13] MEDS: MULTIVITAMINS/MINERALS THERAP 1 TAB PO SCH ×2 (09:00→11:13)
[2020-08-13] MEDS: busPIRone 5 MG TAB PO SCH ×3 (10:10→21:39)
[2020-08-13] MEDS: lisinopriL 10 MG TAB PO SCH (10:10)
--- NOTE | 2020-08-13 10:17 | IPNPDOC ---
Text Note Date of Service The patient was seen on 08/13/20. NOTE Subjective: Patient is a 69 year old female who was abdominal pain with large ventral hernia and imaging showing splenic infarct without necessary surgical correction. She progressed well and was about to be discharged but experienced a hypotensive episode on 07/17 requiring fluid administration. Patient continued to experience nausea and vomiting, gastroenterology was called and she received an EGD / Esophagram; consistent with esophagitis / gastritis and gastroparesis. On 07/24 patient had more nausea and vomiting and repeat imaging had revealed possible partial SBO vs. LBO. Surgery was reconsulted for evaluation. Her hospital course was complicated with urinary retention and a Murphy catheter was placed. Patient was started on TPN and conservative measures were started for resolution of her obstruction. Patient has since been discontinued from TPN and is tolerating a diet; has been increasing her oral intake. Her mentation has had improvement. Patient was seen and examined at the bedside. Currently she is awake / alert; notes her name / place / year .. unsure of president. Denies any pain. Does not appear tearful today. Objective: Vitals (See below) General: Sitting up in chair, no acute distress, oriented x3; not to president HEENT: NC, AT CVS: +S1S2 Lungs: There appears to be fair air entry bilaterally without any evidence of rhonchi, crackles or wheezing Abdomen: Abdomen remains soft without any distention or tenderness, large ventral hernia Extremities: Lower extremities are free of any pitting edema, - Calf tenderness Assessment and plan: Acute metabolic encephalopathy - likely 2/2 infection - See below s/p Fever - possibly 2/2 PNA, possibly 2/2 UTI, possibly 2/2 Neurologic etiology? - Patient's mentation appears to have improved this morning - No leukocytosis / Lactic acidosis, CRP has improved compared to yesterday - CXR 08/10: 1. PICC line tip is in region of superior vena cava. 2. There appear to be patchy bilateral pulmonary infiltrates which could be due to edema or pneumonia. - Blood cultures (08/11): No growth at 48 hours - Procalcitonin negative; Repeat pending - LP was unable to be performed; discussed with Son, Mr. Jesica Garcia, does not want any further pursuit of LP given patient's discomfort - Will discuss with son about lumbar puncture with sedation - Infectious disease on consultation; c/w Zosyn (Day #3) Acute hypoxic respiratory failure - possibly 2/2 fluid overload, possibly 2/2 PNA - Patient is requiring 2-4L of supplemental oxygen when she was tachypneic - ABG completed on 2L noted - c/w supplemental oxygen and continuous pulse oximetry - Has had significant diuresis - s/p Lasix 20 IV; s/p Lasix 40 IV Deconditioning / Weakness - possibly 2/2 deconditioning 2/2 critical illness neuropathy, possibly 2/2 GBS? - Repeat imaging noted - CRP with slight elevation - c/w Thiamine, Folate, MVI - c/w Seroquel (low dose) - PT / OT on reconsult; will re-evaluate - Neurology on consultation evaluate for possible GBS; unable to get LP (Family does not want to pursue this - will discuss LP with sedation) Anxiety - Yesterday patient was tearful this morning appears to be calmer - c/w Buspirone Poor oral intake - s/p D5 NS - c/w Modified diet s/p UTI - Urine cultures (08/01): positive for E. Coli / Strep - s/p Ceftriaxone - ID on consultation; appreciate their input s/p Nausea and vomiting - possibly 2/2 partial SBO - s/p NG tube - Bowel movements noted regularly - c/w Bowel regimen; Docusate / Bisacodyl - Dr. 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 Bianchi (Vascular surgery) and Dr. Jose (Radiology)- splenic infarction and possible occlusion of splenic artery vs tortuous vessel vs positional - no surgery/stenting recommended. - Coagulopathy workup - negative - Appreciate vascular surgery recommendations; c/w anti-emetics and pain control Urinary retention - likely 2/2 partial SBO / ileus - Patient had trial of Murphy catheter removal - had failed and had recurrent retention - c/w Murphy; reinserted (re: recurrent retention) - Will reattempt Voiding trial this afternoon Gastroparesis - Diagnosed on barium esophagram - c/w Reglan and gastroparesis diet - Gastroenterology on consultation Esophagitis/gastritis - c/w PPI - Gastroenterology on consultation Hx of suspected ventricular tachycardia on telemetry - [employer] has interrogated device with no concerning findings - Prior Dr. Foster patient, however was discharged from practice after failure to followup HTN - BP moderately controlled - s/p Lisinopril - s/p Hydralazine IV with adjusted hold parameters (SBP > 180) Hx SSS - s/p PPM in place Hx of AAA Protein calorie malnutrition - Poor oral intake - Albumin of 2.1 - Will encourage increase PO intake GI prophylaxis - c/w Protonix DVT prophylaxis - c/w Lovenox Disposition: - Pending clinical improvement VS,Pinky, I+O VS, Gurdeepbone, I+O Laboratory Tests 08/13/20 05:28 Vital Signs Date Time Temp Pulse Resp B/P (MAP) Pulse Ox O2 Delivery O2 Flow Rate FiO2 08/13/20 08:00 97.1 82 28 178/98 (124) 97 Nasal Cannula 2.0 08/11/20 12:13 40 I&O- Last 24 Hours up to 6 AM 08/13/20 06:00 Intake Total 510 ml Output Total 1700 ml Balance -1190 ml ROBERTO MONTGOMERY MD Aug 13, 2020 10:17
[2020-08-13] MEDS: PANTOPRAZOLE 40MG VIAL (C9113 PER 1) IV SCH ×2 (11:13→21:39)
[2020-08-13] MEDS: SODIUM CHLORIDE 0.9% INJ 10 ML SYR IV PRN (11:13)
[2020-08-13 12:00] VITALS: BP 160/92
[2020-08-13] MEDS: KCL 20MEQ IN 100ML SWI (KRUN) 20 MEQ in IV 1 EA IV SCH ×4 (13:27→15:01)
--- NOTE | 2020-08-13 13:39 | IPN ---
DATE: 08/11/2020 ATTENDING PHYSICIAN: Ruddy Camp MD SUBJECTIVE: Patient was seen and examined this afternoon. Apparently, the patient had an episode of hypoxia the night previously as well as a fever. It was suspected the patient may have had an aspiration event, however additionally she also was noted to have high blood pressure with severe asymptomatic hypertension with a systolic blood pressure greater than 200. At the time, the patient did have a chest x-ray which was noted to have bilateral patchy infiltrates with a differential including either pulmonary edema or pneumonia. She was started on empiric levofloxacin and cefepime for suspected aspiration pneumonia. Additionally, she had received diuresis for potential pulmonary edema. The patient appears to have improved today. She does not appear short of breath. However, she does remain febrile with a maximum temperature of (101.7). Her mentation as well appears to be improved, however she continues to have these jerky movements of her arms and legs. The patient herself is able to follow commands and does not voice any pain. She does state that she feels like she has to go to the bathroom, however she does have a Murphy catheter in place. The patient has been evaluated by the primary team and neurology has been consulted with plans for the patient to receive a lumbar puncture today. OBJECTIVE: Vital signs: Temperature 99.1, pulse 96, respiratory rate 20, blood pressure 142/69, pulse oximetry 94% on two liters nasal cannula. General: Patient is awake, she is alert, and she is oriented to person, place, and time. She does not appear in any acute distress, however she is lying in bed with these abnormal jerking movements. HEENT: Atraumatic, normocephalic. Her eyes are nonicteric. Her trachea is midline. Her mucous membranes are quite dry. She has poor dentition. Cardiovascular: Normal S1, S2. Regular rate and rhythm. No clicks, rubs, or murmurs. Pulmonary: There is clear vesicular breath sounds bilaterally, somewhat diminished in the bases. Good respiratory effort. No wheezes, rhonchi, or rales. Abdominal: Patient has a large ventral hernia. She has normoactive bowel sounds. There is a Murphy catheter in place with clear appearing urine. Extremities: There is no edema. There is full and equal pulses bilateral upper and lower extremities. Neurologic: Patients cranial nerves II-XII are grossly intact. She has improvement in her muscle strength as she does cooperative and does follow commands purposefully and make purposeful movements. She has some abnormal movements of her right arm, at which point if you ask her to raise her left arm, her right arm will flex. Additionally, she has hyporeflexes throughout. Psychiatric: Patients mood and affect appear appropriate although she does appear somewhat anxious at times. LABORATORY DATA: Hematology: White blood cell 8.1, hemoglobin 9.5, hematocrit 29.6, platelet count 412. Chemistries: Sodium 144, potassium 3.6, chloride 114, carbon dioxide 24, creatinine 0.74, fasting glucose 75, calcium 7.8, magnesium 1.8. Total creatine kinase 77, troponin 0.06, C-reactive protein 2.89, proBNP 24,801. INPATIENT ANTIBIOTICS: - Zosyn 4.5 grams every 6 hours ASSESSMENT AND PLAN: 1. Aspiration pneumonitis versus pneumonia. Patient apparently had become hypoxic and had a chest x-ray which demonstrated bilateral pulmonary infiltrates. She is suspected to have possibly aspirated due to her jerking of movement as well as fever of maximum temperature (T-max) of 101.7. She does not have an elevation in her white blood cell count. She did have a procalcitonin drawn which was 0.05, otherwise negative. The patient was empirically started on cefepime and levofloxacin, however currently she is only receiving Zosyn. Her chest auscultation appears clear. She does not have a cough. Her only symptom is fever. At this point, it is unclear whether the patient has an aspiration pneumonitis versus a pneumonia. Her chest x-ray with the bilateral infiltrates is more suggestive of pulmonary edema. The patient was noted to have a systolic blood pressure of greater than 200 and had responded to Lasix with diuresis and improvement in her hypoxia. Likely pulmonary edema versus pneumonia. However, given the patients risk of aspiration will recommend continuing Zosyn and await procalcitonin. If procalcitonin is negative then will discontinue antibiotics 2. Altered mental status/weakness/movement disorder. Patient originally presented with pain in her abdomen which has progressed. Then, she subsequently developed some numbness and tingling in her feet which then progressed to weakness in an ascending fashion. She has had multiple imaging and workup for causes for this, however there is no clear etiology that was diagnosed. She did have what was thought to be a urinary tract infection, although at the time she was having altered mental status but that has improved. She has received and completed treatment with Rocephin. 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 However, from an infectious standpoint it does not appear to be infectious although cannot completely rule out Guillain Morales syndrome as the patient did originally present with abdominal pains which may have been secondary to colitis versus a bowel obstruction from her ventral hernia. At this point and time, have recommended the patient receive a lumbar puncture to evaluate. She has been evaluated by neurology as well with recommendations for the same. Will defer further management in regard to her movement disorder to neurology and the primary team. MICHAEL
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
[2020-08-13 14:40] LABS: BLOOD UREA NITROGEN 11 MG/DL (7-18); CARBON DIOXIDE LEVEL 26 MEQ/L (21-32); CHLORIDE LEVEL 109 MEQ/L (98-107); CREATININE FOR GFR 0.74 MG/DL (0.55-1.30); GLOMERULAR FILTRATION RATE > 60.0 (>45); GLUCOSE, FASTING 84 MG/DL (70-100); MAGNESIUM LEVEL 1.9 MG/DL (1.8-2.4); POTASSIUM SERUM 3.7 MEQ/L (3.5-5.1); SODIUM LEVEL 144 MEQ/L (136-145)
[2020-08-13] MEDS: ENOXAPARIN 40MG/0.4ML SYRINGE (J1650 PER 10MG) SC SCH (15:01)
--- NOTE | 2020-08-13 15:23 | ECGEPIP ---
ELECTRONIC ATRIAL PACEMAKER ST DEVIATION AND MODERATE T-WAVE ABNORMALITY, CONSIDER ANTEROLATERAL ISCHEMIA ABNORMAL ECG CLINICAL CORRELATION SEE SCANNED DOWNTIME REPORT MTDD
[2020-08-13 16:00] VITALS: BP 146/92
[2020-08-13] MEDS ORDERED: POTASSIUM CHLORIDE 10% LIQ 20 MEQ/15 ML UDC PO ONE (16:15)
[2020-08-13] MEDS ORDERED: FUROSEMIDE 20 MG TAB PO ONE (16:15)
[2020-08-13 20:00] VITALS: BP 153/79
[2020-08-13] MEDS: QUEtiapine FUMARATE 12.5 MG HALF-TAB PO SCH (21:39)
[2020-08-14] VITALS (7 sets, daily range): BP systolic 141–168; BP diastolic 78–92
[2020-08-14] MEDS: PIPERACILLIN/TAZOBACTAM SOD 4.5 GM in D5W MINI-BAG PLUS 50 ML IV SCH ×2 (03:55→10:21)
[2020-08-14 04:53] LABS: HEMATOCRIT 30.4 % (36.0-47.0); HEMOGLOBIN 9.8 g/dl (12.0-15.5); MEAN CORPUSCULAR HEMOGLOBIN 31.7 pg (27.0-33.0); MEAN CORPUSCULAR HGB CONC 32.2 g/dl (32.0-36.5); MEAN CORPUSCULAR VOLUME 98.4 fl (80.0-96.0); PLATELET COUNT, AUTOMATED 401 10^3/uL (150-450); RED BLOOD COUNT 3.09 10^6/uL (4.00-5.40); WHITE BLOOD COUNT 6.8 10^3/uL (4.0-10.0)
[2020-08-14 05:12] LABS: BLOOD UREA NITROGEN 10 MG/DL (7-18); C REACTIVE PROTEIN QUANTITATIV 2.76 MG/DL (0.00-0.30); CARBON DIOXIDE LEVEL 28 MEQ/L (21-32); CHLORIDE LEVEL 107 MEQ/L (98-107); CREATININE FOR GFR 0.81 MG/DL (0.55-1.30); GLOMERULAR FILTRATION RATE > 60.0 (>45); GLUCOSE, FASTING 84 MG/DL (70-100); MAGNESIUM LEVEL 1.9 MG/DL (1.8-2.4); POTASSIUM SERUM 3.3 MEQ/L (3.5-5.1); SODIUM LEVEL 144 MEQ/L (136-145)
[2020-08-14] MEDS: SODIUM CHLORIDE 0.9% INJ 10 ML SYR IV SCH ×2 (05:29→17:49)
[2020-08-14] MEDS ORDERED: POTASSIUM CHLORIDE 10 MEQ SR TABLET PO ONE (05:45)
[2020-08-14] MEDS ORDERED: POTASSIUM CHLORIDE 10% LIQ 20 MEQ/15 ML UDC PO ONE (06:15)
[2020-08-14] MEDS ORDERED: FUROSEMIDE 10MG PER 1/2 TABLET PO ONE (07:15)
[2020-08-14] MEDS: MULTIVITAMINS/MINERALS THERAP 1 TAB PO SCH ×2 (09:00→09:08)
[2020-08-14] MEDS: DOCUSATE SODIUM 100 MG CAP PO SCH ×2 (09:00→09:08)
[2020-08-14] MEDS: THIAMINE 100 MG TAB PO SCH (09:08)
[2020-08-14] MEDS: FOLIC ACID 1 MG TAB PO SCH (09:08)
[2020-08-14] MEDS: busPIRone 5 MG TAB PO SCH ×3 (09:08→20:59)
[2020-08-14] MEDS: lisinopriL 10 MG TAB PO SCH (09:09)
[2020-08-14] MEDS: PANTOPRAZOLE 40MG VIAL (C9113 PER 1) IV SCH ×2 (09:10→20:59)
--- NOTE | 2020-08-14 11:12 | IPNPDOC ---
Text Note Date of Service The patient was seen on 08/14/20. NOTE Subjective: Patient is a 69 year old female who was abdominal pain with large ventral hernia and imaging showing splenic infarct without necessary surgical correction. She progressed well and was about to be discharged but experienced a hypotensive episode on 07/17 requiring fluid administration. Patient continued to experience nausea and vomiting, gastroenterology was called and she received an EGD / Esophagram; consistent with esophagitis / gastritis and gastroparesis. On 07/24 patient had more nausea and vomiting and repeat imaging had revealed possible partial SBO vs. LBO. Surgery was reconsulted for evaluation. Her hospital course was complicated with urinary retention and a Murphy catheter was placed. Patient was started on TPN and conservative measures were started for resolution of her obstruction. Patient has since been discontinued from TPN and is tolerating a diet; has been increasing her oral intake. Her mentation has had improvement. Patient was seen and examined at the bedside. Patient appears to be comfortable, appears to be awake, alert and oriented to person, place and time. Denies any discomfort. Objective: Vitals (See below) General: Sitting up in bed, does not appear to be in any acute distress, oriented 3 HEENT: NC, AT CVS: +S1S2 Lungs: Auscultation is without any rhonchi, crackles or wheezing Abdomen: Large ventral hernia. Abdomen remains soft without any distention or tenderness Extremities: Trace to no pitting edema of lower extremities, - Calf tenderness Assessment and plan: s/p Acute metabolic encephalopathy - likely 2/2 infection - See below s/p Fever - possibly 2/2 PNA, possibly 2/2 UTI, possibly 2/2 Neurologic etiology? - Mentation improved, strength appears to be better - No leukocytosis / Lactic acidosis, CRP again continues to trend down - CXR 08/10: 1. PICC line tip is in region of superior vena cava. 2. There appear to be patchy bilateral pulmonary infiltrates which could be due to edema or pneumonia. - Blood cultures (08/11): No growth at 48 hours - Procalcitonin x2 negative - LP was unable to be performed; discussed with Son, Mr. Jesica Garcia, does not want any further pursuit of LP given patient's discomfort - Infectious disease on consultation; Will JOSE LUIS Ingram (Day #4) Acute hypoxic respiratory failure - possibly 2/2 fluid overload, possibly 2/2 PNA - Patient is requiring 2-4L of supplemental oxygen when she was tachypneic - ABG completed on 2L noted - c/w supplemental oxygen and continuous pulse oximetry - Has had significant diuresis - Will continue with Lasix at low dose PO Deconditioning / Weakness - possibly 2/2 deconditioning 2/2 critical illness neuropathy, possibly 2/2 GBS? - Repeat imaging noted - CRP with slight elevation - c/w Thiamine, Folate, MVI - c/w Seroquel (low dose) - PT / OT on reconsult; will re-evaluate - Neurology on consultation evaluate for possible GBS; unable to get LP (Family does not want to pursue this - will discuss LP with sedation) Anxiety - Currently appears to be calm - c/w Buspirone Poor oral intake - s/p D5 NS - c/w Modified diet s/p UTI - Urine cultures (08/01): positive for E. Coli / Strep - s/p Ceftriaxone - ID on consultation; appreciate their input s/p Nausea and vomiting - possibly 2/2 partial SBO - s/p NG tube - Bowel movements noted regularly - c/w Bowel regimen; Docusate / Bisacodyl - Dr. 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 Bianchi (Vascular surgery) and Dr. Jose (Radiology)- splenic infarction and possible occlusion of splenic artery vs tortuous vessel vs positional - no surgery/stenting recommended. - Coagulopathy workup - negative - Appreciate vascular surgery recommendations; c/w anti-emetics and pain control Urinary retention - likely 2/2 partial SBO / ileus - Patient had trial of Murphy catheter removal - had failed and had recurrent retention - c/w Murphy; reinserted (re: recurrent retention) - Voiding trial this morning Gastroparesis - Diagnosed on barium esophagram - c/w Reglan and gastroparesis diet - Gastroenterology on consultation Esophagitis/gastritis - c/w PPI - Gastroenterology on consultation Hx of suspected ventricular tachycardia on telemetry - [employer] vice president medical affairs has interrogated device with no concerning findings - Prior Dr. Foster patient, however was discharged from practice after failure to followup HTN - BP moderately controlled - s/p Lisinopril - s/p Hydralazine IV with adjusted hold parameters (SBP > 180) Hx SSS - s/p PPM in place Hx of AAA Protein calorie malnutrition - Poor oral intake - Albumin of 2.1 - Will encourage increase PO intake GI prophylaxis - c/w Protonix DVT prophylaxis - c/w Lovenox Disposition: - Pending clinical improvement - Discussed with son this afternoon about pursing LP with sedation; does not want to pursue this option; understand risks / benefits of procedure VS,Fishbone, I+O VS, Fishbone, I+O Laboratory Tests 08/13/20 13:54 08/14/20 04:26 Vital Signs Date Time Temp Pulse Resp B/P (MAP) Pulse Ox O2 Delivery O2 Flow Rate FiO2 08/14/20 09:09 158/86 08/14/20 09:00 98.8 74 18 97 Room Air 08/14/20 08:00 2.0 08/11/20 12:13 40 I&O- Last 24 Hours up to 6 AM 08/14/20 05:59 Intake Total 610 ml Output Total 1025 ml Balance -415 ml ROBERTO MONTGOMERY MD Aug 14, 2020 11:12
[2020-08-14] MEDS: SODIUM CHLORIDE 0.9% INJ 10 ML SYR IV PRN ×2 (11:43→20:59)
--- NOTE | 2020-08-14 15:13 | ECGEPIP ---
[facility] Test Date: 2020-08-01 Pat Name: MAXI LANDA Department: Room: [place] [address] Gender: Female Telephone Supervisor: DARIEL : 1950 Requested By: XAVIER CLARK Order Number: [id number] Reading MD: Roberto Foster Measurements Intervals Palmer Rate: 78 P: 52 SC: 138 QRS: -2 QRSD: 94 T: -60 QT: 397 QTc: 454 Interpretive Statements SINUS RHYTHM WITH OCCASIONAL SUPRAVENTRICULAR PREMATURE COMPLEXES MODERATE T-WAVE ABNORMALITY, CONSIDER ANTERIOR ISCHEMIA ABNORMAL ECG SEE SCANNED DOWNTIME REPORT
[2020-08-14] MEDS: ENOXAPARIN 40MG/0.4ML SYRINGE (J1650 PER 10MG) SC SCH (15:33)
[2020-08-14] MEDS: QUEtiapine FUMARATE 12.5 MG HALF-TAB PO SCH (20:59)
[2020-08-15] VITALS (9 sets, daily range): BP systolic 140–173; BP diastolic 72–97
[2020-08-15 05:21] LABS: HEMATOCRIT 29.9 % (36.0-47.0); HEMOGLOBIN 9.7 g/dl (12.0-15.5); MEAN CORPUSCULAR HEMOGLOBIN 31.8 pg (27.0-33.0); MEAN CORPUSCULAR HGB CONC 32.4 g/dl (32.0-36.5); PLATELET COUNT, AUTOMATED 419 10^3/uL (150-450); RED BLOOD COUNT 3.05 10^6/uL (4.00-5.40); WHITE BLOOD COUNT 7.4 10^3/uL (4.0-10.0)
[2020-08-15 05:56] LABS: BLOOD UREA NITROGEN 9 MG/DL (7-18); CALCIUM LEVEL 8.3 MG/DL (8.8-10.2); CARBON DIOXIDE LEVEL 28 MEQ/L (21-32); CHLORIDE LEVEL 107 MEQ/L (98-107); CREATININE FOR GFR 0.64 MG/DL (0.55-1.30); GLOMERULAR FILTRATION RATE > 60.0 (>45); GLUCOSE, FASTING 78 MG/DL (70-100); MAGNESIUM LEVEL 1.9 MG/DL (1.8-2.4); POTASSIUM SERUM 2.9 MEQ/L (3.5-5.1); SODIUM LEVEL 141 MEQ/L (136-145)
[2020-08-15] MEDS ORDERED: POTASSIUM CHLORIDE 10% LIQ 20 MEQ/15 ML UDC PO ONE (06:15)
[2020-08-15] MEDS: SODIUM CHLORIDE 0.9% INJ 10 ML SYR IV SCH ×2 (06:20→17:16)
[2020-08-15] MEDS: PANTOPRAZOLE 40MG VIAL (C9113 PER 1) IV SCH ×2 (09:31→20:52)
[2020-08-15] MEDS: busPIRone 5 MG TAB PO SCH ×3 (09:31→20:51)
[2020-08-15] MEDS: MULTIVITAMINS/MINERALS THERAP 1 TAB PO SCH (09:31)
[2020-08-15] MEDS: lisinopriL 10 MG TAB PO SCH (09:32)
[2020-08-15] MEDS: FOLIC ACID 1 MG TAB PO SCH (09:32)
[2020-08-15] MEDS: THIAMINE 100 MG TAB PO SCH (09:32)
[2020-08-15] MEDS: DOCUSATE SODIUM 100 MG CAP PO SCH (09:32)
[2020-08-15] MEDS ORDERED: IMMUNE GLOBULIN 10% 0 GM in IV 1 EA IV SCH (10:00)
--- NOTE | 2020-08-15 10:50 | ECGEPIP ---
[facility] Test Date: 2020-08-11 Pat Name: MAXI LANDA Department: Room: [place] [address] Gender: Female Senior Mortgage Underwriter: CHASE : 1950 Requested By: ROBERTO MONTGOMERY Order Number: [id number] Reading MD: Doyle Boudreaux Measurements Intervals [place] Rate: 107 P: 65 OR: 127 QRS: 10 QRSD: 87 T: 31 QT: 357 QTc: 477 Interpretive Statements SINUS TACHYCARDIA ST DEVIATION AND MODERATE T-WAVE ABNORMALITY, CONSIDER ANTERIOR ISCHEMIA ABNORMAL ECG NO PREVIOUS SEE SCANNED DOWNTIME REPORT
[2020-08-15] MEDS: IMMUNE GLOBULIN 10% 40 GM in IV 1 EA IV SCH (11:58)
--- NOTE | 2020-08-15 12:05 | IPNPDOC ---
Text Note Date of Service The patient was seen on 08/15/20. NOTE Subjective: Patient is a 69 year old female who was abdominal pain with large ventral hernia and imaging showing splenic infarct without necessary surgical correction. She progressed well and was about to be discharged but experienced a hypotensive episode on 07/17 requiring fluid administration. Patient continued to experience nausea and vomiting, gastroenterology was called and she received an EGD / Esophagram; consistent with esophagitis / gastritis and gastroparesis. On 07/24 patient had more nausea and vomiting and repeat imaging had revealed possible partial SBO vs. LBO. Surgery was reconsulted for evaluation. Her hospital course was complicated with urinary retention and a Murphy catheter was placed. Patient was started on TPN and conservative measures were started for resolution of her obstruction. Patient has since been discontinued from TPN and is tolerating a diet; has been increasing her oral intake. Her mentation has had improvement. Patient was seen and examined at the bedside. Sitting comfortably in chair. In good spirits, mentation intact this morning. The LP procedure was discussed and she was agreeable with the LP and with sedation. Objective: Vitals (See below) General: Sitting up in chair, NAD HEENT: NC, AT CVS: +S1S2 Lungs: Auscultation is without any rhonchi, crackles or wheezing Abdomen: Large ventral hernia. 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 - Mentation improved, strength appears to be better - No leukocytosis / Lactic acidosis, CRP again continues to trend down - CXR 08/10: 1. PICC line tip is in region of superior vena cava. 2. There appear to be patchy bilateral pulmonary infiltrates which could be due to edema or pneumonia. - Blood cultures (08/11): No growth at 48 hours - Procalcitonin x2 negative - LP was unable to be performed; discussed with Son, Mr. J. Zher, does not want any further pursuit of LP given patient's discomfort - Infectious disease on consultation; Will DC Zosyn (Day #4) Acute hypoxic respiratory failure - possibly 2/2 fluid overload, possibly 2/2 PNA - Patient is requiring 2-4L of supplemental oxygen when she was tachypneic - ABG completed on 2L noted - c/w supplemental oxygen and continuous pulse oximetry - Has had significant diuresis - Will continue with Lasix at low dose PO Deconditioning / Weakness - possibly 2/2 deconditioning 2/2 critical illness neuropathy, possibly 2/2 GBS? - Repeat imaging noted - CRP with slight elevation - c/w Thiamine, Folate, MVI - c/w Seroquel (low dose) - PT / OT on reconsult; will re-evaluate - Neurology on consultation evaluate for possible GBS; unable to get LP (Family does not want to pursue this - will discuss LP with sedation) Anxiety - Currently appears to be calm - c/w Buspirone Poor oral intake - s/p D5 NS - c/w Modified diet s/p UTI - Urine cultures (08/01): positive for E. Coli / Strep - s/p Ceftriaxone - ID on consultation; appreciate their input s/p Nausea and vomiting - possibly 2/2 partial SBO - s/p NG tube - Bowel movements noted regularly - c/w Bowel regimen; Docusate / Bisacodyl - Dr. 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 Bianchi (Vascular surgery) and Dr. Jose (Radiology)- splenic infarction and possible occlusion of splenic artery vs tortuous vessel vs positional - no surgery/stenting recommended. - Coagulopathy workup - negative - Appreciate vascular surgery recommendations; c/w anti-emetics and pain control Urinary retention - likely 2/2 partial SBO / ileus - Patient had trial of Murphy catheter removal - had failed and had recurrent retention - c/w Murphy; reinserted (re: recurrent retention) - Voiding trial this morning Gastroparesis - Diagnosed on barium esophagram - c/w Reglan and gastroparesis diet - Gastroenterology on consultation Esophagitis/gastritis - c/w PPI - Gastroenterology on consultation Hx of suspected ventricular tachycardia on telemetry - [employer] certified medical records coder has interrogated device with no concerning findings - Prior Dr. Foster patient, however was discharged from practice after failure to followup HTN - BP moderately controlled - s/p Lisinopril - s/p Hydralazine IV with adjusted hold parameters (SBP > 180) Hx SSS - s/p PPM in place Hx of AAA Protein calorie malnutrition - Poor oral intake - Albumin of 2.1 - Will encourage increase PO intake GI prophylaxis - c/w Protonix DVT prophylaxis - c/w Lovenox Disposition: - Pending clinical improvement - discussed with son at length, plan for trial IVIG, son/patient agreeable VS,Pinky, I+O VS, Pinky, I+O Laboratory Tests 08/15/20 04:36 Vital Signs Date Time Temp Pulse Resp B/P (MAP) Pulse Ox O2 Delivery O2 Flow Rate FiO2 08/15/20 09:32 152/92 08/15/20 08:00 98.3 81 18 91 Room Air 08/14/20 20:00 2.0 08/11/20 12:13 40 I&O- Last 24 Hours up to 6 AM 08/15/20 06:00 Intake Total 818 ml Output Total 1625 ml Balance -807 ml BROOKLYN ARAIZA MD Aug 15, 2020 12:05
[2020-08-15 16:54] LABS: BLOOD UREA NITROGEN 8 MG/DL (7-18); CALCIUM LEVEL 8.3 MG/DL (8.8-10.2); CARBON DIOXIDE LEVEL 27 MEQ/L (21-32); CHLORIDE LEVEL 107 MEQ/L (98-107); CREATININE FOR GFR 0.68 MG/DL (0.55-1.30); GLOMERULAR FILTRATION RATE > 60.0 (>45); GLUCOSE, FASTING 80 MG/DL (70-100); POTASSIUM SERUM 3.9 MEQ/L (3.5-5.1); SODIUM LEVEL 139 MEQ/L (136-145)
[2020-08-15] MEDS: ENOXAPARIN 40MG/0.4ML SYRINGE (J1650 PER 10MG) SC SCH (17:16)
[2020-08-15] MEDS: QUEtiapine FUMARATE 12.5 MG HALF-TAB PO SCH (20:51)
[2020-08-16] VITALS (14 sets, daily range): BP systolic 117–182; BP diastolic 69–96
[2020-08-16] MEDS: ACETAMINOPHEN 650 MG SUPP PR PRN (03:43)
[2020-08-16] MEDS: SODIUM CHLORIDE 0.9% INJ 10 ML SYR IV SCH ×2 (05:30→17:50)
[2020-08-16] MEDS: RAMELTEON 8 MG TAB (ROZEREM) PO PRN (05:31)
[2020-08-16 06:21] LABS: HEMATOCRIT 31.4 % (36.0-47.0); HEMOGLOBIN 10.2 g/dl (12.0-15.5); MEAN CORPUSCULAR HEMOGLOBIN 31.6 pg (27.0-33.0); MEAN CORPUSCULAR HGB CONC 32.5 g/dl (32.0-36.5); MEAN CORPUSCULAR VOLUME 97.2 fl (80.0-96.0); PLATELET COUNT, AUTOMATED 394 10^3/uL (150-450); RED BLOOD COUNT 3.23 10^6/uL (4.00-5.40); WHITE BLOOD COUNT 6.1 10^3/uL (4.0-10.0)
[2020-08-16 06:45] LABS: BLOOD UREA NITROGEN 9 MG/DL (7-18); CALCIUM LEVEL 8.2 MG/DL (8.8-10.2); CARBON DIOXIDE LEVEL 26 MEQ/L (21-32); CHLORIDE LEVEL 109 MEQ/L (98-107); CREATININE FOR GFR 0.75 MG/DL (0.55-1.30); GLOMERULAR FILTRATION RATE > 60.0 (>45); GLUCOSE, FASTING 73 MG/DL (70-100); MAGNESIUM LEVEL 1.8 MG/DL (1.8-2.4); POTASSIUM SERUM 3.7 MEQ/L (3.5-5.1); SODIUM LEVEL 143 MEQ/L (136-145)
--- NOTE | 2020-08-16 08:40 | IPNPDOC ---
Text Note Date of Service The patient was seen on 08/16/20. NOTE Subjective: Patient is a 69 year old female who presented for abdominal pain with large ventral hernia. Imaging showed a splenic infarct, on consultation with vascular and general surgery, recommendations were for no surgical intervention. She progressed well and was about to be discharged but experienced a hypotensive episode on 07/17 requiring IV fluid administration. Patient continued to experience nausea and vomiting, gastroenterology was consulted, and she received an EGD / Esophagram which showed findings consistent with esophagitis / gastritis and gastroparesis. On 07/24 patient had more nausea and vomiting and repeat imaging had revealed possible partial SBO vs. LBO. Surgery was reconsulted for evaluation. Her hospital course was complicated with urinary retention and a Murphy catheter was placed. Patient was started on TPN and conservative measures were started for resolution of her obstruction. Patient has since been discontinued from TPN and is tolerating a diet; has been increasing her oral intake. Her mentation has had improvement. She developed muscle spasms with spastic movements, and weakness - neurology was consulted for further evaluation. Patient was seen and examined at the bedside this morning. Lying comfortably in bed. She is confused this morning, but in no acute distress. Objective: Vitals (See below) General: lying comfortably in bed HEENT: NC, AT CVS: +S1S2 Lungs: CTA B/L Abdomen: Large ventral hernia. 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 - discussed with neurology - assistance appreciated - recs for trial of IVIG - 40g/day - day 01/01 - son/patient agreeable with trial of IVIG #AMS s/p Acute metabolic encephalopathy - likely 2/2 infection #s/p Fever - possibly 2/2 PNA, possibly 2/2 UTI, possibly 2/2 Neurologic etiology - follow as per neurology - Mentation improved - waxes and wanes; strength appears to be better - No fever/leukocytosis / Lactic acidosis; CRP continues to trend down - Blood cultures (08/11) - no growth - Procalcitonin x2 negative (08/11, 08/13) - LP was unable to be performed - patient unable to remain still - discussed with son - Yogi Mehta - does not want use of sedation to facilitate LP - follow as per ID - assistance appreciated - completed course of zosyn (4 days) #Acute hypoxic respiratory failure - possibly 2/2 fluid overload, possibly 2/2 PNA - resolved - saturating well on room air #Deconditioning / Weakness - possibly 2/2 deconditioning 2/2 critical illness neuropathy, possibly 2/2 GBS? - discussed with neurology - c/w Thiamine, Folate, MVI - c/w Seroquel (low dose) - PT / OT on reconsult; will re-evaluate - as above re: GBS #Anxiety - c/w Buspirone #Poor oral intake - pureed diet - encourage oral intake PREVIOUSLY: s/p UTI - Urine cultures (08/01): positive for E. Coli / Strep - s/p Ceftriaxone - ID on consultation; appreciate their input s/p Nausea and vomiting - possibly 2/2 partial SBO - s/p NG tube - Bowel movements noted regularly - c/w Bowel regimen; Docusate / Bisacodyl - Dr. 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 Bianchi (Vascular surgery) and Dr. Jose (Radiology)- splenic infarction and possible occlusion of splenic artery vs tortuous vessel vs positional - no surgery/stenting recommended. - Coagulopathy workup - negative - Appreciate vascular surgery recommendations; c/w anti-emetics and pain control Urinary retention - likely 2/2 partial SBO / ileus - Patient had trial of Murphy catheter removal - had failed and had recurrent retention - c/w Murphy; reinserted (re: recurrent retention) - Voiding trial this morning Gastroparesis - Diagnosed on barium esophagram - c/w Reglan and gastroparesis diet - Gastroenterology on consultation Esophagitis/gastritis - c/w PPI - Gastroenterology on consultation Hx of suspected ventricular tachycardia on telemetry - [employer] medical device assembler has interrogated device with no concerning findings - Prior Dr. Foster patient, however was discharged from practice after failure t o followup HTN - BP moderately controlled - s/p Lisinopril - s/p Hydralazine IV with adjusted hold parameters (SBP > 180) Hx SSS - s/p PPM in place Hx of AAA Protein calorie malnutrition - Poor oral intake - Albumin of 2.1 - Will encourage increase PO intake GI prophylaxis - c/w Protonix DVT prophylaxis - c/w Lovenox Disposition: - Pending clinical improvement, started IVIG - discussed with son Yogi at length today - agreeable with continuing IVIG and current plan of care VSPinky, I+O VSPinky, I+O Laboratory Tests 08/15/20 15:50 08/16/20 06:00 Vital Signs Date Time Temp Pulse Resp B/P (MAP) Pulse Ox O2 Delivery O2 Flow Rate FiO2 08/16/20 04:00 99.2 93 18 160/90 (113) 97 Room Air 08/14/20 20:00 2.0 08/11/20 12:13 40 I&O- Last 24 Hours up to 6 AM 08/16/20 06:00 Intake Total 780 ml Output Total 2600 ml Balance -1820 ml BROOKLYN ARAIZA MD Aug 16, 2020 08:40
[2020-08-16] MEDS: DOCUSATE SODIUM 100 MG CAP PO SCH (09:00)
[2020-08-16] MEDS: PANTOPRAZOLE 40MG VIAL (C9113 PER 1) IV SCH ×2 (09:06→20:15)
[2020-08-16] MEDS: busPIRone 5 MG TAB PO SCH ×3 (09:07→22:10)
[2020-08-16] MEDS: lisinopriL 10 MG TAB PO SCH (09:07)
[2020-08-16] MEDS: FOLIC ACID 1 MG TAB PO SCH (09:07)
[2020-08-16] MEDS: MULTIVITAMINS/MINERALS THERAP 1 TAB PO SCH (09:07)
[2020-08-16] MEDS: THIAMINE 100 MG TAB PO SCH (09:08)
[2020-08-16] MEDS: IMMUNE GLOBULIN 10% 40 GM in IV 1 EA IV SCH (11:44)
[2020-08-16 14:02] LABS: C REACTIVE PROTEIN QUANTITATIV 1.81 MG/DL (0.00-0.30)
[2020-08-16] MEDS: ENOXAPARIN 40MG/0.4ML SYRINGE (J1650 PER 10MG) SC SCH (15:55)
--- NOTE | 2020-08-16 16:39 | ECGEPIP ---
[facility] Test Date: 2020-08-15 Pat Name: MAXI LANDA Department: Room: [place] [address] Gender: Female Technical Lead: : 1950 Requested By: BROOKLYN Kerns Order Number: [id number] Reading MD: Doyle Boudreaux Measurements Intervals [place] Rate: 80 P: 36 NE: 113 QRS: 4 QRSD: 88 T: 4 QT: 440 QTc: 509 Interpretive Statements SINUS RHYTHM WITH SHORT NE INTERVAL MINIMAL VOLTAGE CRITERIA FOR LVH, CONSIDER NORMAL VARIANT MODERATE T-WAVE ABNORMALITY, CONSIDER ANTEROLATERAL ISCHEMIA Electronically Signed on 08-16-2020 16:39:31 EDT by Doyle Boudreaux
[2020-08-16] MEDS: QUEtiapine FUMARATE 12.5 MG HALF-TAB PO SCH (22:10)
[2020-08-17] VITALS (13 sets, daily range): BP systolic 126–170; BP diastolic 70–90
[2020-08-17] MEDS: SODIUM CHLORIDE 0.9% INJ 10 ML SYR IV SCH ×2 (05:07→16:06)
[2020-08-17 06:41] LABS: BLOOD UREA NITROGEN 10 MG/DL (7-18); CALCIUM LEVEL 8.3 MG/DL (8.8-10.2); CARBON DIOXIDE LEVEL 27 MEQ/L (21-32); CHLORIDE LEVEL 108 MEQ/L (98-107); CREATININE FOR GFR 0.64 MG/DL (0.55-1.30); GLOMERULAR FILTRATION RATE > 60.0 (>45); GLUCOSE, FASTING 74 MG/DL (70-100); MAGNESIUM LEVEL 1.9 MG/DL (1.8-2.4); POTASSIUM SERUM 3.4 MEQ/L (3.5-5.1); SODIUM LEVEL 140 MEQ/L (136-145)
[2020-08-17 08:46] LABS: NT-PRO BNP 10117 PG/ML (<125)
[2020-08-17] MEDS ORDERED: POTASSIUM CHLORIDE 10% LIQ 20 MEQ/15 ML UDC PO ONE (09:00)
[2020-08-17] MEDS: DOCUSATE SODIUM 100 MG CAP PO SCH (09:00)
--- NOTE | 2020-08-17 09:01 | IPNPDOC ---
Text Note Date of Service The patient was seen on 08/17/20. NOTE Subjective: Patient is a 69 year old female who presented for abdominal pain with large ventral hernia. Imaging showed a splenic infarct, on consultation with vascular and general surgery, recommendations were for no surgical intervention. She progressed well and was about to be discharged but experienced a hypotensive episode on 07/17 requiring IV fluid administration. Patient continued to experience nausea and vomiting, gastroenterology was consulted, and she received an EGD / Esophagram which showed findings consistent with esophagitis / gastritis and gastroparesis. On 07/24 patient had more nausea and vomiting and repeat imaging had revealed possible partial SBO vs. LBO. Surgery was reconsulted for evaluation. Her hospital course was complicated with urinary retention and a Murphy catheter was placed. Patient was started on TPN and conservative measures were started for resolution of her obstruction. Patient has since been discontinued from TPN and is tolerating a diet; has been increasing her oral intake. Her mentation has had improvement. She developed muscle spasms with spastic movements, and weakness - neurology was consulted for further evaluation. Patient was seen and examined at the bedside this morning. Lying comfortably in bed. This morning she is alert and awake. She was able to provide information about her family members/kids and location. Objective: Vitals (See below) General: lying comfortably in bed HEENT: NC, AT, poor dentition CVS: +S1S2 Lungs: CTA B/L Abdomen: Large ventral hernia. 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 - discussed with neurology - assistance appreciated - recs for trial of IVIG - 40g/day - day 3/ - son/patient agreeable with trial of IVIG #AMS s/p Acute metabolic encephalopathy - likely 2/2 infection - waxes and wanes #s/p Fever - possibly 2/2 PNA, possibly 2/2 UTI, possibly 2/2 Neurologic etiology - follow as per neurology - Mentation generally improved - waxes and wanes; strength appears to be better - No fever/leukocytosis / Lactic acidosis; CRP continues to trend down - Blood cultures (08/11) - no growth - Procalcitonin x2 negative (08/11, 08/13) - LP was unable to be performed - patient unable to remain still - discussed with son - Yogi Gonzalez - did not want use of sedation to facilitate LP - follow as per ID - assistance appreciated - completed course of zosyn (4 days) #Acute hypoxic respiratory failure - possibly 2/2 fluid overload, possibly 2/2 PNA - resolved - saturating well on room air #Deconditioning / Weakness - possibly 2/2 deconditioning 2/2 critical illness neuropathy, possibly 2/2 GBS? - discussed with neurology - c/w Thiamine, Folate, MVI - c/w Seroquel (low dose) - PT / OT on reconsult; will re-evaluate - as above re: GBS #Anxiety - c/w Buspirone #Poor oral intake - pureed diet - encourage oral intake PREVIOUSLY: s/p UTI - Urine cultures (08/01): positive for E. Coli / Strep - s/p Ceftriaxone - ID on consultation; appreciate their input s/p Nausea and vomiting - possibly 2/2 partial SBO - s/p NG tube - Bowel movements noted regularly - c/w Bowel regimen; Docusate / Bisacodyl - Dr. 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 Bianchi (Vascular surgery) and Dr. Jose (Radiology)- splenic infarction and possible occlusion of splenic artery vs tortuous vessel vs positional - no surgery/stenting recommended. - Coagulopathy workup - negative - Appreciate vascular surgery recommendations; c/w anti-emetics and pain control Urinary retention - likely 2/2 partial SBO / ileus - Patient had trial of Murphy catheter removal - had failed and had recurrent retention - c/w Murphy; reinserted (re: recurrent retention) - Voiding trial this morning Gastroparesis - Diagnosed on barium esophagram - c/w Reglan and gastroparesis diet - Gastroenterology on consultation Esophagitis/gastritis - c/w PPI - Gastroenterology on consultation Hx of suspected ventricular tachycardia on telemetry - [employer] medical malpractice paralegal has interrogated device with no concerning findings - Prior Dr. Foster patient, however was discharged from practice after failure t o followup HTN - BP moderately controlled - s/p Lisinopril - s/p Hydralazine IV with adjusted hold parameters (SBP > 180) Hx SSS - s/p PPM in place Hx of AAA Protein calorie malnutrition - Poor oral intake - Albumin of 2.1 - Will encourage increase PO intake GI prophylaxis - c/w Protonix DVT prophylaxis - c/w Lovenox Disposition: - Pending clinical improvement, started IVIG - Extensive discussion with kirstin Dumont ([phone]). No HCP. Marilin Albarado from [place] called last night for information. Daughter Rosie from [place] received an exception from [facility] and will be visiting tomorrow. VS,Fishbone, I+O VS, Fishbone, I+O Laboratory Tests 08/17/20 05:32 Vital Signs Date Time Temp Pulse Resp B/P (MAP) Pulse Ox O2 Delivery O2 Flow Rate FiO2 08/17/20 04:00 2.0 08/17/20 04:00 98.0 75 20 160/86 (110) 97 Room Air 08/11/20 12:13 40 I&O- Last 24 Hours up to 6 AM 08/17/20 06:00 Intake Total 705 ml Output Total 1125 ml Balance -420 ml BROOKLYN ARAIZA MD Aug 17, 2020 09:01
[2020-08-17] MEDS: PANTOPRAZOLE 40MG VIAL (C9113 PER 1) IV SCH ×2 (09:25→22:41)
[2020-08-17] MEDS: busPIRone 5 MG TAB PO SCH ×3 (09:29→22:41)
[2020-08-17] MEDS: MULTIVITAMINS/MINERALS THERAP 1 TAB PO SCH (09:31)
[2020-08-17] MEDS: lisinopriL 10 MG TAB PO SCH (09:31)
[2020-08-17] MEDS: THIAMINE 100 MG TAB PO SCH (09:31)
[2020-08-17] MEDS: FOLIC ACID 1 MG TAB PO SCH (09:37)
[2020-08-17 09:47] LABS: HEMATOCRIT 30.5 % (36.0-47.0); HEMOGLOBIN 9.6 g/dl (12.0-15.5); MEAN CORPUSCULAR HEMOGLOBIN 31.3 pg (27.0-33.0); MEAN CORPUSCULAR HGB CONC 31.5 g/dl (32.0-36.5); MEAN CORPUSCULAR VOLUME 99.3 fl (80.0-96.0); PLATELET COUNT, AUTOMATED 356 10^3/uL (150-450); RED BLOOD COUNT 3.07 10^6/uL (4.00-5.40); WHITE BLOOD COUNT 4.1 10^3/uL (4.0-10.0)
--- NOTE | 2020-08-17 10:16 | REPVR ---
PROCEDURE INFORMATION: Exam: XR Chest, 1 View Exam date and time: 08/17/2020 10:06 AM Age: 70 years old Clinical indication: Shortness of breath; Additional info: SOB TECHNIQUE: Imaging protocol: XR of the chest Views: Frontal portable semiupright view of the chest. COMPARISON: CR Chest, 1 view 08/10/2020 5:18 PM FINDINGS: Tubes, catheters and devices: The right upper extremity PICC line tip is in the upper SVC. Lungs: The pulmonary vasculature is less congested and better defined. Pleural space: No pleural effusion. No pneumothorax. Heart/Mediastinum: Stable borderline cardiomegaly. Mediastinum: Stable. Vasculature: A dual lead left subclavian permanent pacemaker is present. The right atrial and right ventricular leads appear to be in good position. Mild aortic arch atherosclerotic calcification without ectasia. Mild tortuosity of the upper descending thoracic aorta. Bones/joints: Stable. IMPRESSION: Improved pulmonary vascular congestion. Electronically signed by: Matthew Looney On 08/17/2020 10:16:17 AM
[2020-08-17] MEDS: IMMUNE GLOBULIN 10% 40 GM in IV 1 EA IV SCH (11:34)
[2020-08-17] MEDS: ENOXAPARIN 40MG/0.4ML SYRINGE (J1650 PER 10MG) SC SCH (16:05)
[2020-08-17] MEDS: QUEtiapine FUMARATE 12.5 MG HALF-TAB PO SCH (22:41)
[2020-08-17] MEDS: RAMELTEON 8 MG TAB (ROZEREM) PO PRN (22:41)
[2020-08-18] VITALS: BP 133/94
[2020-08-18 04:00] VITALS: BP 168/88
[2020-08-18] MEDS: SODIUM CHLORIDE 0.9% INJ 10 ML SYR IV SCH ×2 (05:59→17:41)
[2020-08-18 08:00] VITALS: BP 132/100
[2020-08-18 08:33] LABS: BASO % 0.4 % (0.0-1.0); EOS # 0.1 10^3/uL (0.0-0.5); EOS % 1.3 % (0.0-3.0); HEMATOCRIT 29.2 % (36.0-47.0); HEMOGLOBIN 9.8 g/dl (12.0-15.5); LYMPH # 1.7 10^3/uL (1.5-5.0); LYMPH % 35.7 % (24.0-44.0); MEAN CORPUSCULAR HEMOGLOBIN 32.9 pg (27.0-33.0); MEAN CORPUSCULAR HGB CONC 33.6 g/dl (32.0-36.5); MONO # 0.9 10^3/uL (0.0-0.8); MONO % 18.9 % (0.0-5.0); NEUTROPHILS % 43.1 % (36.0-66.0); PLATELET COUNT, AUTOMATED 329 10^3/uL (150-450); RED BLOOD COUNT 2.98 10^6/uL (4.00-5.40); WHITE BLOOD COUNT 4.7 10^3/uL (4.0-10.0)
--- NOTE | 2020-08-18 08:50 | IPNPDOC ---
Text Note Date of Service The patient was seen on 08/18/20. NOTE Subjective: Patient is a 69 year old female who presented for abdominal pain with large ventral hernia. Imaging showed a splenic infarct, on consultation with vascular and general surgery, recommendations were for no surgical intervention. She progressed well and was about to be discharged but experienced a hypotensive episode on 07/17 requiring IV fluid administration. Patient continued to experience nausea and vomiting, gastroenterology was consulted, and she received an EGD / Esophagram which showed findings consistent with esophagitis / gastritis and gastroparesis. On 07/24 patient had more nausea and vomiting and repeat imaging had revealed possible partial SBO vs. LBO. Surgery was reconsulted for evaluation. Her hospital course was complicated with urinary retention and a Murphy catheter was placed. Patient was started on TPN and conservative measures were started for resolution of her obstruction. Patient has since been discontinued from TPN and is tolerating a diet; has been increasing her oral intake. Her mentation has had improvement. She developed muscle spasms with spastic movements, and weakness - neurology was consulted for further evaluation. Patient was seen and examined at the bedside this morning. Lying comfortably in bed. She was seen with low frequency tremors/slow arm and torso movements. She was easily arousable, and during conversation her involuntary movements improved. Objective: Vitals (See below) General: lying comfortably in bed HEENT: NC, AT, poor dentition CVS: +S1S2 Lungs: CTA B/L Abdomen: Large ventral hernia. 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 - discussed with neurology - assistance appreciated - recs for trial of IVIG - 40g/day - completed 4 days - son/patient agreeable with trial of IVIG - recommending trial of primodone 25 BID one day, then 50 BID #AMS s/p Acute metabolic encephalopathy - likely 2/2 infection - waxes and wanes - could consider d/c her sleep aid (Remeron) #s/p Fever - possibly 2/2 PNA, possibly 2/2 UTI, possibly 2/2 Neurologic etiol ogy - follow as per neurology - Mentation generally improved - waxes and wanes; strength appears to be better - No fever/leukocytosis / Lactic acidosis; CRP continues to trend down - Blood cultures (08/11) - no growth - Procalcitonin x2 negative (08/11, 08/13) - LP was unable to be performed - patient unable to remain still - discussed with son - Yogi Gonzalez - did not want use of sedation to facilitate LP - follow as per ID - assistance appreciated - completed course of zosyn (4 days) #Acute hypoxic respiratory failure - possibly 2/2 fluid overload, possibly 2/2 PNA - resolved - saturating well on room air #Deconditioning / Weakness - possibly 2/2 deconditioning 2/2 critical illness neuropathy, possibly 2/2 GBS? - discussed with neurology - c/w Thiamine, Folate, MVI - c/w Seroquel (low dose) - PT / OT on reconsult; will re-evaluate - as above re: GBS #Anxiety - c/w Buspirone #Poor oral intake - pureed diet - encourage oral intake PREVIOUSLY: s/p UTI - Urine cultures (08/01): positive for E. Coli / Strep - s/p Ceftriaxone - ID on consultation; appreciate their input s/p Nausea and vomiting - possibly 2/2 partial SBO - s/p NG tube - Bowel movements noted regularly - c/w Bowel regimen; Docusate / Bisacodyl - Dr. 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 Bianchi (Vascular surgery) and Dr. Jose (Radiology)- splenic infarction and possible occlusion of splenic artery vs tortuous vessel vs positional - no surgery/stenting recommended. - Coagulopathy workup - negative - Appreciate vascular surgery recommendations; c/w anti-emetics and pain control Urinary retention - likely 2/2 partial SBO / ileus - Patient had trial of Murphy catheter removal - had failed and had recurrent retention - c/w Murphy; reinserted (re: recurrent retention) - Voiding trial this morning Gastroparesis - Diagnosed on barium esophagram - c/w Reglan and gastroparesis diet - Gastroenterology on consultation Esophagitis/gastritis - c/w PPI - Gastroenterology on consultation Hx of suspected ventricular tachycardia on telemetry - [employer] medical imaging technician has interrogated device with no concerning findings - Prior Dr. Foster patient, however was discharged from practice after failure to followup HTN - BP moderately controlled - s/p Lisinopril - s/p Hydralazine IV with adjusted hold parameters (SBP > 180) Hx SSS - s/p PPM in place Hx of AAA Protein calorie malnutrition - Poor oral intake - Albumin of 2.1 - Will encourage increase PO intake GI prophylaxis - c/w Protonix DVT prophylaxis - c/w Lovenox Disposition: - Pending clinical improvement, started IVIG - Extensive discussion with son Yogi on the phone and in person, and Jairo ([phone]). No HCP. Daughter Verena from [place] previously called for information. Daughter Rosie from [place] received an exception from [facility] and will be visiting today. VS,Fishbone, I+O VS, Fishbone, I+O Laboratory Tests 08/18/20 08:05 Vital Signs Date Time Temp Pulse Resp B/P (MAP) Pulse Ox O2 Delivery O2 Flow Rate FiO2 08/18/20 04:00 98.6 85 18 168/88 (114) 95 Room Air 08/18/20 04:00 2.0 I&O- Last 24 Hours up to 6 AM 08/18/20 06:00 Intake Total 758 ml Output Total 1626 ml Balance -868 ml BROOKLYN ARAIZA MD Aug 18, 2020 08:50
[2020-08-18] MEDS: DOCUSATE SODIUM 100 MG CAP PO SCH (09:00)
[2020-08-18 09:03] LABS: BLOOD UREA NITROGEN 9 MG/DL (7-18); CARBON DIOXIDE LEVEL 27 MEQ/L (21-32); CHLORIDE LEVEL 109 MEQ/L (98-107); CREATININE FOR GFR 0.72 MG/DL (0.55-1.30); GLOMERULAR FILTRATION RATE > 60.0 (>45); GLUCOSE, FASTING 77 MG/DL (70-100); POTASSIUM SERUM 3.5 MEQ/L (3.5-5.1); SODIUM LEVEL 141 MEQ/L (136-145)
[2020-08-18 09:04] LABS: ALBUMIN 1.9 GM/DL (3.2-5.2); ALT/SGPT 16 U/L (12-78); BILIRUBIN,TOTAL 0.5 MG/DL (0.2-1.0); CALCIUM LEVEL 8.3 MG/DL (8.8-10.2)
[2020-08-18] MEDS: MULTIVITAMINS/MINERALS THERAP 1 TAB PO SCH (09:47)
[2020-08-18] MEDS: busPIRone 5 MG TAB PO SCH ×3 (09:47→21:22)
[2020-08-18] MEDS: FOLIC ACID 1 MG TAB PO SCH (09:47)
[2020-08-18] MEDS: THIAMINE 100 MG TAB PO SCH (09:47)
[2020-08-18] MEDS: lisinopriL 10 MG TAB PO SCH (09:48)
[2020-08-18] MEDS: PANTOPRAZOLE 40MG VIAL (C9113 PER 1) IV SCH ×2 (09:48→21:22)
[2020-08-18] MEDS: IMMUNE GLOBULIN 10% 40 GM in IV 1 EA IV SCH (11:26)
[2020-08-18 12:00] VITALS: BP 166/100
[2020-08-18] MEDS: ENOXAPARIN 40MG/0.4ML SYRINGE (J1650 PER 10MG) SC SCH (15:11)
[2020-08-18 16:00] VITALS: BP 178/100
[2020-08-18 20:00] VITALS: BP 159/95
[2020-08-18] MEDS: SODIUM CHLORIDE 0.9% INJ 10 ML SYR IV PRN (21:22)
[2020-08-18] MEDS: QUEtiapine FUMARATE 12.5 MG HALF-TAB PO SCH (21:22)
[2020-08-19] VITALS: BP 143/87
[2020-08-19 04:00] VITALS: BP 144/72
[2020-08-19] MEDS: SODIUM CHLORIDE 0.9% INJ 10 ML SYR IV SCH (05:18)
[2020-08-19 07:12] LABS: HEMATOCRIT 30.5 % (36.0-47.0); HEMOGLOBIN 9.8 g/dl (12.0-15.5); MEAN CORPUSCULAR HEMOGLOBIN 31.9 pg (27.0-33.0); MEAN CORPUSCULAR HGB CONC 32.1 g/dl (32.0-36.5); MEAN CORPUSCULAR VOLUME 99.3 fl (80.0-96.0); PLATELET COUNT, AUTOMATED 339 10^3/uL (150-450); RED BLOOD COUNT 3.07 10^6/uL (4.00-5.40)
[2020-08-19 07:30] LABS: BLOOD UREA NITROGEN 9 MG/DL (7-18); CALCIUM LEVEL 8.1 MG/DL (8.8-10.2); CARBON DIOXIDE LEVEL 26 MEQ/L (21-32); CHLORIDE LEVEL 107 MEQ/L (98-107); CREATININE FOR GFR 0.64 MG/DL (0.55-1.30); GLOMERULAR FILTRATION RATE > 60.0 (>45); GLUCOSE, FASTING 81 MG/DL (70-100); POTASSIUM SERUM 3.4 MEQ/L (3.5-5.1); SODIUM LEVEL 140 MEQ/L (136-145)
[2020-08-19 08:00] VITALS: BP 182/82
[2020-08-19 08:15] VITALS: BP 135/85
[2020-08-19] MEDS: PANTOPRAZOLE 40MG VIAL (C9113 PER 1) IV SCH ×2 (09:56→21:10)
[2020-08-19] MEDS: DOCUSATE SODIUM 100 MG CAP PO SCH (09:56)
[2020-08-19] MEDS: busPIRone 5 MG TAB PO SCH ×4 (09:56→21:10)
[2020-08-19] MEDS: MULTIVITAMINS/MINERALS THERAP 1 TAB PO SCH (09:57)
[2020-08-19] MEDS: FOLIC ACID 1 MG TAB PO SCH (09:57)
[2020-08-19] MEDS: lisinopriL 10 MG TAB PO SCH (09:57)
[2020-08-19] MEDS: THIAMINE 100 MG TAB PO SCH (09:57)
[2020-08-19] MEDS: ACETAMINOPHEN 650 MG SUPP PR PRN ×2 (09:58→17:43)
--- NOTE | 2020-08-19 10:26 | REP ---
UPPER GI SINGLE CONTRAST AND ESOPHAGRAM The procedure was performed under the direct supervision of Dr. Jose. The images were reviewed with Dr. Jose. FINDINGS: The tubing machine tender film show no organomegaly or pathological masses. There is an ileus versus enteritis bowel gas pattern. A single view PA chest x-ray is submitted as a tubing machine tender film. There is a dual-lead pacemaker in place. There is focal pericardial calcification on the right. There is no active disease. The exam is limited due to patient mobility. Liquid barium was given in the supine oblique positions. The oral and pharyngeal states of deglutition are unremarkable. Esophageal transport is prompt and efficient and there is no esophagitis, stricture, mucosal ring, or hiatal hernia. There is gastroesophageal reflux demonstrated to the level of the thoracic inlet. The stomach is grossly normal. The mucosal folds are smooth and regular. There is no evidence of gastritis, neoplasm, or ulcer disease. The duodenum was grossly normal. The mucosal folds are smooth and regular. There is no evidence of duodenitis, pancreatitis, peptic ulcer disease, or neoplasm. The visualized portion of the proximal small bowel appears normal in course and caliber. IMPRESSION: There is gastroesophageal reflux demonstrated to the level of the thoracic inlet. Otherwise single contrast upper GI and esophagram examination within normal limits. [facility]
[2020-08-19] MEDS ORDERED: SLF 3 ML SYR IV PRN (11:30)
--- NOTE | 2020-08-19 13:24 | IPNPDOC ---
Text Note Date of Service The patient was seen on 08/19/20. NOTE Subjective: Patient is a 69 year old female who was abdominal pain with large ventral hernia and imaging showing splenic infarct without necessary surgical correction. She progressed well and was about to be discharged but experienced a hypotensive episode on 07/17 requiring fluid administration. Patient continued to experience nausea and vomiting, gastroenterology was called and she received an EGD / Esophagram; consistent with esophagitis / gastritis and gastroparesis. On 07/24 patient had more nausea and vomiting and repeat imaging had revealed possible partial SBO vs. LBO. Surgery was reconsulted for evaluation. Her hospital course was complicated with urinary retention and a Murphy catheter was placed. Patient was started on TPN and conservative measures were started for resolution of her obstruction. Patient has since been discontinued from TPN and is tolerating a diet; has been increasing her oral intake. Her mentation has had improvement. Patient was seen and examined at the bedside. Currently patient is oriented to person, she was unsure of the time or place or doesn't appear to be to be in any distress. Objective: Vitals (See below) General: Lying in bed, no acute distress, appears comfortable, oriented to person HEENT: NC, AT CVS: +S1S2 Lungs: Air entry appears to be fair bilaterally without evidence of rhonchi crackles or wheezing Abdomen: Large ventral hernia, abdomen, again, remains soft without any distention or tenderness Extremities: LE are free of any pitting edema, - Calf tenderness Assessment and plan: Deconditioning / Weakness - possibly 2/2 deconditioning 2/2 critical illness neuropathy, possibly 2/2 GBS? - Repeat imaging noted - c/w Thiamine, Folate, MVI - s/p IVIG x5 days for suspected GBS; No LP completed after family did not want to subject her to additional testing - c/w Seroquel (low dose) - PT / OT on reconsult - recommended rehab - Neurology on consultation; appreciate their input s/p Acute metabolic encephalopathy - likely 2/2 infection - See below s/p Fever - possibly 2/2 PNA, possibly 2/2 UTI, possibly 2/2 Neurologic etiology? - No leukocytosis / Lactic acidosis, CRP had improved - CXR 08/10: 1. PICC line tip is in region of superior vena cava. 2. There appear to be patchy bilateral pulmonary infiltrates which could be due to edema or pneumonia. - Blood cultures (08/11): No growth at 5 days - Procalcitonin x2 negative - LP was unable to be performed; discussed with Son, Mr. Jesica Garcia, does not want any further pursuit of LP given patient's discomfort - Infectious disease on consultation; s/p Zosyn s/p Acute hypoxic respiratory failure - possibly 2/2 fluid overload, possibly 2/2 PNA - Patient is requiring 2-4L of supplemental oxygen when she was tachypneic - ABG completed on 2L noted - c/w supplemental oxygen and continuous pulse oximetry - Has had significant diuresis - s/p Furosemide Generalized anxiety - c/w Buspirone Poor oral intake - s/p D5 NS - c/w Modified diet s/p UTI - Urine cultures (08/01): positive for E. Coli / Strep - s/p Ceftriaxone - ID on consultation; appreciate their input s/p Nausea and vomiting - possibly 2/2 partial SBO - s/p NG tube - Bowel movements noted regularly - c/w Bowel regimen; Docusate / Bisacodyl - Dr. 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 Bianchi (Vascular surgery) and Dr. Jose (Radiology)- splenic infarction and possible occlusion of splenic artery vs tortuous vessel vs positional - no surgery/stenting recommended. - Coagulopathy workup - negative - Appreciate vascular surgery recommendations; c/w anti-emetics and pain control Urinary retention - likely 2/2 partial SBO / ileus - Patient had trial of Murphy catheter removal - had failed and had recurrent retention - s/p Murphy; c/w straight catheterization as needed Gastroparesis - Diagnosed on barium esophagram - c/w Reglan and gastroparesis diet - Gastroenterology on consultation Esophagitis/gastritis - c/w PPI - Gastroenterology on consultation Hx of suspected ventricular tachycardia on telemetry - [facility] [facility] biomedical specialist has interrogated device with no concerning findings - Prior Dr. Foster patient, however was discharged from practice after failure to followup HTN - BP moderately controlled - s/p Lisinopril - s/p Hydralazine IV with adjusted hold parameters (SBP > 180) Hx SSS - s/p PPM in place Hx of AAA Protein calorie malnutrition - Poor oral intake - Albumin of 2.1 - Continue to encourage PO intake GI prophylaxis - c/w Protonix DVT prophylaxis - c/w Lovenox Disposition: - Pending clinical improvement - Will discuss with son about goals of care and disposition plan Pinky MARTINEZ, I+O Pinky MARTINEZ I+O Laboratory Tests 08/19/20 06:37 Vital Signs Date Time Temp Pulse Resp B/P (MAP) Pulse Ox O2 Delivery O2 Flow Rate FiO2 08/19/20 12:00 95 Room Air 08/19/20 08:15 135/85 (102) 08/19/20 08:00 98.5 95 20 3.0 I&O- Last 24 Hours up to 6 AM 08/19/20 06:00 Intake Total 425 ml Output Total 1400 ml Balance -975 ml ROBERTO MONTGOMERY MD Aug 19, 2020 13:24
[2020-08-19] MEDS: SLF 3 ML SYR IV SCH ×2 (14:00→21:11)
--- NOTE | 2020-08-19 14:23 | REPVR ---
PROCEDURE INFORMATION: Exam: US Duplex Left Upper Extremity Veins, Limited Exam date and time: 08/19/2020 2:04 PM Age: 70 years old Clinical indication: Swelling (edema) of limb; Upper extremity, left TECHNIQUE: Imaging protocol: Real-time Duplex ultrasound of the Left Upper Extremity with 2-D cedeno scale, color Doppler flow and spectral waveform analysis with image documentation. Limited exam focused on the left upper extremity veins. COMPARISON: US DUPLEX EXT UPPER VEINS BILAT 07/27/2020 9:36 AM (report not provided) FINDINGS: Limitations: Patient motion. Left deep veins: Unremarkable. Axillary and paired brachial veins are patent throughout without thrombus. Normal Doppler waveforms. Normal compressibility and/or augmentation response. Visualized internal jugular and subclavian veins are patent. Left superficial veins: Unremarkable. Visualized cephalic and basilic veins are patent without thrombus. Soft tissues: Unremarkable. IMPRESSION: No deep venous thrombus demonstrated in the left upper extremity. Electronically signed by: Fernie Hobbs On 08/19/2020 14:22:52 PM
[2020-08-19 16:00] VITALS: BP 172/108
[2020-08-19 16:22] LABS: ACETYLCHOLINE RCPTOR BINDING A 0.05 nmol/L (0.00-0.24); ACETYLCHOLINE RCPTOR BLOCK AB 22 % (0-25); ACETYLCHOLINE RCPTOR MODULATIN <12 % (0-20); STRIATIONAL ANTIBODIES Negative (Neg:<1:40)
--- NOTE | 2020-08-19 16:56 | REPVR ---
PROCEDURE INFORMATION: Exam: XR Left Hand Exam date and time: 08/19/2020 4:42 PM Age: 70 years old Clinical indication: Swelling; Hand; Left; Additional info: Left hand swelling TECHNIQUE: Imaging protocol: XR Left hand. Views: 1 or 2 views. COMPARISON: No relevant prior studies available. FINDINGS: Bones/joints: Degenerative changes of the intracarpal joints. Degenerative changes of the interphalangeal joints, most prominent at the distal interphalangeal joints. Soft tissues: No radiopaque foreign body. Severe soft tissue edema of the hand. No acute fracture. 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 Severe soft tissue edema of the hand. No radiopaque foreign body. No acute fracture. Electronically signed by: Eusebio Gerber On 08/19/2020 16:55:45 PM
[2020-08-19] MEDS: POTASSIUM CHLORIDE 10 MEQ SR TABLET PO ONE ×2 (17:30→17:43)
[2020-08-19] MEDS: ENOXAPARIN 40MG/0.4ML SYRINGE (J1650 PER 10MG) SC SCH (17:42)
[2020-08-19] MEDS: BOUDREAUX'S BUTT PASTE TOP PRN (17:45)
[2020-08-19] MEDS ORDERED: KCL 10MEQ/100ML SWI (KRUN) 10 MEQ in IV 1 EA IV ONE (19:00)
[2020-08-19 20:00] VITALS: BP 178/64
[2020-08-19] MEDS: QUEtiapine FUMARATE 12.5 MG HALF-TAB PO SCH (21:10)
[2020-08-20 04:00] VITALS: BP 148/92
[2020-08-20] MEDS: SLF 3 ML SYR IV SCH ×3 (06:00→20:44)
[2020-08-20 07:41] LABS: BASO % 0.5 % (0.0-1.0); EOS # 0.1 10^3/uL (0.0-0.5); EOS % 1.4 % (0.0-3.0); HEMATOCRIT 31.8 % (36.0-47.0); HEMOGLOBIN 10.3 g/dl (12.0-15.5); LYMPH # 1.4 10^3/uL (1.5-5.0); LYMPH % 23.7 % (24.0-44.0); MEAN CORPUSCULAR HEMOGLOBIN 32.2 pg (27.0-33.0); MEAN CORPUSCULAR HGB CONC 32.4 g/dl (32.0-36.5); MEAN CORPUSCULAR VOLUME 99.4 fl (80.0-96.0); MONO # 0.8 10^3/uL (0.0-0.8); MONO % 14.3 % (0.0-5.0); NEUTROPHILS # 3.4 10^3/uL (1.5-8.5); NEUTROPHILS % 59.4 % (36.0-66.0); PLATELET COUNT, AUTOMATED 332 10^3/uL (150-450); WHITE BLOOD COUNT 5.7 10^3/uL (4.0-10.0)
[2020-08-20 08:00] VITALS: BP 162/90
[2020-08-20 08:05] LABS: C REACTIVE PROTEIN QUANTITATIV 1.6 MG/DL (0.00-0.30); MAGNESIUM LEVEL 1.8 MG/DL (1.8-2.4)
[2020-08-20 08:08] LABS: BLOOD UREA NITROGEN 9 MG/DL (7-18); CALCIUM LEVEL 8.3 MG/DL (8.8-10.2); CARBON DIOXIDE LEVEL 26 MEQ/L (21-32); CHLORIDE LEVEL 107 MEQ/L (98-107); CREATININE FOR GFR 0.63 MG/DL (0.55-1.30); GLOMERULAR FILTRATION RATE > 60.0 (>45); GLUCOSE, FASTING 78 MG/DL (70-100); POTASSIUM SERUM 3.1 MEQ/L (3.5-5.1); SODIUM LEVEL 139 MEQ/L (136-145)
[2020-08-20] MEDS: DOCUSATE SODIUM 100 MG CAP PO SCH ×2 (10:00→10:22)
[2020-08-20] MEDS: FOLIC ACID 1 MG TAB PO SCH ×2 (10:00→10:20)
[2020-08-20] MEDS: MULTIVITAMINS/MINERALS THERAP 1 TAB PO SCH ×2 (10:00→10:20)
[2020-08-20] MEDS: lisinopriL 10 MG TAB PO SCH ×2 (10:00→10:21)
[2020-08-20] MEDS: THIAMINE 100 MG TAB PO SCH ×2 (10:00→10:21)
[2020-08-20] MEDS: busPIRone 5 MG TAB PO SCH ×4 (10:00→20:44)
[2020-08-20] MEDS: PANTOPRAZOLE 40MG VIAL (C9113 PER 1) IV SCH ×2 (10:20→20:44)
[2020-08-20] MEDS: ACETAMINOPHEN 650 MG SUPP PR PRN (10:21)
[2020-08-20] MEDS ORDERED: POTASSIUM CHLORIDE 10 MEQ SR TABLET PO ONE (12:45)
[2020-08-20] MEDS: ENOXAPARIN 40MG/0.4ML SYRINGE (J1650 PER 10MG) SC SCH (14:06)
[2020-08-20] MEDS: KCL 10MEQ/100ML SWI (KRUN) 10 MEQ in IV 1 EA IV SCH ×3 (14:07→16:20)
[2020-08-20 16:00] VITALS: BP 166/88
--- NOTE | 2020-08-20 17:01 | IPNPDOC ---
Text Note Date of Service The patient was seen on 08/20/20. NOTE Subjective: Patient is a 69 year old female who was abdominal pain with large ventral hernia and imaging showing splenic infarct without necessary surgical correction. She progressed well and was about to be discharged but experienced a hypotensive episode on 07/17 requiring fluid administration. Patient continued to experience nausea and vomiting, gastroenterology was called and she received an EGD / Esophagram; consistent with esophagitis / gastritis and gastroparesis. On 07/24 patient had more nausea and vomiting and repeat imaging had revealed possible partial SBO vs. LBO. Surgery was reconsulted for evaluation. Her hospital course was complicated with urinary retention and a Murphy catheter was placed. Patient was started on TPN and conservative measures were started for resolution of her obstruction. Patient has since been discontinued from TPN and is tolerating a diet; has been increasing her oral intake. Her mentation has had improvement. Patient was seen and examined at the bedside. Patient was seen and examined at the bedside. Currently, she appears to be more tearful, oriented to person, does not appear to be in any pain. Objective: Vitals (See below) General: Lying in bed, appears to be comfortable, refused to eat breakfast, oriented to person HEENT: NC, AT CVS: +S1S2 Lungs: Auscultation again reveals fair air entry. No evidence of rhonchi crackles or wheezing Abdomen: Large ventral hernia, remains nondistended, nontender Extremities: LE are without edema, - Calf tenderness Assessment and plan: Deconditioning / Weakness - possibly 2/2 deconditioning 2/2 critical illness neuropathy, possibly 2/2 GBS? - c/w Thiamine, Folate, MVI - s/p IVIG x5 days for suspected GBS; No LP completed after family did not want to subject her to additional testing - c/w Seroquel (low dose) - PT / OT on reconsult - recommended rehab - Neurology on consultation; appreciate their input s/p Acute metabolic encephalopathy - likely 2/2 infection - See below s/p Fever - possibly 2/2 PNA, possibly 2/2 UTI, possibly 2/2 Neurologic etiology? - No leukocytosis / Lactic acidosis, CRP had improved - CXR 08/10: 1. PICC line tip is in region of superior vena cava. 2. There appear to be patchy bilateral pulmonary infiltrates which could be due to edema or pneumonia. - Blood cultures (08/11): No growth at 5 days - Procalcitonin x2 negative - LP was unable to be performed; discussed with Son, Mr. Jesica Garcia, does not want any further pursuit of LP given patient's discomfort - Infectious disease on consultation; s/p Zosyn s/p Acute hypoxic respiratory failure - possibly 2/2 fluid overload, possibly 2/2 PNA - Patient is requiring 2-4L of supplemental oxygen when she was tachypneic - ABG completed on 2L noted - c/w supplemental oxygen and continuous pulse oximetry - Has had significant diuresis - s/p Furosemide Generalized anxiety - c/w Buspirone Poor oral intake - s/p D5 NS - c/w Modified diet s/p UTI - Urine cultures (08/01): positive for E. Coli / Strep - s/p Ceftriaxone - ID on consultation; appreciate their input s/p Nausea and vomiting - possibly 2/2 partial SBO - s/p NG tube - Bowel movements noted regularly - c/w Bowel regimen; Docusate / Bisacodyl - Dr. 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 Bianchi (Vascular surgery) and Dr. Jose (Radiology)- splenic infarction and possible occlusion of splenic artery vs tortuous vessel vs positional - no surgery/stenting recommended. - Coagulopathy workup - negative - Appreciate vascular surgery recommendations; c/w anti-emetics and pain control Urinary retention - likely 2/2 partial SBO / ileus - Patient had trial of Murphy catheter removal - had failed and had recurrent retention - s/p Murphy; c/w straight catheterization as needed Gastroparesis - Diagnosed on barium esophagram - c/w Reglan and gastroparesis diet - Gastroenterology on consultation Esophagitis/gastritis - c/w PPI - Gastroenterology on consultation Hx of suspected ventricular tachycardia on telemetry - [employer] medical secretary receptionist has interrogated device with no concerning findings - Prior Dr. Foster patient, however was discharged from practice after failure to followup HTN - BP moderately controlled - s/p Lisinopril - s/p Hydralazine IV with adjusted hold parameters (SBP > 180) Hx SSS - s/p PPM in place Hx of AAA Protein calorie malnutrition - Poor oral intake - Albumin of 2.1 - Continue to encourage PO intake GI prophylaxis - c/w Protonix DVT prophylaxis - c/w Lovenox Disposition: - Physical therapy work with patient with son at the bedside; current recrimination from physical therapy is [place] lift, Hospital bed and Wheelchair while at home - Family has reported that they are able to provide 24/7 care as patient is to winnie assistance including feeding - Plan for establishing medical equipment at home prior to discharge VS,Pinky, I+O VS, Pinky, I+O Laboratory Tests 08/20/20 07:29 Vital Signs Date Time Temp Pulse Resp B/P (MAP) Pulse Ox O2 Delivery O2 Flow Rate FiO2 08/20/20 16:00 98.2 86 22 166/88 (114) 92 Room Air 08/19/20 08:00 3.0 I&O- Last 24 Hours up to 6 AM 08/20/20 06:00 Intake Total 370 ml Output Total 1000 ml Balance -630 ml ROBERTO MONTGOMERY MD Aug 20, 2020 17:01
[2020-08-20 18:32] LABS: BLOOD UREA NITROGEN 11 MG/DL (7-18); CALCIUM LEVEL 8.4 MG/DL (8.8-10.2); CARBON DIOXIDE LEVEL 24 MEQ/L (21-32); CHLORIDE LEVEL 108 MEQ/L (98-107); CREATININE FOR GFR 0.76 MG/DL (0.55-1.30); GLOMERULAR FILTRATION RATE > 60.0 (>45); GLUCOSE, FASTING 81 MG/DL (70-100); POTASSIUM SERUM 3.9 MEQ/L (3.5-5.1); SODIUM LEVEL 140 MEQ/L (136-145)
[2020-08-20 20:00] VITALS: BP 104/81
[2020-08-20] MEDS: QUEtiapine FUMARATE 12.5 MG HALF-TAB PO SCH (20:43)
[2020-08-21 04:00] VITALS: BP 154/88
[2020-08-21] MEDS: SLF 3 ML SYR IV SCH ×3 (06:05→21:43)
[2020-08-21 06:57] VITALS: BP 148/88
[2020-08-21 07:28] LABS: HEMATOCRIT 32.3 % (36.0-47.0); HEMOGLOBIN 10.5 g/dl (12.0-15.5); MEAN CORPUSCULAR HGB CONC 32.5 g/dl (32.0-36.5); MEAN CORPUSCULAR VOLUME 98.5 fl (80.0-96.0); PLATELET COUNT, AUTOMATED 321 10^3/uL (150-450); RED BLOOD COUNT 3.28 10^6/uL (4.00-5.40); WHITE BLOOD COUNT 5.6 10^3/uL (4.0-10.0)
[2020-08-21 07:46] LABS: BLOOD UREA NITROGEN 9 MG/DL (7-18); CALCIUM LEVEL 8.4 MG/DL (8.8-10.2); CARBON DIOXIDE LEVEL 25 MEQ/L (21-32); CHLORIDE LEVEL 107 MEQ/L (98-107); CREATININE FOR GFR 0.69 MG/DL (0.55-1.30); GLOMERULAR FILTRATION RATE > 60.0 (>45); GLUCOSE, FASTING 79 MG/DL (70-100); MAGNESIUM LEVEL 1.8 MG/DL (1.8-2.4); POTASSIUM SERUM 3.4 MEQ/L (3.5-5.1); SODIUM LEVEL 140 MEQ/L (136-145)
[2020-08-21 08:00] VITALS: BP 158/90
[2020-08-21] MEDS: DOCUSATE SODIUM 100 MG CAP PO SCH (08:40)
[2020-08-21] MEDS: PANTOPRAZOLE 40MG VIAL (C9113 PER 1) IV SCH ×2 (08:40→21:43)
[2020-08-21] MEDS: MULTIVITAMINS/MINERALS THERAP 1 TAB PO SCH ×2 (08:40→09:00)
[2020-08-21] MEDS: busPIRone 5 MG TAB PO SCH ×3 (08:41→21:43)
[2020-08-21] MEDS: THIAMINE 100 MG TAB PO SCH (08:41)
[2020-08-21] MEDS: FOLIC ACID 1 MG TAB PO SCH (08:41)
[2020-08-21] MEDS: lisinopriL 10 MG TAB PO SCH (08:42)
[2020-08-21] MEDS: POTASSIUM CHLORIDE 10 MEQ SR TABLET PO ONE ×2 (08:45→09:05)
[2020-08-21 08:56] LABS: C REACTIVE PROTEIN QUANTITATIV 1.62 MG/DL (0.00-0.30)
[2020-08-21] MEDS ORDERED: POTASSIUM CHLORIDE 10% LIQ 20 MEQ/15 ML UDC PO ONE (10:45)
[2020-08-21 12:00] VITALS: BP 118/82
[2020-08-21] MEDS: ENOXAPARIN 40MG/0.4ML SYRINGE (J1650 PER 10MG) SC SCH (14:35)
--- NOTE | 2020-08-21 15:39 | ECGEPIP ---
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 SEE SCANNED DOWNTIME REPORT
--- NOTE | 2020-08-21 16:02 | IPNPDOC ---
Text Note Date of Service The patient was seen on 08/21/20. NOTE Subjective: Patient is a 69 year old female who was abdominal pain with large ventral hernia and imaging showing splenic infarct without necessary surgical correction. She progressed well and was about to be discharged but experienced a hypotensive episode on 07/17 requiring fluid administration. Patient continued to experience nausea and vomiting, gastroenterology was called and she received an EGD / Esophagram; consistent with esophagitis / gastritis and gastroparesis. On 07/24 patient had more nausea and vomiting and repeat imaging had revealed possible partial SBO vs. LBO. Surgery was reconsulted for evaluation. Her hospital course was complicated with urinary retention and a Murphy catheter was placed. Patient was started on TPN and conservative measures were started for resolution of her obstruction. Patient has since been discontinued from TPN and is tolerating a diet; has been increasing her oral intake. Her mentation has had improvement. Patient was seen and examined at the bedside. Patient is oriented to person, place and year. Unsure if with the president is. Denies any pain. Objective: Vitals (See below) General: Lying in bed, appears to be comfortable, AAOx3 HEENT: NC, AT CVS: +S1S2 Lungs: Air entry appears to be fair bilaterally, without any auscultated rhonchi crackles or wheezing Abdomen: Ventral hernia unchanged. Abdomen is soft without distention or tenderness Extremities: No edema is appreciated at bilateral lower extremities, - Calf tenderness Assessment and plan: Deconditioning / Weakness - possibly 2/2 deconditioning 2/2 critical illness neuropathy, possibly 2/2 GBS? - c/w Thiamine, Folate, MVI - s/p IVIG x5 days for suspected GBS; No LP completed after family did not want to subject her to additional testing - c/w Seroquel (low dose) - Neurology on consultation; appreciate their input - Physical therapy and occupational therapy on consultation s/p Acute metabolic encephalopathy - likely 2/2 infection - See below s/p Fever - possibly 2/2 PNA, possibly 2/2 UTI, possibly 2/2 Neurologic etiology? - No leukocytosis / Lactic acidosis, CRP had improved - CXR 08/10: 1. PICC line tip is in region of superior vena cava. 2. There appear to be patchy bilateral pulmonary infiltrates which could be due to edema or pneumonia. - Blood cultures (08/11): No growth at 5 days - Procalcitonin x2 negative - LP was unable to be performed; discussed with Son, Mr. Jesica Garcia, does not want any further pursuit of LP given patient's discomfort - Infectious disease on consultation; s/p Zosyn s/p Acute hypoxic respiratory failure - possibly 2/2 fluid overload, possibly 2/2 PNA - s/p supplemental oxygen - s/p Furosemide Generalized anxiety - c/w Buspirone Poor oral intake - s/p D5 NS - c/w Modified diet s/p UTI - Urine cultures (08/01): positive for E. Coli / Strep - s/p Ceftriaxone - ID on consultation; appreciate their input s/p Nausea and vomiting - possibly 2/2 partial SBO - s/p NG tube - Bowel movements noted regularly - c/w Bowel regimen; Docusate / Bisacodyl - Dr. 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 Bianchi (Vascular surgery) and Dr. Jose (Radiology)- splenic infarction and possible occlusion of splenic artery vs tortuous vessel vs positional - no surgery/stenting recommended. - Coagulopathy workup - negative - Appreciate vascular surgery recommendations; c/w anti-emetics and pain control Urinary retention - likely 2/2 partial SBO / ileus - Patient had trial of Murphy catheter removal - had failed and had recurrent retention - s/p Murphy; c/w straight catheterization as needed Gastroparesis - Diagnosed on barium esophagram - c/w Reglan and gastroparesis diet - Gastroenterology on consultation Esophagitis/gastritis - c/w PPI - Gastroenterology on consultation Hx of suspected ventricular tachycardia on telemetry - [facility] medical van driver has interrogated device with no concerning findings - Prior Dr. Foster patient, however was discharged from practice after failure to followup HTN - BP moderately controlled - s/p Lisinopril - s/p Hydralazine IV with adjusted hold parameters (SBP > 180) Hx SSS - s/p PPM in place Hx of AAA Protein calorie malnutrition - Poor oral intake - Albumin of 2.1 - Continue to encourage PO intake GI prophylaxis - c/w Protonix DVT prophylaxis - c/w Lovenox Disposition: - Family has reported that they are able to provide 24/7 care as patient is total assistance including feeding - PFS working on solution to transition patient home; family does not want to pursue longterm as an option - Will discuss with family (son and son's mother in law) about details and requirements on discharge Pinky MARTINEZ, I+O Pinky MARTINEZ I+O Laboratory Tests 08/20/20 17:59 08/21/20 07:13 Vital Signs Date Time Temp Pulse Resp B/P (MAP) Pulse Ox O2 Delivery O2 Flow Rate FiO2 08/21/20 12:00 97.6 83 20 118/82 (94) 95 Room Air 08/19/20 08:00 3.0 I&O- Last 24 Hours up to 6 AM 08/21/20 06:00 Intake Total 600 ml Output Total 1850 ml Balance -1250 ml ROBERTO MONTGOMERY MD Aug 21, 2020 16:02
[2020-08-21 20:00] VITALS: BP 120/75
[2020-08-21] MEDS: QUEtiapine FUMARATE 12.5 MG HALF-TAB PO SCH (21:43)
[2020-08-22 04:00] VITALS: BP 142/95
[2020-08-22 06:05] LABS: HEMATOCRIT 30.8 % (36.0-47.0); MEAN CORPUSCULAR HEMOGLOBIN 32.2 pg (27.0-33.0); MEAN CORPUSCULAR HGB CONC 32.5 g/dl (32.0-36.5); PLATELET COUNT, AUTOMATED 290 10^3/uL (150-450); RED BLOOD COUNT 3.11 10^6/uL (4.00-5.40); WHITE BLOOD COUNT 4.8 10^3/uL (4.0-10.0)
[2020-08-22] MEDS: SLF 3 ML SYR IV SCH ×3 (06:21→21:17)
[2020-08-22 06:26] LABS: BLOOD UREA NITROGEN 13 MG/DL (7-18); CALCIUM LEVEL 8.3 MG/DL (8.8-10.2); CARBON DIOXIDE LEVEL 27 MEQ/L (21-32); CHLORIDE LEVEL 109 MEQ/L (98-107); CREATININE FOR GFR 0.98 MG/DL (0.55-1.30); GLOMERULAR FILTRATION RATE > 60.0 (>45); GLUCOSE, FASTING 84 MG/DL (70-100); MAGNESIUM LEVEL 1.9 MG/DL (1.8-2.4); POTASSIUM SERUM 3.7 MEQ/L (3.5-5.1); SODIUM LEVEL 142 MEQ/L (136-145)
[2020-08-22 08:00] VITALS: BP 150/76
[2020-08-22] MEDS: THIAMINE 100 MG TAB PO SCH (09:32)
[2020-08-22] MEDS: PANTOPRAZOLE 40MG TAB (PROTONIX) PO SCH ×2 (09:33→20:14)
[2020-08-22] MEDS: lisinopriL 10 MG TAB PO SCH (09:33)
[2020-08-22] MEDS: busPIRone 5 MG TAB PO SCH ×3 (09:33→20:13)
[2020-08-22] MEDS: DOCUSATE SODIUM 100 MG CAP PO SCH (09:33)
[2020-08-22] MEDS: FOLIC ACID 1 MG TAB PO SCH (09:33)
[2020-08-22] MEDS: MULTIVITAMINS/MINERALS THERAP 1 TAB PO SCH (09:33)
[2020-08-22 12:00] VITALS: BP 131/89
[2020-08-22] MEDS: ENOXAPARIN 40MG/0.4ML SYRINGE (J1650 PER 10MG) SC SCH (15:56)
--- NOTE | 2020-08-22 16:45 | IPNPDOC ---
Text Note Date of Service The patient was seen on 08/22/20. NOTE Subjective: Patient is a 69 year old female who was abdominal pain with large ventral hernia and imaging showing splenic infarct without necessary surgical correction. She progressed well and was about to be discharged but experienced a hypotensive episode on 07/17 requiring fluid administration. Patient continued to experience nausea and vomiting, gastroenterology was called and she received an EGD / Esophagram; consistent with esophagitis / gastritis and gastroparesis. On 07/24 patient had more nausea and vomiting and repeat imaging had revealed possible partial SBO vs. LBO. Surgery was reconsulted for evaluation. Her hospital course was complicated with urinary retention and a Murphy catheter was placed. Patient was started on TPN and conservative measures were started for resolution of her obstruction. Patient has since been discontinued from TPN and is tolerating a diet; has been increasing her oral intake. Her mentation has had improvement. Patient was seen and examined at the bedside. Currently patient appears to be comfortable, is oriented to person, place, not to time or president. Objective: Vitals (See below) General: Remains lying in bed, staring at the ceiling does not appear to be in any distress, is oriented to person, place HEENT: Head appears to be normocephalic and atraumatic, mild appears to be dry CVS: S1 and S2 are appreciated Lungs: Auscultation reveals no crackles, wheezing or rhonchi in both lung coelho Abdomen: Abdomen again, remains soft without distention. Ventral hernia is still appreciated Extremities: Lower extremities are free of any pitting edema, - Calf tenderness Assessment and plan: Deconditioning / Weakness - possibly 2/2 deconditioning 2/2 critical illness neuropathy, possibly 2/2 GBS? - s/p IVIG x5 days for suspected GBS; No LP completed after family did not want to subject her to additional testing - c/w Thiamine, Folate, MVI - c/w Seroquel (low dose) - Neurology on consultation; appreciate their input - Physical therapy and occupational therapy on consultation s/p Acute metabolic encephalopathy - likely 2/2 infection - See below s/p Fever - CXR 08/10: 1. PICC line tip is in region of superior vena cava. 2. There appear to be patchy bilateral pulmonary infiltrates which could be due to edema or pneumonia. - Procalcitonin x2 negative - Blood cultures (08/11): No growth at 5 days - Son, Mr. Jesica Garcia, does not want any further pursuit of LP because of patient's discomfort - Infectious disease on consultation; s/p Antibiotics s/p Acute hypoxic respiratory failure - possibly 2/2 fluid overload, possibly 2/2 PNA - s/p supplemental oxygen - s/p Furosemide Generalized anxiety - c/w Buspirone Poor oral intake - s/p D5 NS - c/w Modified diet s/p UTI - Urine cultures (08/01): positive for E. Coli / Strep - s/p Ceftriaxone - ID on consultation s/p Nausea and vomiting - possibly 2/2 partial SBO - s/p NG tube - Bowel movements noted regularly - c/w Bowel regimen; Docusate / Bisacodyl - Dr. 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 Bianchi (Vascular surgery) and Dr. Jose (Radiology)- splenic infarction and possible occlusion of splenic artery vs tortuous vessel vs positional - no surgery/stenting recommended. - Coagulopathy workup - negative - Appreciate vascular surgery recommendations; c/w anti-emetics and pain control Urinary retention - likely 2/2 partial SBO / ileus - Patient had trial of Murphy catheter removal - had failed and had recurrent re tention - s/p Murphy; c/w straight catheterization as needed Gastroparesis - Diagnosed on barium esophagram - c/w Reglan and gastroparesis diet - Gastroenterology on consultation Esophagitis/gastritis - c/w PPI - Gastroenterology on consultation Hx of suspected ventricular tachycardia on telemetry - [facility] medical affairs leader has interrogated device with no concerning findings - Prior Dr. Foster patient, however was discharged from practice after failure to followup HTN - BP moderately controlled - s/p Lisinopril - s/p Hydralazine IV with adjusted hold parameters (SBP > 180) Hx SSS - s/p PPM in place Hx of AAA Protein calorie malnutrition - Poor oral intake - Albumin of 2.1 - Continue to encourage PO intake GI prophylaxis - c/w Protonix; will change to PO DVT prophylaxis - c/w Lovenox Disposition: - Family has reported that they are able to provide 24/7 care as patient is total assistance including feeding - PFS working on solution to transition patient home; family does not want to pursue halfway as an option - Attempting to establish home durable medical equipment needs VSPinky, I+O VSPinky, I+O Laboratory Tests 08/22/20 05:23 Vital Signs Date Time Temp Pulse Resp B/P (MAP) Pulse Ox O2 Delivery O2 Flow Rate FiO2 08/22/20 12:00 97.3 97 20 131/89 (103) 98 08/22/20 08:00 Room Air 08/19/20 08:00 3.0 I&O- Last 24 Hours up to 6 AM 08/22/20 05:59 Intake Total 640 ml Output Total 0 ml Balance 640 ml ROBERTO MONTGOMERY MD Aug 22, 2020 16:45
[2020-08-22 17:20] VITALS: BP 127/70
[2020-08-22] MEDS: QUEtiapine FUMARATE 12.5 MG HALF-TAB PO SCH (20:13)
[2020-08-22 22:00] VITALS: BP 131/72
[2020-08-23] MEDS: SLF 3 ML SYR IV SCH ×3 (05:57→21:16)
[2020-08-23 06:00] VITALS: BP 132/76
[2020-08-23 06:42] LABS: HEMATOCRIT 29.3 % (36.0-47.0); HEMOGLOBIN 9.6 g/dl (12.0-15.5); MEAN CORPUSCULAR HEMOGLOBIN 31.9 pg (27.0-33.0); MEAN CORPUSCULAR HGB CONC 32.8 g/dl (32.0-36.5); MEAN CORPUSCULAR VOLUME 97.3 fl (80.0-96.0); PLATELET COUNT, AUTOMATED 299 10^3/uL (150-450); RED BLOOD COUNT 3.01 10^6/uL (4.00-5.40); WHITE BLOOD COUNT 5.8 10^3/uL (4.0-10.0)
[2020-08-23 06:55] LABS: BLOOD UREA NITROGEN 15 MG/DL (7-18); CALCIUM LEVEL 8.4 MG/DL (8.8-10.2); CARBON DIOXIDE LEVEL 25 MEQ/L (21-32); CHLORIDE LEVEL 110 MEQ/L (98-107); GLOMERULAR FILTRATION RATE > 60.0 (>45); GLUCOSE, FASTING 82 MG/DL (70-100); MAGNESIUM LEVEL 1.6 MG/DL (1.8-2.4); POTASSIUM SERUM 3.5 MEQ/L (3.5-5.1); SODIUM LEVEL 139 MEQ/L (136-145)
[2020-08-23] MEDS ORDERED: MAG SULF 1GM/100ML (MAG RUN) 1 GM in IV 1 EA IV ONE (07:15)
[2020-08-23] MEDS: POTASSIUM CHLORIDE 10% LIQ 20 MEQ/15 ML UDC PO ONE ×2 (08:24→08:35)
[2020-08-23] MEDS: DOCUSATE SODIUM 100 MG CAP PO SCH (08:26)
[2020-08-23] MEDS: PANTOPRAZOLE 40MG TAB (PROTONIX) PO SCH ×2 (08:26→20:21)
[2020-08-23] MEDS: MULTIVITAMINS/MINERALS THERAP 1 TAB PO SCH (08:26)
[2020-08-23] MEDS: lisinopriL 10 MG TAB PO SCH (08:27)
[2020-08-23] MEDS: THIAMINE 100 MG TAB PO SCH (08:27)
[2020-08-23] MEDS: FOLIC ACID 1 MG TAB PO SCH (08:27)
[2020-08-23] MEDS ORDERED: busPIRone 5 MG TAB PO SCH (09:00)
--- NOTE | 2020-08-23 12:05 | IPNPDOC ---
Text Note Date of Service The patient was seen on 08/23/20. NOTE Subjective: Patient is a 69 year old female who was abdominal pain with large ventral hernia and imaging showing splenic infarct without necessary surgical correction. She progressed well and was about to be discharged but experienced a hypotensive episode on 07/17 requiring fluid administration. Patient continued to experience nausea and vomiting, gastroenterology was called and she received an EGD / Esophagram; consistent with esophagitis / gastritis and gastroparesis. On 07/24 patient had more nausea and vomiting and repeat imaging had revealed possible partial SBO vs. LBO. Surgery was reconsulted for evaluation. Her hospital course was complicated with urinary retention and a Murphy catheter was placed. Patient was started on TPN and conservative measures were started for resolution of her obstruction. Patient has since been discontinued from TPN and is tolerating a diet; has been increasing her oral intake. Her mentation has had improvement. Patient was seen and examined at the bedside. Currently, patient appears to be comfortable, oriented to person and place, not to time or president. Objective: Vitals (See below) General: Patient remains laying in bed, appears to be comfortable, is awake, alert and oriented to person and place HEENT: Oral mucosa appears dry CVS: Positive S1, S2 Lungs: There does not appear to be any auscultated or rhonchi crackles or wheezing Abdomen: Ventral hernia present, nondistended and nontender Extremities: No edema appreciated at lower extremities, - Calf tenderness Assessment and plan: Deconditioning / Weakness - possibly 2/2 deconditioning 2/2 critical illness neuropathy, possibly 2/2 GBS? - s/p IVIG x5 days for suspected GBS; No LP completed after family did not want to subject her to additional testing - c/w Thiamine, Folate, MVI - c/w Seroquel - Neurology on consultation; appreciate their input - Physical therapy and occupational therapy on consultation s/p Acute metabolic encephalopathy - likely 2/2 infection - See below s/p Fever - CXR 08/10: 1. PICC line tip is in region of superior vena cava. 2. There appear to be patchy bilateral pulmonary infiltrates which could be due to edema or pneumonia. - Procalcitonin x2 negative - Blood cultures (08/11): No growth at 5 days - Son, Mr. Jesica Garcia, does not want any further pursuit of LP because of patient's discomfort - discussed risks / benefits; verbalized understanding - Infectious disease on consultation; s/p Antibiotics s/p Acute hypoxic respiratory failure - possibly 2/2 fluid overload, possibly 2/2 PNA - s/p supplemental oxygen - s/p Furosemide Generalized anxiety - c/w Buspirone; will restart dose back to 3 times a day dosing Poor oral intake - s/p D5 NS - c/w Modified diet s/p UTI - Urine cultures (08/01): positive for E. Coli / Strep - s/p Ceftriaxone - ID on consultation s/p Nausea and vomiting - possibly 2/2 partial SBO - s/p NG tube - Bowel movements noted regularly - c/w Bowel regimen; Docusate / Bisacodyl - Dr. 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 Bianchi (Vascular surgery) and Dr. Jose (Radiology)- splenic infarction and possible occlusion of splenic artery vs tortuous vessel vs positional - no surgery/stenting recommended. - Coagulopathy workup - negative - Appreciate vascular surgery recommendations; c/w anti-emetics and pain control Urinary retention - likely 2/2 partial SBO / ileus - Patient had trial of Murphy catheter removal - had failed and had recurrent retention - s/p Murphy; c/w straight catheterization as needed Gastroparesis - Diagnosed on barium esophagram - s/p Reglan - c/w Gastroparesis diet - Gastroenterology on consultation Esophagitis/gastritis - c/w PPI - Gastroenterology on consultation Hx of suspected ventricular tachycardia on telemetry - [employer] medical research associate has interrogated device with no concerning findings - Prior Dr. Foster patient, however was discharged from practice after failure to followup HTN - BP moderately controlled - s/p Lisinopril - s/p Hydralazine IV with adjusted hold parameters (SBP > 180) Hx SSS - s/p PPM in place Hx of AAA Protein calorie malnutrition - Poor oral intake - Albumin of 2.1 - Continue to encourage PO intake GI prophylaxis - c/w Protonix DVT prophylaxis - c/w Lovenox Disposition: - Family has reported that they are able to provide 24/7 care as patient is total assistance including feeding - PFS working on solution to transition patient home; family does not want to pursue care home as an option - Discussed with son today about goals of care; addressed all their questions and concerns Pinky MARTINEZ, I+O VSPinky I+O Laboratory Tests 08/23/20 06:16 Vital Signs Date Time Temp Pulse Resp B/P (MAP) Pulse Ox O2 Delivery O2 Flow Rate FiO2 08/23/20 08:27 137/81 08/23/20 06:00 98.7 84 20 97 Room Air 08/19/20 08:00 3.0 I&O- Last 24 Hours up to 6 AM 08/23/20 06:00 Intake Total 748 ml Output Total 800 ml Balance -52 ml ROBERTO MONTGOMERY MD Aug 23, 2020 12:05
[2020-08-23 14:00] VITALS: BP 120/63
[2020-08-23] MEDS: busPIRone 5 MG TAB PO SCH ×2 (15:16→20:21)
[2020-08-23] MEDS: ENOXAPARIN 40MG/0.4ML SYRINGE (J1650 PER 10MG) SC SCH (15:16)
[2020-08-23 18:50] LABS: C REACTIVE PROTEIN QUANTITATIV 0.84 MG/DL (0.00-0.30)
[2020-08-23] MEDS: QUEtiapine FUMARATE 12.5 MG HALF-TAB PO SCH (20:21)
[2020-08-23 22:00] VITALS: BP 141/80
[2020-08-24] MEDS: SLF 3 ML SYR IV SCH ×3 (05:10→20:30)
[2020-08-24 06:00] VITALS: BP 148/90
[2020-08-24 06:41] LABS: HEMATOCRIT 29.2 % (36.0-47.0); HEMOGLOBIN 9.5 g/dl (12.0-15.5); MEAN CORPUSCULAR HEMOGLOBIN 32.1 pg (27.0-33.0); MEAN CORPUSCULAR HGB CONC 32.5 g/dl (32.0-36.5); MEAN CORPUSCULAR VOLUME 98.6 fl (80.0-96.0); PLATELET COUNT, AUTOMATED 278 10^3/uL (150-450); RED BLOOD COUNT 2.96 10^6/uL (4.00-5.40); WHITE BLOOD COUNT 5.2 10^3/uL (4.0-10.0)
[2020-08-24 07:09] LABS: BLOOD UREA NITROGEN 14 MG/DL (7-18); CARBON DIOXIDE LEVEL 26 MEQ/L (21-32); CHLORIDE LEVEL 111 MEQ/L (98-107); GLOMERULAR FILTRATION RATE > 60.0 (>45); GLUCOSE, FASTING 83 MG/DL (70-100); POTASSIUM SERUM 3.5 MEQ/L (3.5-5.1); SODIUM LEVEL 143 MEQ/L (136-145)
[2020-08-24] MEDS: busPIRone 5 MG TAB PO SCH ×3 (08:28→20:30)
[2020-08-24] MEDS: PANTOPRAZOLE 40MG TAB (PROTONIX) PO SCH ×2 (08:28→20:30)
[2020-08-24] MEDS: lisinopriL 10 MG TAB PO SCH (08:29)
[2020-08-24] MEDS: FOLIC ACID 1 MG TAB PO SCH (08:29)
[2020-08-24] MEDS: MULTIVITAMINS/MINERALS THERAP 1 TAB PO SCH (08:29)
[2020-08-24] MEDS: THIAMINE 100 MG TAB PO SCH (08:29)
--- NOTE | 2020-08-24 08:39 | IPNPDOC ---
Text Note Date of Service The patient was seen on 08/24/20. NOTE Subjective: Patient is a 69 year old female who was abdominal pain with large ventral hernia and imaging showing splenic infarct without necessary surgical correction. She progressed well and was about to be discharged but experienced a hypotensive episode on 07/17 requiring fluid administration. Patient continued to experience nausea and vomiting, gastroenterology was called and she received an EGD / Esophagram; consistent with esophagitis / gastritis and gastroparesis. On 07/24 patient had more nausea and vomiting and repeat imaging had revealed possible partial SBO vs. LBO. Surgery was reconsulted for evaluation. Her hospital course was complicated with urinary retention and a Murphy catheter was placed. Patient was started on TPN and conservative measures were started for resolution of her obstruction. Patient has since been discontinued from TPN and is tolerating a diet; has been increasing her oral intake. Her mentation has had improvement. Patient was seen and examined at the bedside. Currently, patient is oriented to person, place and president, unsure of the time. Denies any pain, and is able to follow commands. Objective: Vitals (See below) General: Patient is lying in bed. She is awake, alert, oriented to person, place and president HEENT: Poor dentition. Oral mucosa appears dry CVS: + S1, S2 Lungs: Auscultation does not reveal crackles, wheezing or rhonchi. Appears to be fair bilaterally Abdomen: Abdomen again is soft with a ventral hernia is present. No distention or tenderness Extremities: Lower sugars are without any edema; left dorsal surface of hand does have mild swelling - no significant tenderness, right wrist with small area of swelling - no significant tenderness, - Calf tenderness Assessment and plan: Deconditioning / Weakness - possibly 2/2 deconditioning 2/2 critical illness neuropathy, possibly 2/2 GBS? - s/p IVIG x5 days for suspected GBS; No LP completed after family did not want to subject her to additional testing - c/w Thiamine, Folate, MVI - c/w Seroquel - Neurology on consultation; appreciate their input - c/w PT and OT; will follow their recommendations s/p Acute metabolic encephalopathy - likely 2/2 infection - See below s/p Fever - CXR 08/10: 1. PICC line tip is in region of superior vena cava. 2. There appear to be patchy bilateral pulmonary infiltrates which could be due to edema or pneumonia. - Procalcitonin x2 negative - Blood cultures (08/11): No growth at 5 days - Son, Mr. Jesica Garcia, does not want any further pursuit of LP because of patient's discomfort - discussed risks / benefits; verbalized understanding - Infectious disease on consultation; s/p Antibiotics s/p Acute hypoxic respiratory failure - possibly 2/2 fluid overload, possibly 2/2 PNA - s/p supplemental oxygen - s/p Furosemide Generalized anxiety - c/w Buspirone Poor oral intake - s/p D5 NS - c/w Modified diet s/p UTI - Urine cultures (08/01): positive for E. Coli / Strep s/p Nausea and vomiting - possibly 2/2 partial SBO - Bowel movements noted regularly - c/w Bowel regimen - Dr. 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 Bianchi (Vascular surgery) and Dr. Jose (Radiology)- splenic infarction and possible occlusion of splenic artery vs tortuous vessel vs positional - no surgery/stenting recommended. - Coagulopathy workup - negative - Appreciate vascular surgery recommendations; c/w anti-emetics and pain control Urinary retention - Patient had trial of Murphy catheter removal - had failed and had recurrent retention - s/p Murphy; c/w straight catheterization as needed - Will have outpatient follow-up with urology Gastroparesis - Diagnosed on barium esophagram - s/p Reglan - c/w Gastroparesis diet - Gastroenterology on consultation Esophagitis/gastritis - c/w PPI - Gastroenterology on consultation Hx of suspected ventricular tachycardia on telemetry - [facility] [facility] rn medical surgical has interrogated device with no concerning findings - Prior Dr. Foster patient, however was discharged from practice after failure to followup HTN - BP well controlled - c/w Lisinopril Hx SSS - s/p PPM in place Hx of AAA Protein calorie malnutrition - Poor oral intake - Albumin of 2.1 - Continue to encourage PO intake GI prophylaxis - c/w Protonix DVT prophylaxis - c/w Lovenox Disposition: - Family has reported that they are able to provide 24/7 care as patient is total assistance including feeding - PFS working on solution to transition patient home; family does not want to pu rsue group home as an option - Will call son and provide further updates today VS,Gurdeepbone, I+O VS, Gurdeepbone, I+O Laboratory Tests 08/24/20 06:10 Vital Signs Date Time Temp Pulse Resp B/P (MAP) Pulse Ox O2 Delivery O2 Flow Rate FiO2 08/24/20 08:29 121/81 08/24/20 06:00 98.4 70 18 95 Room Air 08/19/20 08:00 3.0 I&O- Last 24 Hours up to 6 AM 08/24/20 06:00 Intake Total 250 ml Output Total 10 ml Balance 240 ml ROBERTO MONTGOMERY MD Aug 24, 2020 08:38
[2020-08-24] MEDS: DOCUSATE SODIUM 100 MG CAP PO SCH (08:49)
[2020-08-24 14:00] VITALS: BP 125/80
[2020-08-24] MEDS: ENOXAPARIN 40MG/0.4ML SYRINGE (J1650 PER 10MG) SC SCH (14:09)
[2020-08-24] MEDS: QUEtiapine FUMARATE 12.5 MG HALF-TAB PO SCH (20:30)
[2020-08-24 22:00] VITALS: BP 127/81
[2020-08-25] MEDS: SLF 3 ML SYR IV SCH ×3 (05:20→20:37)
[2020-08-25 06:00] VITALS: BP 134/84
[2020-08-25 06:06] LABS: HEMATOCRIT 28.1 % (36.0-47.0); HEMOGLOBIN 9.3 g/dl (12.0-15.5); MEAN CORPUSCULAR HEMOGLOBIN 32.6 pg (27.0-33.0); MEAN CORPUSCULAR HGB CONC 33.1 g/dl (32.0-36.5); MEAN CORPUSCULAR VOLUME 98.6 fl (80.0-96.0); PLATELET COUNT, AUTOMATED 265 10^3/uL (150-450); RED BLOOD COUNT 2.85 10^6/uL (4.00-5.40); WHITE BLOOD COUNT 6.3 10^3/uL (4.0-10.0)
[2020-08-25 06:33] LABS: CALCIUM LEVEL 8.2 MG/DL (8.8-10.2); CREATININE FOR GFR 1.04 MG/DL (0.55-1.30); GLOMERULAR FILTRATION RATE 56.1 (>45); MAGNESIUM LEVEL 2.1 MG/DL (1.8-2.4); POTASSIUM SERUM 3.4 MEQ/L (3.5-5.1)
[2020-08-25] MEDS ORDERED: POTASSIUM CHLORIDE 10% LIQ 20 MEQ/15 ML UDC PO ONE (07:00)
[2020-08-25 07:17] LABS: C REACTIVE PROTEIN QUANTITATIV 2.05 MG/DL (0.00-0.30)
[2020-08-25] MEDS: MULTIVITAMINS/MINERALS THERAP 1 TAB PO SCH (08:08)
[2020-08-25] MEDS: PANTOPRAZOLE 40MG TAB (PROTONIX) PO SCH ×2 (08:08→20:40)
[2020-08-25] MEDS: THIAMINE 100 MG TAB PO SCH (08:08)
[2020-08-25] MEDS: lisinopriL 10 MG TAB PO SCH (08:09)
[2020-08-25] MEDS: FOLIC ACID 1 MG TAB PO SCH (08:10)
[2020-08-25] MEDS: DOCUSATE SODIUM 100 MG CAP PO SCH (08:10)
[2020-08-25] MEDS: busPIRone 5 MG TAB PO SCH ×3 (08:10→20:40)
--- NOTE | 2020-08-25 10:22 | IPNPDOC ---
Text Note Date of Service The patient was seen on 08/25/20. NOTE Subjective: Patient is a 69 year old female who was abdominal pain with large ventral hernia and imaging showing splenic infarct without necessary surgical correction. She progressed well and was about to be discharged but experienced a hypotensive episode on 07/17 requiring fluid administration. Patient continued to experience nausea and vomiting, gastroenterology was called and she received an EGD / Esophagram; consistent with esophagitis / gastritis and gastroparesis. On 07/24 patient had more nausea and vomiting and repeat imaging had revealed possible partial SBO vs. LBO. Surgery was reconsulted for evaluation. Her hospital course was complicated with urinary retention and a Murphy catheter was placed. Patient was started on TPN and conservative measures were started for resolution of her obstruction. Patient has since been discontinued from TPN and is tolerating a diet; has been increasing her oral intake. Her mentation has had improvement. Patient was seen and examined at the bedside. Patient is oriented to person and place. Today appears to be tearful. Denies any pain. Objective: Vitals (See below) General: Lying flat in bed, staring at the ceiling oriented to person, place HEENT: Oral mucosa appears to be dry, poor dentition CVS: + S1, S2 Lungs: Again, auscultation does not reveal any crackles, rhonchi or wheezing Abdomen: Ventral hernia. Abdomen is soft, nondistended and nontender Extremities: No edema of lower extremities appreciated; area of the left dorsal hand with mild swelling - improving; area of right wrist, mild swelling - improving; - Calf tenderness Assessment and plan: Deconditioning / Weakness - possibly 2/2 deconditioning 2/2 critical illness neuropathy, possibly 2/2 GBS? - s/p IVIG x5 days for suspected GBS; No LP completed after family did not want to subject her to additional testing - c/w Thiamine, Folate, MVI - c/w Seroquel - Neurology on consultation; appreciate their input - c/w PT and OT - Anticipate discharge within the next 24-48 hours; once home requirements have been established s/p Acute metabolic encephalopathy - likely 2/2 infection - See below s/p Fever - CXR 08/10: 1. PICC line tip is in region of superior vena cava. 2. There appear to be patchy bilateral pulmonary infiltrates which could be due to edema or pneumonia. - Procalcitonin x2 negative - Blood cultures (08/11): No growth at 5 days - Son, Mr. Jesica Garcia, does not want any further pursuit of LP because of patient's discomfort - discussed risks / benefits; verbalized understanding - Infectious disease on consultation; s/p Antibiotics s/p Acute hypoxic respiratory failure - possibly 2/2 fluid overload, possibly 2/2 PNA - s/p supplemental oxygen - s/p Furosemide Generalized anxiety - c/w Buspirone Poor oral intake - s/p D5 NS - c/w Modified diet s/p UTI - Urine cultures (08/01): positive for E. Coli / Strep s/p Nausea and vomiting - possibly 2/2 partial SBO - Bowel movements noted regularly - c/w Bowel regimen - Dr. 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 Bianchi (Vascular surgery) and Dr. Jose (Radiology) - splenic infarction and possible occlusion of splenic artery vs tortuous vessel vs positional - no surgery/stenting recommended. - Coagulopathy workup - negative - Appreciate vascular surgery recommendations; c/w anti-emetics and pain control Urinary retention - Patient had trial of Murphy catheter removal - had failed and had recurrent retention - s/p Murphy; c/w straight catheterization as needed - Will have outpatient follow-up with urology Gastroparesis - Diagnosed on barium esophagram - s/p Reglan - c/w Gastroparesis diet - Gastroenterology on consultation Esophagitis/gastritis - c/w PPI - Gastroenterology on consultation Hx of suspected ventricular tachycardia on telemetry - [employer] medical office technology instructor has interrogated device with no concerning findings - Prior Dr. Foster patient, however was discharged from practice after failure to followup HTN - BP well controlled - c/w Lisinopril Hx SSS - s/p PPM in place Hx of AAA Protein calorie malnutrition - Poor oral intake - Continue to encourage PO intake GI prophylaxis - c/w Protonix DVT prophylaxis - c/w Lovenox Durable medical equipment: Wheelchair 1) The beneficiary has a mobility limitation that significantly impairs her ability to participate in one or more mobility related activities of daily living (MRADL) such as toileting, feeding dressing, grooming and bathing in customary locations in the home. A mobility limitation is one that: a) Prevents her from accomplishing an MRADL entirely b) Places the beneficiary at reasonably determined heightened risk of morbidity or mortality secondary to the attempts to perform an MRADL c) Prevents the beneficiary from completing an MRADL within a reasonable time frame 2) The beneficiary's mobility limitation cannot be sufficiently resolved by the use of an appropriate fitted cane or walker 3) Her home provides adequate access between rooms, maneuvering space and surface for use of the manual wheelchair that is provided 4) Use of manual wheelchair will significantly improve the beneficiary's ability to participate in MRADLs and she will use it on a regular basis in the home 5) The beneficiary has not expressed unwillingness to use the manual wheelchair that is provided in the home. 6) She has a caregiver who is available, willing and able to provide assistance with the wheelchair Hospital Bed 1. The beneficiary requires positioning of the body in ways not feasible within normal urinary bed in order to alleviate pain, or 2. The beneficiary requires frequent changes in body position and/or has any immediate need for a change in body position [facility] Patient Lift Patient will require this device in order to assist transitioned from bed to chair / wheelchair Code status: FULL CODE Disposition: - Family has reported that they are able to provide 24/7 care as patient is total assistance including feeding - has refused additional rehabilitation - Advised family that this is not the ideal transition of patient out of hospital (ie: would recommend EFRAIN), however they are in the process of establishing what is required - PFS has been establishing home requirements for discharge (ie: Durable medical equipment) - Anticipate discharge within the next 24-48 hours VS,Pinky, I+O VSPinky, I+O Laboratory Tests 08/25/20 05:48 Vital Signs Date Time Temp Pulse Resp B/P (MAP) Pulse Ox O2 Delivery O2 Flow Rate FiO2 08/25/20 08:09 136/74 08/25/20 06:00 98.4 72 18 92 Room Air 08/19/20 08:00 3.0 I&O- Last 24 Hours up to 6 AM 08/25/20 06:00 Intake Total 100 ml Balance 100 ml ROBERTO MONTGOMERY MD Aug 25, 2020 10:21
[2020-08-25 11:09] LABS: HIV 1&2 SCREEN CENTAUR NEGATIVE (NEGATIVE)
[2020-08-25 12:00] VITALS: BP 136/72
[2020-08-25 13:43] VITALS: BP 121/70
[2020-08-25] MEDS: ENOXAPARIN 40MG/0.4ML SYRINGE (J1650 PER 10MG) SC SCH (16:23)
[2020-08-25] MEDS: QUEtiapine FUMARATE 12.5 MG HALF-TAB PO SCH (20:40)
[2020-08-25 22:00] VITALS: BP 126/69
[2020-08-26] MEDS: SLF 3 ML SYR IV SCH ×3 (04:49→22:03)
[2020-08-26 06:00] VITALS: BP 125/70
[2020-08-26 06:43] LABS: HEMATOCRIT 31.2 % (36.0-47.0); HEMOGLOBIN 10.1 g/dl (12.0-15.5); MEAN CORPUSCULAR HEMOGLOBIN 32.5 pg (27.0-33.0); MEAN CORPUSCULAR HGB CONC 32.4 g/dl (32.0-36.5); MEAN CORPUSCULAR VOLUME 100.3 fl (80.0-96.0); PLATELET COUNT, AUTOMATED 261 10^3/uL (150-450); RED BLOOD COUNT 3.11 10^6/uL (4.00-5.40); WHITE BLOOD COUNT 6.9 10^3/uL (4.0-10.0)
[2020-08-26 07:05] LABS: CALCIUM LEVEL 8.4 MG/DL (8.8-10.2); CREATININE FOR GFR 1.01 MG/DL (0.55-1.30); MAGNESIUM LEVEL 2.2 MG/DL (1.8-2.4); POTASSIUM SERUM 3.8 MEQ/L (3.5-5.1)
[2020-08-26] MEDS: PANTOPRAZOLE 40MG TAB (PROTONIX) PO SCH ×2 (08:40→22:03)
[2020-08-26] MEDS: DOCUSATE SODIUM 100 MG CAP PO SCH (08:40)
[2020-08-26] MEDS: FOLIC ACID 1 MG TAB PO SCH (08:41)
[2020-08-26] MEDS: busPIRone 5 MG TAB PO SCH ×3 (08:41→22:03)
[2020-08-26] MEDS: lisinopriL 10 MG TAB PO SCH (08:45)
[2020-08-26] MEDS: THIAMINE 100 MG TAB PO SCH (08:46)
[2020-08-26] MEDS: MULTIVITAMINS/MINERALS THERAP 1 TAB PO SCH (08:46)
[2020-08-26 09:39] LABS: INR 1.07; PROTHROMBIN TIME 14.1 SECONDS (12.5-14.3)
--- NOTE | 2020-08-26 13:51 | IPNPDOC ---
Text Note Date of Service The patient was seen on 08/26/20. NOTE Patient was seen and examined this morning by me. . She had an episode of has hallucinations last night but is doing much better in the morning Examination GENERAL APPEARANCE: 69 y/o F sitting upright on bed, in no acute distress. Alert and oriented to person and time (not place). HEENT Exam: Normocephalic and atraumatic, PERRL, conjunctiva normal, EOMI. NECK: Supple. LUNGS: Clear to auscultation bilaterally. CARDIOVASCULAR: Regular rate and rhythm, normal S1 & S2 without gallops, murmurs, rubs ABDOMEN: Obese abdomen, soft, non-tender with normal bowel sounds. Ventral hernia noted. EXTREMITIES: 2/4 DP and radial pulses. No clubbing, cyanosis, edema, tenderness. SKIN: Normal turgor and temperature. Ecchymosis noted on left arm and right arm. MUSCULOSKELETAL: Strength 3/5 in upper and lower extremities. NEUROLOGICAL: Moving all 4 extremities but can't maintain the moment for a long period of time because of severe weakness. Able to follow commands. New Imaging results: 1. CT Thoracic Spine With Contrast on 08/05/2020 IMPRESSION: No obvious acute abnormality. Small bilateral pleural effusions with compressive atelectasis at the right lung base. 2. CT Neck With Contrast on 08/05/2020 IMPRESSION: No acute abnormality. Approximately 61% stenosis of the right internal carotid artery with calcified plaque. 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 CTA abdomen was done and was reviewed by Dr. Bianchi (Vascular surgery) and Dr. Jose (Radiology) splenic infarction and possible occlusion of splenic artery vs tortuous vessel vs positional but advised no surgery/stenting recommended. Coagulopathy workup was negative and tele also didnt show any afib / flutter .S he had a very lengthy course and then developed hypotensive episodes on 07/17 requiring IV fluids, and continued to experience nausea/vomiting that required further workup. Her esophagogastroduodenoscopy was consistent with esophagitis/gastritis and gastroparesis; her imaging workup suggested possible partial small vs large bowel obstruction. Surgery was consulted and plan was to operate if patient does not improve with nasogastric tube placement and total parenteral nutrition which was started as the patinet was NPO for more then 72 hours. However, patient improved with nasogastric tube and was transitioned to liquid diet. Since the hypotensive event and subsequent bowl complications, her mentation status did not restored to prior functional capacity. She has had extensive work up of infectious , metabolic and toxic etiologies which were ruled out. She did have electrolyte disturbances and possible UTI which have been treated. . She was also seen by neurology and the also given IVIG's for possible Guillain-Morales syndrome with out any improvement. She has had extensive workup with CT head showed no acute changes. ESR , CRP were mildly elevated but as they are non specific indicators , clinical examination did not point towards cellulitis, pna, meningitis. Encephalitis was one of the deferentials but due to her hospitalization for about 4 weeks and minimal activity other course of delirium , hospital acquired delirium was also considered. . He also has critical illness neuropathy and that is the reason her strength is so weak. We also have tried to reorient her with activity, addressing the sleep hygiene , orientation of diurnal structure and out of bed to chair atleast 3 times a day along with work up for other causes. Off note, a three way call with Dr Kate I and son Yogi was made and Dr Grace explained the need to conservative treatment for her hernia. . She continues to show marked improvement in her mentation ( not strenght ) . and the plan is to continue nutritional support, activity, sleep hygiene, keeping the room well lit during the day, and frequent visits to her by the nursing staff . The son has been on board and wants to take her home and for that social present corrections caseworker have been helping us. 1. Delirium of unknown etiology versus radicular illness neuropathy: Continue monitoring the lites and basic electrolytes. Nutritional support with elevated proteins and multivitamins. Main focus on hospital acquired delirium and continue to work on sleep hygiene. Management out of bed to chair and keeping the room well lit during the day for a normal return of circardian rhythm. Also physical therapy and THERAPY HAS BEEN FOLLOWING THE PATIENT. 2. UTI: Treatment completed. Urine culture reviewed and on 08/01/2020 grew E.Coli and Strep gallolyticus SSP pasteu (both >100,000 CFU/ml, C&S pansensitive) 3. Macrocytic anemia, likely multifactorial with anemia of chronic disease, vitamin deficiencies, and microscopic hematuria. Continue monitoring and transfuse as needed. Maintain the hemoglobin above 7. Thiamine and folic acid supplementation continued. 4. SBO, resolved: He secondary to ventral hernia. Had a discussion with surgery in detail and conservative management at this time and once the patient recovers from this. Debility surgeons will reconsider for potential cardiac. This was conveyed on a 3 way call to the son. 5. Ventral hernia: Again, as discussed above a discussion was held with Pt's son (Mr. Yogi Gonzalez) and Dr. Sanjay KAUFMAN. (general surgery), patient was recommended to manage hernia conservatively, patient is a poor surgical candidate at this time due to her unstable mentation status. Surgery team recommended to continue hernia management with daily laxatives. Family agrees with the current plan. DVT prophylaxis Durable medical equipment: Wheelchair 1) The beneficiary has a mobility limitation that significantly impairs her ability to participate in one or more mobility related activities of daily living (MRADL) such as toileting, feeding dressing, grooming and bathing in customary locations in the home. A mobility limitation is one that: a) Prevents her from accomplishing an MRADL entirely b) Places the beneficiary at reasonably determined heightened risk of morbidity or mortality secondary to the attempts to perform an MRADL c) Prevents the beneficiary from completing an MRADL within a reasonable time frame 2) The beneficiary's mobility limitation cannot be sufficiently resolved by the use of an appropriate fitted cane or walker 3) Her home provides adequate access between rooms, maneuvering space and surface for use of the manual wheelchair that is provided 4) Use of manual wheelchair will significantly improve the beneficiary's ability to participate in MRADLs and she will use it on a regular basis in the home 5) The beneficiary has not expressed unwillingness to use the manual wheelchair that is provided in the home. 6) She has a caregiver who is available, willing and able to provide assistance with the wheelchair Hospital Bed 1. The beneficiary requires positioning of the body in ways not feasible with an ordinary bed due to medical condition, which is expected to last at least 1 month 2. The patient requires the head of the bed to be elevated more than 30 most of the times due to risk of aspiration 3. Patient requires frequent changes in the body positioning. [facility] Patient Lift Patient will require this device in order to assist transitioned from bed to chair / wheelchair Code status: FULL CODE Disposition: - Family has reported that they are able to provide 24/7 care as patient is total assistance including feeding - has refused additional rehabilitation - Advised family that this is not the ideal transition of patient out of hospital (ie: would recommend EFRAIN), however they are in the process of establishing what is required - PFS has been establishing home requirements for discharge (ie: Durable medical equipment) - Anticipate discharge within the next 24 hours VS,Pinky, I+O VS, Gurdeepbone, I+O Laboratory Tests 08/26/20 05:59 Vital Signs Date Time Temp Pulse Resp B/P (MAP) Pulse Ox O2 Delivery O2 Flow Rate FiO2 08/26/20 08:45 162/78 08/26/20 06:00 96.8 73 18 93 Room Air I&O- Last 24 Hours up to 6 AM 08/26/20 06:00 Intake Total 263 ml Output Total 350 ml Balance -87 ml NARESH VIDES MD Aug 26, 2020 13:51
[2020-08-26 14:00] VITALS: BP 135/92
[2020-08-26] MEDS: BOUDREAUX'S BUTT PASTE TOP PRN (14:06)
[2020-08-26] MEDS: ENOXAPARIN 40MG/0.4ML SYRINGE (J1650 PER 10MG) SC SCH (15:33)
[2020-08-26 22:00] VITALS: BP 138/87
[2020-08-26] MEDS: QUEtiapine FUMARATE 12.5 MG HALF-TAB PO SCH (22:03)
[2020-08-27] MEDS: BOUDREAUX'S BUTT PASTE TOP PRN (05:44)
[2020-08-27 06:00] VITALS: BP 160/94
[2020-08-27] MEDS: SLF 3 ML SYR IV SCH ×2 (06:03→15:27)
[2020-08-27 06:20] LABS: HEMATOCRIT 31.4 % (36.0-47.0); HEMOGLOBIN 10.2 g/dl (12.0-15.5); MEAN CORPUSCULAR HEMOGLOBIN 32.3 pg (27.0-33.0); MEAN CORPUSCULAR HGB CONC 32.5 g/dl (32.0-36.5); MEAN CORPUSCULAR VOLUME 99.4 fl (80.0-96.0); PLATELET COUNT, AUTOMATED 267 10^3/uL (150-450); RED BLOOD COUNT 3.16 10^6/uL (4.00-5.40); WHITE BLOOD COUNT 5.7 10^3/uL (4.0-10.0)
[2020-08-27 06:49] LABS: CALCIUM LEVEL 7.8 MG/DL (8.8-10.2); CREATININE FOR GFR 1.19 MG/DL (0.55-1.30); MAGNESIUM LEVEL 2.2 MG/DL (1.8-2.4); POTASSIUM SERUM 3.6 MEQ/L (3.5-5.1)
[2020-08-27] MEDS: MULTIVITAMINS/MINERALS THERAP 1 TAB PO SCH (09:13)
[2020-08-27] MEDS: FOLIC ACID 1 MG TAB PO SCH (09:13)
[2020-08-27] MEDS: PANTOPRAZOLE 40MG TAB (PROTONIX) PO SCH (09:13)
[2020-08-27] MEDS: DOCUSATE SODIUM 100 MG CAP PO SCH (09:13)
[2020-08-27] MEDS: busPIRone 5 MG TAB PO SCH ×2 (09:13→15:27)
[2020-08-27 09:14] VITALS: BP 162/96
[2020-08-27] MEDS: THIAMINE 100 MG TAB PO SCH (09:14)
[2020-08-27] MEDS: lisinopriL 10 MG TAB PO SCH (09:14)
[2020-08-27 14:00] VITALS: BP 161/92
--- NOTE | 2020-08-27 15:10 | DS.PDOC ---
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 CTA abdomen was done and was reviewed by Dr. Bianchi (Vascular surgery) and Dr. Jose (Radiology) splenic infarction and possible occlusion of splenic artery vs tortuous vessel vs positional but advised no surgery/stenting recommended. Coagulopathy workup was negative and tele also didnt show any afib / flutter .She had a very lengthy course and then developed hypotensive episodes on 07/17 requiring IV fluids, and continued to experience nausea/vomiting that required further workup. Her esophagogastroduodenoscopy was consistent with esophagitis/gastritis and gastroparesis; her imaging workup suggested possible partial small vs large bowel obstruction. Surgery was consulted and plan was to operate if patient does not improve with nasogastric tube placement and total parenteral nutrition which was started as the patinet was NPO for more then 72 hours. However, patient improved with nasogastric tube and was transitioned to liquid diet. Since the hypotensive event and subsequent bowl complications, her mentation status did not restored to prior functional capacity. She has had extensive work up of infectious , metabolic and toxic etiologies which were ruled out. She did have electrolyte disturbances and possible UTI which have been treated. . She was also seen by neurology and the also given IVIG's for possible Guillain-Morlaes syndrome with out any improvement. She has had extensive workup with CT head showed no acute changes. ESR , CRP were mildly elevated but as they are non specific indicators , clinical examination did not point towards cellulitis, pna, meningitis. Encephalitis was one of the deferentials but due to her hospitalization for about 4 weeks and minimal activity other course of delirium , hospital acquired delirium was also considered. . He also has critical illness neuropathy and that is the reason her strength is so weak. We also have tried to reorient her with activity, addressing the sleep hygiene , orientation of diurnal structure and out of bed to chair atleast 3 times a day along with work up for other causes. Off note, a three way call with Dr Kate I and son Yogi was made and Dr Grace explained the need to conservative treatment for her hernia. . She continues to show marked improvement in her mentation ( not strenght ) . and the plan is to continue nutritional support, activity, sleep hygiene, keeping the room well lit during the day, and frequent visits to her by the nursing staff . The son has been on board and wants to take her home and for that social present bilingual case manager have been helping us and today the patient will be discharged home with home care, which has already been set up. He would require the following equipment and the necessity is detailed as below. Off note, the patient has been incontinent at the same time has been having high residuals and for that reason. Murphy has been inserted and the patient will be discharged on catheter with a follow-up with PCP/urology as an outpatient for the change. Durable medical equipment: Wheelchair 1) The beneficiary has a mobility limitation that significantly impairs her ability to participate in one or more mobility related activities of daily maricruz ng (MRADL) such as toileting, feeding dressing, grooming and bathing in customary locations in the home. A mobility limitation is one that: a) Prevents her from accomplishing an MRADL entirely b) Places the beneficiary at reasonably determined heightened risk of morbidity or mortality secondary to the attempts to perform an MRADL c) Prevents the beneficiary from completing an MRADL within a reasonable time frame 2) The beneficiary's mobility limitation cannot be sufficiently resolved by the use of an appropriate fitted cane or walker 3) Her home provides adequate access between rooms, maneuvering space and surface for use of the manual wheelchair that is provided 4) Use of manual wheelchair will significantly improve the beneficiary's ability to participate in MRADLs and she will use it on a regular basis in the home 5) The beneficiary has not expressed unwillingness to use the manual wheelchair that is provided in the home. 6) She has a caregiver who is available, willing and able to provide assistance with the wheelchair Hospital Bed 1. The beneficiary requires positioning of the body in ways not feasible with an ordinary bed due to medical condition, which is expected to last at least 1 month 2. The patient requires the head of the bed to be elevated more than 30 most of the times due to risk of aspiration 3. Patient requires frequent changes in the body positioning. [facility] Patient Lift Patient will require this device in order to assist transitioned from bed to chair / wheelchair Family has reported that they are able to provide 24/7 care as patient is total assistance including feeding - has refused additional rehabilitation. Advised family that this is not the ideal transition of patient out of hospital (ie: would recommend EFRAIN), however they are in the process of establishing what is required. PFS has been establishing home requirements for discharge (ie: Durable medical equipment) Physical Examination GENERAL APPEARANCE: 69 y/o F sitting upright on bed, in no acute distress. Alert and oriented to person and time (not place). HEENT Exam: Normocephalic and atraumatic, PERRL, conjunctiva normal, EOMI. NECK: Supple. LUNGS: Clear to auscultation bilaterally. CARDIOVASCULAR: Regular rate and rhythm, normal S1 & S2 without gallops, murmurs, rubs ABDOMEN: Obese abdomen, soft, non-tender with normal bowel sounds. Ventral hernia noted. EXTREMITIES: 2/4 DP and radial pulses. No clubbing, cyanosis, edema, tenderness. SKIN: Normal turgor and temperature. Ecchymosis noted on left arm and right arm. MUSCULOSKELETAL: Strength 3/5 in upper and lower extremities. NEUROLOGICAL: Moving all 4 extremities but can't maintain the moment for a long period of time because of severe weakness. Able to follow commands. New Imaging results: 1. CT Thoracic Spine With Contrast on 08/05/2020 IMPRESSION: No obvious acute abnormality. Small bilateral pleural effusions with compressive atelectasis at the right lung base. 2. CT Neck With Contrast on 08/05/2020 IMPRESSION: No acute abnormality. Approximately 61% stenosis of the right internal carotid artery with calcified plaque. Medications. As per discharge reconciliation medication list Activity as tolerated Diet. 2 g sodium, dysphagia diet with aspiration precautions and assistance with feeding Follow-up appointments. PCP in 1 week. Neurology in 4 weeks Condition on discharge. Patient is medically optimized for discharge Discharge disposition: Home with home care Total time spent on this discharge including coordination of care, review of chart documentation and actual patient contact is around 50 minutes Vital Signs/I&Os Vital Signs Date Time Temp Pulse Resp B/P (MAP) Pulse Ox O2 Delivery O2 Flow Rate FiO2 08/27/20 14:00 97.5 72 16 161/92 (115) 94 Room Air I&O- Last 24 Hours up to 6 AM 08/27/20 06:00 Intake Total 750 ml Output Total 900 ml Balance -150 ml Laboratory Data Labs 24H Laboratory Tests 2 08/27/20 06:06: Nucleated Red Blood Cells % (auto) 0.0, Anion Gap 4L, Glomerular Filtration Rate 48.0, Calcium Level 7.8L, Magnesium Level 2.2 CBC/BMP Laboratory Tests 08/27/20 06:06 Discharge Medications Scheduled Aspirin (Aspir 81) 81 Mg Tablet.dr, 81 MG PO DAILY, (Reported) Lisinopril (Lisinopril) 10 Mg Tablet, 10 MG PO DAILY, (Reported) Allergies Coded Allergies: procaine (Verified Allergy, Unknown, rash, 01/25/20) NARESH VIDES MD Aug 27, 2020 15:10
[2020-08-27] MEDS ORDERED: QUET1TAB7 PO (15:22)
[2020-08-27] MEDS ORDERED: DOCU100C16 PO (15:22)
[2020-08-27] MEDS ORDERED: PANT40TA29 PO (15:22)
[2020-08-27] MEDS ORDERED: BUSP5TA PO (15:22)
[2020-08-27] MEDS ORDERED: BOUDPST TOP (15:22)
[2020-08-27] MEDS ORDERED: VITMTA PO (15:22)
[2020-08-27] MEDS ORDERED: THIA100TA PO (15:22)
[2020-08-27] MEDS ORDERED: FOLI1TAB11 PO (15:22)
[2020-08-27] MEDS: ENOXAPARIN 40MG/0.4ML SYRINGE (J1650 PER 10MG) SC SCH (15:27)
[2020-08-27 16:14] LABS: BASO % 0.2 % (0.0-1.0); EOS % 0.1 % (0.0-3.0); HEMATOCRIT 39.9 % (36.0-47.0); HEMOGLOBIN 14.1 g/dl (12.0-15.5); LYMPH # 2.2 10^3/uL (1.5-5.0); LYMPH % 27.4 % (24.0-44.0); MEAN CORPUSCULAR HEMOGLOBIN 33.6 pg (27.0-33.0); MEAN CORPUSCULAR HGB CONC 35.3 g/dl (32.0-36.5); MONO # 0.7 10^3/uL (0.0-0.8); MONO % 8.7 % (0.0-5.0); NEUTROPHILS # 5.1 10^3/uL (1.5-8.5); NEUTROPHILS % 63.1 % (36.0-66.0); PLATELET COUNT, AUTOMATED 148 10^3/uL (150-450)
--- NOTE | 2020-08-27 17:29 | IPN ---
DATE: 08/15/2020 ATTENDING PHYSICIAN: Ruddy Camp MD SUBJECTIVE: Mrs. Sosa was seen and examined this morning. From an infectious standpoint, she has remained afebrile. Her fever was likely due to an aspiration pneumonitis previously and less likely due to a pneumonia. She has remained off antibiotics. Mentation pro the patient still appears somewhat confused. She still has some abnormal movements concerning for Guillain-Morales syndrome, otherwise the patient herself makes no new complaints. OBJECTIVE: Vital signs: Temperature 98.5, pulse 74, respiratory rate 20, blood pressure 154/80, pulse oximetry 93% on room air. General: Patient is awake, alert, she is intermittently oriented to her person. She does not appear in any acute distress. HEENT: Atraumatic, normocephalic. Her eyes are nonicteric. Her trachea is midline. Mucous membranes appear somewhat dry. Poor dentition overall. Cardiovascular: Normal S1, S2. Regular rate and rhythm. No clicks, rubs, or murmurs. Pulmonary: Patient has clear vesicular breath sounds bilaterally with good respiratory effort. No wheezes, rhonchi, or rales. Abdominal: Soft, nondistended. There is a large ventral hernia present. There is no rebound tenderness. There is normoactive bowel sounds throughout. Extremities: No edema. Full and equal pulses bilateral upper and lower extremities. Neurologic: Patient has bilateral upper arm and lower leg weakness. She does attempt to follow commands, however is not able to raise her arms. She has good cover cutter machine strength bilaterally. Otherwise, no focal neurological deficits present. Psychiatric: Patients mood appears appropriate. LABORATORY DATA: Hematology: White blood cells 7.4, hemoglobin 9.7, hematocrit 29.9, platelet count 419. Chemistry: Sodium 141, potassium 2.9, chloride 107, CO2 28, BUN 9, creatinine 0.64, fasting glucose 78, calcium 8.3, magnesium 1.9, C-reactive protein 2.10. Procalcitonin 0.07. ASSESSMENT AND PLAN: 1. Mental status change. Patient has had mental status changes since early in her admission. A lumbar puncture had been attempted fairly recently, however the patient was unable to tolerate this as she has frequent movements. It was suggested that this be completed under sedation however this was not done per request of the son. The patient is being followed by neurology currently. There is concern for Guillain-Morales syndrome which certainly fits the patients presentation of ascending bilateral numbness and weakness following her original admission for abdominal pain. 2. Fever. Patient had developed a fever after a suspected aspiration event. She was treated with Zosyn. Her antibiotics were discontinued. She remained afebrile. White blood cell count has not been elevated. Likely an aspiration pneumonitis and not bacterial pneumonia, procalcitonin resulted in 0.07. At this point, would recommend not restarting antibiotics, likely aspiration pneumonitis. 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 Will be signing off at this point. My faculty preceptor for this patient encounter was physically present during the encounter and was fully available. All aspects of the patient interview, examination, medical decision making process, and medical care plan development were reviewed and approved by the faculty preceptor. The faculty preceptor is aware and concurs with the plan as stated in the body of this note and will attest to such by his/her co-signature. MICHAEL
--- NOTE | 2020-08-28 09:10 | REP ---
FLUORO GUIDANCE FOR LUMBAR PUNCTURE The procedure was performed under the direct supervision of Dr. Jose. The risks and benefits of the procedure were explained and informed consent was obtained by the healthcare proxy. The L3-4 interspace was localized using fluoroscopic guidance. The skin was prepped and draped in a sterile fashion. However, at this point, the patient was unable to hold still on the table in order to complete the procedure. The procedure was then discontinued. 0.2 minutes of fluoroscopy time was utilized for this procedure. MICHAEL
--- NOTE | 2020-09-05 13:36 | ECHO ---
DATE OF PROCEDURE: 07/20/2020 Age: 69 Gender: Female Height: 62 inches Weight: 189 pounds Body surface area 1.87 meters squared. Inpatient: PCU room 3221 REFERRING PHYSICIAN: Steffen Fofana MD INDICATION: Cardiac arrhythmia. MEASUREMENTS: 2D measurements: RV 3.4 cm LV 3.8 cm Septum 1.3 cm Posterior wall 1.3 cm Aortic root 3.2 cm LA 4.0 cm LVEF 65-70% DOPPLER MEASUREMENTS: AV 1.1 meters per second LVOT 0.8 meters per second MV E 41, A 59, E/E ratio 0.7 Early mitral deceleration time 214 milliseconds E prime medial 4.6 A prime medial 9.7 E prime lateral 9.1 E/E prime ratio per average 5.9/PCWP 9.3 mmHg PV- 0.8 meters per second Pulmonary artery acceleration time 92 milliseconds PASP 42 mmHg IVC could not be visualized because of abdominal pains. COMMENTS: Normal sinus rhythm without intraventricular conduction disturbance. Change in rhythm should be consistent atrially paced rhythm with spontaneously recondition. Normal QRS complexes. M-mode and 2 dimensional echocardiography was performed with pulse continuos wave, color flow and tissue Doppler studies. Mild concentric left ventricular hypertrophy with normal wall motion. Mildly dilated left atrium with grade 1 LV diastolic dysfunction, but currently normal estimated mean left atrial pressure. Normal right heart chamber sizes and motion with single Doppler signs suggesting moderate pulmonary hypertension. We could not visualize her inferior vena cava to further estimate her central venous pressure. Normal aortic diameters. Slight aortic valvular sclerosis without functional abnormality. The second mitral annulus with normal leaflet excursion and no posterior systolic buckling. Trace to very mild mitral insufficiency. Normal appearing tricuspid valve with no significant tricuspid regurgitation. No pericardial effusion. Pacing leads could be visualized traversing right heart chambers. MTDD
[2020-10-05 12:23] LABS: ALBUMIN 3.4 GM/DL (3.2-5.2); BILIRUBIN,TOTAL 1.6 MG/DL (0.2-1.0); CALCIUM LEVEL 8.9 MG/DL (8.8-10.2); CREATININE FOR GFR 1.39 MG/DL (0.55-1.30); GLOMERULAR FILTRATION RATE 40.1 (>45); MAGNESIUM LEVEL 2.5 MG/DL (1.8-2.4); POTASSIUM SERUM 2.8 MEQ/L (3.5-5.1); TOTAL PROTEIN 6.9 GM/DL (6.4-8.2)
== END 2020-08-27 17:50 | disposition home health service (06) | DRG 393 ==
LOC: M ED 16:30 → M MSPAV 07-15 00:15 → M PCU 07-19 02:50 → M MS5PR 08-02 00:51 → M PCU 08-02 17:50 → M MSPAV 08-22 17:16
PROVIDERS: ADMIT Internal Medicine; ATTEND Internal Medicine
PROC: 0DB78ZX Excision of Stomach, Pylorus, Via Natural or Artificial Opening Endoscopic, Diagnostic (ICD-10-PCS; 2020-07-22)
PROC: 0DB38ZX Excision of Lower Esophagus, Via Natural or Artificial Opening Endoscopic, Diagnostic (ICD-10-PCS; 2020-07-22)
PROC: 02HV33Z Insertion of Infusion Device into Superior Vena Cava, Percutaneous Approach (ICD-10-PCS; principal; 2020-07-24 15:44)
DX: K43.6 Other and unspecified ventral hernia with obstruction, without gangrene (principal); G93.41 Metabolic encephalopathy; J18.9 Pneumonia, unspecified organism; J96.01 Acute respiratory failure with hypoxia; I50.33 Acute on chronic diastolic (congestive) heart failure; I47.2 Ventricular tachycardia; N39.0 Urinary tract infection, site not specified; G72.81 Critical illness myopathy; E46 Unspecified protein-calorie malnutrition; G61.0 Guillain-Barre syndrome; R44.3 Hallucinations, unspecified; K31.84 Gastroparesis; I11.0 Hypertensive heart disease with heart failure; I49.5 Sick sinus syndrome; I71.4 Abdominal aortic aneurysm, without rupture; E66.9 Obesity, unspecified; K44.9 Diaphragmatic hernia without obstruction or gangrene; Z95.0 Presence of cardiac pacemaker; Z88.4 Allergy status to anesthetic agent; Z88.8 Allergy status to other drugs, medicaments and biological substances; D73.5 Infarction of spleen; K59.00 Constipation, unspecified; E83.42 Hypomagnesemia; R53.83 Other fatigue; R20.0 Anesthesia of skin; R33.9 Retention of urine, unspecified; K29.70 Gastritis, unspecified, without bleeding; K20.9 Esophagitis, unspecified; Z53.09 Procedure and treatment not carried out because of other contraindication; R53.1 Weakness; D53.9 Nutritional anemia, unspecified; B96.20 Unspecified Escherichia coli [E. coli] as the cause of diseases classified elsewhere; F03.90 Unspecified dementia, unspecified severity, without behavioral disturbance, psychotic disturbance, mood disturbance, and anxiety; Y95 Nosocomial condition; I16.0 Hypertensive urgency; Z20.828 Contact with and (suspected) exposure to other viral communicable diseases; F41.1 Generalized anxiety disorder

== ENCOUNTER 2020-08-31 16:01 | Emergency (ER) | payer MEDICARE ==
[~2020-08-31] VITALS: Ht 165.1 cm; Wt 77.9 kg
[~2020-08-31 16:01] MED LIST changes: +BOUDPST TOP; +BUSP5TA PO; +DOCU100C16 PO; +FOLI1TAB11 PO; +PANT40TA29 PO; +QUET1TAB7 PO; +THIA100TA PO; +VITMTA PO
[2020-08-31] MEDS ORDERED: LIDOCAINE 2% 5ML JELLY UROJET TOP ONE (16:45)
[2020-08-31 17:35] VITALS: BP 119/75
== END 2020-08-31 18:15 | disposition home or self-care (01) ==
LOC: M ED 16:01
DX: T83.021A Displacement of indwelling urethral catheter, initial encounter (principal); Y73.2 Prosthetic and other implants, materials and accessory gastroenterology and urology devices associated with adverse incidents; I10 Essential (primary) hypertension; F03.90 Unspecified dementia, unspecified severity, without behavioral disturbance, psychotic disturbance, mood disturbance, and anxiety; Z95.0 Presence of cardiac pacemaker; Z88.6 Allergy status to analgesic agent; Z79.899 Other long term (current) drug therapy; Z79.82 Long term (current) use of aspirin

== ENCOUNTER → 2024-02-07 | Outpatient (REF) | payer MEDICARE ==
[~2024-02-07] MED LIST changes: +LISI10TA22 PO; -LISI10TA4 PO; +QUET1TAB17 PO; -QUET1TAB7 PO
[2024-02-07 15:14] LABS: AMORPHOUS SEDIMENT MODERATE (NEGATIVE); APPEARANCE, URINE TURBID (CLEAR); BACTERIA, URINE AUTO NEGATIVE (NEGATIVE); BILIRUBIN, URINE AUTO NEGATIVE (NEGATIVE); BLOOD, URINE BLOOD 2+ (NEGATIVE); COLOR, URINE AMBER (YELLOW); GLUCOSE, URINE (UA) AUTO NEGATIVE (NEGATIVE); KETONE, URINE AUTO NEGATIVE (NEGATIVE); LEUKOCYTE ESTERASE, URINE AUTO 2+ (NEGATIVE); MUCUS, URINE SMALL (NEGATIVE); NITRITE, URINE AUTO NEGATIVE (NEGATIVE); PROTEIN, URINE AUTO 2+ mg/dL (NEGATIVE); RBC, URINE AUTO 34 /HPF (0-3); SQUAMOUS EPITHELIAL CELL UR AU 0 /HPF (0-6); TRIPLE PHOSPHATE CRYSTALS SMALL; UROBILINOGEN, URINE AUTO 0.2 mg/dL (0.0-2.0); WBC, URINE AUTO TNTC /HPF (0-3)
== END ==
LOC: M LAB REF 14:03
PROVIDERS: ATTEND Physical Therapist
DX: N39.0 Urinary tract infection, site not specified (principal)